=== PATIENT | male | born 1960 | race Caucasian/White ===

== ENCOUNTER 2019-09-02 07:58 | Emergency (ER) | payer MEDICARE, SELFPAY ==
[2019-09-02] VITALS (8 sets, daily range): BP systolic 105–147; BP diastolic 76–90; PULSE 81–112; RESP 9–22; TEMP 36.4; O2SAT 89–100
--- NOTE | ~2019-09-02 | CT_ITS ---
EXAMINATION: CT brain wo con DATE: 09/02/2019 09:00 INDICATION: Breakthrough seizure. Headache. TECHNIQUE: Computed tomography (CT) of the head was performed without intravenous contrast. Sagittal and coronal reconstructions were performed. The mA was adjusted according to patient size. Iterative reconstruction technique was employed. The dose-length product was 681.00 mGy-cm. COMPARISON: Brain MR dated 05/19/2019 FINDINGS: Small old lacunar infarct in the left frontal lobe centrum semiovale. Minimal scattered white matter hypoattenuation consistent with chronic small vessel ischemic disease. No acute intracranial hemorrha ge, acute infarction or abnormal extra axial fluid collection. Ventricles are normal and symmetric. N o mass/mass effect. Mild mucosal thickening the right ethmoid sinus. The orbits, paranasal sinuses an d right mastoid air cells are normal. Left mastoiditis hypopneumatized but clear. Debris/cerumen at t he bilateral external auditory canals. IMPRESSION: 1. No acute intracranial process. 2. Left frontal lobe small old lacunar infarct and minimal scattered white matter hypoattenuation con sistent with chronic small vessel ischemic disease. Reviewed, dictated and finalized at location A. IMPRESSION: 1. No acute intracranial process. 2. Left frontal lobe small old lacunar infarct and minimal scattered white lindsey er hypoattenuation consistent with chronic small vessel ischemic disease.
--- NOTE | 2019-09-02 07:55 | ED.SEIZURE ---
HPI - Seizure General Chief Complaint: Seizure Stated Complaint: seizure Time Seen by Provider: 09/02/19 07:55 Source: EMS Mode of arrival: EMS Limitations: clinical condition History of Present Illness HPI Narrative: A 59 y/o male presents to the ED, via EMS, after a SZ. Per EMS, pt has a PMHx of cerebral palsy and SZs. Pt's mother heard the pt fall from an adjacent room and the pt was found on the ground. Pt fell on his knees during the fall and hit his face with bruising to the left side. Pt does have a PMHx of a previous knee injury and he has been crawling on the floor. When EMS arrived, pt was alert but then had another SZ. EMS is unsure of the pt's normal baseline. Pt is on Phenytoin for his SZ and he had this medication changed within the last couple months. A complete HPI is limited due to clinical condition. Per sister over the phone, pt recently started taking Keppra in addition to dilantin. Patient taking Phenytoin 100 mg BID and Keppra 2000 mg BID. Per sister, dose of dilantin has been gradually lowered. Onset (ago): hour(s) Witnessed: Yes - by EMS Trauma: Yes Seizure History: Yes Place: home Related Data Home Medications Medication Instructions Recorded Confirmed buspirone 15 mg PO TID 09/02/19 09/02/19 finasteride 5 mg PO DAILY 09/02/19 09/02/19 levetiracetam [Keppra] 2,000 mg PO BID 09/02/19 09/02/19 loratadine [Claritin] 10 mg PO DAILY 09/02/19 09/02/19 lorazepam 0.5 mg PO HS 09/02/19 09/02/19 phenytoin sodium extended 100 mg PO BID 09/02/19 09/02/19 [Dilantin Extended] Allergies Allergy/AdvReac Type Severity Reaction Status Date / Time Sulfa (Sulfonamide Allergy Unknown Hives Verified 09/02/19 10:03 Antibiotics) Review of Systems Review of Systems: ROS unobtainable: Yes other (due to clinical condition) PMFSH Past Medical History Medical History Anxiety Basal cell carcinoma (BCC) of right side of nose Cerebral palsy FH: CAD (coronary artery disease) GERD (gastroesophageal reflux disease) Hypertriglyceridemia Non-seasonal allergic rhinitis Osteopenia Seizure Sinus problem Vitamin D deficiency Surgical History Surgical History H/O knee surgery bilateral History of tonsillectomy Family History Family History Sibling Family history of malignant neoplasm of breast in first degree relative Patient's sister is in good health Mother Patient's mother is in good health Social History Social History Smoking status: Never smoker Second hand tobacco smoke exposure: No Alcohol intake: never Comments No PCP on file. Exam Narrative: Exam Narrative: GENERAL: Postictal, eyes open, agitated HEAD: Normocephalic, hematoma to left forehead, abrasion to left lip, no laceration EYES: 2+ PERRLA and EOMI. ENT: Nares clear, no rhinorrhea or epistaxis. Mucous membranes moist. Bilateral tongue abrasion. NECK: Supple. CHEST: No audible wheezing, no tachypnea. No respiratory distress. HEART: Tachycardic rate, sinus rhythm ABDOMEN: Soft, nontender, nondistended, normal active bowel sounds. EXTREMITIES: Normal range of motion. No edema. SKIN: Warm, dry, no rash. NEURO: Postictal, moving all extremities spontaneously, no focal deficits Course Course Emergency Course: Patient presented to the emergency department for evaluation of breakthrough seizure. At the time of initial assessment, ABCs are intact and vital signs are stable. Physical examination notable for abrasion to upper lip and left head without laceration. Patient is awake, moving all extremities spontaneously, postictal at this point unable to provide additional history. IV access obtained, patient was given IV Ativan for agitation. Laboratory results are reassuring. No UTI. No severe electrolyte derangement. No acute intracran
--- NOTE | 2019-09-02 08:08 | PC.NURSE ---
Pt yelling out loudly and thrashing on stretcher. Appears to shayla x4, attempts to calm unsuccessful. Preparing to give medications.
[2019-09-02 08:09] LABS: Glucose Point of Care 138 (65-105)
[2019-09-02] MEDS: SODIUM CHLORIDE 0.9% IV 1,000 ML 999 ML IV CONT (08:10)
[2019-09-02] MEDS: LORAZEPAM INJ 2 MG/ML VIAL 1 MG IV PUSH (08:10)
[2019-09-02 08:32] LABS: Basophils Absolute Auto 0.1 K/mm3 (0.0-0.1); Basophils Percent Auto 0.6 % (0.2-1.2); Eosinophils Absolute Auto 0.3 K/mm3 (0-0.3); Hematocrit 41.5 % (42.0-52.0); Hemoglobin 14.3 g/dL (14.0-18.0); Immature Granulocyte Absolute 0.06 K/mm3 (0.00-0.031); Immature Granulocyte Percent A 0.6 % (0-0.5); Lymphocytes Absolute Auto 2.84 K/mm3 (0.9-3.2); Lymphocytes Percent Auto 30.4 % (18.3-44.2); Mean Corpuscular HGB Conc 34.5 g/dl (32-36); Mean Corpuscular Hemoglobin 31.3 pg (26-34); Mean Corpuscular Volume 90.8 fl (80-100); Mean Platelet Volume 9.4 fl (7.4-10.4); Monocytes Absolute Auto 0.8 K/mm3 (0.1-0.6); Monocytes Percent Auto 8.1 % (2.6-8.5); Neutrophils Absolute Auto 5.3 K/mm3 (1.3-6.7); Neutrophils Percent Auto 57.3 % (45.5-73.1); Platelet Count Result 225 k/mm3 (150-375); Red Blood Count 4.57 M/mm3 (4.6-6.20); Red Cell Distribution Width 12.1 % (11.5-14.5); White Blood Count 9.3 K/mm3 (4.5-10.0)
[2019-09-02 08:42] LABS: Prothrombin Time 12.9 Seconds (11.1-14.7)
[2019-09-02 08:43] LABS: Partial Thromboplastin Time 21.8 SECONDS (22.3-36.8)
[2019-09-02 08:49] LABS: Albumin Level 4.3 g/dL (3.5-5.1); Alkaline Phosphatase 55 U/L (38-126); Aspartate Amino Transferase 29 U/L (17-59); Bilirubin,Total 0.3 mg/dL (0.2-1.3); Blood Urea Nitrogen 11 mg/dL (9-20); Calcium 8.9 mg/dL (8.4-10.2); Carbon Dioxide 19 mmol/L (22-30); Chloride 106 mmol/L (98-107); Estimated Glomerular Filt Rate > 60; Glucose 131 mg/dL (75-110); Potassium 3.7 mmol/L (3.4-5.0); Sodium 138 mmol/L (137-145)
[2019-09-02 09:23] LABS: Alanine Aminotransferase 22 U/L (4-50)
[2019-09-02 09:24] LABS: Phenytoin Dilantin < 3 ug/mL (10-20)
[2019-09-02 09:37] LABS: Add Urine Microscopic? YES; Appearance Urine Clear (Clear); Bilirubin Urine Negative (Negative); Blood Urine Negative (Negative); Color Urine Straw (Yellow); Glucose Urine UA Negative (Negative); Ketones Urine Negative (Negative); Leukocyte Esterase Ur Negative LEU/UL (Negative); Mucus Urine Rare /lpf; Nitrate Urine Negative (Negative); Protein Urine 1+ mg/dL (Negative); RBC Urine 0-2 /hpf (0-2); Specific Grav Ur 1.013 (1.001-1.035); Urobilinogen Urine Negative mg/dL (<2.0)
[2019-09-02] MEDS: levETIRAcetam 1000MG/NACL100ML 1,000 MG/100 ML BAG 400 MG IVPB (09:50)
--- NOTE | 2019-09-02 09:50 | PC.NURSE ---
Pt sleeping soundly and awakens to name. Shakes head yes and no but is mostly noncommunicative. 2nd antiseizure medicine initiated IV.
--- NOTE | 2019-09-02 10:01 | PC.NURSE ---
Call to mother, name of meds and allergies unknown. States normally patient walks with braces on his legs but that he couldnt get them on this am and was crawling around on his knees. States he took his medications this am. Mother reports she is disabled and will not be able to come and see him in the hospital.
--- NOTE | 2019-09-02 16:43 | ED.GENADULT ---
HPI - General Adult General Chief complaint: Seizure Stated complaint: seizure Time Seen by Provider: 09/02/19 07:55 Source: EMS Mode of arrival: EMS Limitations: other (Developmental delay) History of Present Illness HPI narrative: The patient is a 59-year-old male with a history of epilepsy, currently taking phenytoin and Keppra, who presents to the emergency department because family states they are unable to care for him at home. Patient was initially evaluated in the emergency department earlier this morning for breakthrough seizure, given phenytoin, Keppra loading doses, coordinated care with his neurologist, patient was given 1 mg of Ativan for his initial agitation during his postictal state. Patient had awakened, and returned home after coordinating care with the patient's sister and guardian, but the sister called EMS this afternoon as she felt like the patient could not be cared for at home anymore. Per the sister, they had been trying to attempt placement at a long-term care facility for the patient, but due to the current coronavirus outbreak, had been delayed any placement at this point. Patient was then transferred back to our facility via EMS for placement. At the time of assessment, the patient is awake, alert, no acute distress. He is communicating at baseline. He has no complaints. Related Data Home Medications Medication Instructions Recorded Confirmed buspirone 15 mg PO TID 09/02/19 09/02/19 finasteride 5 mg PO DAILY 09/02/19 09/02/19 levetiracetam [Keppra] 2,000 mg PO BID 09/02/19 09/02/19 loratadine [Claritin] 10 mg PO DAILY 09/02/19 09/02/19 lorazepam 0.5 mg PO HS 09/02/19 09/02/19 phenytoin sodium extended 100 mg PO BID 09/02/19 09/02/19 [Dilantin Extended] Allergies Allergy/AdvReac Type Severity Reaction Status Date / Time Sulfa (Sulfonamide Allergy Unknown Hives Verified 09/02/19 10:03 Antibiotics) Review of Systems Review of Systems: Narrative: CONSTITUTIONAL: Denies fever, chills, or sweats ENT: Denies rhinorrhea, congestion CARDIOVASCULAR: Denies chest pain, palpitations, or edema. RESPIRATORY: Denies cough or dyspnea. GASTROINTESTINAL: Denies abdominal pain, nausea, vomiting GENITOURINARY: Denies dysuria or hematuria. SKIN: Denies rash or itching. MUSCULOSKELETAL: Denies back pain, joint pain, or myalgia. NEUROLOGIC: Denies headache, numbness, no new weakness P PMFSH Past Medical History Medical History Anxiety Basal cell carcinoma (BCC) of right side of nose Cerebral palsy FH: CAD (coronary artery disease) GERD (gastroesophageal reflux disease) Hypertriglyceridemia Non-seasonal allergic rhinitis Osteopenia Seizure Sinus problem Vitamin D deficiency Surgical History Surgical History H/O knee surgery bilateral History of tonsillectomy Family History Family History Sibling Family history of malignant neoplasm of breast in first degree relative Patient's sister is in good health Mother Patient's mother is in good health Social History Social History Smoking status: Never smoker Second hand tobacco smoke exposure: No Alcohol intake: never Gender identity (if verbalized by the patient): Male Exam Narrative: Exam Narrative: GENERAL: Awake, alert, no acute distress HEAD: Normocephalic, abrasion to left upper lip, left forehead/eye EYES: 2+ PERRLA and EOMI. ENT: Nares clear, no rhinorrhea or epistaxis. Mucous membranes moist. NECK: Supple. CHEST: Clear to auscultation. No respiratory distress. HEART: Regular rate and rhythm. No murmur heard. Normal peripheral pulses. ABDOMEN: Soft, nontender, nondistended, normal active bowel sounds. EXTREMITIES: Normal range of motion. No edema. Atrophy of the bilateral lower extremities. SKIN: Warm, dry, n
[2019-09-05 08:00] LABS: Levetiracetam Keppra 50.1 mcg/mL (12.0-46.0)
== END 2019-09-02 11:59 | disposition home or self-care (01) ==
PROVIDERS: Emergency Provider Emergency Medicine; PCP Family Medicine
DX: G40.919 Epilepsy, unspecified, intractable, without status epilepticus (principal); F41.9 Anxiety disorder, unspecified; G80.9 Cerebral palsy, unspecified; K21.9 Gastro-esophageal reflux disease without esophagitis; M85.80 Other specified disorders of bone density and structure, unspecified site; E78.1 Pure hyperglyceridemia; E55.9 Vitamin D deficiency, unspecified; S00.83XA Contusion of other part of head, initial encounter; W18.39XA Other fall on same level, initial encounter
CPT/HCPCS: 36415; 51701; 70450; 80053; 80177; 80185; 81001; 82948; 85025; 85610; 85730; 96361; 96365; 96367; 96375; 99284; J1165; J1953; J2060; J7030

== ENCOUNTER 2019-09-02 16:34 | Observation (INO) | payer MEDICARE, SELFPAY ==
--- NOTE | 2019-09-02 07:55 | ER_ITS ---
This report was moved to [id number] on October 02, 2019. Original report was signed by Dr. Jeanna Means on September 02, 2019 at 1713. HPI - General Adult General Chief complaint: Seizure Stated complaint: seizure Time Seen by Provider: 09/02/19 07:55 Source: EMS Mode of arrival: EMS Limitations: other (Developmental delay) History of Present Illness HPI narrative: The patient is a 59-year-old male with a history of epilepsy, currently taking phenytoin and Keppra, who presents to the emergency department because family states they are unable to care for him at home. Patient was initially evaluated in the emergency department earlier this morning for breakthrough seizure, given phenytoin, Keppra loading doses, coordinated care with his neurologist, patient was given 1 mg of Ativan for his initial agitation during his postictal state. Patient had awakened, and returned home after coordinating care with the patient's sister and guardian, but the sister called EMS this afternoon as she felt like the patient could not be cared for at home anymore. Per the sister, they had been trying to attempt placement at a long- term care facility for the patient, but due to the current coronavirus outbreak, had been delayed any placement at this point. Patient was then transferred back to our facility via EMS for placement. At the time of assessment, the patient is awake, alert, no acute distress. He is communicating at baseline. He has no complaints. Related Data Home Medications Medication Instructions Recorded Confirmed buspirone 15 mg PO TID 09/02/19 09/02/19 finasteride 5 mg PO DAILY 09/02/19 09/02/19 levetiracetam [Keppra] 2,000 mg PO BID 09/02/19 09/02/19 loratadine [Claritin] 10 mg PO DAILY 09/02/19 09/02/19 lorazepam 0.5 mg PO HS 09/02/19 09/02/19 phenytoin sodium extended 100 mg PO BID 09/02/19 09/02/19 [Dilantin Extended] Allergies Allergy/AdvReac Type Severity Reaction Status Date / Time Sulfa (Sulfonamide Allergy Unknown Hives Verified 09/02/19 10:03 Antibiotics) Review of Systems Review of Systems: Narrative: CONSTITUTIONAL: Denies fever, chills, or sweats ENT: Denies rhinorrhea, congestion CARDIOVASCULAR: Denies chest pain, palpitations, or edema. RESPIRATORY: Denies cough or dyspnea. GASTROINTESTINAL: Denies abdominal pain, nausea, vomiting GENITOURINARY: Denies dysuria or hematuria. SKIN: Denies rash or itching. MUSCULOSKELETAL: Denies back pain, joint pain, or myalgia. NEUROLOGIC: Denies headache, numbness, no new weakness P PMFSH Past Medical History Medical History Anxiety Basal cell carcinoma (BCC) of right side of nose Cerebral palsy FH: CAD (coronary artery disease) GERD (gastroesophageal reflux disease) Hypertriglyceridemia Non-seasonal allergic rhinitis Osteopenia Seizure Sinus problem Vitamin D deficiency Surgical History Surgical History H/O knee surgery bilateral History of tonsillectomy Family History Family History Sibling Family history of malignant neoplasm of breast in first degree relative Patient's sister is in good health Mother Patient's mother is in good health Social History Social History Smoking status: Never smoker Second hand tobacco smoke exposure: No Alcohol intake: never Gender identity (if verbalized by the patient): Male Exam Narrative: Exam Narrative: GENERAL: Awake, alert, no acute d
[2019-09-02 16:27] VITALS: BP 124/71; PULSE 93; RESP 18; TEMP 36.8; O2SAT 98
--- NOTE | 2019-09-02 16:28 | ED.GENADULT ---
HPI - General Adult General Chief complaint: Unspecified Stated complaint: weakness Time Seen by Provider: 09/02/19 16:35 Source: patient and EMS Mode of arrival: EMS Limitations: no limitations History of Present Illness HPI narrative: A 59 y/o male has returned to the ED via EMS with a c/o fatigue. Pt came to the ED this morning for a seizure and was given 1 mg of Ativan 8:00 AM. Family to the pt note that now that the Ativan has worn off, he seems more fatigued than usual. Per EMS, the pt and his mother were supposed to go to an assisted living facility, but they are not accepting anyone due to COVID-19. Pt has had no repeat seizure activity since this morning. No missed medication doses. No recent illnesses. Glucose in the 130s per EMS. Vital signs stable. No one had to deliver supplemental oxygen. No bowel or urinary incontinence. Patient is taking phenytoin and Keppra for his seizure medications. MD complaint: Fatigue Onset (ago): unknown Associated symptoms: denies other symptoms Related Data Home Medications Medication Instructions Recorded Confirmed buspirone 15 mg PO TID 09/02/19 09/02/19 finasteride 5 mg PO DAILY 09/02/19 09/02/19 levetiracetam [Keppra] 2,000 mg PO BID 09/02/19 09/02/19 loratadine [Claritin] 10 mg PO DAILY 09/02/19 09/02/19 lorazepam 0.5 mg PO HS 09/02/19 09/02/19 phenytoin sodium extended 100 mg PO TID 09/02/19 09/02/19 [Dilantin Extended] Allergies Allergy/AdvReac Type Severity Reaction Status Date / Time Sulfa (Sulfonamide Allergy Unknown Hives Verified 09/02/19 10:03 Antibiotics) Review of Systems Review of Systems: Narrative: CONSTITUTIONAL: Reports fatigue Neuro: Denies weakness or numbness Limited due to developmental delay PMFSH Past Medical History Medical History Anxiety Basal cell carcinoma (BCC) of right side of nose Cerebral palsy FH: CAD (coronary artery disease) GERD (gastroesophageal reflux disease) Hypertriglyceridemia Non-seasonal allergic rhinitis Osteopenia Seizure Sinus problem Vitamin D deficiency Surgical History Surgical History H/O knee surgery bilateral History of tonsillectomy Family History Family History Sibling Family history of malignant neoplasm of breast in first degree relative Mother Pacemaker Hypertension Social History Social History Smoking status: Never smoker Second hand tobacco smoke exposure: No Alcohol intake: never Substance use: never Gender identity (if verbalized by the patient): Male Spiritual care concerns: No Agree to blood products: Yes Exam Narrative: Exam Narrative: GENERAL: [Well-appearing, well-nourished, and in no acute distress.] HEAD: Normocephalic, atraumatic. EYES: PERRLA and EOMI. ENT: Nares clear, no rhinorrhea or epistaxis. Mucous membranes moist. NECK: Supple. CHEST: Clear to auscultation. No respiratory distress. HEART: [Regular] rate and rhythm. No murmur heard. Normal peripheral pulses. ABDOMEN: Soft, nontender, nondistended, normal active bowel sounds. EXTREMITIES: Normal range of motion. No edema. SKIN: Warm, dry, no rash. NEURO:[ No focal deficits. Alert and oriented x3] Course Consultations Consultation #1: Discussed case with PUPPY SITTER to the hospitalistGwen. Accepted Admission Date: 09/02/19 Time: 16:30 Vital Signs Vital signs: Vital Signs Temperature 36.8 C 09/02/19 16:27 Pulse Rate 93 09/02/19 16:27 Respiratory Rate 18 09/02/19 16:27 Blood Pressure 124/71 09/02/19 16:27 Pulse Oximetry 98 09/02/19 16:27 Temperature 36.2 C L 09/02/19 21:44 Pulse Rate 86 09/03/19 04:00 Respiratory Rate 18 09/02/19 21:44 Blood Pressure 139/72 09/02/19 21:44 Pulse Oximetry 98 09/02/19 21:44 Medical Decision Making Vital Signs Vi
[2019-09-02 17:33] VITALS: BP 114/72; PULSE 88; RESP 18; O2SAT 98
--- NOTE | 2019-09-02 18:23 | ADMGEN ---
This patient, Aries Patterson I, was admitted to 2 Medical Room 253-01. Patient/family oriented to hospital policies and general routines including ID bracelet, bed and alarms, visiting hours, pain management, procedures, bathroom and other care routines, personal items, smoking policy, room service/diet, and visiting hours. Valuables list has been completed. Information on how to activate the Rapid Response Team has been discussed. Patient/Family are encouraged to report perceived risks to care and to ask questions if they do not understand what they are told or what they should do. Report received from TRAMAINE Kennedy
[2019-09-02 18:44] VITALS: BP 145/85; PULSE 89; RESP 18; TEMP 36.9; O2SAT 100; BMI 28.2
--- NOTE | 2019-09-02 19:29 | PM.IMHP ---
H&P: HPI History of Present Illness Chief complaint: Breakthrough seizure, Weakness Narrative: This is a 59 year old male with known Epilepsy and cerebral palsy who presented to the hospital this morning with a complaint of an acute seizure. Apparently the patient describes eating breakfast with his mother this morning and the next thing he knew he woke up in the ambulance. He denies any tongue biting or loss of urine today. The patient describes sometimes having an aura before seizing and at other times he doesn't have any aura. The patient was evaluated in the ER this morning and loaded with phenytoin and keppra before being sent home. He denies missing any of his home medication doses. He remarks that he has had 5-6 seizures since May and his last seizure was in early July. He had not had any seizures for the past [address] Matthews discontinued one of his seizure medications because they felt the patient was being overmedicated because he felt drunk all the time and had difficulty ambulating with his walker. The patient returned to the ER this afternoon as the family felt they could no longer care for him and they couldn't get him placed in a group home care facility. On my encounter with the patient tonight he is asymptomatic and denies any fever, nausea, vomiting. cough, sore throat, headache, dizziness, blurry vision, neck stiffness, chest pain, shortness of breath, abdominal pain, dysuria, hematuria, diarrhea, or focal neurological deficits. The patient was admitted to the hospital for placement. Review of Systems Review of Systems: All systems reviewed & are unremarkable except as noted in HPI and below PMFSH Past Medical History Medical History Anxiety Basal cell carcinoma (BCC) of right side of nose Cerebral palsy FH: CAD (coronary artery disease) GERD (gastroesophageal reflux disease) Hypertriglyceridemia Non-seasonal allergic rhinitis Osteopenia Seizure Sinus problem Vitamin D deficiency Surgical History Surgical History H/O knee surgery bilateral History of tonsillectomy Family History Family History Sibling Family history of malignant neoplasm of breast in first degree relative Mother Pacemaker Hypertension Social History Social History Smoking status: Never smoker Second hand tobacco smoke exposure: No Alcohol intake: never Substance use: never Gender identity (if verbalized by the patient): Male Spiritual care concerns: No Agree to blood products: Yes Meds Home Medications and Allergies Home Medications Medication Instructions Recorded Confirmed Type buspirone 15 mg PO TID 09/02/19 09/02/19 History finasteride 5 mg PO DAILY 09/02/19 09/02/19 History levetiracetam [Keppra] 2,000 mg PO BID 09/02/19 09/02/19 History loratadine [Claritin] 10 mg PO DAILY 09/02/19 09/02/19 History lorazepam 0.5 mg PO HS 09/02/19 09/02/19 History phenytoin sodium extended 100 mg PO TID 09/02/19 09/02/19 History [Dilantin Extended] Allergies Allergy/AdvReac Type Severity Reaction Status Date / Time Sulfa (Sulfonamide Allergy Unknown Hives Verified 09/02/19 10:03 Antibiotics) Vital Signs Vital Signs - 24 hr 09/02/19 16:27 09/02/19 17:33 09/02/19 18:44 Temperature 36.8 C 36.9 C Pulse Rate 93 88 89 Respiratory Rate 18 18 18 Blood Pressure 124/71 114/72 145/85 H Pulse Oximetry 98 98 100 Exam Const: General: cooperative, no acute distress, alert and awake Nutritional Appearance: overweight Orientation/consciousness: patient oriented x3 HENMT: Head: normal to inspection General nose exam: Normal external nose present Face and sinus: normal facial exam Mouth: Yes Normal oral and palatal mucosa present and Yes oropharynx normal Eyes: Pupil
[2019-09-02 19:40] VITALS: PULSE 91
[2019-09-02 20:00] VITALS: PULSE 91
[2019-09-02] MEDS: PHENYTOIN SODIUM 100 MG CAP PO (20:42)
[2019-09-02] MEDS: busPIRone HCL 5 MG TABLET 15 MG PO (20:42)
[2019-09-02] MEDS: levETIRAcetam 500 MG TABLET 2000 MG PO (20:42)
[2019-09-02] MEDS: LORAZEPAM 0.5 MG TABLET PO (20:43)
[2019-09-02 21:44] VITALS: BP 139/72; PULSE 83; RESP 18; TEMP 36.2; O2SAT 98
[2019-09-03] VITALS (9 sets, daily range): BP systolic 105–138; BP diastolic 63–72; PULSE 71–101; RESP 16–18; TEMP 36.1–36.8; O2SAT 95–99
[2019-09-03 05:44] LABS: Basophils Percent Auto 0.2 % (0.2-1.2); Eosinophils Absolute Auto 0.1 K/mm3 (0-0.3); Eosinophils Percent Auto 0.8 % (0-4.4); Hematocrit 38.2 % (42.0-52.0); Hemoglobin 13.1 g/dL (14.0-18.0); Immature Granulocyte Absolute 0.03 K/mm3 (0.00-0.031); Immature Granulocyte Percent A 0.3 % (0-0.5); Lymphocytes Absolute Auto 1.61 K/mm3 (0.9-3.2); Lymphocytes Percent Auto 14.8 % (18.3-44.2); Mean Corpuscular HGB Conc 34.3 g/dl (32-36); Mean Corpuscular Hemoglobin 30.8 pg (26-34); Mean Corpuscular Volume 89.7 fl (80-100); Mean Platelet Volume 9.4 fl (7.4-10.4); Monocytes Absolute Auto 0.9 K/mm3 (0.1-0.6); Monocytes Percent Auto 8.4 % (2.6-8.5); Neutrophils Absolute Auto 8.2 K/mm3 (1.3-6.7); Neutrophils Percent Auto 75.5 % (45.5-73.1); Platelet Count Result 204 k/mm3 (150-375); Red Blood Count 4.26 M/mm3 (4.6-6.20); Red Cell Distribution Width 12.1 % (11.5-14.5); White Blood Count 10.9 K/mm3 (4.5-10.0)
[2019-09-03 05:56] LABS: Blood Urea Nitrogen 12 mg/dL (9-20); Calcium 8.3 mg/dL (8.4-10.2); Carbon Dioxide 28 mmol/L (22-30); Chloride 102 mmol/L (98-107); Estimated CRCL calculation 124 ml/min; Estimated Glomerular Filt Rate > 60; Glucose 103 mg/dL (75-110); Potassium 3.8 mmol/L (3.4-5.0); Sodium 134 mmol/L (137-145)
[2019-09-03] MEDS: PHENYTOIN SODIUM 100 MG CAP PO ×3 (06:05→21:30)
[2019-09-03] MEDS: levETIRAcetam 500 MG TABLET 2000 MG PO ×2 (08:28→21:30)
[2019-09-03] MEDS: FINASTERIDE 5 MG TABLET PO (08:28)
[2019-09-03] MEDS: LORATADINE 10 MG TABLET PO (08:28)
[2019-09-03] MEDS: busPIRone HCL 5 MG TABLET 15 MG PO ×3 (08:28→16:37)
--- NOTE | 2019-09-03 11:37 | PM.IMPN ---
Progress Note: A&P Assessment and Plan (1) Generalized weakness: Code(s): R53.1 - Weakness Status: Acute Assessment and Plan: [place] to be secondary to seizures and cerebral palsy. Patient's family has expressed that they are no longer able to care for him at home. Care coordination helping with discharge planning. C consult. (2) Breakthrough seizure: Code(s): G40.919 - Epilepsy, unspecified, intractable, without status epilepticus Status: Resolved Assessment and Plan: Continue with his home Keppra and dilantin. Breakthrough seizure yesterday treated in ED. Neurology consulted by ED. IV Ativan PRN for any further seizures. Seizure precautions. (3) Anxiety: Code(s): F41.9 - Anxiety disorder, unspecified Status: Chronic Assessment and Plan: Stable. Continue home Ativan. (4) Cerebral palsy: Qualifiers: Cerebral palsy type: unspecified type Qualified Code(s): G80.9 - Cerebral palsy, unspecified Code(s): G80.9 - Cerebral palsy, unspecified Status: Chronic Subjective Date/time seen: 09/03/19 1100 Interval history: Mr. Patterson is a 59yo M with cerebral palsy and epilepsy admitted for generalized weakness - family no longer able to care for him at home. He reports feeling well today and offers no complaints. He denies any chest pain, shortness of breath, or cough. Afebrile. No recent travel. He tells me he normally walks using a walker but has not been able to walk recently due to weakness. He denies any nausea, vomiting, or abdominal pain. Review of Systems Review of Systems: Narrative: Twelve systems were reviewed with pertinent positives and negatives as per HPI. Exam Narrative: Exam Narrative: General: Male resting sitting up in bedside chair in no acute distress. HEENT: Normocephalic, EOMI, oral mucosa tacky, poor dentition. Cardiovascular: Rate and rhythm are regular. Respiratory: Lungs clear to auscultation all nava. Non-labored breathing. Abdomen: Soft, non-tender, non-distended, bowel sounds present. Extremities: Peripheral pulses intact. No edema or erythema. Neuro: Alert, knows why he is in the hospital. Speech is slow but clear. At his baseline. Objective Data Vital Signs Vital Signs: Last Vital Signs Temp 98.0 F 09/03/19 06:00 Pulse 84 09/03/19 08:00 Resp 18 09/03/19 06:00 BP 138/72 09/03/19 06:00 Pulse Ox 95 09/03/19 06:00 Intake/Output Intake/Output: Intake & Output 08/31/19 09/01/19 09/02/19 09/03/19 23:59 23:59 23:59 23:59 Intake Total 660 Balance 660 Meds/Results Medications: Active Medications Generic Name Dose Route Start Last Admin Trade Name Freq PRN Reason Stop Dose Admin Acetaminophen 650 mg 09/02/19 19:50 Tylenol Tablet PO Q4H PRN Mild Pain (1-3) or Fever Buspirone HCl 15 mg 09/02/19 17:00 09/03/19 08:28 Buspar PO 15 mg TID RICARDO Administration Finasteride 5 mg 09/03/19 09:00 09/03/19 08:28 Proscar PO 5 mg DAILY RICARDO Administration Levetiracetam 2,000 mg 09/02/19 21:00 09/03/19 08:28 Keppra Tablet PO 2,000 mg Q12HR RICARDO Administration Loratadine 10 mg 09/03/19 09:00 09/03/19 08:28 Claritin PO 10 mg DAILY RICARDO Administration Lorazepam 0.5 mg 09/02/19 21:00 09/02/19 20:43 Ativan Tab PO 0.5 mg HS RICARDO Administration Phenytoin Sodium 100 mg 09/02/19 22:00 09/03/19 06:05 Dilantin Kapseals PO 100 mg Q8HR RICARDO Administration Labs Labs: Laboratory Tests 09/03/19 05:25 09/03/19 05:25 Quality VTE Prophylaxis VTE prophylaxis: mechanical ordered
[2019-09-03] MEDS: LORAZEPAM 0.5 MG TABLET PO (21:30)
[2019-09-04] VITALS: PULSE 81
[2019-09-04 04:00] VITALS: PULSE 74
[2019-09-04 06:00] VITALS: BP 138/84; PULSE 81; RESP 18; TEMP 36.6; O2SAT 97
[2019-09-04 06:03] LABS: Basophils Percent Auto 0.3 % (0.2-1.2); Eosinophils Absolute Auto 0.3 K/mm3 (0-0.3); Eosinophils Percent Auto 2.7 % (0-4.4); Hematocrit 40.6 % (42.0-52.0); Hemoglobin 14.2 g/dL (14.0-18.0); Immature Granulocyte Absolute 0.03 K/mm3 (0.00-0.031); Immature Granulocyte Percent A 0.3 % (0-0.5); Lymphocytes Absolute Auto 1.75 K/mm3 (0.9-3.2); Lymphocytes Percent Auto 18.6 % (18.3-44.2); Mean Corpuscular Hemoglobin 31.1 pg (26-34); Mean Corpuscular Volume 88.8 fl (80-100); Mean Platelet Volume 9.7 fl (7.4-10.4); Monocytes Absolute Auto 0.9 K/mm3 (0.1-0.6); Monocytes Percent Auto 9.6 % (2.6-8.5); Neutrophils Absolute Auto 6.5 K/mm3 (1.3-6.7); Neutrophils Percent Auto 68.5 % (45.5-73.1); Platelet Count Result 202 k/mm3 (150-375); Red Blood Count 4.57 M/mm3 (4.6-6.20); Red Cell Distribution Width 12.2 % (11.5-14.5); White Blood Count 9.4 K/mm3 (4.5-10.0)
[2019-09-04] MEDS: PHENYTOIN SODIUM 100 MG CAP PO ×2 (06:10→13:18)
[2019-09-04 07:46] LABS: Blood Urea Nitrogen 14 mg/dL (9-20); Carbon Dioxide 27 mmol/L (22-30); Chloride 102 mmol/L (98-107); Estimated CRCL calculation 107 ml/min; Estimated Glomerular Filt Rate > 60; Glucose 101 mg/dL (75-110); Magnesium 1.9 mg/dL (1.6-2.3); Phosphorus 2.6 mg/dL (2.5-4.5); Potassium 3.9 mmol/L (3.4-5.0); Sodium 135 mmol/L (137-145)
[2019-09-04 08:00] VITALS: PULSE 79
[2019-09-04] MEDS: busPIRone HCL 5 MG TABLET 15 MG PO ×3 (08:02→17:43)
[2019-09-04] MEDS: FINASTERIDE 5 MG TABLET PO (08:02)
[2019-09-04] MEDS: levETIRAcetam 500 MG TABLET 2000 MG PO (08:02)
[2019-09-04] MEDS: LORATADINE 10 MG TABLET PO (08:03)
--- NOTE | 2019-09-04 11:19 | CONS_ITS ---
DATE OF CONSULTATION: 09/02/2019 This 59 years old right-handed male has been admitted to [facility] through the emergency room for the complaint of breakthrough seizures, in addition to history of the underlying cerebral palsy with epilepsy. Apparently the patient ate breakfast in the morning and next thing he knew that he woke up in the ambulance. There was no history of tongue biting or incontinence of bladder. He mentioned that he some time has aura before seizing and at some time he does not. In the emergency room, he was loaded with the phenytoin and Keppra before being sent home. He has had 5 to 6 seizures in May and with last seizure in July. He has not had any seizure for the last [address] Harper discontinued one of his seizure medication because they felt the patient was being overmedicated, as he was drunk all the time. The patient does have ongoing history of, 1. Anxiety. 2. Basal cell carcinoma of the right nose. 3. Cerebral palsy. 4. Coronary artery disease. 5. GERD. 6. Hypertriglyceridemia. 7. Nonseasonal allergic rhinitis. 8. Osteopenia. 9. Seizure. 10. Sinus problem. 11. Vitamin D deficiency. PAST SURGICAL HISTORY: In the past, he has undergone knee surgery bilaterally in addition to tonsillectomy. SOCIAL HISTORY: He is a never smoker, never drinker. MEDICATIONS: Has been taking, 1. BuSpar 15 mg 3 times a day. 2. Finasteride 5 mg daily. 3. Keppra 2000 mg twice a day. 4. Loratadine 10 mg daily. 5. Lorazepam 0.5 mg h.s. 6. Phenytoin 100 mg 3 times a day. ALLERGIES: HE IS ALLERGIC TO SULFA. PHYSICAL EXAMINATION: VITAL SIGNS: On initial evaluation, he was noted to be afebrile with temp of 36.8, pulse 93, respirations 18, blood pressure 124/71. GENERAL: On examination, he is awake, alert, walk, cooperative, in no obvious acute distress. HEAD: Normocephalic with no cranial bruit. EAR, NOSE, THROAT: Normal. Facial features are coarse. The patient had been on Dilantin therapy for long time. NECK: Supple with no cervical bruit. No thyromegaly. No lymphadenopathy. HEART: Regular. LUNGS: Clear. ABDOMEN: Soft. NEUROLOGICAL: He is awake, alert. He knows he is in the hospital. He follows instructions very well. Pupils round, regular. [place] of vision full. Extraocular movements full. Face symmetrical. Tongue midline, and motor examination revealed him to have no focal drift. Reflexes symmetrical. Plantars downgoing. LABORATORY DATA: Initial CT scan of the head is negative. IMPRESSION: Breakthrough seizure in a person who has the mental retardation, with history of epilepsy for long duration. As he was having difficulties in coordination, he was taken off the Dilantin, started on Keppra, which was gradually increased to 4000 mg per day, but unfortunately he keeps having breakthrough seizure. We will put him back on Dilantin along with the Keppra. Further adjustments will be made accordingly. YAW HARPER M.D. RECOVERY RN RECOVERY RN D I MT: Ana
[2019-09-04 12:00] VITALS: PULSE 94
--- NOTE | 2019-09-04 12:32 | PM.IMPN ---
Subjective Date/time seen: 09/04/19 1130 Objective Data Vital Signs Vital Signs: Vital Signs - 24 hr 09/03/19 14:00 09/03/19 16:00 09/03/19 20:00 Temperature 98.3 F Pulse Rate 79 101 H 74 Respiratory Rate 18 Blood Pressure 105/63 Pulse Oximetry 99 09/03/19 22:00 09/04/19 00:00 09/04/19 04:00 Temperature 97.0 F L Pulse Rate 71 81 74 Respiratory Rate 16 Blood Pressure 118/71 Pulse Oximetry 99 09/04/19 06:00 Temperature 97.8 F Pulse Rate 81 Respiratory Rate 18 Blood Pressure 138/84 Pulse Oximetry 97 Intake/Output Intake/Output: Intake & Output 09/01/19 09/02/19 09/03/19 09/04/19 23:59 23:59 23:59 23:59 Intake Total 1910 810 Output Total 800 Balance 1910 10 Meds/Results Medications: Active Medications Generic Name Dose Route Start Last Admin Trade Name Freq PRN Reason Stop Dose Admin Acetaminophen 650 mg 09/02/19 19:50 Tylenol Tablet PO Q4H PRN Mild Pain (1-3) or Fever Buspirone HCl 15 mg 09/02/19 17:00 09/04/19 08:02 Buspar PO 15 mg TID RICARDO Administration Finasteride 5 mg 09/03/19 09:00 09/04/19 08:02 Proscar PO 5 mg DAILY RICARDO Administration Levetiracetam 2,000 mg 09/02/19 21:00 09/04/19 08:02 Keppra Tablet PO 2,000 mg Q12HR RICARDO Administration Loratadine 10 mg 09/03/19 09:00 09/04/19 08:03 Claritin PO 10 mg DAILY RICARDO Administration Lorazepam 0.5 mg 09/02/19 21:00 09/03/19 21:30 Ativan Tab PO 0.5 mg HS RICARDO Administration Phenytoin Sodium 100 mg 09/02/19 22:00 09/04/19 06:10 Dilantin Kapseals PO 100 mg Q8HR RICARDO Administration Labs Labs: Laboratory Results - last 24 hr 09/04/19 09/04/19 05:38 07:14 WBC 9.4 RBC 4.57 L Hgb 14.2 Hct 40.6 L MCV 88.8 MCH 31.1 MCHC 35.0 RDW 12.2 Plt Count 202 MPV 9.7 Immature Gran % (Auto) 0.3 Neut % (Auto) 68.5 Lymph % (Auto) 18.6 [place] % (Auto) 9.6 H Eos % (Auto) 2.7 Baso % (Auto) 0.3 Lymph # (Auto) 1.75 [place] # (Auto) 0.9 H Eos # (Auto) 0.3 Baso # (Auto) 0.0 Abs Immat Gran (auto) 0.03 Absolute Neuts (auto) 6.5 Absolute Nucleated RBC 0.0 Nucleated RBC % 0.0 Sodium 135 L Potassium 3.9 Chloride 102 Carbon Dioxide 27 BUN 14 Creatinine 0.70 Estim Creat Clear Calc 107 Estimated GFR > 60 Glucose 101 Calcium 8.0 L Phosphorus 2.6 Magnesium 1.9 Quality VTE Prophylaxis VTE prophylaxis: mechanical ordered
[2019-09-04 14:00] VITALS: BP 114/58; PULSE 81; RESP 18; TEMP 36.4; O2SAT 98
--- NOTE | 2019-09-04 15:35 | PCPTNOTE ---
Patient was seen this afternoon for PT. Transfer and strengthening exercise interventions performed ( See interventions in EMR). I spoke with the patient's sister Isaac to provide information on his progress with therapy. I informed her that at this time he requires total assist x 1 to max assist x 2 for sit to stand transfers with use of a srinivas stedy. Patient does not have the strength in (B) LE to achieve standing due to knees buckling during attempts to stand without blocking. Gait at this time was not able to be assessed due to patient's inability to perform sit to stand transfers safely. Patient is unsafe for discharge home at this time due transfer and gait limitations. Patient's sister Isaac voices her understanding of the patient's limitations and safety concerns.
--- NOTE | 2019-09-07 11:08 | PM.DS ---
DS: Diagnosis Admitting Diagnosis Admitting Diagnosis: Weakness Discharge Diagnosis (1) Generalized weakness: Code(s): R53.1 - Weakness Status: Acute Assessment and Plan: Date of Service 09/04/19 Mr. Patterson is a 59yo M with cerebral palsy and epilepsy who presented to the ED for evaluation after a breakthrough seizure on 09/02/19. He was treated appropriately in the ED and discharged home once he was stable. He was promptly brought back into the ED several hours later, as it is documented that family members felt they could no longer care for the patient at home. [employer] main stores assistant is his 89yo mother, Estephanie, and his sister, Isaac, helps at home as well. It is documented in the ED note that Isaac noted they had been trying to attempt placement at a long-term care facility for the patient, but the process was delayed due to the current Coronavirus outbreak. The patient was monitored in observation over the weekend while case management arranged prison placement. Once Mr. Patterson was accepted to [facility], his mother expressed she now wanted to bring him home. Multiple staff members (including case management, physical therapy, and myself) contacted family members to express concern for the patient to discharge home. Mr. Patterson cannot walk, has been crawling to get around the house for quite some time, and his mother is unable to lift him which prompts activation of EMS. It was discussed to his family members that discharge to SNF was recommended at this time, for the safety of both the patient and his elderly mother. Family ultimately agreed with discharge to SNF. He was hemodynamically stable for discharge 09/04/19. His anti-epileptic drugs are managed by Dr Matthews. [place] to be secondary to seizures and cerebral palsy. Patient's family has expressed that they are no longer able to care for him at home. Discharge to SNF. (2) Breakthrough seizure: Code(s): G40.919 - Epilepsy, unspecified, intractable, without status epilepticus Status: Resolved Assessment and Plan: Continue with his home Keppra and dilantin. Evaluated by Dr Matthews prior to discharge. Follow up with neurology. (3) Anxiety: Code(s): F41.9 - Anxiety disorder, unspecified Status: Chronic Assessment and Plan: Stable. Continue home Ativan. (4) Cerebral palsy: Qualifiers: Cerebral palsy type: unspecified type Qualified Code(s): G80.9 - Cerebral palsy, unspecified Code(s): G80.9 - Cerebral palsy, unspecified Status: Chronic DS: Summary Time Spent with Patient Time attestation: Total time spent providing and/or coordinating discharge services: 60 minutes Exam Narrative: Exam Narrative: Last Vital Signs Temp 97.5 F L 09/04/19 14:00 Pulse 81 09/04/19 14:00 Resp 18 09/04/19 14:00 BP 114/58 L 09/04/19 14:00 Pulse Ox 98 09/04/19 14:00 General: Male resting sitting up in bedside chair in no acute distress. HEENT: Normocephalic, EOMI, oral mucosa tacky, poor dentition. Cardiovascular: Rate and rhythm are regular. Respiratory: Lungs clear to auscultation all nava. Non-labored breathing. Abdomen: Soft, non-tender, non-distended, bowel sounds present. Extremities: Peripheral pulses intact. No edema or erythema. Neuro: Alert, knows why he is in the hospital. Speech is slow but clear. At his baseline. Discharge Plan Discharge Attending physician on discharge: Rebekah Machado Consulting providers: Jayson Matthews ; Kaden Ma ; Rosa Isela Pacheco Discharging Clinician: Rosa Isela Pacheco Anticipated Discharge Date/Time: 09/04/19 13:54 Patient Disposit
== END 2019-09-04 17:58 ==
LOC: ANHED 16:43 → ANH2MED 17:24
PROVIDERS: Family Medicine; Physician Assistant; Admitting Provider Internal Medicine; Emergency Provider Emergency Medicine; PCP Family Medicine; Visit Provider Family Medicine
DX: G40.919 Epilepsy, unspecified, intractable, without status epilepticus (principal); R53.1 Weakness; G80.9 Cerebral palsy, unspecified; F79 Unspecified intellectual disabilities; F41.9 Anxiety disorder, unspecified; R33.9 Retention of urine, unspecified; J30.9 Allergic rhinitis, unspecified; Z28.21 Immunization not carried out because of patient refusal; Z79.899 Other long term (current) drug therapy; Z85.828 Personal history of other malignant neoplasm of skin; Z88.2 Allergy status to sulfonamides
CPT/HCPCS: 36415; 80048; 83735; 84100; 85025; 97110; 97161; 97165; 97530; 99285; A9270; G0378

== ENCOUNTER 2019-09-15 11:55 | Emergency (ER) | payer MEDICARE, SELFPAY ==
--- NOTE | ~2019-09-15 | XR_ITS ---
EXAMINATION: XR chest 2V DATE: 09/15/2019 12:56 INDICATION: Transient alteration of awareness TECHNIQUE: AP and lateral views of the chest are obtained. COMPARISON: 07/22/2004 FINDINGS: The lung volumes are low. There are minimal airspace opacities of the lung bases. There is no pleural effusion or pneumothorax. Cardiomegaly is noted. There is mild thoracic spondylosis. IMPRESSION: 1. Minimal airspace opacities of the lung bases, consistent with atelectasis versus pneumonia. Reviewed, dictated and finalized at location B. IMPRESSION: 1. Minimal airspace opacities of the lung bases, consistent with atelectasis ve rsus pneumonia.
--- NOTE | ~2019-09-15 | CT_ITS ---
EXAMINATION: CT brain wo con DATE: 09/15/2019 12:57 INDICATION: Unresponsive episode. TECHNIQUE: Computed tomography (CT) of the head was performed without intravenous contrast. The mA wa s adjusted according to patient size. Iterative reconstruction technique was employed. The dose-lengt h product was 681.00 mGy-cm. COMPARISON: Head CT 09/02/2019, brain MRI 05/19/2019 FINDINGS: There are scattered areas of nonspecific increased T2-weighted signal intensity in the cere bral white matter, which is within normal limits for the patient's age. There is a prominent perivasc ular space in the deep white matter of the left frontal lobe. There is no intracranial hemorrhage, ac driss infarction, or abnormal intracranial mass lesion. The ventricles are normal in size. There is mil d mucosal thickening in the ethmoid and left maxillary sinuses. The mastoid air cells are normal. The orbits are normal. IMPRESSION: 1. Normal aging brain. Reviewed, dictated and finalized at location A. IMPRESSION: 1. Normal aging brain.
[2019-09-15 11:58] VITALS: BP 159/87; PULSE 97; RESP 21; TEMP 36.4; O2SAT 96
--- NOTE | 2019-09-15 11:58 | ED.AMS ---
HPI - Altered Mental Status General Chief Complaint: Altered Mental Status Stated Complaint: possible seizure Time Seen by Provider: 09/15/19 11:58 Source: patient and EMS Mode of arrival: EMS Limitations: other (developmental delay) History of Present Illness HPI narrative: Patient presented to the emergency department from [facility] for evaluation of possible breakthrough seizure. Patient transported via EMS. At the time of arrival to our facility, the patient states that he had been giving his medications and was just feeling sleepy after getting his muscle relaxer. He denied any unresponsive episodes or seizure-like activity. Patient is compliant with his medications, he has been feeling well. He reports some chronic right sided gas pain which is rated at a 4 in nature, mild. No fever, nausea or vomiting. Patient reports no weakness currently. Patient has cerebral palsy, developmental delay, uses a wheelchair as well as able to scoot himself around the room using his arms. Patient denies any numbness or injury. No headache pain or vision changes. Related Data Home Medications Medication Instructions Recorded Confirmed buspirone 15 mg PO TID 09/02/19 09/02/19 finasteride 5 mg PO DAILY 09/02/19 09/02/19 levetiracetam [Keppra] 2,000 mg PO BID 09/02/19 09/02/19 loratadine [Claritin] 10 mg PO DAILY 09/02/19 09/02/19 phenytoin sodium extended 100 mg PO TID 09/02/19 09/02/19 [Dilantin Extended] Allergies Allergy/AdvReac Type Severity Reaction Status Date / Time Sulfa (Sulfonamide Allergy Unknown Hives Verified 09/02/19 10:03 Antibiotics) Review of Systems Review of Systems: Narrative: CONSTITUTIONAL: Denies fever, chills, or sweats. EYES: Denies visual changes, redness, or discharge. ENT: Denies rhinorrhea, congestion, sore throat, or otalgia. CARDIOVASCULAR: Denies chest pain, palpitations, or edema. RESPIRATORY: Denies cough or dyspnea. GASTROINTESTINAL: Denies abdominal pain, nausea, vomiting, or diarrhea. GENITOURINARY: Denies dysuria or hematuria. SKIN: Denies rash or itching. MUSCULOSKELETAL: Denies back pain, joint pain, or myalgia. NEUROLOGIC: Denies headache, numbness, or weakness. [facility] Past Medical History Medical History Anxiety Basal cell carcinoma (BCC) of right side of nose Cerebral palsy FH: CAD (coronary artery disease) GERD (gastroesophageal reflux disease) Hypertriglyceridemia Non-seasonal allergic rhinitis Osteopenia Seizure Sinus problem Vitamin D deficiency Surgical History Surgical History H/O knee surgery bilateral History of tonsillectomy Family History Family History Sibling Family history of malignant neoplasm of breast in first degree relative Mother Pacemaker Hypertension Social History Social History Smoking status: Never smoker Second hand tobacco smoke exposure: No Alcohol intake: never Substance use: never Gender identity (if verbalized by the patient): Male Spiritual care concerns: No Agree to blood products: Yes Exam Narrative: Exam Narrative: GENERAL: Awake, alert, conversant HEAD: Normocephalic, atraumatic. EYES: PERRLA and EOMI. ENT: Nares clear, no rhinorrhea or epistaxis. Mucous membranes dry NECK: Supple. CHEST: No respiratory distress, breathing even and non labored HEART: Regular rate, sinus rhythm ABDOMEN:Non distended, non tender EXTREMITIES: Atrophy of bilateral lower extremities. Decreased ROM of lower extremities; chronic. No edema. SKIN: Warm, dry, no rash. NEURO:No focal deficits. Alert and oriented x3 Course Course Emergency Course: Patient was sent to the emergency department for evaluation of unresponsive episode. I called the facility to clarify what had occurred,
--- NOTE | 2019-09-15 12:08 | ECG_ITS ---
Measurements Intervals [place] Rate: 89 P: 28 [place]: 205 QRS: 34 QRSD: 153 T: 24 QT: 369 QTc: 450 Interpretive Statements SINUS RHYTHM WITH FIRST DEGREE AV BLOCK POSSIBLE LEFT ATRIAL ENLARGEMENT RIGHT BUNDLE BRANCH BLOCK BASELINE WANDER- I, III ABNORMAL ECG Electronically Signed On 09-15-2019 13:14:58 CDT by Mo Mcgregor D.O.
[2019-09-15 12:24] LABS: Basophils Percent Auto 0.4 % (0.2-1.2); Eosinophils Absolute Auto 0.6 K/mm3 (0-0.3); Eosinophils Percent Auto 5.7 % (0-4.4); Hematocrit 35.3 % (42.0-52.0); Immature Granulocyte Absolute 0.05 K/mm3 (0.00-0.031); Immature Granulocyte Percent A 0.5 % (0-0.5); Lymphocytes Absolute Auto 1.23 K/mm3 (0.9-3.2); Lymphocytes Percent Auto 11.8 % (18.3-44.2); Mean Corpuscular Hemoglobin 31.1 pg (26-34); Mean Corpuscular Volume 91.5 fl (80-100); Mean Platelet Volume 9.1 fl (7.4-10.4); Monocytes Percent Auto 9.2 % (2.6-8.5); Neutrophils Absolute Auto 7.5 K/mm3 (1.3-6.7); Neutrophils Percent Auto 72.4 % (45.5-73.1); Platelet Count Result 322 k/mm3 (150-375); Red Blood Count 3.86 M/mm3 (4.6-6.20); White Blood Count 10.4 K/mm3 (4.5-10.0)
--- NOTE | 2019-09-15 12:32 | PC.NURSE ---
Per EMS pt had seizure and was unresponsive. Pt states he was given muscle relaxer and seizure meds this morning and was drowsy. Pt states he did not have seizure today. Pt is A&Ox4. Pt states he just had his seizure med levels checked. Pt had no blood work sent with paperwork. Pt states he has gas pain to R abd but no abd pain on palpation. Pt neuro intact
[2019-09-15 12:37] LABS: Prothrombin Time 12.9 Seconds (11.1-14.7)
[2019-09-15 12:38] LABS: Partial Thromboplastin Time 28.1 SECONDS (22.3-36.8)
[2019-09-15 12:39] LABS: Alanine Aminotransferase 34 U/L (4-50); Albumin Level 3.6 g/dL (3.5-5.1); Alkaline Phosphatase 80 U/L (38-126); Aspartate Amino Transferase 38 U/L (17-59); Bilirubin,Total 0.3 mg/dL (0.2-1.3); Blood Urea Nitrogen 18 mg/dL (9-20); Calcium 8.7 mg/dL (8.4-10.2); Carbon Dioxide 30 mmol/L (22-30); Chloride 102 mmol/L (98-107); Estimated CRCL calculation 107 ml/min; Estimated Glomerular Filt Rate > 60; Glucose 137 mg/dL (75-110); Sodium 137 mmol/L (137-145)
[2019-09-15 12:51] LABS: Troponin I < 0.012 ng/mL (0.000-0.034)
[2019-09-15 14:40] LABS: Add Urine Microscopic? YES; Appearance Urine Cloudy (Clear); Bacteria Urine Trace /hpf; Bilirubin Urine Negative (Negative); Blood Urine Negative (Negative); Color Urine Yellow (Yellow); Glucose Urine UA Negative (Negative); Ketones Urine Negative (Negative); Leukocyte Esterase Ur 1+ LEU/UL (Negative); Mucus Urine Rare /lpf; Nitrate Urine Negative (Negative); Protein Urine 1+ mg/dL (Negative); RBC Urine 0-2 /hpf (0-2); Specific Grav Ur 1.017 (1.001-1.035); Urobilinogen Urine Negative mg/dL (<2.0)
--- NOTE | 2019-09-15 16:04 | PC.NURSE ---
per erp Miguelangel, pt d/c pending troponin 3hour level normal.
[2019-09-15 16:12] LABS: Troponin I < 0.012 ng/mL (0.000-0.034)
[2019-09-18 14:32] LABS: Levetiracetam Keppra 55.1 mcg/mL (12.0-46.0)
== END 2019-09-15 19:15 ==
PROVIDERS: Emergency Provider Emergency Medicine; PCP Family Medicine
DX: R41.82 Altered mental status, unspecified (principal); F41.9 Anxiety disorder, unspecified; Z85.828 Personal history of other malignant neoplasm of skin; G80.9 Cerebral palsy, unspecified; K21.9 Gastro-esophageal reflux disease without esophagitis; E78.1 Pure hyperglyceridemia; M85.80 Other specified disorders of bone density and structure, unspecified site; E55.9 Vitamin D deficiency, unspecified; R91.8 Other nonspecific abnormal finding of lung field; I44.0 Atrioventricular block, first degree; R94.31 Abnormal electrocardiogram [ECG] [EKG]; I45.10 Unspecified right bundle-branch block
CPT/HCPCS: 36415; 70450; 71046; 80053; 80177; 81001; 84484; 85025; 85610; 85730; 87077; 87086; 87088; 93005; 99284

== ENCOUNTER 2020-02-04 11:24 | Emergency (ER) | payer MEDICARE, SELFPAY ==
--- NOTE | ~2020-02-04 | CT_ITS ---
EXAMINATION: CT brain wo con DATE: 02/04/2020 11:57 INDICATION: Head trauma with abrasions to the face and head. Seizure. TECHNIQUE: Computed tomography (CT) of the head was performed without intravenous contrast. Sagittal and coronal reconstructions were performed. The mA was adjusted according to patient size. Iterative reconstruction technique was employed. The dose-length product was 681.00 mGy-cm. COMPARISON: head CT dated 09/15/2019 FINDINGS: No fracture. No acute intracranial hemorrhage, acute infarction or abnormal extra axial fluid collect ion. Unchanged prominent perivascular space in the deep white matter of the left frontal lobe. There is minimal scattered white matter hypoattenuation consistent with chronic small vessel ischemic disea se. Ventricles are normal and symmetric. No mass/mass effect. Mild mucosal thickening in the right e thmoid and left maxillary sinuses. The orbits and mastoid air cells are normal. IMPRESSION: 1. No fracture or acute intracranial process. Reviewed, dictated and finalized at location A.
--- NOTE | ~2020-02-04 | XR_ITS ---
EXAMINATION: XR chest 1V portable DATE: 02/04/2020 11:40 INDICATION: Breakthrough seizure TECHNIQUE: frontal view of the chest was obtained. COMPARISON: Chest radiograph dated 09/15/2019 FINDINGS: Improved expansion of the lungs. No focal airspace opacities, pulmonary edema, pleural effusion or pn eumothorax. The cardiomediastinal silhouette is within normal limits for AP technique. IMPRESSION: 1. No acute cardiopulmonary disease. Reviewed, dictated and finalized at location A.
--- NOTE | 2020-02-04 11:14 | ED.GENADULT ---
HPI - General Adult General Chief complaint: Seizure Stated complaint: seizure Source: patient and EMS Mode of arrival: EMS Limitations: clinical condition History of Present Illness HPI narrative: Patient is a 59-year-old male with a history of cerebral palsy, seizure disorder on Keppra who presents for evaluation of breakthrough seizure. Patient resides at [facility] reportedly had a breakthrough seizure. No tongue laceration or urinary incontinence. At the time EMS arrived, patient was awake, alert, no prolonged postictal state. Patient did scrape his head on the ground and has some abrasions. Patient is currently alert and oriented and at baseline. He is denying any pain, recent illnesses or medication changes. Related Data Home Medications Medication Instructions Recorded Confirmed levetiracetam [Keppra] 2,000 mg PO BID 09/02/19 09/02/19 phenytoin sodium extended 100 mg PO TID 09/02/19 09/02/19 [Dilantin Extended] Allergies Allergy/AdvReac Type Severity Reaction Status Date / Time Sulfa (Sulfonamide Allergy Unknown Hives Verified 09/02/19 10:03 Antibiotics) Review of Systems Review of Systems: Narrative: CONSTITUTIONAL: Denies fever CARDIOVASCULAR: Denies chest pain RESPIRATORY: Denies cough or dyspnea. GASTROINTESTINAL: Denies abdominal pain SKIN: Denies rash MUSCULOSKELETAL: Denies back pain NEUROLOGIC: Denies headache PMFSH Social History Social History Smoking status: Never smoker Second hand tobacco smoke exposure: No Alcohol intake: never Substance use: never Gender identity (if verbalized by the patient): Male Spiritual care concerns: No Agree to blood products: Yes Exam Narrative: Exam Narrative: Nursing note and vitals reviewed. CONSTITUTIONAL: The patient appears well-developed and well-nourished. No distress. HEAD: Normocephalic, abrasions to forehead, no lacerations EYES: PERRL, EOMI, normal conjunctiva, anicteric EARS: External ears clear bilaterally, no hemotympanum MOUTH: OP clear, no erythema, exudates. Right-sided tongue abrasion, no laceration. NECK: midline trachea, supple, FROM. No cervical spinal tenderness. CARDIOVASCULAR: Normal rate, regular rhythm, normal heart sounds and intact distal pulses. No murmurs, rubs, gallops. PULMONARY: Effort normal and breath sounds normal. No respiratory distress. The patient has no wheezes, rales, ronchi. No chest wall tenderness, crepitus or ecchymoses. ABDOMINAL: Soft. Nontender, nondistended. No palpable masses EXTREMITIES:: moving all extremities symmetrically. -RUE: No deformity. Normal ROM at shoulder, elbow, wrist, and hand. Sensation intact M/U/R. Pulse 2+. -LUE: No deformity. Normal ROM at shoulder, elbow, wrist, and hand., Sensation intact M/U/R. Pulse 2+ -RLE: No deformity. Normal ROM at hip, knee, ankle. Sensation intact distally. -LLE: No deformity. Normal ROM at hip, knee, ankle. Sensation intact distally. NEUROLOGY: The patient is alert and oriented to person, place, and time. CN II-XII Course Vital Signs Vital signs: Vital Signs Temperature 36.3 C L 02/04/20 11:23 Pulse Rate 84 02/04/20 11:23 Respiratory Rate 16 02/04/20 11:23 Blood Pressure 138/75 02/04/20 11:23 Pulse Oximetry 97 02/04/20 11:23 Temperature 36.3 C L 02/04/20 11:23 Pulse Rate 69 02/04/20 13:29 Respiratory Rate 20 02/04/20 13:29 Blood Pressure 131/90 02/04/20 13:29 Pulse Oximetry 100 02/04/20 13:29 Medical Decision Making MDM Narrative Medical decision making narrative: Patient presented for evaluation of breakthrough seizure. At the time of assessment, patient is mentating at baseline. No complaints of any pain. Laboratory results are reassuring. No electrolyte derangement. No EKG changes or evidence of new arrhythmia. No UTI. No evidence of intracranial injury. No recurrent seizure activity in the ER. Dr. Cassie biswas
[2020-02-04 11:23] VITALS: BP 138/75; PULSE 84; RESP 16; TEMP 36.3; O2SAT 97
--- NOTE | 2020-02-04 11:25 | ECG_ITS ---
Measurements Intervals [place] Rate: 71 P: 16 [place]: 244 QRS: 15 QRSD: 156 T: 23 QT: 387 QTc: 423 Interpretive Statements SINUS RHYTHM WITH FIRST DEGREE AV BLOCK POSSIBLE LEFT ATRIAL ENLARGEMENT RIGHT BUNDLE BRANCH BLOCK ABNORMAL ECG Electronically Signed On 02-04-2020 12:33:50 CDT by Mo Mcgregor D.O.
[2020-02-04] MEDS: levETIRAcetam 1000MG/NACL100ML 1,000 MG/100 ML BAG 400 MG IVPB (11:40)
[2020-02-04] MEDS: SODIUM CHLORIDE 0.9% IV 1,000 ML 999 ML IV CONT (11:40)
[2020-02-04 11:50] LABS: Glucose Point of Care 116 (65-105)
[2020-02-04 11:52] LABS: Basophils Percent Auto 0.3 % (0.2-1.2); Eosinophils Percent Auto 0.2 % (0-4.4); Hematocrit 36.3 % (42.0-52.0); Hemoglobin 12.7 g/dL (14.0-18.0); Immature Granulocyte Absolute 0.04 K/mm3 (0.00-0.031); Immature Granulocyte Percent A 0.3 % (0-0.5); Lymphocytes Absolute Auto 1.01 K/mm3 (0.9-3.2); Lymphocytes Percent Auto 8.7 % (18.3-44.2); Mean Corpuscular Hemoglobin 31.3 pg (26-34); Mean Corpuscular Volume 89.4 fl (80-100); Mean Platelet Volume 9.6 fl (7.4-10.4); Monocytes Absolute Auto 1.1 K/mm3 (0.1-0.6); Monocytes Percent Auto 9.8 % (2.6-8.5); Neutrophils Absolute Auto 9.4 K/mm3 (1.3-6.7); Neutrophils Percent Auto 80.7 % (45.5-73.1); Platelet Count Result 229 k/mm3 (150-375); Red Blood Count 4.06 M/mm3 (4.6-6.20); Red Cell Distribution Width 12.1 % (11.5-14.5); White Blood Count 11.7 K/mm3 (4.5-10.0)
[2020-02-04 12:06] LABS: Anion Gap 8 mmol/L (8-16); Blood Urea Nitrogen 15 mg/dL (9-20); Calcium 8.9 mg/dL (8.4-10.2); Carbon Dioxide 25 mmol/L (22-30); Chloride 102 mmol/L (98-107); Estimated Glomerular Filt Rate > 60; Glucose 119 mg/dL (75-110); Potassium 3.8 mmol/L (3.4-5.0); Sodium 135 mmol/L (137-145)
[2020-02-04] MEDS: TETANUS,DIPHTHERIA,AC PERTUSSIS ADULT (0.5 ML) BOOSTRIX IM (12:19)
[2020-02-04 12:21] VITALS: BP 130/77; PULSE 76; RESP 20; O2SAT 98
[2020-02-04 13:29] VITALS: BP 131/90; PULSE 69; RESP 20; O2SAT 100
[2020-02-04 13:42] LABS: Add Urine Microscopic? YES; Appearance Urine Cloudy (Clear); Bilirubin Urine Negative (Negative); Blood Urine Negative (Negative); Color Urine Yellow (Yellow); Glucose Urine UA Negative (Negative); Ketones Urine Negative (Negative); Leukocyte Esterase Ur Negative LEU/UL (Negative); Mucus Urine Rare /lpf; Nitrate Urine Negative (Negative); Protein Urine Negative (Negative); RBC Urine 0-2 /hpf (0-2); Specific Grav Ur 1.013 (1.001-1.035); Urobilinogen Urine Negative mg/dL (<2.0)
[2020-02-04 14:30] VITALS: BP 140/90; PULSE 62; RESP 20; O2SAT 99
== END 2020-02-04 14:33 ==
PROVIDERS: Emergency Provider Emergency Medicine; PCP Family Medicine
DX: G40.909 Epilepsy, unspecified, not intractable, without status epilepticus (principal); G80.9 Cerebral palsy, unspecified; I44.0 Atrioventricular block, first degree; I45.10 Unspecified right bundle-branch block; R94.31 Abnormal electrocardiogram [ECG] [EKG]; Z23 Encounter for immunization; E78.1 Pure hyperglyceridemia; Z85.828 Personal history of other malignant neoplasm of skin; K21.9 Gastro-esophageal reflux disease without esophagitis; M85.80 Other specified disorders of bone density and structure, unspecified site; E55.9 Vitamin D deficiency, unspecified
CPT/HCPCS: 36415; 51701; 70450; 71045; 80048; 81001; 82948; 85025; 90471; 90715; 93005; 96365; 99284; J1953; J7030

== ENCOUNTER 2020-05-08 12:33 | Observation (INO) | payer MEDICARE, SELFPAY ==
[2020-05-08] VITALS (42 sets, daily range): BP systolic 114–185; BP diastolic 58–99; PULSE 65–110; RESP 12–23; TEMP 36.8–36.9; O2SAT 87–99; BMI 32.5
--- NOTE | ~2020-05-08 | XR_ITS ---
EXAMINATION: XR chest 1V portable DATE: 05/08/2020 17:42 INDICATION: 2 seizures. Leukocytosis. Vomiting. TECHNIQUE: frontal view of the chest was obtained. COMPARISON: Chest radiograph dated 02/04/2020 FINDINGS: The lungs are clear with no focal airspace opacities, pulmonary edema, pleural effusion or pneumothor ax. The cardiomediastinal silhouette is normal. Mild S-shaped curvature of the thoracic spine. IMPRESSION: 1. No acute cardiopulmonary disease. Reviewed, dictated and finalized at location A. [employer]
--- NOTE | ~2020-05-08 | CT_ITS ---
EXAMINATION: CT brain wo con EXAM DATE: 05/08/2020 13:11 INDICATION: Seizure twice today. Headache. History of epilepsy and cerebral palsy. TECHNIQUE: Spiral CT of the head was performed without contrast. Axial, coronal and sagittal images were reviewed. The dose-length product (DLP) for this examination was 605.33 mGy-cm. The exposure w as tailored according to patient size, and iterative reconstruction (ASIR) was used as additional dos e reduction technique. Comparison is made to prior examination from 02/04/2020. FINDINGS: There is no acute intraparenchymal hemorrhage. No evidence of intraparenchymal brain mass lesion. No evidence of acute infarction. Please note that initial head CT has limited sensitivity f or small or acute infarctions. There is mild periventricular and subcortical hypodensity, nonspecific but probably related to small vessel ischemic disease. There is mild prominence of the sulci and v entricles related to cerebral atrophy. There is intracranial carotid arteriosclerosis. There are n o extra-axial collections. There is no mass effect or midline shift. The orbits are unremarkable. Soft tissue is unremarkable. The visualized sinuses and mastoid air cells are well aerated. There is no significant interval change. IMPRESSION: 1. No acute intracranial findings. 2. Chronic age related findings. Reviewed, dictated and finalized at location A. HANGER
--- NOTE | 2020-05-08 13:04 | ED.GENADULT ---
HPI - General Adult General Chief complaint: Seizure Stated complaint: JAY,SEIZURE Time Seen by Provider: 05/08/20 12:49 Source: patient History of Present Illness HPI narrative: Patient is a 60 y/o male sent from [facility] for seizure x 2 today. Patient states that he has CP and history of seizure. He is not sure about the character of seizure or how long it lasted. He has a slight headache. He states that his legs are chronically weak due to CP. He had some vomiting earlier today and possibly passed out. Related Data Home Medications Medication Instructions Recorded Confirmed levetiracetam [Keppra] 2,000 mg PO BID 09/02/19 05/08/20 phenytoin sodium extended 100 mg PO TID 09/02/19 05/08/20 [Dilantin Extended] levetiracetam [Keppra] 500 mg PO DAILY 05/08/20 05/08/20 Allergies Allergy/AdvReac Type Severity Reaction Status Date / Time Sulfa (Sulfonamide Allergy Unknown Hives Verified 09/02/19 10:03 Antibiotics) Review of Systems Constitutional: Constitutional: Denies chills, Denies fever(s), Reports headache(s) and Denies weakness Eyes: Eyes: Denies blurry vision ENT: Reports headache(s) and Denies neck pain Cardiovascular: Cardiovascular: Denies chest pain and Denies dyspnea Respiratory: Respiratory: Denies cough and Denies dyspnea Gastrointestinal: Gastrointestinal: Denies abdominal pain, Denies diarrhea, Denies nausea and Denies vomiting Genitourinary: Genitourinary: Denies hematuria and Denies dysuria Musculoskeletal: Musculoskeletal: Denies back pain and Denies neck pain Neurologic: Reports syncope, Reports headache(s), Reports seizure-like activity and Reports weakness (both leg) [facility] Past Medical History Medical History (Updated 05/08/20 @ 19:07 by Kimberly Mcadams MD) Anxiety Basal cell carcinoma (BCC) of right side of nose Cerebral palsy FH: CAD (coronary artery disease) GERD (gastroesophageal reflux disease) Hypertriglyceridemia Non-seasonal allergic rhinitis Osteopenia Seizure Sinus problem Vitamin D deficiency Surgical History Surgical History H/O knee surgery bilateral History of tonsillectomy Family History Family History Sibling Family history of malignant neoplasm of breast in first degree relative Mother Pacemaker Hypertension Social History Social History Smoking status: Never smoker Second hand tobacco smoke exposure: No Alcohol intake: never Substance use: never Substance use type: does not use Gender identity (if verbalized by the patient): Male Spiritual care concerns: No Agree to blood products: Yes Exam Const: General: no acute distress and well developed Orientation/consciousness: oriented to person, oriented to place, oriented to time and patient oriented x3 HENMT: Head: normocephalic Ears: external ears normal General nose exam: Normal external nose present Eyes: General: appearance normal, both eyes and all related structures Conjunctivae: conjunctivae normal Neck: Neck: normal visual inspection and full ROM Chest: Chest palpation & inspection: normal inspection of the chest and no tenderness Resp: Effort & Inspection: normal respiratory effort Auscultation: clear to auscultation bilaterally Cardio: Rate: regular rate Rhythm: regular rhythm GI: GI Palp: No abdominal tenderness and Yes Soft to palpation Skin: General skin exam: normal color and turgor normal Neuro: General: oriented to person, oriented to place, oriented to time and patient oriented x3 Cognition (Neuro): normal cognition Motor exam (neuro): Other motor observations present (strength 5/5 both arms, only minimal movement in leg (chronic per patient)) Extrem: General: normal to inspection, full ROM and no pedal edema Psych: Appearance: grossly normal Mental Status: mental status grossly n
[2020-05-08 13:59] LABS: Basophils Percent Auto 0.2 % (0.2-1.2); Eosinophils Percent Auto 0.1 % (0-4.4); Hematocrit 40.2 % (42.0-52.0); Hemoglobin 14.2 g/dL (14.0-18.0); Immature Granulocyte Absolute 0.06 K/mm3 (0.00-0.031); Immature Granulocyte Percent A 0.4 % (0-0.5); Lymphocytes Absolute Auto 0.68 K/mm3 (0.9-3.2); Lymphocytes Percent Auto 4.6 % (18.3-44.2); Mean Corpuscular HGB Conc 35.3 g/dl (32-36); Mean Corpuscular Hemoglobin 31.8 pg (26-34); Mean Corpuscular Volume 89.9 fl (80-100); Mean Platelet Volume 9.3 fl (7.4-10.4); Monocytes Absolute Auto 0.9 K/mm3 (0.1-0.6); Monocytes Percent Auto 6.2 % (2.6-8.5); Neutrophils Percent Auto 88.5 % (45.5-73.1); Platelet Count Result 244 k/mm3 (150-375); Red Blood Count 4.47 M/mm3 (4.6-6.20); Red Cell Distribution Width 11.9 % (11.5-14.5); White Blood Count 14.6 K/mm3 (4.5-10.0)
[2020-05-08 14:10] LABS: Alanine Aminotransferase 23 U/L (4-50); Albumin Level 4.3 g/dL (3.5-5.1); Alkaline Phosphatase 79 U/L (38-126); Anion Gap 9 mmol/L (8-16); Aspartate Amino Transferase 32 U/L (17-59); Bilirubin,Total 0.3 mg/dL (0.2-1.3); Blood Urea Nitrogen 17 mg/dL (9-20); Calcium 9.3 mg/dL (8.4-10.2); Carbon Dioxide 27 mmol/L (22-30); Chloride 102 mmol/L (98-107); Estimated CRCL calculation 96 ml/min; Estimated Glomerular Filt Rate > 60; Glucose 103 mg/dL (75-110); Potassium 4.4 mmol/L (3.4-5.0); Sodium 138 mmol/L (137-145)
[2020-05-08 14:34] LABS: Phenytoin Dilantin 4 ug/mL (10-20)
[2020-05-08 15:06] LABS: Lactic Acid Reflex 9.6 mmol/L (0.7-2.1)
[2020-05-08 17:43] LABS: Reflex Lactic Acid Yes or No Add Lactic
--- NOTE | 2020-05-08 18:26 | PC.NURSE ---
This patient, Aries Patterson, was admitted to 2 Medical Room 251-01. Patient/family oriented to hospital policies and general routines including ID bracelet, bed and alarms, visiting hours, pain management, procedures, bathroom and other care routines, personal items, smoking policy, room service/diet, and visiting hours. Information on how to activate the Rapid Response Team has been discussed. Patient/Family are encouraged to report perceived risks to care and to ask questions if they do not understand what they are told or what they should do.
[2020-05-08 19:54] LABS: Lactic Acid 1.5 mmol/L (0.7-2.1)
--- NOTE | 2020-05-08 20:47 | PM.IMHP ---
H&P: HPI History of Present Illness Date/Time: 05/08/20 20:47 Chief complaint: seizure Narrative: Aries Patterson is a 60 year old male with a past medical history cerebral palsy and seizure disorder who presented to the ER from [facility] due to 2 breakthrough seizures. The patient reports that he had two seizures today. It sounds as if the patient may have been in his bed and then woke up on the floor. He then had a 2nd seizure after lunch. He reports that he ate breakfast without difficulty but then had a large amount of emesis following lunch. It sounds as if the emesis may have occurred after his seizure. He denies any nausea or abdominal discomfort. His last bowel movement was yesterday and was normally formed. He denies any headaches currently but did have a headache just prior to his 1st seizure and shortly after his last seizure. In the ER the patient also had a witnessed seizure and received a dose of Ativan as well as some IV Dilantin when his Dilantin level came back low. He has been taking his medications as directed. Staff at his living facility noted he was acting quieter than usual and somewhat confused. At baseline the patient has difficulty with ambulation is mostly wheelchair dependent. His legs are chronically weak. He denies any visual changes. He denies any chest pain palpitations or shortness of breath. He has not been having any significant cough or congestion. He denies any recent ill contacts. In the ER patient was noted to have a significant lactic acidosis but is lactic acid level has normalized rapidly. Patient does have a history of BPH. He reports that he has not been able to urinate today. Nursing staff was able to get a urine specimen shortly after my interview. Review of Systems Review of Systems: Narrative: 12 systems were reviewed with pertinent positives and negatives per HPI. Except as documented in the HPI, all other systems were reviewed and are negative. [facility] Past Medical History Medical History (Updated 05/09/20 @ 00:48 by Lilli Cruz DO) Anxiety Basal cell carcinoma (BCC) of right side of nose Resected 2017 BPH (benign prostatic hyperplasia) Cerebral palsy With history of bilateral Achilles tendon (1972) and bilateral hamstring lengthening (1967). GERD (gastroesophageal reflux disease) Hypertriglyceridemia Non-seasonal allergic rhinitis Osteopenia Seizure Sinus problem Vitamin D deficiency Surgical History Surgical History (Updated 05/09/20 @ 00:38 by Lilli Cruz DO) History of tonsillectomy Family History Family History (Updated 05/08/20 @ 20:50 by Lilli Cruz DO) Sibling Breast cancer Mother Pacemaker Hypertension Heart disease Social History Social History (Updated 05/09/20 @ 00:44 by Lilli Cruz DO) Social History: He resides at [facility]. He and his mother moved to [place] assisted living together. However his mother is now in Memory Care. His healthcare power of deputy county attorney is his sister. He only has a 1 sister. Code status: Full code Smoking status: Never smoker Second hand tobacco smoke exposure: No Alcohol intake: never Substance use: never Substance use type: does not use Gender identity (if verbalized by the patient): Male Spiritual care concerns: No Agree to blood products: Yes Meds Home Medications and Allergies Home Medications Medication Instructions Recorded Confirmed Type levetiracetam [Keppra] 2,000 mg PO BID 09/02/19 05/08/20 History phenytoin sodium extended 100 mg PO TID 09/02/19 05/08/20 History [Dilantin Extended] ergocalciferol (vitamin D2) 1,250 1,250 mcg PO WEEKLY #12 cap 11/22/19 05/08/20 Rx mcg (50,000 unit) capsule finasteride 5 mg tablet 5 mg PO DAILY #30 tablet 12/29/19 05/08/20 Rx loratadine 10 mg tablet 10 mg PO DAILY #30 tablet 12/29/19 05/08/20 Rx buspirone 15 mg tablet 15 mg PO TID #90 tablet 02/26/20 05/08/20 Rx leve
[2020-05-08] MEDS: busPIRone HCL 5 MG TABLET 15 MG PO (22:18)
[2020-05-08] MEDS: PHENYTOIN SODIUM 100 MG CAP PO (22:19)
[2020-05-08] MEDS: levETIRAcetam 500 MG TABLET 2000 MG PO (22:19)
[2020-05-09] VITALS (8 sets, daily range): BP systolic 117–131; BP diastolic 57–71; PULSE 73–89; RESP 16–20; TEMP 36.6–36.8; O2SAT 97–98
[2020-05-09 00:28] LABS: Add Urine Microscopic? YES; Appearance Urine Clear (Clear); Bacteria Urine Trace /hpf; Bilirubin Urine Negative (Negative); Blood Urine Negative (Negative); Color Urine Yellow (Yellow); Glucose Urine UA 1+ mg/dL (Negative); Ketones Urine Negative (Negative); Leukocyte Esterase Ur Negative LEU/UL (Negative); Mucus Urine Few /lpf; Nitrate Urine Negative (Negative); Protein Urine 1+ mg/dL (Negative); RBC Urine 0-2 /hpf (0-2); Specific Grav Ur 1.026 (1.001-1.035); Urobilinogen Urine Negative mg/dL (<2.0)
[2020-05-09 07:23] LABS: Basophils Percent Auto 0.2 % (0.2-1.2); Eosinophils Absolute Auto 0.1 K/mm3 (0-0.3); Hematocrit 33.5 % (42.0-52.0); Hemoglobin 11.7 g/dL (14.0-18.0); Immature Granulocyte Absolute 0.03 K/mm3 (0.00-0.031); Immature Granulocyte Percent A 0.3 % (0-0.5); Lymphocytes Absolute Auto 2.14 K/mm3 (0.9-3.2); Mean Corpuscular HGB Conc 34.9 g/dl (32-36); Mean Corpuscular Hemoglobin 31.9 pg (26-34); Mean Corpuscular Volume 91.3 fl (80-100); Mean Platelet Volume 9.8 fl (7.4-10.4); Monocytes Absolute Auto 1.1 K/mm3 (0.1-0.6); Monocytes Percent Auto 11.3 % (2.6-8.5); Neutrophils Absolute Auto 6.3 K/mm3 (1.3-6.7); Neutrophils Percent Auto 65.2 % (45.5-73.1); Platelet Count Result 228 k/mm3 (150-375); Red Blood Count 3.67 M/mm3 (4.6-6.20); Red Cell Distribution Width 12.3 % (11.5-14.5); White Blood Count 9.7 K/mm3 (4.5-10.0)
[2020-05-09 07:31] LABS: Alanine Aminotransferase 18 U/L (4-50); Albumin Level 3.3 g/dL (3.5-5.1); Alkaline Phosphatase 58 U/L (38-126); Anion Gap 5 mmol/L (8-16); Aspartate Amino Transferase 29 U/L (17-59); Bilirubin,Total 0.3 mg/dL (0.2-1.3); Blood Urea Nitrogen 21 mg/dL (9-20); Calcium 8.5 mg/dL (8.4-10.2); Carbon Dioxide 28 mmol/L (22-30); Chloride 104 mmol/L (98-107); Estimated CRCL calculation 109 ml/min; Estimated Glomerular Filt Rate > 60; Glucose 99 mg/dL (75-110); Magnesium 2.1 mg/dL (1.6-2.3); Potassium 3.9 mmol/L (3.4-5.0); Sodium 137 mmol/L (137-145)
[2020-05-09] MEDS: LORATADINE 10 MG TABLET PO (08:54)
[2020-05-09] MEDS: PHENYTOIN SODIUM 100 MG CAP PO ×2 (08:54→13:19)
[2020-05-09] MEDS: levETIRAcetam 500 MG TABLET PO (08:54)
[2020-05-09] MEDS: ENOXAPARIN 40 MG/0.4 ML SYRINGE SUB-Q (08:54)
[2020-05-09] MEDS: levETIRAcetam 500 MG TABLET 2000 MG PO ×2 (08:54→17:15)
[2020-05-09] MEDS: FINASTERIDE 5 MG TABLET PO (08:55)
[2020-05-09] MEDS: busPIRone HCL 5 MG TABLET 15 MG PO ×3 (08:55→17:15)
--- NOTE | 2020-05-09 09:57 | PM.IMPN ---
Progress Note: A&P Assessment and Plan (1) Breakthrough seizure: Code(s): G40.919 - Epilepsy, unspecified, intractable, without status epilepticus Status: Resolved Assessment and Plan: Patient had 3 seizures yesterday; 2 at [place] and one in the ER. He was given 1mg ativan in the ED. No seizures since then. Today he remains on his home doses of dilantin and keppra. Awaiting recommendations from neurology. He is a patient of Dr Matthews. Continue seizure precautions. Edit: Discussed case with Dr Matthews, agreed to increase his dilantin to 200mg BID. Repeat dilantin level in 2 weeks and follow up with him in the office. (2) Subtherapeutic serum dilantin level: Code(s): R78.89 - Finding of other specified substances, not normally found in blood Status: Acute Assessment and Plan: Increased dilantin, OK'd with neurology. See above. (3) BPH (benign prostatic hyperplasia): Qualifiers: Lower urinary tract symptom detail: unspecified Lower urinary tract symptom presence: symptoms present Qualified Code(s): N40.1 - Benign prostatic hyperplasia with lower urinary tract symptoms Code(s): N40.0 - Benign prostatic hyperplasia without lower urinary tract symptoms Status: Chronic Assessment and Plan: Continue home Flomax. No acute issues. Subjective Date/time seen: 05/09/20 09:15 Interval history: Mr. Patterson is a 60yo M with cerebral palsy and seizure disorder admitted for breakthrough seizures. He had 3 seizures yesterday. He notes he had some vomiting yesterday but none today. He did not sleep well last night but otherwise offers no complaints this morning. He denies chest pain, shortness of breath or calf tenderness. Review of Systems Review of Systems: All systems reviewed & are unremarkable except as noted in HPI and below Exam Narrative: Exam Narrative: General: Male resting comfortably sitting up in bed in no acute distress. HEENT: Normocephalic, EOMI, oral mucosa tacky. Cardiovascular: Rate and rhythm are regular. Respiratory: Lungs clear to auscultation bilaterally. Non-labored breathing. Tolerating room air. Abdomen: Soft, non-tender, non-distended, bowel sounds present. Extremities: Peripheral pulses intact. 2+ pitting edema SAM lower extremities. Neuro: Alert and answering questions appropriately. Speech is slow but clear. No focal neurologic deficits are noted. Objective Data Vital Signs Vital Signs: Last Vital Signs Temp 98.1 F 05/09/20 08:00 Pulse 73 05/09/20 08:00 Resp 18 05/09/20 08:00 BP 126/69 05/09/20 08:00 Pulse Ox 97 05/09/20 08:00 Intake/Output Intake/Output: Intake & Output 05/06/20 05/07/20 05/08/20 05/09/20 23:59 23:59 23:59 23:59 Intake Total 270 200 Output Total 600 Balance 270 -400 Meds/Results Medications: Active Medications Generic Name Dose Route Start Last Admin Trade Name Freq PRN Reason Stop Dose Admin Buspirone HCl 15 mg 05/08/20 22:05 05/09/20 08:55 Buspirone Hcl 5 Mg Tablet PO 15 mg TID RICARDO Administration Enoxaparin Sodium 40 mg 05/09/20 09:00 05/09/20 08:54 Enoxaparin 40 Mg/0.4 Ml Syringe SUB-Q 40 mg DAILY RICARDO Administration Ergocalciferol 50,000 unit 05/10/20 09:00 Ergocalciferol 50,000 Unit Capsule PO Fr@0900 RICARDO Finasteride 5 mg 05/09/20 09:00 05/09/20 08:55 Finasteride 5 Mg Tablet PO 5 mg DAILY RICARDO Administration Levetiracetam 500 mg 05/09/20 09:00 05/09/20 08:54 Levetiracetam 500 Mg Tablet PO 500 mg DAILY RICARDO Administration Levetiracetam 2,000 mg 05/08/20 22:05 12/03/20 08:54 Levetiracetam 500 Mg Tablet PO 2,000 mg BID RICARDO Administration Loratadine 10 mg 05/09/20 09:00 05/09/20 08:54 Loratadine 10 Mg Tablet PO 10 mg DAILY RICARDO Administration Phenytoin Sod
--- NOTE | 2020-05-09 12:40 | WPDNEURCNPN ---
Assessment and Plan Assessment and plan (1) Seizure: Code(s): R56.9 - Unspecified convulsions Status: Acute (2) Subtherapeutic serum dilantin level: Code(s): R78.89 - Finding of other specified substances, not normally found in blood Status: Acute (3) Breakthrough seizure: Code(s): G40.919 - Epilepsy, unspecified, intractable, without status epilepticus Status: Resolved (4) Cerebral palsy: Qualifiers: Cerebral palsy type: unspecified type Qualified Code(s): G80.9 - Cerebral palsy, unspecified Code(s): G80.9 - Cerebral palsy, unspecified Status: Chronic Additional Plan patient is receiving Keppra 500 mg p.o. daily in addition to the 2000 mg p.o. b.i.d. schedule medication Dilantin 100 mg p.o. t.i.d. once he is stable he will be [facility] and continue on the levetiracetam and Dilantin as such will follow in my office Consult date: 05/09/20 Time Seen: 12:40 HPI: Aries Patterson is a 60 year old male admitted to the hospital through the emergency room for the complaints of recurrence of the seizure. Patient carries the diagnosis of static encephalopathy with seizure disorder and was transferred to the ER from [facility] for the breakthrough seizure reportedly he had a seizure in bed then had 2nd seizure after lunch followed by vomiting as well with no persistent nausea and abdominal discomfort or headaches when he arrived in the emergency room he had another witnessed seizure and he was given Ativan intravenously along with the Dilantin his levels were reportedly low he is a wheelchair dependent% with chronic weakness of his lower extremities because with static encephalopathy and has no history of an acute General symptomatology Review of Systems Review of Systems: All systems reviewed & are unremarkable except as noted in HPI and below PMFSH Past Medical History Medical History Anxiety Basal cell carcinoma (BCC) of right side of nose Resected 2018 BPH (benign prostatic hyperplasia) Cerebral palsy With history of bilateral Achilles tendon (1972) and bilateral hamstring lengthening (1967). GERD (gastroesophageal reflux disease) Hypertriglyceridemia Non-seasonal allergic rhinitis Osteopenia Seizure Sinus problem Vitamin D deficiency Surgical History Surgical History History of tonsillectomy Family History Family History Sibling Breast cancer Mother Pacemaker Hypertension Heart disease Social History Social History Social History: He resides at [facility]. He and his mother moved to [place] assisted living together. However his mother is now in Memory Care. His healthcare power of ip technology transactions attorney is his sister. He only has a 1 sister. Code status: Full code Smoking status: Never smoker Second hand tobacco smoke exposure: No Alcohol intake: never Substance use: never Substance use type: does not use Gender identity (if verbalized by the patient): Male Spiritual care concerns: No Agree to blood products: Yes Meds Home Medications and Allergies Home Medications Medication Instructions Recorded Confirmed Type levetiracetam [Keppra] 2,000 mg PO BID 09/02/19 05/08/20 History phenytoin sodium extended 100 mg PO TID 09/02/19 05/08/20 History [Dilantin Extended] ergocalciferol (vitamin D2) 1,250 1,250 mcg PO WEEKLY #12 cap 11/22/19 05/08/20 Rx mcg (50,000 unit) capsule finasteride 5 mg tablet 5 mg PO DAILY #30 tablet 12/29/19 05/08/20 Rx loratadine 10 mg tablet 10 mg PO DAILY #30 tablet 12/29/19 05/08/20 Rx buspirone 15 mg tablet 15 mg PO TID #90 tablet 02/26/20 05/08/20 Rx levetiracetam [Keppra] 500 mg PO DAILY 05/08/20 05/08/20 History Allergies [facility]
[2020-05-09] MEDS: PHENYTOIN SODIUM 100 MG CAP 200 MG PO (21:00)
[2020-05-10 01:41] VITALS: BP 158/78; PULSE 74; RESP 18; TEMP 36.9; O2SAT 99
[2020-05-10 05:02] VITALS: BP 101/61; PULSE 81; RESP 16; TEMP 36.6; O2SAT 97
--- NOTE | 2020-05-10 08:34 | PM.DS ---
DS: Admitting Diagnosis Admitting Diagnosis Admitting Diagnosis: seizure DS: Discharge Diagnosis Discharge Diagnosis (1) Breakthrough seizure: Code(s): G40.919 - Epilepsy, unspecified, intractable, without status epilepticus Status: Resolved Assessment and Plan: Patient had 3 seizures 05/08; 2 at [place] and one in the ER. He was given 1mg ativan in the ED. No seizures since then. Today he remains on his home dose of keppra with dilantin increased to [address] Matthews recommendations. Okay for discharge from Neuro standpoint Recheck dilantin level in 2 weeks F/u with Dr. Matthews as an oupatient. (2) Subtherapeutic serum dilantin level: Code(s): R78.89 - Finding of other specified substances, not normally found in blood Status: Acute Assessment and Plan: Increased dilantin, OK'd with neurology. See above. (3) BPH (benign prostatic hyperplasia): Qualifiers: Lower urinary tract symptom detail: unspecified Lower urinary tract symptom presence: symptoms present Qualified Code(s): N40.1 - Benign prostatic hyperplasia with lower urinary tract symptoms Code(s): N40.0 - Benign prostatic hyperplasia without lower urinary tract symptoms Status: Chronic Assessment and Plan: Continue home Flomax. No acute issues. DS: Summary Hospital Course Reason for hospitalization: Breakthrough seizures Hospital Course: Date of arrival: 05/08/20 Date of discharge: 05/10/20 Patient is a 60 year old male with a past medical history cerebral palsy and seizure disorder who presented to the ER on 05/08 from [facility] due to 2 breakthrough seizures. While in the ED, patient had another witnessed seizure and was given ativan. Dr. Matthews (Neurology) was consulted for further input/management. Dilantin level was found to be subtherapeutic. CK was found to be normal. Patient admitted under this setting. Please see H&P for further details. Patient was admitted to the hospitalist service for further management/treatment. Patient's home medications were resumed and after evaluated by Neurology, it was recommended his dilantin be increasaed to 200 mg BID and recheck his dilantin level in 2 weeks. He was to follow up with Dr. Matthews in the office. He was to follow up with his PCP as well. Patient did not have any other witnessed seizures after admission. Patient agreeable and comfortable with plan for discharge. Patient hemodynamically stable and in improved condition for discharge on 05/10 Status at Discharge Overall status at discharge: patient is progressing back to baseline Time Spent with Patient Time attestation: Total time spent providing and/or coordinating discharge services: Time spent: Greater than 30 minutes Exam Narrative: Exam Narrative: General: Male resting comfortably sitting up in bed in no acute distress. HEENT: Normocephalic, EOMI, oral mucosa tacky. Cardiovascular: Rate and rhythm are regular. Respiratory: Lungs clear to auscultation bilaterally. Non-labored breathing. Tolerating room air. Abdomen: Soft, non-tender, non-distended, bowel sounds present. Extremities: Peripheral pulses intact. 2+ pitting edema SAM lower extremities. Neuro: Alert and answering questions appropriately. Speech is slow but clear. No focal neurologic deficits are noted. DS: Data Data Completed and Pending Labs on day of discharge: Laboratory Tests 05/09/20 05:38 05/09/20 05:38 05/09/20 05/10/20 11:09 03:19 Levetiracetam Pending SARS-CoV-2 RNA (RT-PCR) Pending Last Vital Signs Temp 97.8 F 05/10/20 05:02 Pulse 81 05/10/20 05:02 Resp 16 05/10/20 05:02 BP 101/61 05/10/20 05:02 Pulse Ox 97 05/10/20 05:[address] 05/08/20 13:14 IMPRESS
[2020-05-10] MEDS: levETIRAcetam 500 MG TABLET PO (09:08)
[2020-05-10] MEDS: levETIRAcetam 500 MG TABLET 2000 MG PO ×2 (09:08→17:00)
[2020-05-10] MEDS: PHENYTOIN SODIUM 100 MG CAP 200 MG PO ×2 (09:08→20:04)
[2020-05-10] MEDS: LORATADINE 10 MG TABLET PO (09:08)
[2020-05-10] MEDS: busPIRone HCL 5 MG TABLET 15 MG PO ×3 (09:08→17:01)
[2020-05-10] MEDS: ERGOCALCIFEROL 50,000 UNIT CAPSULE 50000 UNITS PO (09:08)
[2020-05-10] MEDS: ENOXAPARIN 40 MG/0.4 ML SYRINGE SUB-Q (09:08)
[2020-05-10] MEDS: FINASTERIDE 5 MG TABLET PO (09:08)
[2020-05-10 10:00] VITALS: BP 143/84; PULSE 83; RESP 16; TEMP 36.6; O2SAT 98
[2020-05-10 14:00] VITALS: BP 122/71; PULSE 81; RESP 16; TEMP 36.6; O2SAT 98
--- NOTE | 2020-05-10 14:19 | WPDNEUROPN ---
Objective Data Vital Signs Vital Signs: Vital Signs - 24 hr 05/09/20 14:40 05/09/20 16:00 05/09/20 20:14 Temperature 36.8 C 36.7 C 36.6 C Pulse Rate 82 87 75 Respiratory Rate 18 18 16 Blood Pressure 118/64 119/67 131/71 Pulse Oximetry 98 98 98 05/10/20 01:41 05/10/20 05:02 05/10/20 10:00 Temperature 36.9 C 36.6 C 36.6 C Pulse Rate 74 81 83 Respiratory Rate 18 16 16 Blood Pressure 158/78 H 101/61 143/84 H Pulse Oximetry 99 97 98 Intake/Output Intake/Output: Intake & Output 05/07/20 05/08/20 05/09/20 05/10/20 23:59 23:59 23:59 23:59 Intake Total 270 920 930 Output Total 600 Balance 270 320 930 Meds/Results Medications: Active Medications Generic Name Dose Route Start Last Admin Trade Name Freq PRN Reason Stop Dose Admin Buspirone HCl 15 mg 05/08/20 22:05 05/10/20 13:08 Buspirone Hcl 5 Mg Tablet PO 15 mg TID RICARDO Administration Enoxaparin Sodium 40 mg 05/09/20 09:00 05/10/20 09:08 Enoxaparin 40 Mg/0.4 Ml Syringe SUB-Q 40 mg DAILY RICARDO Administration Ergocalciferol 50,000 unit 05/10/20 09:00 05/10/20 09:08 Ergocalciferol 50,000 Unit Capsule PO 50,000 unit Fr@0900 RICARDO Administration Finasteride 5 mg 05/09/20 09:00 05/10/20 09:08 Finasteride 5 Mg Tablet PO 5 mg DAILY RICARDO Administration Levetiracetam 500 mg 05/09/20 09:00 05/10/20 09:08 Levetiracetam 500 Mg Tablet PO 500 mg DAILY RICARDO Administration Levetiracetam 2,000 mg 05/08/20 22:05 05/10/20 09:08 Levetiracetam 500 Mg Tablet PO 2,000 mg BID RICARDO Administration Loratadine 10 mg 05/09/20 09:00 05/10/20 09:08 Loratadine 10 Mg Tablet PO 10 mg DAILY RIACRDO Administration Phenytoin Sodium 200 mg 05/09/20 21:00 05/10/20 09:08 Phenytoin Sodium 100 Mg Cap PO 200 mg Q12HR RICARDO Administration Radiology Results: ITS Impressions Head CT 05/08/20 13:14 IMPRESSION: 1. No acute intracranial findings. 2. Chronic age related findings. Chest X-Ray 05/08/20 18:07 IMPRESSION: 1. No acute cardiopulmonary disease. Quality VTE Prophylaxis VTE prophylaxis: pharmacologic ordered (Lovenox 40 mg subq daily)
[2020-05-10 19:10] LABS: SARS-CoV-2 RNA PCR Negative
[2020-05-10 21:59] VITALS: BP 128/74; PULSE 89; RESP 20; TEMP 36.9; O2SAT 90
[2020-05-12 10:18] LABS: Levetiracetam Keppra 65.2 mcg/mL (12.0-46.0)
== END 2020-05-10 23:10 ==
LOC: ANHED 17:00 → ANH2MED 17:39
PROVIDERS: Internal Medicine; Physician Assistant; Admitting Provider Family Medicine; Emergency Provider Emergency Medicine; PCP Family Medicine; Visit Provider Family Medicine
DX: G40.919 Epilepsy, unspecified, intractable, without status epilepticus (principal); R89.2 Abnormal level of other drugs, medicaments and biological substances in specimens from other organs, systems and tissues; N40.1 Benign prostatic hyperplasia with lower urinary tract symptoms; R51.9 Headache, unspecified; G80.9 Cerebral palsy, unspecified; F41.9 Anxiety disorder, unspecified; I25.10 Atherosclerotic heart disease of native coronary artery without angina pectoris; K21.9 Gastro-esophageal reflux disease without esophagitis; E78.1 Pure hyperglyceridemia; E55.9 Vitamin D deficiency, unspecified; Z79.899 Other long term (current) drug therapy; Z20.828 Contact with and (suspected) exposure to other viral communicable diseases
CPT/HCPCS: 36415; 70450; 71045; 80053; 80177; 80185; 81001; 83605; 83735; 85025; 87635; 96365; 96372; 97161; 97165; 99285; A9270; C9803; G0378; J1165; J1650; U0003

== ENCOUNTER 2020-05-30 06:25 | Emergency (ER) | payer MEDICARE, SELFPAY ==
--- NOTE | ~2020-05-30 | XR_ITS ---
EXAMINATION: XR humerus RT, XR shoulder RT min 2V EXAM DATE: 05/30/2020 07:00 INDICATION: Right arm pain X 2 DAYS, no known injury. TECHNIQUE: The following right shoulder projections obtained: frontal projection with internal rotati on, frontal projection with external rotation, Grashey, and scapular Y view (4+ views). 2 orthogonal projections right humerus. There are no prior studies for comparison. FINDINGS: No evidence of right shoulder rotator cuff calcific tendinosis. There is mild right elbow and glenohumeral, moderate acromioclavicular primary osteoarthritis. There are no acute fractures or dislocations identified. There is no subcutaneous gas. The soft tissue is unremarkable. There ar e no radiopaque foreign bodies. IMPRESSION: Mild to moderate right shoulder osteoarthritis. Mild right elbow osteoarthritis. Reviewed, dictated and finalized at location A. SHEAR OPERATOR IMPRESSION: Mild to moderate right shoulder osteoarthritis. Mild right elbow osteoarthritis.
[2020-05-30 06:24] VITALS: BP 153/82; PULSE 80; RESP 18; TEMP 36.5; O2SAT 100
--- NOTE | 2020-05-30 06:35 | ED.EXTPRO ---
HPI - Extremity Problem General Chief complaint: Extremity Problem,Nontraumatic <Jeanna Means MD - Last Filed: 05/30/20 06:39> Stated complaint: right arm pain/tingling <Jeanna Means MD - Last Filed: 05/30/20 06:39> Time Seen by Provider: 05/30/20 06:39 <Jeanna Means MD - Last Filed: 05/30/20 06:39> Source: patient and EMS <Jeanna Means MD - Last Filed: 05/30/20 06:39> Mode of arrival: EMS <Jeanna Means MD - Last Filed: 05/30/20 06:39> Limitations: no limitations <Jeanna Means MD - Last Filed: 05/30/20 06:39> History of Present Illness HPI Narrative: Patient is a 60-year-old male with a history of seizure disorder who presents for evaluation of right shoulder pain. Patient reports dull, aching right shoulder pain over the past 2 days. He reports the pain is worse with movement. He denies any pain in his elbow or wrist. He denies numbness, he reports a tingling sensation in his arm. He denies weakness. No recent fall or injury. Patient states he does not think he had any seizures that caused him to fall or injure it. No bruising or redness. No fever or chills. No recent illnesses. Patient has not taken any Tylenol or ibuprofen. <Jeanna Means MD - Last Filed: 05/30/20 06:39> Related Data Home medications: Home Medications Medication Instructions Recorded Confirmed levetiracetam [Keppra] 2,000 mg PO BID 09/02/19 05/08/20 levetiracetam [Keppra] 500 mg PO DAILY 05/08/20 05/08/20 phenytoin sodium extended 200 mg PO TID 05/30/20 [Dilantin Extended] <Jeanna Means MD - Last Filed: 05/30/20 06:39> Allergies/Adverse reactions: Allergies Allergy/AdvReac Type Severity Reaction Status Date / Time Sulfa (Sulfonamide Allergy Unknown Hives Verified 09/02/19 10:03 Antibiotics) <Jeanna Means MD - Last Filed: 05/30/20 06:39> Review of Systems Review of Systems: Narrative: CONSTITUTIONAL: Denies fever, chills, or sweats. EYES: Denies visual changes, redness, or discharge. ENT: Denies rhinorrhea, congestion, sore throat, or otalgia. CARDIOVASCULAR: Denies chest pain, palpitations, or edema. RESPIRATORY: Denies cough or dyspnea. GASTROINTESTINAL: Denies abdominal pain, nausea, vomiting, or diarrhea. GENITOURINARY: Denies dysuria or hematuria. SKIN: Denies rash or itching. MUSCULOSKELETAL: Denies back pain, reports right shoulder pain NEUROLOGIC: Denies headache, numbness, or weakness. <Jeanna Means MD - Last Filed: 05/30/20 06:39> [facility] Past Medical History Medical History: Medical History Anxiety Basal cell carcinoma (BCC) of right side of nose Resected 2018 BPH (benign prostatic hyperplasia) Cerebral palsy With history of bilateral Achilles tendon (1972) and bilateral hamstring lengthening (1967). GERD (gastroesophageal reflux disease) Hypertriglyceridemia Non-seasonal allergic rhinitis Osteopenia Seizure Sinus problem Vitamin D deficiency <Jeanna Means MD - Last Filed: 05/30/20 06:39> Surgical History Surgical History: Surgical History History of tonsillectomy <Jeanna Means MD - Last Filed: 05/30/20 06:39> Family History Family History: Family History Sibling Breast cancer Mother Pacemaker Hypertension Heart disease <Jeanna Means MD - Last Filed: 05/30/20 06:39> Social History Social History: Social History Social History: He resides at [facility]. He and his mother moved to [place] assisted living together. However his mother is now in Memory Care. His healthcare power of collections attorney is his sister. He only has a 1 sister. Code status: Full code Smoking status: Never smoker Second hand tobacco smoke exposure:
[2020-05-30] MEDS: ACETAMINOPHEN 500 MG TABLET 1000 MG PO (07:05)
[2020-05-30] MEDS: IBUPROFEN 400 MG TABLET PO (07:06)
--- NOTE | 2020-05-30 07:15 | PC.NURSE ---
pt resting quietly on stretcher. no distress noted. waiting testing results.
[2020-05-30] MEDS: PHENYTOIN SODIUM 100 MG CAP PO (10:00)
--- NOTE | 2020-05-30 10:00 | PC.NURSE ---
pt requesting his seizure meds. given per order.
[2020-05-30] MEDS: levETIRAcetam 500 MG TABLET 2000 MG PO (10:05)
[2020-05-30 11:55] VITALS: BP 139/87; PULSE 84; RESP 16; O2SAT 100
== END 2020-05-30 12:05 ==
PROVIDERS: Emergency Provider Emergency Medicine; PCP Family Medicine
DX: S46.911A Strain of unspecified muscle, fascia and tendon at shoulder and upper arm level, right arm, initial encounter (principal); G40.909 Epilepsy, unspecified, not intractable, without status epilepticus; M19.021 Primary osteoarthritis, right elbow; M19.011 Primary osteoarthritis, right shoulder; Z85.828 Personal history of other malignant neoplasm of skin; N40.0 Benign prostatic hyperplasia without lower urinary tract symptoms; G80.9 Cerebral palsy, unspecified; K21.9 Gastro-esophageal reflux disease without esophagitis; E78.1 Pure hyperglyceridemia; M85.80 Other specified disorders of bone density and structure, unspecified site; E55.9 Vitamin D deficiency, unspecified; X58.XXXA Exposure to other specified factors, initial encounter
CPT/HCPCS: 73030; 73060; 99283; A9270

== ENCOUNTER 2020-08-09 15:41 | Observation (INO) | payer MEDICARE, SELFPAY ==
--- NOTE | ~2020-08-09 | XR_ITS ---
EXAMINATION: XR chest 2V DATE: 08/10/2020 13:39 INDICATION: Lower limb edema, decreased breath sounds TECHNIQUE: AP and lateral views of the chest are obtained. COMPARISON: 05/08/2020 FINDINGS: The lungs are free of acute opacities. There is no pleural effusion or pneumothorax. The ca rdiomediastinal silhouette is normal. The visualized bones and soft tissues are unremarkable. IMPRESSION: 1. No acute cardiopulmonary abnormality. Reviewed, dictated and finalized at location A. DENTIAL PROGRAM WORKER
--- NOTE | ~2020-08-09 | US_ITS ---
EXAMINATION: US scrotum doppler DATE: 08/11/2020 14:06 INDICATION: Scrotal swelling TECHNIQUE: Testicular sonogram utilizing grayscale and Doppler COMPARISON: None. FINDINGS: Significant scrotal edema is noted. The right testis measures 4.6 x 2.8 x 2.2 cm. The left testis measures 4.3 x 2.9 x 2.7 cm. There is a striated appearance to both testes. There is mildly in creased vascular flow to both testes. The right epididymis contains an 8 mm cyst or spermatocele. The left epididymis contains a 4 mm cyst or spermatocele. There is a small right hydrocele. IMPRESSION: 1. Significant scrotal edema, likely infection. 2. Bilateral striated appearance of the testes which could reflect infection or possibly fibrosis. Reviewed, dictated and finalized at location A. O MECHANIC HELPER
--- NOTE | ~2020-08-09 | US_ITS ---
EXAMINATION: US abdomen limited EXAM DATE: 08/11/2020 08:12 INDICATION: Anasarca, evaluate liver and fluid amount in abdomen. TECHNIQUE: Multiple grayscale and Doppler images of the abdomen right upper quadrant were obtained (b y a technologist who performed the scan) and subsequently reviewed. There is no prior study for [facility]bey [place]itting[place]. FINDINGS: No perihepatic fluid identified. The pancreatic head and body are normal in appearance. The pancreatic tail is not visualized. Liver is suboptimally visualized, likely due to high position and poor acoustic window. There is no right -sided hydronephrosis. There is no evidence of intrahepatic biliary duct dilation. Portal venous fl ow was seen in the hepatopedal, normal direction and has normal Doppler waveform. Common bile duct measures 3 mm, which is normal. The gallbladder wall is normal in thickness, with ex pected amount of distention. No sonographic evidence of pericholecystic fluid. There is cholelithia sis. Technologist performing exam reports patient did not demonstrate sonographic Briscoe's sign. P phillip note that this sign is less reliable in patients who have received pain medication. IMPRESSION: 1. Cholelithiasis. 2. No perihepatic fluid identified. Reviewed, dictated and finalized at location A. ER SONAR TECHNICIAN
--- NOTE | ~2020-08-09 | CT_ITS ---
EXAMINATION: CT abdomen pelvis w con EXAM DATE: 08/11/2020 10:35 INDICATION: Scrotal swelling, rule out lymphadenopathy, cancer. TECHNIQUE: Spiral CT of the abdomen and pelvis was performed following intravenous injection of 100 m L Omnipaque 350. Axial, coronal and sagittal images were reviewed. The dose-length product (DLP) fo r this examination was 1368.55 mGy-cm. The exposure was tailored according to patient size (auto mA exposure control), and iterative reconstruction (ASIR) was used as additional dose reduction techniqu e. There is no prior study for comparison. FINDINGS: There are 2 lobular lesions in segment 7, right liver dome posteriorly measuring 2.2 and 1. 4 cm, indeterminate. The liver, spleen, adrenal glands and pancreas are otherwise unremarkable. The re is hyperdense material within the gallbladder with cholesterol stones floating nondependently. Po rtal and splenic veins are patent. Kidneys enhance symmetrically. There is no hydronephrosis. Small bilateral renal lesions too small to characterize by CT, statistically most likely cysts. The prost ate is unremarkable. The bladder is collapsed with Glasgow catheter balloon anchor inside. There is n o retroperitoneal or pelvic lymphadenopathy. Small umbilical fat-containing hernia. Small right ing uinal fat-containing hernia. No inguinal lymphadenopathy. The appendix is normal. There is colonic redundancy. The stomach and small bowel are unremarkable. There is moderate amount of colonic stool. No free intraperitoneal gas. In the right epicardial fat there are is 1.7 x 2.8 cm partially imaged low-density soft tissue or hig h density fluid lesion, differential diagnosis including pericardial cyst, lymphadenopathy. This is o nly partially imaged. Recommend chest CT without contrast. The lung bases are unremarkable. There ar e no osteoblastic or osteolytic lesions identified. IMPRESSION: 1. Partially imaged right epicardial region, could be pericardial cyst or lymphadenopathy; recommend chest CT without contrast. 2. Two indeterminate liver lesions, could be hemangiomata but follow-up liver MRI abdomen without an d with contrast recommended. 3. Small umbilical, right inguinal fat-containing hernias. 4. Cholelithiasis. 5. No abdominal or pelvic lymphadenopathy. Reviewed, dictated and finalized at location A. ENT OUTREACH COORDINATOR IMPRESSION: 1. Partially imaged right epicardial region, could be pericardial cyst or lymp hadenopathy; recommend chest CT without contrast. 2. Two indeterminate liver lesions, could be hemangiomata but follow-up liver MRI abdomen without and with contrast recommended. 3. Small umbilical, right inguinal fat-containing hernias. 4. Cholelithiasis. 5. No abdominal or pelvic lymphadenopathy.
--- NOTE | ~2020-08-09 | US_ITS ---
EXAMINATION: US venous doppler [facility] DATE: 08/09/2020 18:26 INDICATION: Bilateral lower limb swelling TECHNIQUE: Pearson scale images without and with compression and Doppler images of the bilateral lower e xtremity veins were obtained. COMPARISON: None FINDINGS: The bilateral peroneal veins are not visualized. The right common femoral vein, profunda femoral vein, femoral vein, popliteal vein, posterior tibial veins, and greater saphenous vein are patent. The left common femoral vein, profunda femoral vein, femoral vein, popliteal vein, posterior tibial v eins, and greater saphenous vein are patent. IMPRESSION: 1. Patent bilateral lower extremity veins. No evidence of deep venous thrombosis. Bilateral peroneal veins not visualized. Reviewed, dictated and finalized at location A. UIT BOARD REPAIR TECHNICIAN IMPRESSION: 1. Patent bilateral lower extremity veins. No evidence of deep venous thrombosi s. Bilateral peroneal veins not visualized.
--- NOTE | ~2020-08-09 | CT_ITS ---
EXAMINATION: CT diagnostic chest w con DATE: 08/12/2020 18:25 INDICATION: Pericardial cyst versus lymphadenopathy TECHNIQUE: Computed tomography (CT) of the chest was performed with 75 cc Omnipaque 350 intravenous c ontrast. The dose-length product was 691.02 mGy-cm. Automated exposure control and iterative reconstr uction technique were employed. COMPARISON: CT abdomen dated 08/11/2020 FINDINGS: There is a cluster of soft tissue nodules in the right epicardial fat, largest measuring 2. 5 x 0.8 cm with decrease in size compared with prior examination. No significant pleural or pericardi al effusion. No evidence for aortic aneurysm or dissection. Bibasilar dependent atelectasis. No focal airspace consolidation. No pneumothorax. No thoracic lymphadenopathy. No acute osseous abnormality. IMPRESSION: 1. Persistent cluster of soft tissue nodules right epicardial fat, largest dominant nodule decreased in size compared with prior study now measuring 2.5 x 0.8 cm compared with 2.8 x 1.7 cm on prior exam ination. This likely represents a pericardial cyst with adjacent lymph nodes. 2: Bibasilar dependent atelectasis. Reviewed, dictated and finalized at location A. ICAL RESEARCH TECHNICIAN IMPRESSION: 1. Persistent cluster of soft tissue nodules right epicardial fat, largest amada nant nodule decreased in size compared with prior study now measuring 2.5 x 0.8 cm compared with 2.8 x 1.7 cm on prior examination. This likely represents a p ericardial cyst with adjacent lymph nodes. 2: Bibasilar dependent atelectasis.
[2020-08-09 15:39] VITALS: BP 140/86; PULSE 76; RESP 16; TEMP 36.9; O2SAT 100
--- NOTE | 2020-08-09 15:51 | ECG_ITS ---
Measurements Intervals [place] Rate: 73 P: 20 MT: 238 QRS: 35 QRSD: 139 T: 26 QT: 382 QTc: 422 Interpretive Statements SINUS RHYTHM WITH FIRST DEGREE AV BLOCK RIGHT BUNDLE BRANCH BLOCK BASELINE ARTIFACT- I, II ABNORMAL ECG Electronically Signed On 08-10-2020 7:30:26 [employer] by Mo Mcgregor D.O.
--- NOTE | 2020-08-09 15:58 | ED.GENADULT ---
HPI - General Adult General Chief complaint: Unspecified Stated complaint: swollen testicles Time Seen by Provider: 08/09/20 15:45 History of Present Illness HPI narrative: History limited by mental status. Sent in for swollen testicles and penis. He does not appear to know exactly how long he has been swollen. He does report mild intermittent discomfort in his scrotum. He has lower extremity edema, which he reports is chronic and unchanged. He denies any urinary difficulty, but he is on finasteride. Related Data Home Medications Medication Instructions Recorded Confirmed levetiracetam [Keppra] 2,000 mg PO BID 09/02/19 05/08/20 levetiracetam [Keppra] 500 mg PO DAILY 05/08/20 05/08/20 Allergies Allergy/AdvReac Type Severity Reaction Status Date / Time Sulfa (Sulfonamide Allergy Unknown Hives Verified 08/09/20 15:46 Antibiotics) Review of Systems Review of Systems: All systems reviewed & are unremarkable except as noted in HPI and below Constitutional: Constitutional: Denies chills and Denies fever(s) Eyes: Eyes: Reports no additional eye complaints Cardiovascular: Cardiovascular: Denies chest pain Respiratory: Respiratory: Reports dyspnea Gastrointestinal: Gastrointestinal: Denies abdominal pain and Denies nausea Genitourinary: Genitourinary: Denies dysuria Neurologic: Reports system reviewed and no additional complaints, except as documented [facility] Past Medical History Medical History Anxiety Basal cell carcinoma (BCC) of right side of nose Resected 2018 BPH (benign prostatic hyperplasia) Cerebral palsy With history of bilateral Achilles tendon (1972) and bilateral hamstring lengthening (1967). GERD (gastroesophageal reflux disease) Hypertriglyceridemia Non-seasonal allergic rhinitis Osteopenia Seizure Sinus problem Vitamin D deficiency Surgical History Surgical History History of tonsillectomy Family History Family History Sibling Breast cancer Mother Pacemaker Hypertension Heart disease Social History Social History Social History: He resides at [facility]. He and his mother moved to [place] assisted living together. However his mother is now in Memory Care. His healthcare power of county attorney is his sister. He only has a 1 sister. Code status: Full code Smoking status: Never smoker Second hand tobacco smoke exposure: No Alcohol intake: never Substance use: never Substance use type: does not use Gender identity (if verbalized by the patient): Male Spiritual care concerns: No Agree to blood products: Yes Exam Const: General: cooperative, alert and awake Nutritional Appearance: well nourished Orientation/consciousness: patient oriented x3 HENMT: Head: normal to inspection Neck: Neck: normal visual inspection Resp: Effort & Inspection: normal respiratory effort Auscultation: clear to auscultation bilaterally Cardio: Rate: regular rate Rhythm: regular rhythm GI: Inspection: Abdominal wall edema GI Palp: No Tenderness to palpation present (GI) : Other: severe edema of the genitals. No wounds or significant breakdown Skin: General skin exam: normal color Neuro: General: patient oriented x3 Cognition (Neuro): abnormal cognition Speech: normal speech Motor exam (neuro): Other motor observations present (lower extremity paralysis ) Extrem: Other: Extensive dependent edema of the BLE Course Vital Signs Vital signs: Vital Signs Temperature 36.9 C 08/09/20 15:39 Pulse Rate 76 08/09/20 15:39 Respiratory Rate 16 08/09/20 15:39 Blood Pressure 140/86 08/09/20 15:39 Pulse Oximetry 100 08/09/20 15:39 Temperature 36.9 C 08/09/20 15:39 Pulse Rate 76 08/09/20 15:39 Respirat
[2020-08-09 16:27] LABS: Basophils Absolute Auto 0.1 K/mm3 (0.0-0.1); Basophils Percent Auto 0.6 % (0.2-1.2); Eosinophils Absolute Auto 0.4 K/mm3 (0-0.3); Eosinophils Percent Auto 4.8 % (0-4.4); Hematocrit 36.4 % (42.0-52.0); Hemoglobin 12.7 g/dL (14.0-18.0); Immature Granulocyte Absolute 0.03 K/mm3 (0.00-0.031); Immature Granulocyte Percent A 0.3 % (0-0.5); Lymphocytes Absolute Auto 1.53 K/mm3 (0.9-3.2); Lymphocytes Percent Auto 16.9 % (18.3-44.2); Mean Corpuscular HGB Conc 34.9 g/dl (32-36); Mean Corpuscular Hemoglobin 31.9 pg (26-34); Mean Corpuscular Volume 91.5 fl (80-100); Mean Platelet Volume 9.4 fl (7.4-10.4); Monocytes Absolute Auto 0.9 K/mm3 (0.1-0.6); Monocytes Percent Auto 9.5 % (2.6-8.5); Neutrophils Absolute Auto 6.1 K/mm3 (1.3-6.7); Neutrophils Percent Auto 67.9 % (45.5-73.1); Platelet Count Result 211 k/mm3 (150-375); Red Blood Count 3.98 M/mm3 (4.6-6.20); Red Cell Distribution Width 12.1 % (11.5-14.5)
[2020-08-09 16:36] LABS: INR 0.9; Prothrombin Time 12.9 Seconds (11.1-14.7)
[2020-08-09 16:37] LABS: Partial Thromboplastin Time 24.7 SECONDS (22.3-36.8)
[2020-08-09 16:50] LABS: Alanine Aminotransferase 16 U/L (4-50); Albumin Level 3.9 g/dL (3.5-5.1); Alkaline Phosphatase 61 U/L (38-126); Anion Gap 8 mmol/L (8-16); Aspartate Amino Transferase 25 U/L (17-59); Bilirubin,Total 0.2 mg/dL (0.2-1.3); Blood Urea Nitrogen 26 mg/dL (9-20); Calcium 8.4 mg/dL (8.4-10.2); Carbon Dioxide 26 mmol/L (22-30); Chloride 105 mmol/L (98-107); Estimated CRCL calculation 114 ml/min; Estimated Glomerular Filt Rate > 60; Glucose 98 mg/dL (75-110); NT Pro B Type Natriuretic Pept 33 PG/ML (5-100); Potassium 4.4 mmol/L (3.4-5.0); Sodium 139 mmol/L (137-145); Troponin I < 0.012 ng/mL (0.000-0.034)
[2020-08-09 17:27] LABS: Add Urine Microscopic? YES; Appearance Urine Clear (Clear); Bilirubin Urine Negative (Negative); Blood Urine 1+ (Negative); Color Urine Yellow (Yellow); Glucose Urine UA Negative (Negative); Ketones Urine Negative (Negative); Leukocyte Esterase Ur Negative LEU/UL (Negative); Mucus Urine Rare /lpf; Nitrate Urine Negative (Negative); Protein Urine Negative (Negative); Specific Grav Ur 1.025 (1.001-1.035); Urobilinogen Urine Negative mg/dL (<2.0); WBC Urine 0-3 /hpf
[2020-08-09] MEDS: FUROSEMIDE INJ 40 MG/4 ML VIAL IV PUSH (18:39)
[2020-08-09 19:29] VITALS: BP 150/89; PULSE 79; RESP 16; O2SAT 100
--- NOTE | 2020-08-09 19:40 | ADMGEN ---
This patient, Aries Patterson, was admitted to Medical Room 341-01. Patient/family oriented to hospital policies and general routines including ID bracelet, bed and alarms, visiting hours, pain management, procedures, bathroom and other care routines, personal items, smoking policy, room service/diet, and visiting hours. Information on how to activate the Rapid Response Team has been discussed. Patient/Family are encouraged to report perceived risks to care and to ask questions if they do not understand what they are told or what they should do.
[2020-08-09 20:38] VITALS: BMI 34.8
--- NOTE | 2020-08-09 21:00 | PM.IMHP ---
H&P: HPI History of Present Illness Date/Time: 08/09/20 21:00 Chief Complaint: Scrotal swelling. Narrative: This is a pleasant 60-year-old male with cerebral palsy, intellectual disability, seizure disorder, anxiety, and benign prostatic hyperplasia presented to the emergency department earlier today via EMS from [place] for evaluation of scrotal swelling. He has chronic lower extremity edema but over the last couple of weeks it has gotten progressively worse and he now has pretty significant swelling in his genitals. He only has mild discomfort with that and did not seem to concerned however staff at the alf thought it would be best to sent him in for evaluation. Due to this swelling around the penis he was having a difficult time urinating and a Glasgow catheter has since been inserted. His workup has been unremarkable but he is being admitted for diuresis. No known history of congestive heart failure, kidney disease, cirrhosis, or venous thromboembolism. Of note, the patient's mother today Review of Systems Review of Systems: Narrative: Twelve systems were reviewed with pertinent positives and negatives as per HPI. No fever, chills, or sweats. No recent cold or flu symptoms. He received his 1st COVID vaccination I believe today or yesterday. He has a mild sore arm from that but no other complaints. He has not walked for quite some time and he believes is swelling is probably due to that. Appetite has been good and fact he is hungry at this time. No nausea, vomiting, or diarrhea. He occasionally has a slow stream or it is difficult to start but that has improved since being started on medication for BPH. Except as documented, all other systems were reviewed and are negative. [facility] Past Medical History Medical History (Updated 08/09/20 @ 23:12 by Iliana Evans PA-C) Anxiety Basal cell carcinoma (BCC) of right side of nose (~2017) Benign prostatic hyperplasia Cerebral palsy With history of bilateral Achilles tendon (1972) and bilateral hamstring lengthening (1967). Chronic anemia Epilepsy Gastroesophageal reflux disease Hypertriglyceridemia Intellectual disability Non-seasonal allergic rhinitis Osteopenia Vitamin D deficiency Surgical History Surgical History (Updated 08/09/20 @ 23:06 by Iliana Evans PA-C) History of basal cell carcinoma excision (~2017) History of orthopedic surgery Status post bilateral hamstring and Achilles tendon lengthening. History of tonsillectomy Family History Family History Sibling Breast cancer Mother Pacemaker Hypertension Heart disease Social History Social History (Updated 08/09/20 @ 23:07 by Iliana Evans PA-C) Social History: He resides at [facility]. He and his mother moved to [place] assisted living together but she unfortunately today (08/09/2020). Lifelong nonsmoker. No alcohol or illicit substance use. His sister Isaac Riggs was is healthcare power of sample builder. Code status: Full code Gender identity (if verbalized by the patient): Male Spiritual care concerns: No Agree to blood products: Yes Meds Home Medications and Allergies Home Medications Medication Instructions Recorded Confirmed Type levetiracetam [Keppra] 2,000 mg PO BID 09/02/19 05/08/20 History levetiracetam [Keppra] 500 mg PO DAILY 05/08/20 05/08/20 History buspirone 15 mg tablet 15 mg PO TID #90 tablet 05/22/20 Rx ergocalciferol (vitamin D2) 1,250 1,250 mcg PO WEEKLY #12 cap 06/27/20 Rx mcg (50,000 unit) capsule finasteride 5 mg tablet 5 mg PO DAILY #30 tablet 06/27/20 Rx phenytoin sodium extended 100 mg 200 mg PO BID #180 cap 07/10/20 Rx capsule ibuprofen 600 mg tablet 600 mg PO TID PRN #90 tablet 07/15/20 Rx loratadine 10 mg tablet 10 mg PO DAILY #30 tablet 07/26/20 Rx Allergies Allergy/AdvReac Type Severity Reaction Status Date / Sanchez
[2020-08-10] MEDS: busPIRone HCL 5 MG TABLET 15 MG PO ×4 (00:10→17:02)
[2020-08-10] MEDS: levETIRAcetam 500 MG TABLET 2000 MG PO ×3 (00:10→20:23)
[2020-08-10] MEDS: PHENYTOIN SODIUM 100 MG CAP 200 MG PO ×3 (00:10→20:23)
[2020-08-10 02:05] VITALS: BP 146/69; PULSE 68; RESP 14; TEMP 37.1; O2SAT 98
[2020-08-10 05:21] VITALS: BP 147/80; PULSE 79; RESP 18; TEMP 36; O2SAT 96
[2020-08-10 07:01] LABS: Hematocrit 35.5 % (42.0-52.0); Hemoglobin 12.4 g/dL (14.0-18.0); Mean Corpuscular HGB Conc 34.9 g/dl (32-36); Mean Corpuscular Hemoglobin 31.1 pg (26-34); Mean Platelet Volume 9.9 fl (7.4-10.4); Platelet Count Result 225 k/mm3 (150-375); Red Blood Count 3.99 M/mm3 (4.6-6.20); White Blood Count 8.9 K/mm3 (4.5-10.0)
[2020-08-10 07:18] LABS: Anion Gap 5 mmol/L (8-16); Blood Urea Nitrogen 23 mg/dL (9-20); Calcium 8.6 mg/dL (8.4-10.2); Carbon Dioxide 28 mmol/L (22-30); Chloride 104 mmol/L (98-107); Estimated CRCL calculation 113 ml/min; Estimated Glomerular Filt Rate > 60; Glucose 108 mg/dL (75-110); Magnesium 1.8 mg/dL (1.6-2.3); Sodium 137 mmol/L (137-145)
[2020-08-10 08:00] VITALS: PULSE 79; RESP 18; O2SAT 96
[2020-08-10] MEDS: FUROSEMIDE INJ 40 MG/4 ML VIAL 20 MG IV PUSH ×2 (09:48→17:03)
[2020-08-10] MEDS: FINASTERIDE 5 MG TABLET PO (09:49)
[2020-08-10] MEDS: ENOXAPARIN 40 MG/0.4 ML SYRINGE SUB-Q (09:49)
[2020-08-10] MEDS: LORATADINE 10 MG TABLET PO (09:50)
[2020-08-10] MEDS: levETIRAcetam 500 MG TABLET PO (09:50)
--- NOTE | 2020-08-10 11:28 | PM.IMPN ---
Progress Note: A&P Assessment and Plan (1) Anasarca: Code(s): R60.1 - Generalized edema Status: Acute Assessment and Plan: The patient was brought in due to increasing lower extremity edema now extending to the genitals which began a few weeks ago when the weather was very cold. Denies eating more salty foods or drinking more water than normal. I suspect his edema is due to immobility and gravity, and with the worsening edema he is not likely to progress much in physical therapy. BNP is well within normal limits making congestive heart failure unlikely. His renal function and hepatic panel are also unremarkable. Normal albumin level Venous Dopplers negative for DVT. CXR will be ordered due to decreased breath sounds and some rales. Echocardiogram also ordered due to anasarca to rule out CHF as the cause. The patients mother did just pass away yesterday before coming to the hospital, need to rule out broken heart syndrome. Continue monitoring input and output with IV diuretics, fluid status, renal function and electrolytes (2) Benign prostatic hyperplasia: Code(s): N40.0 - Benign prostatic hyperplasia without lower urinary tract symptoms Status: Inactive Assessment and Plan: Patient had been having some issues with starting his urinary stream, but once he starts urinating he does not have a weakened stream and he feels like he is completely emptying his bladder. The patient is already on finasteride and will start Flomax daily. Due to urinary issues a Glasgow catheter was placed in the ER Will keep this in place and have him follow-up as an outpatient for further monitoring and evaluation with the urology team (3) Chronic anemia: Code(s): D64.9 - Anemia, unspecified Status: Acute Assessment and Plan: Patient with normocytic anemia with a stable hemoglobin and hematocrit on arrival. No acute signs of blood loss. Will continue monitoring H&H. Transfuse as needed. (4) Epilepsy: Code(s): G40.909 - Epilepsy, unspecified, not intractable, without status epilepticus Status: Inactive Assessment and Plan: Continue home medications with phenytoin and Keppra. Will check phenytoin level. (5) Anxiety: Code(s): F41.9 - Anxiety disorder, unspecified Status: Chronic Assessment and Plan: Continue with home BuSpar. Continue monitoring mental status since his mother just yesterday. Time Spent With Patient Time with patient: 25 - 35 minutes Subjective Date/time seen: 08/10/20 11:28 Interval history: Date of service 08/10/2020: Patient reports some states it is chronic as well as scrotal swelling which is only uncomfortable. He denies any significant pain, redness or warmth of his scrotum. He denies any chest pain, palpitations, shortness of breath, cough, orthopnea, abdominal distension or bloating, abdominal pain, nausea, vomiting, diarrhea, constipation, knee swelling/redness/pain or any other symptoms at this time. Review of Systems Review of Systems: All systems reviewed & are unremarkable except as noted in HPI and below Exam Narrative: Exam Narrative: General: 60-year-old man sitting up in bed watching TV. Appears comfortable. In no acute distress. Skin: No jaundice or cyanosis. Good skin turgor. Neck: Full range of motion. Supple. Respiratory: Decreased breath sounds to lower lung nava, slight inspiratory crackles. No bony chest wall tenderness. Cardiovascular: The heart has a regular rate and rhythm without murmur. Lower extremities: 2-3+ lower extremity edema up to knees bilaterally. No knee tenderness to palpation, erythema, edema, warmth. Chronic muscle wasting to bilateral l
[2020-08-10 11:48] VITALS: O2SAT 96
[2020-08-10] MEDS: TAMSULOSIN HCL 0.4 MG CAPSULE PO (13:05)
[2020-08-10 14:00] VITALS: BP 135/72; PULSE 68; RESP 18; TEMP 36.7; O2SAT 97
[2020-08-10 19:37] VITALS: BP 139/73; PULSE 110; RESP 16; TEMP 36.5; O2SAT 98
--- NOTE | 2020-08-10 23:16 | ECHO_ITS ---
Patient Info Name: Aries Patterson Age: 60 years : 1960 Gender: Male Ht: 72 in Wt: 256 lbs BSA: 2.47 m2 HR: 79 bpm BP: 147 Heart Rhythm: Sinus Rhythm Technical Quality: Poor Exam Date: 08/10/2020 7:16 AM Exam Location: [facility] Pulmonary Patient Status: Inpatient Admit Date: 08/09/2020 Staff Ordering Physician: Iliana Evans PA-C [employer] Operator: JOSE Attending Provider: Willy Swanson MD Referring Physician: Nathan DINH; Exam Type: CA echo dop color flow w con Study Info Complete two-dimensional, color flow and Doppler transthoracic echocardiogram is performed with contrast to opacify the left ventricle and to improve the deliniation of the left ventricle endocardial borders. Contrast/Agitated Saline Contrast/Ag. Saline: Definity Amount: 4.00 ml Reason for Poor Study: patient body habitus Summary 1. Definity contrast injected to improve visualization in the apical window. 2. Left ventricular systolic function is normal, estimated at 60-65%. 3. The left ventricular diastolic function is grade I diastolic dysfunction. 4. No significant valvular dysfunction. 5. Technically difficult image quality from the apex until definity contrast was injected. Left Ventricle Left ventricular chamber dimension is normal. Left ventricular systolic function is normal, estimated at 60-65%. The left ventricular diastolic function is grade I diastolic dysfunction. Definity contrast injected to improve visualization in the apical window. Right Ventricle Right ventricular chamber dimension is normal. Left Atria Left atrial chamber dimension is normal. Right Atria Right atrial chamber dimension is normal. Aortic Valve The aortic valve is normal. Pulmonic Valve The pulmonic valve is not well visualized. Mitral Valve The mitral valve has normal leaflets. Tricuspid Valve The tricuspid valve leaflets are normal. Pericardium/Pleural The pericardium appears normal. Aorta The aortic root size at the sinus of Valsalva is normal. Left Ventricular Outflow Tract Name Value Normal LVOT 2D LVOT Diameter 2.39 cm LVOT Doppler LVOT Peak Velocity 99.19 cm/s LVOT Peak Gradient 3 mmHg LVOT Mean Gradient 1 mmHg LVOT VTI 18.69 cm LVOT VTI/AV VTI Ratio 0.79 LVOT Stroke Volume 83.55 ml LVOT CO 6.10 l/min LVOT CI 2.47 L/min/m2 Pulmonic Valve Name Value Normal PV Doppler PV Peak Velocity 89.47 cm/s PV Peak Gradient 3 mmHg Mitral Valve Name
[2020-08-11 05:38] LABS: Hematocrit 36.3 % (42.0-52.0); Hemoglobin 12.8 g/dL (14.0-18.0)
[2020-08-11 05:48] VITALS: BP 143/89; PULSE 76; RESP 14; TEMP 36.3; O2SAT 97
[2020-08-11 05:55] LABS: Alanine Aminotransferase 15 U/L (4-50); Albumin Level 3.7 g/dL (3.5-5.1); Alkaline Phosphatase 64 U/L (38-126); Anion Gap 2 mmol/L (8-16); Aspartate Amino Transferase 21 U/L (17-59); Bilirubin,Total 0.2 mg/dL (0.2-1.3); Blood Urea Nitrogen 24 mg/dL (9-20); Calcium 8.6 mg/dL (8.4-10.2); Carbon Dioxide 30 mmol/L (22-30); Chloride 103 mmol/L (98-107); Estimated CRCL calculation 113 ml/min; Estimated Glomerular Filt Rate > 60; Glucose 103 mg/dL (75-110); Magnesium 1.9 mg/dL (1.6-2.3); Potassium 4.2 mmol/L (3.4-5.0); Sodium 135 mmol/L (137-145)
[2020-08-11 08:00] VITALS: PULSE 76; RESP 14; O2SAT 97
[2020-08-11] MEDS: busPIRone HCL 5 MG TABLET 15 MG PO ×3 (09:11→16:37)
[2020-08-11] MEDS: ENOXAPARIN 40 MG/0.4 ML SYRINGE SUB-Q (09:11)
[2020-08-11] MEDS: TAMSULOSIN HCL 0.4 MG CAPSULE PO (09:12)
[2020-08-11] MEDS: FUROSEMIDE INJ 40 MG/4 ML VIAL 20 MG IV PUSH ×2 (09:12→16:37)
[2020-08-11] MEDS: levETIRAcetam 500 MG TABLET PO (09:13)
[2020-08-11] MEDS: levETIRAcetam 500 MG TABLET 2000 MG PO ×2 (09:13→20:00)
[2020-08-11] MEDS: FINASTERIDE 5 MG TABLET PO (09:14)
[2020-08-11] MEDS: LORATADINE 10 MG TABLET PO (09:14)
[2020-08-11] MEDS: PHENYTOIN SODIUM 100 MG CAP 200 MG PO ×2 (09:14→20:00)
[2020-08-11 14:00] VITALS: BP 128/82; PULSE 78; RESP 16; TEMP 36.1; O2SAT 99
--- NOTE | 2020-08-11 14:49 | PM.IMPN ---
Progress Note: A&P Assessment and Plan (1) Scrotal edema: Code(s): N50.89 - Other specified disorders of the male genital organs Status: Acute Assessment and Plan: Patient is a with scrotal swelling, discussed with my attending provider who recommended getting a CTA of his abdomen pelvis to rule out any lymphadenopathy, or abdominal masses that maybe putting pressure on the gonadal vein as well as getting a scrotal ultrasound to ensure there is no acute abnormality causing issue itself. (2) Acute diastolic CHF (congestive heart failure): Code(s): I50.31 - Acute diastolic (congestive) heart failure Status: Acute Assessment and Plan: The patient was brought in due to increasing lower extremity edema now extending to the genitals which began a few weeks ago when the weather was very cold. Denies eating more salty foods or drinking more water than normal. I suspect his edema is due to immobility and gravity, and with the worsening edema he is not likely to progress much in physical therapy. BNP is well within normal limits making congestive heart failure unlikely. His renal function and hepatic panel are also unremarkable. Normal albumin level Venous Dopplers negative for DVT. CXR will be ordered due to decreased breath sounds and some rales. Echocardiogram showed normal EF, diastolic grade 1, otherwise no mention of right systolic function or pulmonary pressures. Could have underlying YURIDIA and will need further work up with a sleep study afte discharge. Improvement with IV diuretics to legs and scrotum, but still present. Continue monitoring input and output with IV diuretics, fluid status, renal function and electrolytes (3) Benign prostatic hyperplasia: Code(s): N40.0 - Benign prostatic hyperplasia without lower urinary tract symptoms Status: Inactive Assessment and Plan: Patient had been having some issues with starting his urinary stream, but once he starts urinating he does not have a weakened stream and he feels like he is completely emptying his bladder. The patient is already on finasteride and will start Flomax daily. Due to urinary issues a Glasgow catheter was placed in the ER Will keep this in place and have him follow-up as an outpatient for further monitoring and evaluation with the urology team (4) Chronic anemia: Code(s): D64.9 - Anemia, unspecified Status: Acute Assessment and Plan: Patient with normocytic anemia with a stable hemoglobin and hematocrit on arrival. No acute signs of blood loss. Will continue monitoring H&H. Transfuse as needed. (5) Epilepsy: Code(s): G40.909 - Epilepsy, unspecified, not intractable, without status epilepticus Status: Inactive Assessment and Plan: Continue home medications with phenytoin and Keppra. Will check phenytoin level. (6) Anxiety: Code(s): F41.9 - Anxiety disorder, unspecified Status: Chronic Assessment and Plan: Continue with home BuSpar. Continue monitoring mental status since his mother just yesterday. Additional Plan Time Spent With Patient Time with patient: 25 - 35 minutes Subjective Date/time seen: 08/11/20 14:49 Interval history: Date of service 08/11/2020: He reports improvement to his leg swelling and scrotal swelling, but it is still present. He otherwise denies any shortness of breath, cough, fever, chills, nausea, vomiting, diarrhea, constipation, chest pain, palpitations, orthopnea, abdominal distension or bloating or any other symptoms at this time. Review of Systems Review of Systems: All systems reviewed & are unremarkable except as no
[2020-08-11 19:32] VITALS: BP 144/79; PULSE 101; RESP 16; TEMP 37.1; O2SAT 95
[2020-08-12 05:19] VITALS: BP 151/87; PULSE 86; RESP 14; TEMP 36.8; O2SAT 96
[2020-08-12 05:35] LABS: Anion Gap 4 mmol/L (8-16); Blood Urea Nitrogen 27 mg/dL (9-20); Calcium 8.3 mg/dL (8.4-10.2); Carbon Dioxide 28 mmol/L (22-30); Chloride 101 mmol/L (98-107); Estimated CRCL calculation 101 ml/min; Estimated Glomerular Filt Rate > 60; Glucose 104 mg/dL (75-110); Magnesium 1.9 mg/dL (1.6-2.3); Potassium 4.3 mmol/L (3.4-5.0); Sodium 133 mmol/L (137-145)
[2020-08-12 08:41] LABS: Basophils Percent Auto 0.4 % (0.2-1.2); Eosinophils Absolute Auto 0.4 K/mm3 (0-0.3); Eosinophils Percent Auto 4.8 % (0-4.4); Hematocrit 35.1 % (42.0-52.0); Hemoglobin 12.3 g/dL (14.0-18.0); Immature Granulocyte Absolute 0.04 K/mm3 (0.00-0.031); Immature Granulocyte Percent A 0.5 % (0-0.5); Lymphocytes Absolute Auto 1.73 K/mm3 (0.9-3.2); Lymphocytes Percent Auto 21.7 % (18.3-44.2); Mean Corpuscular Hemoglobin 31.9 pg (26-34); Mean Corpuscular Volume 91.2 fl (80-100); Mean Platelet Volume 10.1 fl (7.4-10.4); Monocytes Absolute Auto 1.1 K/mm3 (0.1-0.6); Monocytes Percent Auto 13.1 % (2.6-8.5); Neutrophils Absolute Auto 4.8 K/mm3 (1.3-6.7); Neutrophils Percent Auto 59.5 % (45.5-73.1); Platelet Count Result 217 k/mm3 (150-375); Red Blood Count 3.85 M/mm3 (4.6-6.20); Red Cell Distribution Width 12.3 % (11.5-14.5)
[2020-08-12 08:48] LABS: CRP 5.6 mg/dL (<1.0)
[2020-08-12] MEDS: levETIRAcetam 500 MG TABLET 2000 MG PO ×2 (09:10→20:01)
[2020-08-12] MEDS: busPIRone HCL 5 MG TABLET 15 MG PO ×3 (09:10→17:33)
[2020-08-12] MEDS: ENOXAPARIN 40 MG/0.4 ML SYRINGE SUB-Q (09:10)
[2020-08-12] MEDS: PHENYTOIN SODIUM 100 MG CAP 200 MG PO ×2 (09:10→20:01)
[2020-08-12] MEDS: TAMSULOSIN HCL 0.4 MG CAPSULE PO (09:11)
[2020-08-12] MEDS: LORATADINE 10 MG TABLET PO (09:11)
[2020-08-12] MEDS: FINASTERIDE 5 MG TABLET PO (09:11)
[2020-08-12] MEDS: levETIRAcetam 500 MG TABLET PO (09:12)
[2020-08-12 09:13] LABS: Lactic Acid Reflex 0.8 mmol/L (0.7-2.1)
--- NOTE | 2020-08-12 13:15 | PM.IMPN ---
Progress Note: A&P Assessment and Plan (1) Scrotal edema: Code(s): N50.89 - Other specified disorders of the male genital organs Status: Acute Assessment and Plan: Patient is a with scrotal swelling, discussed with my attending provider who recommended getting a CTA of his abdomen pelvis to rule out any lymphadenopathy, or abdominal masses that maybe putting pressure on the gonadal vein as well as getting a scrotal ultrasound to ensure there is no acute abnormality causing issue itself. Abdominal ultrasound shows no perihepatic fluid, cholelithiasis CT abdomen pelvis with contrast showed pelvic lymphadenopathy. Scrotal ultrasound with significant scrotal edema, likely infectious. Bilateral striated appearance of the testes which could reflect infection or possible fibrosis. Discussed with my attending provider who recommends starting the patient on IV Levaquin and continuing to monitor for his scrotal swelling over the next few days. CRP is elevated will monitor this over the next few days for improvement with IV antibiotics Continue monitoring. (2) Scrotal infection: Code(s): N49.2 - Inflammatory disorders of scrotum Status: Acute Assessment and Plan: See above. (3) Acute diastolic CHF (congestive heart failure): Code(s): I50.31 - Acute diastolic (congestive) heart failure Status: Acute Assessment and Plan: The patient was brought in due to increasing lower extremity edema now extending to the genitals which began a few weeks ago when the weather was very cold. Denies eating more salty foods or drinking more water than normal. I suspect his edema is due to immobility and gravity, and with the worsening edema he is not likely to progress much in physical therapy. BNP is well within normal limits making congestive heart failure unlikely. His renal function and hepatic panel are also unremarkable. Normal albumin level Venous Dopplers negative for DVT. CXR will be ordered due to decreased breath sounds and some rales. Echocardiogram showed normal EF, diastolic grade 1, otherwise no mention of right systolic function or pulmonary pressures. Could have underlying YURIDIA and will need further work up with a sleep study after discharge. Still with some slight leg swelling and scrotal swelling. Will discontinue IV diuretics at this time and keep legs elevated. Continue monitoring input and output with IV diuretics, fluid status, renal function and electrolytes (4) Benign prostatic hyperplasia: Code(s): N40.0 - Benign prostatic hyperplasia without lower urinary tract symptoms Status: Inactive Assessment and Plan: Patient had been having some issues with starting his urinary stream, but once he starts urinating he does not have a weakened stream and he feels like he is completely emptying his bladder. The patient is already on finasteride and continue Flomax daily Due to urinary issues a Glasgow catheter was placed in the ER Will keep this in place and have him follow-up as an outpatient for further monitoring and evaluation with the urology team (5) Chronic anemia: Code(s): D64.9 - Anemia, unspecified Status: Acute Assessment and Plan: Patient with normocytic anemia with a stable hemoglobin and hematocrit on arrival. No acute signs of blood loss. Will continue monitoring H&H. Transfuse as needed. (6) Epilepsy: Code(s): G40.909 - Epilepsy, unspecified, not intractable, without status epilepticus Status: Inactive Assessment and Plan: Continue home medications with phenytoin and Keppra. Will check phenytoin level. (7) Anxiety: Code(s):
[2020-08-12 13:46] VITALS: BP 127/73; PULSE 97; RESP 16; TEMP 36.3; O2SAT 98
[2020-08-12 18:03] LABS: SARS-CoV-2 RNA PCR Negative
[2020-08-12 21:14] VITALS: BP 126/72; PULSE 84; RESP 16; TEMP 36.7; O2SAT 97
[2020-08-13 06:00] VITALS: BP 135/75; PULSE 87; RESP 16; TEMP 36.6; O2SAT 95
[2020-08-13 06:24] LABS: Anion Gap 4 mmol/L (8-16); Blood Urea Nitrogen 25 mg/dL (9-20); Calcium 8.6 mg/dL (8.4-10.2); Carbon Dioxide 28 mmol/L (22-30); Chloride 102 mmol/L (98-107); Estimated CRCL calculation 101 ml/min; Estimated Glomerular Filt Rate > 60; Glucose 98 mg/dL (75-110); Magnesium 1.9 mg/dL (1.6-2.3); Potassium 4.1 mmol/L (3.4-5.0); Sodium 134 mmol/L (137-145)
[2020-08-13 08:00] VITALS: O2SAT 95
[2020-08-13] MEDS: ENOXAPARIN 40 MG/0.4 ML SYRINGE SUB-Q (08:32)
[2020-08-13] MEDS: FINASTERIDE 5 MG TABLET PO (08:33)
[2020-08-13] MEDS: busPIRone HCL 5 MG TABLET 15 MG PO (08:33)
[2020-08-13] MEDS: LORATADINE 10 MG TABLET PO (08:34)
[2020-08-13] MEDS: TAMSULOSIN HCL 0.4 MG CAPSULE PO (08:34)
[2020-08-13] MEDS: levETIRAcetam 500 MG TABLET PO (08:34)
[2020-08-13] MEDS: levETIRAcetam 500 MG TABLET 2000 MG PO (08:34)
[2020-08-13] MEDS: PHENYTOIN SODIUM 100 MG CAP 200 MG PO (08:34)
[2020-08-13 09:07] LABS: Basophils Absolute Auto 0.1 K/mm3 (0.0-0.1); Basophils Percent Auto 0.7 % (0.2-1.2); Eosinophils Absolute Auto 0.4 K/mm3 (0-0.3); Eosinophils Percent Auto 5.2 % (0-4.4); Hematocrit 34.6 % (42.0-52.0); Hemoglobin 12.1 g/dL (14.0-18.0); Immature Granulocyte Absolute 0.03 K/mm3 (0.00-0.031); Immature Granulocyte Percent A 0.4 % (0-0.5); Lymphocytes Absolute Auto 1.78 K/mm3 (0.9-3.2); Lymphocytes Percent Auto 23.3 % (18.3-44.2); Mean Corpuscular Volume 91.5 fl (80-100); Mean Platelet Volume 9.9 fl (7.4-10.4); Monocytes Percent Auto 12.5 % (2.6-8.5); Neutrophils Absolute Auto 4.4 K/mm3 (1.3-6.7); Neutrophils Percent Auto 57.9 % (45.5-73.1); Platelet Count Result 218 k/mm3 (150-375); Red Blood Count 3.78 M/mm3 (4.6-6.20); Red Cell Distribution Width 12.1 % (11.5-14.5); White Blood Count 7.7 K/mm3 (4.5-10.0)
--- NOTE | 2020-08-13 10:23 | PM.DS ---
DS: Admitting Diagnosis Admitting Diagnosis Admitting Diagnosis: Anasarca, scrotal edema DS: Discharge Diagnosis Discharge Diagnosis (1) Scrotal edema: Code(s): N50.89 - Other specified disorders of the male genital organs Status: Acute Assessment and Plan: Scrotal US shows significant scrotal edema, likely infection. CT abd/pelvis revealed no abdominal or pelvic lymphadenopathy. Patient was placed on Levaquin IV yesterday. He reports significant improvement in swelling in scrotum and is less tender today. Transitioned to PO doxy and augmentin 08/13 (MRSA coverage given recent hospitalization). Patient is not septic appearing and VS stable and patient afebrile. No leukocytosis. Exam reveals scrotal swelling that is not tender; minimal warmth and erythema; no signs of drainage/wounds in area. Will do doxy and augmentin to complete 5 days of this regimen Will have patient follow up with Urology as outpatient Will continue Glasgow at discharge; removal at his facility or when able to follow up with Urology (2) Scrotal infection: Code(s): N49.2 - Inflammatory disorders of scrotum Status: Acute Assessment and Plan: See above. (3) Acute diastolic CHF (congestive heart failure): Code(s): I50.31 - Acute diastolic (congestive) heart failure Status: Acute Assessment and Plan: Patient dieuresed with IV Lasix through 08/12 with improvement in swelling. Still some swelling in LE and scrotum but has significantly improved since arrival per patient. Venous doppler negative for DVT. Echo shows normal EF with grade 1 diastolic dysfunction. Follow up with PCP after discharge Encouraged elevation of LE when not ambulating Rec daily weights Rec low sodium diet (4) Benign prostatic hyperplasia: Code(s): N40.0 - Benign prostatic hyperplasia without lower urinary tract symptoms Status: Inactive Assessment and Plan: Patient had been having some issues with starting his urinary stream, but once he starts urinating he does not have a weakened stream and he feels like he is completely emptying his bladder. Continue Flomax and finasteride daily Due to urinary issues a Glasgow catheter was placed in the ER; continue this at discharge. Rec d/c in next several days or when follow up with his Urologist (5) Chronic anemia: Code(s): D64.9 - Anemia, unspecified Status: Acute Assessment and Plan: Patient with normocytic anemia with a stable hemoglobin and hematocrit on arrival. No acute signs of blood loss. f/u with PCP (6) Epilepsy: Code(s): G40.909 - Epilepsy, unspecified, not intractable, without status epilepticus Status: Inactive Assessment and Plan: No acute issues Continue home medications (7) Anxiety: Code(s): F41.9 - Anxiety disorder, unspecified Status: Chronic Assessment and Plan: No acute issues Continue with home BuSpar. (8) Liver lesion: Code(s): K76.9 - Liver disease, unspecified Status: Acute Assessment and Plan: CT abdomen/pelvis showed two indeterminate liver lesions concerning for possible hemangioma versus other abnormality; radiology recommends follow-up MRI abdomen without and with contrast. F/u with PCP for further management (9) Abnormal CT scan, chest: Code(s): R93.89 - Abnormal findings on diagnostic imaging of other specified body structures Status: Acute Assessment and Plan: CT chest confirms persistent cluster of soft tissue nodules right epicardial fat, largest dominant nodule decreased in size to
[2020-08-13 21:09] LABS: Phenytoin Dilantin Free 0.7 mg/L (1.0-2.0)
== END 2020-08-13 13:50 | disposition home health service (06) ==
LOC: ANHED 15:54 → ANH3MED 18:33
PROVIDERS: Family Medicine; Physician Assistant; Admitting Provider Internal Medicine; Emergency Provider Emergency Medicine; PCP Nurse Practitioner Family; Visit Provider Physician Assistant
DX: N50.89 Other specified disorders of the male genital organs (principal); N49.2 Inflammatory disorders of scrotum; I50.31 Acute diastolic (congestive) heart failure; R60.1 Generalized edema; K76.9 Liver disease, unspecified; R93.89 Abnormal findings on diagnostic imaging of other specified body structures; G80.9 Cerebral palsy, unspecified; N40.0 Benign prostatic hyperplasia without lower urinary tract symptoms; G40.909 Epilepsy, unspecified, not intractable, without status epilepticus; F41.9 Anxiety disorder, unspecified; D64.9 Anemia, unspecified; E78.1 Pure hyperglyceridemia; M85.80 Other specified disorders of bone density and structure, unspecified site; E55.9 Vitamin D deficiency, unspecified; K21.9 Gastro-esophageal reflux disease without esophagitis; Z20.822 Contact with and (suspected) exposure to COVID-19
CPT/HCPCS: 36415; 51702; 71046; 71260; 74177; 76705; 76870; 80048; 80053; 80186; 81001; 83605; 83735; 83880; 84443; 84484; 85014; 85018; 85025; 85027; 85610; 85730; 86140; 87040; 93005; 93970; 93976; 96365; 96366; 96372; 96374; 96375; 96376; 99285; A9270; C8929; C9803; G0378; J1650; J1940; J1956; Q9957; Q9967; U0003; U0005

== ENCOUNTER 2020-10-03 08:56 | Emergency (ER) | payer MEDICARE, SELFPAY ==
--- NOTE | ~2020-10-03 | XR_ITS ---
EXAMINATION: XR chest 1V DATE: 10/03/2020 10:07 INDICATION: Weakness. TECHNIQUE: A single frontal view of the chest was obtained. COMPARISON: Chest 2 views 08/10/2020 FINDINGS: The chest demonstrates clear lungs without pneumonia, pleural effusion, or pneumothorax. Th e heart size is normal. IMPRESSION: 1. No acute cardiopulmonary disease. Reviewed, dictated and finalized at location A.
--- NOTE | ~2020-10-03 | CT_ITS ---
EXAMINATION: CT brain wo con DATE: 10/03/2020 10:03 INDICATION: Seizure. TECHNIQUE: Computed tomography (CT) of the head was performed without intravenous contrast. The mA wa s adjusted according to patient size. Iterative reconstruction technique was employed. The dose-lengt h product was 681.00 mGy-cm. COMPARISON: Head CT 05/08/2020 FINDINGS: There is no intracranial hemorrhage, acute infarction, or abnormal intracranial mass lesion . There are scattered areas of low attenuation in the cerebral white matter, which is within normal l imits for the patient's age. The ventricles are normal in size. There is mild mucosal thickening in t he paranasal sinuses. The orbits are normal. The mastoid air cells are normal. IMPRESSION: 1. Normal aging brain. Reviewed, dictated and finalized at location A. IMPRESSION: 1. Normal aging brain.
[2020-10-03 08:56] VITALS: BP 180/115; PULSE 79; RESP 17; TEMP 36; O2SAT 99
[2020-10-03 09:10] VITALS: PULSE 81
--- NOTE | 2020-10-03 09:22 | ECG_ITS ---
Measurements Intervals [place] Rate: 74 P: 26 WV: 232 QRS: 37 QRSD: 122 T: 24 QT: 372 QTc: 415 Interpretive Statements SINUS RHYTHM WITH SINUS ARRHYTHMIA WITH FIRST DEGREE AV BLOCK RIGHT BUNDLE BRANCH BLOCK ABNORMAL ECG Electronically Signed On 10-03-2020 10:02:05 CDT by Mo Mcgregor D.O.
--- NOTE | 2020-10-03 09:34 | ED.WEAKNESS ---
HPI - Weakness General Chief complaint: Weakness Stated complaint: Weakness, Seizure Time Seen by Provider: 10/03/20 09:11 Source: patient, RN notes reviewed and old records reviewed Mode of arrival: EMS History of Present Illness HPI Narrative: This is a 60 year old male with history of epilepsy and cerebral palsy who presents from [facility] for evaluation of possible seizure. Patient state he woke up at 5 am this morning with his bed wet. He reports he went back to sleep and he woke up with his bed wet again. He states he was a little weak and he felt like he was having difficulty getting himself today. He states this is normal for him. He thinks because his bed was wet he may have had a seizure. He was not witnessed to have had a seizure or to be postictal. Triage note states patient had nausea and vomiting this morning. He denies missing any of his medications. Related Data Home Medications Medication Instructions Recorded Confirmed levetiracetam [Keppra] 500 mg PO DAILY 05/08/20 08/09/20 Allergies Allergy/AdvReac Type Severity Reaction Status Date / Time Sulfa (Sulfonamide Allergy Unknown Hives Verified 10/03/20 09:11 Antibiotics) Review of Systems Review of Systems: All systems reviewed & are unremarkable except as noted in HPI and below Constitutional: Constitutional: Denies chills and Denies fever(s) Cardiovascular: Cardiovascular: Denies chest pain Respiratory: Respiratory: Denies cough and Denies dyspnea Gastrointestinal: Gastrointestinal: Denies abdominal pain, Denies diarrhea, Denies nausea and Denies vomiting Genitourinary: Genitourinary: Denies dysuria and Denies urinary frequency Musculoskeletal: Musculoskeletal: Denies back pain [facility] Past Medical History Medical History (Updated 10/03/20 @ 13:37 by Roxana Jaime MD) Anxiety Basal cell carcinoma (BCC) of right side of nose (~2017) Benign prostatic hyperplasia Cerebral palsy With history of bilateral Achilles tendon (1972) and bilateral hamstring lengthening (1967). Chronic anemia Edema Epilepsy Gastroesophageal reflux disease Hypertriglyceridemia Intellectual disability Non-seasonal allergic rhinitis Osteopenia Primary generalized (osteo)arthritis Vitamin D deficiency Surgical History Surgical History History of basal cell carcinoma excision (~2017) History of orthopedic surgery Status post bilateral hamstring and Achilles tendon lengthening. History of tonsillectomy Family History Family History Sibling Breast cancer Mother Pacemaker Hypertension Heart disease Social History Social History Social History: He resides at [facility]. He and his mother moved to [facility] together but she unfortunately today (08/09/2020). Lifelong nonsmoker. No alcohol or illicit substance use. His sister Isaac Riggs was is healthcare power of commercial attorney. Code status: Full code Gender identity (if verbalized by the patient): Male Spiritual care concerns: No Agree to blood products: Yes Exam Const: General: no acute distress and alert Orientation/consciousness: patient oriented x3 Eyes: Pupils: Equal, round and reactive pupils present EOM: EOMs intact bilaterally Resp: Effort & Inspection: normal respiratory effort and no retractions Auscultation: clear to auscultation bilaterally Cardio: Rate: regular rate Rhythm: regular rhythm Heart sounds: no murmurs GI: GI Palp: Yes Soft to palpation, No Tenderness to palpation present (GI) and No Guarding due to palpation present (GI) Auscultation: normal bowel sounds Neuro: General: patient oriented x3, moves all extremities and CN's II-XI intact bilaterally Extrem: General: edema (bilateral leg edema) Course Reevaluation(s) Re
[2020-10-03 10:06] LABS: Basophils Absolute Auto 0.1 K/mm3 (0.0-0.1); Basophils Percent Auto 0.6 % (0.2-1.2); Eosinophils Absolute Auto 0.1 K/mm3 (0-0.3); Eosinophils Percent Auto 0.8 % (0-4.4); Hematocrit 37.9 % (42.0-52.0); Immature Granulocyte Absolute 0.03 K/mm3 (0.00-0.031); Immature Granulocyte Percent A 0.3 % (0-0.5); Lymphocytes Absolute Auto 0.89 K/mm3 (0.9-3.2); Lymphocytes Percent Auto 10.2 % (18.3-44.2); Mean Corpuscular HGB Conc 34.3 g/dl (32-36); Mean Corpuscular Hemoglobin 31.6 pg (26-34); Mean Platelet Volume 9.5 fl (7.4-10.4); Monocytes Absolute Auto 0.6 K/mm3 (0.1-0.6); Monocytes Percent Auto 6.5 % (2.6-8.5); Neutrophils Absolute Auto 7.1 K/mm3 (1.3-6.7); Neutrophils Percent Auto 81.6 % (45.5-73.1); Platelet Count Result 221 k/mm3 (150-375); Red Blood Count 4.12 M/mm3 (4.6-6.20); Red Cell Distribution Width 11.9 % (11.5-14.5); White Blood Count 8.7 K/mm3 (4.5-10.0)
[2020-10-03 10:16] LABS: Alanine Aminotransferase 17 U/L (4-50); Albumin Level 4.1 g/dL (3.5-5.1); Alkaline Phosphatase 73 U/L (38-126); Anion Gap 5 mmol/L (8-16); Aspartate Amino Transferase 26 U/L (17-59); Bilirubin,Total 0.2 mg/dL (0.2-1.3); Blood Urea Nitrogen 17 mg/dL (9-20); Calcium 8.4 mg/dL (8.4-10.2); Carbon Dioxide 28 mmol/L (22-30); Chloride 103 mmol/L (98-107); Estimated CRCL calculation 84 ml/min; Estimated Glomerular Filt Rate > 60; Glucose 101 mg/dL (75-110); Potassium 4.7 mmol/L (3.4-5.0); Sodium 136 mmol/L (137-145)
[2020-10-03] MEDS: ONDANSETRON INJ 4 MG/2 ML VIAL IV PUSH (10:44)
--- NOTE | 2020-10-03 10:45 | PC.NURSE ---
pt sister at bedside
[2020-10-03 10:52] LABS: INR 0.9
[2020-10-03 10:55] VITALS: BP 172/89; PULSE 84; RESP 14; O2SAT 98
[2020-10-03 10:55] LABS: Partial Thromboplastin Time 23.6 SECONDS (22.3-36.8)
[2020-10-03 10:58] LABS: Add Urine Microscopic? NO; Appearance Urine Clear (Clear); Bilirubin Urine Negative (Negative); Blood Urine Negative (Negative); Color Urine Yellow (Yellow); Glucose Urine UA Negative (Negative); Ketones Urine Negative (Negative); Leukocyte Esterase Ur Negative LEU/UL (Negative); Nitrate Urine Negative (Negative); Protein Urine Negative (Negative); Specific Grav Ur 1.014 (1.001-1.035); Urobilinogen Urine Negative mg/dL (<2.0)
[2020-10-03] MEDS: levETIRAcetam 500 MG TABLET 2000 MG PO (13:20)
[2020-10-03 13:25] VITALS: BP 175/112; PULSE 87; RESP 15; O2SAT 99
[2020-10-03 13:28] LABS: Phenytoin Dilantin 8 ug/mL (10-20)
[2020-10-03] MEDS: PHENYTOIN SODIUM 100 MG CAP 200 MG PO (14:08)
== END 2020-10-03 14:10 ==
PROVIDERS: Emergency Provider General Practice; PCP Family Medicine
DX: G40.909 Epilepsy, unspecified, not intractable, without status epilepticus (principal); G80.9 Cerebral palsy, unspecified; N40.0 Benign prostatic hyperplasia without lower urinary tract symptoms; Z85.828 Personal history of other malignant neoplasm of skin; D64.9 Anemia, unspecified; K21.9 Gastro-esophageal reflux disease without esophagitis; M85.80 Other specified disorders of bone density and structure, unspecified site; M19.90 Unspecified osteoarthritis, unspecified site; E55.9 Vitamin D deficiency, unspecified; E78.1 Pure hyperglyceridemia; I45.10 Unspecified right bundle-branch block; I44.0 Atrioventricular block, first degree
CPT/HCPCS: 36415; 70450; 71045; 80053; 80185; 81003; 85025; 85610; 85730; 93005; 96374; 99284; A9270; J2405

== ENCOUNTER 2020-10-30 15:11 | Emergency (ER) | payer MEDICARE, SELFPAY ==
[2020-10-30 15:20] VITALS: BP 166/96; PULSE 65; RESP 18; TEMP 36.8; O2SAT 99
--- NOTE | 2020-10-30 15:41 | ED.GENADULT ---
HPI - General Adult General Chief complaint: Unspecified Stated complaint: iNCREASED EDEMA FEET Time Seen by Provider: 10/30/20 15:41 Source: patient and EMS Mode of arrival: EMS Limitations: clinical condition History of Present Illness HPI narrative: Patient is a 60-year-old male with a history of seizure disorder, hypertension, BPH who presents for evaluation of lower extremity edema and scrotal edema. Workers at the care facility felt like the patient had increased scrotal edema compared to normal, thus when they contacted the patient's family/POA, they encouraged him to come to the ER to be evaluated since they are in [place]. Patient currently at bedside denying any headache, chest pain abdominal pain. He denies scrotal pain. He denies difficulty with urination stating he has been able to urinate twice today. He denies dysuria or hematuria. Patient does have history of cerebral palsy, has some developmental delay due to this, but is able to provide some history. No shortness of breath or cough. Patient states he has not had his nighttime Lasix pill which is due at 4 PM. Related Data Home Medications Medication Instructions Recorded Confirmed levetiracetam [Keppra] 500 mg PO DAILY 05/08/20 08/09/20 Allergies Allergy/AdvReac Type Severity Reaction Status Date / Time Sulfa (Sulfonamide Allergy Unknown Hives Verified 10/03/20 09:11 Antibiotics) Review of Systems Review of Systems: Narrative: CONSTITUTIONAL: Denies fever, chills, or sweats. EYES: Denies visual changes, redness, or discharge. ENT: Denies rhinorrhea, congestion, sore throat, or otalgia. CARDIOVASCULAR: Denies chest pain, palpitations, reports chronic edema RESPIRATORY: Denies cough or dyspnea. GASTROINTESTINAL: Denies abdominal pain, nausea, vomiting, or diarrhea. GENITOURINARY: Denies dysuria or hematuria. SKIN: Denies rash or itching. MUSCULOSKELETAL: Denies back pain, joint pain, or myalgia. NEUROLOGIC: Denies headache, numbness, or weakness. [facility] Past Medical History Medical History Anxiety Basal cell carcinoma (BCC) of right side of nose (~2017) Benign prostatic hyperplasia Cerebral palsy With history of bilateral Achilles tendon (1972) and bilateral hamstring lengthening (1967). Chronic anemia Edema Epilepsy Gastroesophageal reflux disease Hypertriglyceridemia Intellectual disability Non-seasonal allergic rhinitis Osteopenia Primary generalized (osteo)arthritis Vitamin D deficiency Surgical History Surgical History History of basal cell carcinoma excision (~2018) History of orthopedic surgery Status post bilateral hamstring and Achilles tendon lengthening. History of tonsillectomy Family History Family History Sibling Breast cancer Mother Pacemaker Hypertension Heart disease Social History Social History Social History: He resides at [facility]. He and his mother moved to [place] assisted living together but she unfortunately today (08/09/2020). Lifelong nonsmoker. No alcohol or illicit substance use. His sister Isaac Riggs was is healthcare power of document review attorney. Code status: Full code Gender identity (if verbalized by the patient): Male Spiritual care concerns: No Agree to blood products: Yes Exam Narrative: Exam Narrative: GENERAL: Awake, alert, conversant HEAD: Normocephalic, atraumatic. EYES: 2+ PERRLA and EOMI. ENT: Nares clear, no rhinorrhea or epistaxis. Mucous membranes moist. NECK: Supple. CHEST: No respiratory distress, breathing even and non labored HEART: Regular rate, sinus rhythm ABDOMEN:Non distended, non tender : Penis is normal. Glans normal. No discharge. No testicular edema or pain. EXTREMITIES: Gross motion is normal. Atrophy
[2020-10-30] MEDS: FUROSEMIDE INJ 40 MG/4 ML VIAL IV PUSH (16:45)
[2020-10-30 16:51] LABS: Basophils Absolute Auto 0.1 K/mm3 (0.0-0.1); Basophils Percent Auto 0.7 % (0.2-1.2); Eosinophils Absolute Auto 0.4 K/mm3 (0-0.3); Eosinophils Percent Auto 5.6 % (0-4.4); Hematocrit 37.8 % (42.0-52.0); Hemoglobin 12.9 g/dL (14.0-18.0); Immature Granulocyte Absolute 0.02 K/mm3 (0.00-0.031); Immature Granulocyte Percent A 0.3 % (0-0.5); Lymphocytes Absolute Auto 1.52 K/mm3 (0.9-3.2); Lymphocytes Percent Auto 22.5 % (18.3-44.2); Mean Corpuscular HGB Conc 34.1 g/dl (32-36); Mean Corpuscular Hemoglobin 31.4 pg (26-34); Mean Platelet Volume 9.5 fl (7.4-10.4); Monocytes Absolute Auto 0.7 K/mm3 (0.1-0.6); Monocytes Percent Auto 9.8 % (2.6-8.5); Neutrophils Absolute Auto 4.1 K/mm3 (1.3-6.7); Neutrophils Percent Auto 61.1 % (45.5-73.1); Platelet Count Result 219 k/mm3 (150-375); Red Blood Count 4.11 M/mm3 (4.6-6.20); Red Cell Distribution Width 12.2 % (11.5-14.5); White Blood Count 6.8 K/mm3 (4.5-10.0)
[2020-10-30 17:17] LABS: Anion Gap 5 mmol/L (8-16); Blood Urea Nitrogen 23 mg/dL (9-20); Carbon Dioxide 29 mmol/L (22-30); Chloride 104 mmol/L (98-107); Estimated CRCL calculation 94 ml/min; Estimated Glomerular Filt Rate > 60; Glucose 94 mg/dL (75-110); Potassium 4.4 mmol/L (3.4-5.0); Sodium 138 mmol/L (137-145)
[2020-10-30 17:20] LABS: Add Urine Microscopic? NO; Appearance Urine Clear (Clear); Bilirubin Urine Negative (Negative); Blood Urine Negative (Negative); Color Urine Straw (Yellow); Glucose Urine UA Negative (Negative); Ketones Urine Negative (Negative); Leukocyte Esterase Ur Negative LEU/UL (Negative); Nitrate Urine Negative (Negative); Protein Urine Negative (Negative); Specific Grav Ur 1.011 (1.001-1.035); Urobilinogen Urine Negative mg/dL (<2.0)
[2020-10-30 17:25] LABS: NT Pro B Type Natriuretic Pept 59 pg/mL (5-100)
--- NOTE | 2020-10-30 17:58 | PC.NURSE ---
Called [facility] and gave report to nurse nadia. She states they dont have a a transport van available. She suggested RN call his nephew for possible transport back.
--- NOTE | 2020-10-30 18:57 | PC.NURSE ---
Pts nephew Fady unable to transport patient at this time. States it is okay to call for an ambulance to take him back. Pts nephew notified that insurance may not cover transport and he stated that was okay.
--- NOTE | 2020-10-30 19:37 | PC.NURSE ---
[facility] here to transport patient
[2020-10-30 19:45] VITALS: BP 151/77; PULSE 80; RESP 16; TEMP 36.6; O2SAT 99
== END 2020-10-30 19:50 ==
PROVIDERS: Emergency Provider Emergency Medicine; PCP Family Medicine
DX: R60.0 Localized edema (principal); G40.909 Epilepsy, unspecified, not intractable, without status epilepticus; I10 Essential (primary) hypertension; N40.0 Benign prostatic hyperplasia without lower urinary tract symptoms; K21.9 Gastro-esophageal reflux disease without esophagitis; E78.5 Hyperlipidemia, unspecified; M19.90 Unspecified osteoarthritis, unspecified site; D64.9 Anemia, unspecified; Z85.828 Personal history of other malignant neoplasm of skin; M85.80 Other specified disorders of bone density and structure, unspecified site; E55.9 Vitamin D deficiency, unspecified
CPT/HCPCS: 36415; 80048; 81003; 83880; 85025; 96374; 99284; J1940

== ENCOUNTER 2020-12-27 12:59 | Inpatient (IN) | payer MEDICARE, SELFPAY ==
[2020-12-27] VITALS (31 sets, daily range): BP systolic 110–152; BP diastolic 47–101; PULSE 36–94; RESP 11–27; TEMP 35.9–36.7; O2SAT 88–100; BMI 36.9
--- NOTE | ~2020-12-27 | XR_ITS ---
EXAMINATION: XR chest 1V portable INDICATION: Dry cough TECHNIQUE: Portable AP chest at 1400 hours COMPARISON: 10/03/2020 FINDINGS: The lungs are free of acute opacities. There is no pleural effusion or pneumothorax. The ca rdiomediastinal silhouette is normal for technique. IMPRESSION: 1. No acute cardiopulmonary abnormality. Reviewed, dictated and finalized at location B.
--- NOTE | ~2020-12-27 | US_ITS ---
EXAMINATION: US venous doppler LE EXAM DATE: 12/28/2020 10:36 INDICATION: Increasing leg swelling bilaterally. TECHNIQUE: Multiple grayscale, color flow and Doppler images of the lower extremity deep venous syste ms bilaterally were obtained and reviewed. Comparison is made to prior examination from 08/09/2020. FINDINGS: The peroneal and posterior tibial veins were poorly visualized bilaterally due to calf lesia a. Right side: The right common femoral, femoral and profunda veins demonstrate normal color flow, respi ratory variation, augmentation and compressibility. Compressibility, color flow confirmed within the right popliteal, and greater saphenous veins. Left side: The left common femoral, femoral and profunda veins demonstrate normal color flow, respira tory variation, augmentation and compressibility. Compressibility, color flow confirmed within the l eft popliteal, and greater saphenous veins. IMPRESSION: Limited calf evaluation due to edema, but no evidence of DVT. Reviewed, dictated and finalized at location G.
[2020-12-27 13:20] LABS: Basophils Percent Auto 0.5 % (0.2-1.2); Eosinophils Absolute Auto 0.1 K/mm3 (0-0.3); Eosinophils Percent Auto 1.5 % (0-4.4); Immature Granulocyte Absolute 0.04 K/mm3 (0.00-0.031); Immature Granulocyte Percent A 0.7 % (0-0.5); Lymphocytes Absolute Auto 0.98 K/mm3 (0.9-3.2); Lymphocytes Percent Auto 16.8 % (18.3-44.2); Mean Corpuscular HGB Conc 32.6 g/dl (32-36); Mean Corpuscular Volume 98.3 fl (80-100); Mean Platelet Volume 9.7 fl (7.4-10.4); Monocytes Absolute Auto 0.8 K/mm3 (0.1-0.6); Monocytes Percent Auto 14.1 % (2.6-8.5); Neutrophils Absolute Auto 3.9 K/mm3 (1.3-6.7); Neutrophils Percent Auto 66.4 % (45.5-73.1); Nucleated Red Blood Cells Perc 0.3 % (0.0-0.2); Platelet Count Result 258 k/mm3 (150-375); Red Blood Count 1.78 M/mm3 (4.6-6.20); White Blood Count 5.8 K/mm3 (4.5-10.0)
[2020-12-27 13:21] LABS: Hematocrit 17.5 % (42.0-52.0)
[2020-12-27 13:22] LABS: Hemoglobin 5.7 g/dL (14.0-18.0)
[2020-12-27 13:36] LABS: Anion Gap 9 mmol/L (8-16); Blood Urea Nitrogen 28 mg/dL (9-20); Calcium 9.2 mg/dL (8.4-10.2); Carbon Dioxide 27 mmol/L (22-30); Chloride 100 mmol/L (98-107); Estimated CRCL calculation 95 ml/min; Estimated Glomerular Filt Rate > 60; Glucose 97 mg/dL (65-110); Potassium 3.9 mmol/L (3.4-5.0); Sodium 136 mmol/L (137-145)
--- NOTE | 2020-12-27 13:43 | ED.GENADULT ---
HPI - General Adult General Chief complaint: Upper Respiratory Infection Stated complaint: cough Time Seen by Provider: 12/27/20 13:27 Source: patient, EMS and RN notes reviewed Mode of arrival: EMS Limitations: no limitations History of Present Illness HPI narrative: Patient is 60 years old white male came to the emergency room because of dry cough for the last 2 days, patient is fully vaccinated for COVID-19. Patient denies any fever, chills, shortness of breath, chest pain, abdominal pain, back pain. Patient not taking any blood thinner, currently on ibuprofen. Related Data Home Medications Medication Instructions Recorded Confirmed levetiracetam [Keppra] 500 mg PO DAILY 05/08/20 08/09/20 Allergies Allergy/AdvReac Type Severity Reaction Status Date / Time Sulfa (Sulfonamide Allergy Unknown Hives Verified 11/11/20 14:14 Antibiotics) Review of Systems Review of Systems: Narrative: CONSTITUTIONAL: Denies fever, chills, or sweats. EYES: Denies visual changes, redness, or discharge. ENT: Denies rhinorrhea, congestion, sore throat, or otalgia. CARDIOVASCULAR: Denies chest pain, palpitations, or edema. RESPIRATORY: Denies cough or dyspnea. GASTROINTESTINAL: Denies abdominal pain, nausea, vomiting, or diarrhea. GENITOURINARY: Denies dysuria or hematuria. SKIN: Denies rash or itching. MUSCULOSKELETAL: Denies back pain, joint pain, or myalgia. NEUROLOGIC: Denies headache, numbness, or weakness. PSYCHIATRIC: Denies anxiety or depression. [facility] Past Medical History Medical History Anxiety Basal cell carcinoma (BCC) of right side of nose (~2017) Benign prostatic hyperplasia Cerebral palsy With history of bilateral Achilles tendon (1972) and bilateral hamstring lengthening (1967). Chronic anemia Edema Epilepsy Gastroesophageal reflux disease Hypertriglyceridemia Intellectual disability Non-seasonal allergic rhinitis Osteopenia Primary generalized (osteo)arthritis Vitamin D deficiency Surgical History Surgical History History of basal cell carcinoma excision (~2017) History of orthopedic surgery Status post bilateral hamstring and Achilles tendon lengthening. History of tonsillectomy Family History Family History Sibling Breast cancer Mother Pacemaker Hypertension Heart disease Social History Social History Social History: He resides at [facility]. He and his mother moved to [place] assisted [facility] together but she unfortunately today (08/09/2020). Lifelong nonsmoker. No alcohol or illicit substance use. His sister Isaac Riggs was is healthcare power of state's attorney. Code status: Full code Smoking status: Never smoker Gender identity (if verbalized by the patient): Male Spiritual care concerns: No Agree to blood products: Yes Exam Narrative: Exam Narrative: General appearance: Well-developed, well-nourished, looks weak and lethargic Skin: Normal color Head: Normocephalic, nontraumatic Eyes: Clear conjunctiva ENT: Oropharynx normal, ears normal, nose normal Neck: Supple, nontender Chest and respiratory: Airway patent, no respiratory distress, no accessory muscle use Heart: Regular rate/rhythm Abdomen: Soft, nontender, no organomegaly, quiet bowel sounds, rectal exam showed large nonbleeding hemorrhoids, empty rectal pouch, guaiac negative Neurologic: Alert and oriented ?3, Course Course Emergency Course: Stable Within 5 minutes after rectal examination to rule out GI
--- NOTE | 2020-12-27 13:46 | ECG_ITS ---
Measurements Intervals [place] Rate: 73 P: 47 CA: 241 QRS: 23 QRSD: 132 T: 20 QT: 397 QTc: 440 Interpretive Statements SINUS RHYTHM WITH MARKED SINUS ARRHYTHMIA WITH FIRST DEGREE AV BLOCK IVCD, WITH BOTH RBBB/LBBB FEATURES BASELINE ARTIFACT- II, AVF, V1, V4-V6 ABNORMAL ECG Electronically Signed On 12-27-2020 13:52:56 CDT by Mo Mcgregor D.O.
--- NOTE | 2020-12-27 13:55 | ECG_ITS ---
Measurements Intervals [place] Rate: 29 P: ND: 0 QRS: 37 QRSD: 123 T: 40 QT: 412 QTc: 290 Interpretive Statements SLOW SINUS BRADYCARDIA WITH SINUS ARRHYTHMIA JUNCTIONAL ESCAPE COMPLEX IVCD, WITH BOTH RBBB/LBBB QRS MORPHOLOGY ABNORMAL ECG Electronically Signed On 12-27-2020 16:44:07 CDT by Mo Mcgregor D.O.
--- NOTE | 2020-12-27 13:57 | PC.NURSE ---
Patient's heart rate seen on monitor decrease to 30bpm. EDP Zenaida aware. EKG was obtained. Per MICHELET Estevez, no further interventions at this time.
[2020-12-27 14:50] LABS: Alanine Aminotransferase 17 U/L (4-50); Albumin Level 3.9 g/dL (3.5-5.1); Alkaline Phosphatase 59 U/L (38-126); Aspartate Amino Transferase 23 U/L (17-59); Bilirubin,Total 0.2 mg/dL (0.2-1.3)
[2020-12-27 15:31] LABS: Transferrin 284 mg/dL (206-381)
[2020-12-27] MEDS: PANTOPRAZOLE SODIUM IV 40 MG VIAL IV PUSH (15:39)
[2020-12-27 15:42] LABS: Immature Reticulocyte Fraction 37.7 % (3.0-15.9); Reticulocyte Hemoglobin Conten 30.3 pg (28.2-35.7); Reticulocyte Percent 8.68 % (0.7-4.3); Reticulocytes Absolute 0.15 B/L (32.2-175.7)
[2020-12-27 15:47] LABS: Iron 41 ug/dL (49-181); Percent Iron Saturation 11 % (20-50)
--- NOTE | 2020-12-27 16:10 | PC.NURSE ---
Addendum entered by Luis Ortega RN 12/27/20 16:56: Patient's heart rate increased back into the 80s without atropine administration. Original Note: Patient's heart rate continues to decrease into the 30s. EDP Estevez aware of patient's heart rate and states to place patient on paddles and give 0.4mg atropine IVP. TATA Barrientos in room and states do not administer atropine IVP. No dose given at this time.
--- NOTE | 2020-12-27 16:15 | PM.IMHP ---
H&P: HPI History of Present Illness Date/Time: 12/27/20 16:15 Chief Complaint: Shortness of breath. Narrative: This is a pleasant 60-year-old male with cerebral palsy, intellectual disability, seizure disorder, anxiety, and benign prostatic hyperplasia who presented to the emergency department earlier today via EMS from [place] for evaluation of shortness of breath. The patient has been feeling a bit short of breath over the last couple of days and has perhaps had a mild dry cough which prompted his visit today. Labs done on arrival showed profound anemia with a hemoglobin and hematocrit of 5.7 and 17.5% respectively. With further questioning the patient reports that he had a hemorrhoid burst last Wednesday and he had pretty extensive bleeding for 3 days thereafter. On rectal exam he had large hemorrhoids with no evidence of recent bleeding and his stool was guaiac negative. Shortly after a rectal exam performed by the emergency department physician, the patient became bradycardic with a ventricular rate as low as 29. EKG is difficult to interpret but shows variable MA and QRS intervals, possible intermittent AV block, and junctional escape mechanism. He was asymptomatic but has continued to have intermittent episodes of bradycardia. Telemetry at the time my evaluation shows marked sinus arrhythmia with rates ranging between the upper 60s and low 90s with stable blood pressures. Initially atropine was ordered however his rate has remained steady in the 80s and he is stable. Patient has no known history of cardiac disease or sick sinus syndrome but he does mention the last 2 nights he has had feelings of racing heart. He has chronic lower extremity edema although that is seem to have gotten worse over the past 2 days as well. He has not had chest pain, pleuritic pain, orthopnea, PND, nausea, vomiting, epigastric or abdominal discomfort, syncope, or near syncope. No fever, chills, sweats, sinus congestion, rhinorrhea, otalgia, or odynophagia. He has no known exposure to those positive for COVID-19 and is fully vaccinated for such. Review of Systems Review of Systems: Narrative: 12 systems were reviewed with pertinent positives and negatives as per HPI. Patient does snore slightly. No history of sleep apnea. He denies orthopnea and PND. No significant daytime somnolence but he tends to rest and nap quite often. He has had some nausea. No vomiting. No diarrhea. No dysuria. He has chronic lower extremity edema which is unchanged. Swelling does extend up into the scrotum. Last seizure was about 6 weeks ago. Except as document, all other systems were reviewed and are negative. [facility] Past Medical History Medical History (Updated 12/27/20 @ 22:01 by Iliana Evans PA-C) Anxiety Basal cell carcinoma (BCC) of right side of nose (~2018) Benign prostatic hyperplasia Cerebral palsy With history of bilateral Achilles tendon (1972) and bilateral hamstring lengthening (1967). Chronic anemia Diastolic dysfunction Echocardiogram on 08/09/2020 showed normal left ventricular size and function with an EF of 60 to 65% and grade 1 diastolic dysfunction. Epilepsy Gastroesophageal reflux disease Hypertriglyceridemia Intellectual disability Non-seasonal allergic rhinitis Osteopenia Primary generalized (osteo)arthritis Vitamin D deficiency Surgical History Surgical History History of basal cell carcinoma excision (~2017) History of orthopedic surgery Status post bilateral hamstring and Achilles tendon lengthening. History of tonsillectomy Family History Family History Sibling Breast cancer Mother Pacemaker Hypertension Heart disease Social History Social History (Updated 12/27/20 @ 21:55 by Iliana Evans PA-C) Social History: He resides at [facility]. He is essentially wheelchair bound but can transfer. Lifelong
--- NOTE | 2020-12-27 17:17 | ADMGEN ---
This patient, Aries Patterson, was admitted to IMU Room 203-01 at 1705 on 12/27/2020. Patient/family oriented to hospital policies and general routines including ID bracelet, bed and alarms, visiting hours, pain management, procedures, bathroom and other care routines, personal items, smoking policy, room service/diet, and visiting hours. Information on how to activate the Rapid Response Team has been discussed. Patient/Family are encouraged to report perceived risks to care and to ask questions if they do not understand what they are told or what they should do.
[2020-12-27] MEDS: TUBING, BLOOD PLUM PUMP TUBING 1 EACH XX ×2 (17:20→22:06)
[2020-12-27] MEDS: SODIUM CHLORIDE 0.9% IV 250 ML 30 ML IV CONT (17:20)
--- NOTE | 2020-12-27 18:11 | PM.CNCAR ---
Assessment and Plan Assessment and plan (1) Bradyarrhythmia: Code(s): I49.8 - Other specified cardiac arrhythmias Status: Acute Assessment and Plan: Patient is a 60-year-old white man with history of heart failure with preserved ejection fraction (with chronic scrotal and lower extremity edema), right bundle-branch block, first-degree AV block, pericardial cyst ( 2.5 x 0.8 cm, noted on CT of the chest August 12, 2020, [facility]), family history of conduction system disease (requiring pacemaker in relatives including mother), cerebral palsy, intellectual disability, seizure disorder, hypertriglyceridemia, chronic anemia, GERD, anxiety disorder, benign prostatic hypertrophy, who is seen in cardiac consultation for chief complaint of paroxysmal nocturnal dyspnea with marked bradycardia. - patient has a history of right bundle-branch block and first-degree AV block and this admission was noted to have bradyarrhythmias and conduction disturbance including probable second-degree AV block Mobitz type 1 (Wenckebach), junctional escape rhythm, up to 5.2 sec pause, and heart rate as low as 29 beats per minute with junctional escape rhythm following rectal examination. - In addition to chronic conduction system disease, suspect his worsened bradyarrhythmia and pauses this admission reflect hypoxemia in the setting of his acute anemia which is marked, with presenting hemoglobin of 5.7. -transfuse to keep hemoglobin 7-8 given his acute on chronic diastolic heart failure and bradyarrhythmias. - Potassium 3.9 and magnesium level 2.0, normal this admission. - Obtain Dilantin level. Hold Dilantin pending Dilantin level given potential for bradyarrhythmias if he is Dilantin toxic. - Patient denies chest pain and initial troponin I negative for injury. Continue to trend troponin I. EKG without evidence of acute injury. Monitor serial EKG. - consider transient left bundle-branch block in the setting of his chronic right bundle-branch block contributing to complete heart block, possibly worsened by hypoxemia with his severe acute anemia and with vasovagal event following rectal examination, triggering his marked bradyarrhythmia, as initial EKG demonstrated heart rate 73 beats per minute with sinus arrhythmia. - have intravenous dopamine at the bedside and would initiate dopamine infusion at a low dose if heart rate less than 45 or significant persistent pauses. Consider atropine as needed. Patient has transcutaneous pacer pads on at present. Consider temporary transvenous pacemaker if needed. - Continue to monitor on telemetry. - He has a family history of conduction system disease, with relatives including his mother requiring permanent pacemaker. Given his history of scrotal infection and underlying chronic disease states with relatively young age, would avoid permanent pacemaker unless clearly indicated pending correction of his marked anemia. - Pending stabilization of his rhythm and correction of anemia, patient would benefit from Lexiscan nuclear stress testing to evaluate for ischemia as an outpatient. (2) Acute blood loss anemia: Code(s): D62 - Acute posthemorrhagic anemia Status: Acute Assessment and Plan: -He has acute on chronic anemia, with marked presenting anemia, hemoglobin 5.7. -probable hemorrhoidal source noted over the last week per patient report. -GI service consulted. -Serial monitoring of hemoglobin. -transfuse to keep hemoglobin 7-8 given his acute on chronic diastolic heart failure and marked bradyarrhythmias this admission. - Hold his outpatient ibuprofen. (3) Acute diastolic CHF (congestive heart failure): Code(s): I50.31 - Acute diastolic (congestive) heart failure Status: Acute Assessment and Plan: - He has acute on chronic heart failure with preserved ejection fraction in the setting of marked severe anemia, with hemoglobin 5.7 in the setting of hemorrhoidal bleeding. - transfuse
[2020-12-27 19:17] LABS: NT Pro B Type Natriuretic Pept 262 pg/mL (5-100); Troponin I < 0.012 ng/mL (0.000-0.034)
[2020-12-27 19:56] LABS: Phenytoin Dilantin 16 ug/mL (10-20)
[2020-12-27 21:43] LABS: Hemoglobin 6.3 g/dL (14.0-18.0)
[2020-12-27 21:44] LABS: Hematocrit 19.5 % (42.0-52.0)
[2020-12-27 22:01] LABS: Troponin I < 0.012 ng/mL (0.000-0.034)
[2020-12-27] MEDS: FUROSEMIDE 40 MG TABLET PO (23:27)
[2020-12-27] MEDS: PHENYTOIN SODIUM 100 MG CAP 200 MG PO (23:27)
[2020-12-27] MEDS: busPIRone HCL 5 MG TABLET 15 MG PO (23:27)
[2020-12-27] MEDS: FINASTERIDE 5 MG TABLET PO (23:28)
[2020-12-28] VITALS (15 sets, daily range): BP systolic 106–140; BP diastolic 53–79; PULSE 28–95; RESP 14–22; TEMP 35.8–36.4; O2SAT 95–100
[2020-12-28 01:34] LABS: Hematocrit 21.7 % (42.0-52.0); Hemoglobin 7.2 g/dL (14.0-18.0)
[2020-12-28] MEDS: MAGNESIUM SULF 2 GM/WATER 50ML 2 GM/50 ML BAG IVPB (01:34)
[2020-12-28] MEDS: levETIRAcetam 500 MG TABLET 2000 MG PO ×3 (01:35→22:17)
[2020-12-28 01:42] LABS: Troponin I < 0.012 ng/mL (0.000-0.034)
--- NOTE | 2020-12-28 02:47 | PC.NURSE ---
Pt keeps waking up after apneic episodes with decreases in HR into the 30's and Sp02 into the low 90's and mid 80's scared and short of breath. Talked to Dr Cruz about placing him on a CPap now. Ok to go ahead. Continuous pulse ox shows correlation: Spo2 drops after HR drops.
--- NOTE | 2020-12-28 03:11 | ECG_ITS ---
Measurements Intervals [place] Rate: 38 P: DC: 0 QRS: 51 QRSD: 122 T: 44 QT: 426 QTc: 339 Interpretive Statements SLOW JUNCTIONAL RHYTHM IVCD, FEATURES OF BOTH RBBB/LBBB BASELINE ARTIFACT- I, II, III, AVR, AVL, AVF ABNORMAL ECG Electronically Signed On 12-28-2020 17:42:16 CDT by Mo Mcgregor D.O.
--- NOTE | 2020-12-28 03:14 | PCRCNOTE ---
Respiratory Care Note: RN states pt's SpO2 drops into the 30's, and pt bradys down, so, Auto CPAP 5-20 applied via large nasal mask. Tolerating well so far.
--- NOTE | 2020-12-28 05:00 | ECG_ITS ---
Measurements Intervals [place] Rate: 51 P: 46 TN: 241 QRS: 27 QRSD: 128 T: 30 QT: 394 QTc: 364 Interpretive Statements SINUS BRADYCARDIA WITH SINUS ARRHYTHMIA WITH FIRST DEGREE AV BLOCK RIGHT BUNDLE BRANCH BLOCK ABNORMAL ECG Electronically Signed On 12-28-2020 7:06:09 CDT by Mo Mcgregor D.O.
[2020-12-28 05:24] LABS: Basophils Percent Auto 0.5 % (0.2-1.2); Eosinophils Absolute Auto 0.2 K/mm3 (0-0.3); Eosinophils Percent Auto 2.6 % (0-4.4); Hematocrit 22.6 % (42.0-52.0); Hemoglobin 7.5 g/dL (14.0-18.0); Immature Granulocyte Absolute 0.03 K/mm3 (0.00-0.031); Immature Granulocyte Percent A 0.5 % (0-0.5); Lymphocytes Absolute Auto 1.16 K/mm3 (0.9-3.2); Lymphocytes Percent Auto 17.8 % (18.3-44.2); Mean Corpuscular HGB Conc 33.2 g/dl (32-36); Mean Corpuscular Hemoglobin 30.4 pg (26-34); Mean Corpuscular Volume 91.5 fl (80-100); Mean Platelet Volume 9.5 fl (7.4-10.4); Monocytes Absolute Auto 0.7 K/mm3 (0.1-0.6); Monocytes Percent Auto 10.3 % (2.6-8.5); Neutrophils Absolute Auto 4.5 K/mm3 (1.3-6.7); Neutrophils Percent Auto 68.3 % (45.5-73.1); Nucleated Red Blood Cells Perc 0.3 % (0.0-0.2); Platelet Count Result 240 k/mm3 (150-375); Red Blood Count 2.47 M/mm3 (4.6-6.20); Red Cell Distribution Width 15.8 % (11.5-14.5); White Blood Count 6.5 K/mm3 (4.5-10.0)
[2020-12-28 05:41] LABS: Anion Gap 9 mmol/L (8-16); Blood Urea Nitrogen 22 mg/dL (9-20); Calcium 8.4 mg/dL (8.4-10.2); Carbon Dioxide 26 mmol/L (22-30); Chloride 100 mmol/L (98-107); Cholesterol 168 mg/dL (0-200); Estimated CRCL calculation 105 ml/min; Estimated Glomerular Filt Rate > 60; Glucose 110 mg/dL (65-110); HDL Direct 57 mg/dL; Magnesium 2.5 mg/dL (1.6-2.3); Sodium 135 mmol/L (137-145); Triglycerides 126 mg/dL (<150)
[2020-12-28 05:52] LABS: LDL Cholesterol Direct 73 mg/dL
--- NOTE | 2020-12-28 07:00 | ECG_ITS ---
Measurements Intervals [place] Rate: 66 P: 48 DE: 232 QRS: 27 QRSD: 130 T: 31 QT: 399 QTc: 419 Interpretive Statements SINUS RHYTHM WITH FIRST DEGREE AV BLOCK RIGHT BUNDLE BRANCH BLOCK ABNORMAL ECG Electronically Signed On 12-28-2020 17:02:53 CDT by Mo Mcgregor D.O.
[2020-12-28] MEDS: POTASSIUM CHLORIDE 10 MEQ TABLET.ER PO (09:14)
[2020-12-28] MEDS: levETIRAcetam 500 MG TABLET PO (09:18)
[2020-12-28] MEDS: busPIRone HCL 5 MG TABLET 15 MG PO ×2 (09:19→16:52)
[2020-12-28] MEDS: TAMSULOSIN HCL 0.4 MG CAPSULE PO ×2 (09:19→22:17)
[2020-12-28] MEDS: LORATADINE 10 MG TABLET PO (09:20)
--- NOTE | 2020-12-28 09:22 | PM.IMPN ---
Progress Note: A&P Assessment and Plan (1) Acute blood loss anemia: Code(s): D62 - Acute posthemorrhagic anemia Status: Acute Assessment and Plan: ferritin is normal while iron and TIBC are consistent with iron deficiency hemoglobin 5.7 at admission on 12/27 12/28 hemoglobin improved to 7.5 continue to monitor H and H GI evaluation (2) Hemorrhoids: Qualifiers: Hemorrhoid type: unspecified Qualified Code(s): K64.9 - Unspecified hemorrhoids Code(s): K64.9 - Unspecified hemorrhoids Status: Acute Assessment and Plan: no bleeding since admission (3) Bradyarrhythmia: Code(s): I49.8 - Other specified cardiac arrhythmias Status: Acute Assessment and Plan: likely due to a combination of sleep apnea and worsened edema and underlying conduction system abnormalities improved with CPAP continue to monitor (4) Diastolic dysfunction: Code(s): I51.89 - Other ill-defined heart diseases Status: Acute Assessment and Plan: no evidence for pulmonary congestion worsened lower extremity edema is worrisome for DVT given his relative immobility continue home furosemide 40 mg twice daily check venous Dopplers (5) Epilepsy: Qualifiers: Epilepsy type: unspecified Intractability: not intractable Status epilepticus: without status epilepticus Qualified Code(s): G40.909 - Epilepsy, unspecified, not intractable, without status epilepticus Code(s): G40.909 - Epilepsy, unspecified, not intractable, without status epilepticus Status: Chronic Assessment and Plan: Continue Dilantin and Keppra (6) Benign prostatic hyperplasia: Qualifiers: Lower urinary tract symptom presence: symptoms present Lower urinary tract symptom detail: incomplete bladder emptying Qualified Code(s): N40.1 - Benign prostatic hyperplasia with lower urinary tract symptoms; R39.14 - Feeling of incomplete bladder emptying Code(s): N40.0 - Benign prostatic hyperplasia without lower urinary tract symptoms Status: Chronic Assessment and Plan: continue finasteride. Increase tamsulosin to b.i.d.. Consider voiding trial in 1-2 days. May have component of neurogenic bladder has well. Subjective Date/time seen: 12/28/20 09:22 Interval history: Admitted December 27 with profound anemia and bradycardia. December 28. Did not like CPAP overnight. Staff notes heart rate was much better while wearing CPAP. Denied further bleeding. Confirmed by staff. Does have a history of bleeding hemorrhoids. No GI upset. No chest pain or shortness of breath. No dizziness or syncope. Recent increase in bilateral leg swelling. Lasix was increased from 20 mg daily to 40 mg twice daily as an outpatient. Still has significant swelling That has improved minimally. He did have urinary retention overnight and immediately passed 1100 mL urine upon Glasgow catheter placement. Takes finasteride and tamsulosin chronically. Review of Systems Review of Systems: All systems reviewed & are unremarkable except as noted in HPI and below Exam Narrative: Exam Narrative: General: Mildly ill-appearing male sitting up in bed in no distress. Weight: 26.4 kg. BMI: 37.8. HEENT: Normocephalic, atraumatic. PERRL, EOMI. Sclerae anicteric. Oral mucosa moist. Oropharynx is crowded and poorly visualized. Neck: Supple. Exam difficult due to positioning and neck circumference. No obvious JVD. Respiratory: Respirations are even and nonlabored. He is speaking in full sentences. Lungs are clear to auscultation bilaterally. Cardiovascular: Regular rate and rhythm with S1-S2. Telemetry at the time my evaluation shows a sinus rhythm with a rate of 81. Gastrointestinal: Abdomen is soft, obese, nontender, and nondistended with positive bowel sounds. Skin: Warm and dry. No rash or lesions on limited exam. Extremities: No cyanosis or clubbing. L
--- NOTE | 2020-12-28 10:40 | PM.PNCARD ---
Progress Note: A&P Assessment and Plan (1) Bradyarrhythmia: Code(s): I49.8 - Other specified cardiac arrhythmias Status: Acute Assessment and Plan: Patient is a 60-year-old white man with history of heart failure with preserved ejection fraction (with chronic scrotal and lower extremity edema), right bundle-branch block, first-degree AV block, pericardial cyst ( 2.5 x 0.8 cm, noted on CT of the chest August 12, 2020, [facility]), family history of conduction system disease (requiring pacemaker in relatives including mother), cerebral palsy, intellectual disability, seizure disorder, hypertriglyceridemia, chronic anemia, GERD, anxiety disorder, benign prostatic hypertrophy, who is seen in cardiac consultation for chief complaint of paroxysmal nocturnal dyspnea with marked bradycardia. - patient has a history of right bundle-branch block and first-degree AV block and this admission was noted to have bradyarrhythmias and conduction disturbance including probable second-degree AV block Mobitz type 1 (Wenckebach), junctional escape rhythm, up to 5.2 sec pause, and heart rate as low as 29 beats per minute with junctional escape rhythm following rectal examination and when asleep. - In addition to chronic conduction system disease, suspect his worsened bradyarrhythmia and pauses this admission reflect obstructive sleep apnea with hypoxemia, worsened in the setting of his acute anemia which is marked, with presenting hemoglobin of 5.7. -Patient had recurrence of sinus pauses with 5.1 and 3.2 sec pauses noted overnight 12/28/2020 during sleep. When he was placed on CPAP empirically, his bradyarrhythmias markedly improved as per nursing report. Patient did not like CPAP overnight from a comfort perspective so will need to optimize mask and strap styles, as well as pressure support, with anticipated CPAP titration as an outpatient with sleep Center referral.. Staff notes heart rate was much better while wearing CPAP. Patient reports laryngeal problems as a child. -transfuse to keep hemoglobin 7-8 given his acute on chronic diastolic heart failure and bradyarrhythmias. - Potassium 3.9 and magnesium level 2.0, normal this admission. -Hold Dilantin given potential for bradyarrhythmias. Dilantin was upper limits of normal and albumin was lower limits of normal and cannot exclude a contribution of Dilantin to his bradyarrhythmias. He needs neurology follow-up for adjustment of Keppra dosing or addition of an additional antiseizure medication to replace Dilantin. - Patient denies chest pain and serial troponin I negative for injury. Serial EKG without evidence of acute injury. - Repeat EKG 12/28/2020 at 7:54 a.m. demonstrated sinus rhythm, 66 beats per minute, first-degree AV block, right bundle-branch block, corrected QT interval of 412 milliseconds. - consider transient left bundle-branch block in the setting of his chronic right bundle-branch block contributing to complete heart block, possibly worsened by obstructive sleep apnea with hypoxemia, worsened with his severe acute anemia and with possible vasovagal event following rectal examination, triggering his marked bradyarrhythmia, as initial EKG demonstrated heart rate 73 beats per minute with sinus arrhythmia. - have intravenous dopamine at the bedside and would initiate dopamine infusion at a low dose if heart rate less than 45 or significant persistent pauses. Consider atropine as needed. Patient has transcutaneous pacer pads on at present. Consider temporary transvenous pacemaker if needed. - Continue to monitor on telemetry. - He has a family history of conduction system disease, with relatives including his mother requiring permanent pacemaker. 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
[2020-12-28 10:41] LABS: Hematocrit 23.4 % (42.0-52.0); Hemoglobin 7.6 g/dL (14.0-18.0)
[2020-12-28] MEDS: FUROSEMIDE 40 MG TABLET PO ×2 (10:53→16:56)
[2020-12-28] MEDS: PHENYTOIN SODIUM 100 MG CAP 200 MG PO (10:54)
--- NOTE | 2020-12-28 13:17 | WPDGICN ---
Assessment and Plan Assessment and plan (1) Acute blood loss anemia: Code(s): D62 - Acute posthemorrhagic anemia Status: Acute Assessment and Plan: noted brbpr, hb improved after blood transfusion plan for egd and colonoscopy Wednesday to assess if ulcer/diverticular bleed or even malignancy continue supportive care and medical management (2) Acute diastolic CHF (congestive heart failure): Code(s): I50.31 - Acute diastolic (congestive) heart failure Status: Acute Assessment and Plan: cardiology on board, better with blood transfusion (3) Edema: Qualifiers: Edema type: localized Qualified Code(s): R60.0 - Localized edema Code(s): R60.9 - Edema, unspecified Status: Acute (4) Bradyarrhythmia: Code(s): I49.8 - Other specified cardiac arrhythmias Status: Acute Assessment and Plan: on treatment by cardiology and telemetry (5) Epilepsy: Qualifiers: Epilepsy type: unspecified Intractability: not intractable Status epilepticus: without status epilepticus Qualified Code(s): G40.909 - Epilepsy, unspecified, not intractable, without status epilepticus Code(s): G40.909 - Epilepsy, unspecified, not intractable, without status epilepticus Status: Chronic Assessment and Plan: on meds at home, no episodes here (6) Glasgow catheter present: Code(s): Z97.8 - Presence of other specified devices Status: Acute (7) Cerebral palsy: Qualifiers: Cerebral palsy type: unspecified type Qualified Code(s): G80.9 - Cerebral palsy, unspecified Code(s): G80.9 - Cerebral palsy, unspecified Status: Chronic GI Consult Note Consult date/time: 12/28/20 13:17 Reason for consult: acute blood loss anemia HPI: Aries Patterson is a 60 year old male with history of cerebral palsy, intellectual disability, seizure disorder on dilantin who resided in a living facility where he is chronically wheelchair-bound. He came here with worsening shortness of breath worse at nighttime and palpitations for last several days. ER evaluation showed marked anemia with hemoglobin of 5.7 (it was 12.9 on 10/30/2020). He says that a week ago a hemorrhoid burst after straining and noted new onset of bright red blood in toilet. Also found to be bradycardic with heart rate as low as 29 beats per minute, admitted to hospital and evaluated by cardiology. He never had scopes and says that has been more constipated for last year or so. CXR reviewed and normal, treated also diastolic heart failure precipitated by severe anemia. He received blood transfusion and is feeling better. Renal function, liver enzymes and k/Mg normal. Review of Systems Constitutional: Constitutional: Reports weakness Eyes: Eyes: Denies blurry vision ENT: Reports Normal hearing present Cardiovascular: Cardiovascular: Reports palpitations Respiratory: Respiratory: Reports dyspnea on exertion Gastrointestinal: Gastrointestinal: Denies abdominal pain and Reports constipation Genitourinary: Genitourinary: Denies dysuria Musculoskeletal: Musculoskeletal: Denies neck pain Integumentary/Breasts: Skin/Breast: Denies dry skin Neurologic: Denies confusion Psychiatric: Psychiatric: Reports no additional psychiatric complaints [facility] Past Medical History Medical History (Updated 12/28/20 @ 09:27 by Jose Eduardo Munguia MD) Anxiety Basal cell carcinoma (BCC) of right side of nose (~2017) Benign prostatic hyperplasia Cerebral palsy With history of bilateral Achilles tendon (1972) and bilateral hamstring lengthening (1967). Chronic anemia Diastolic dysfunction Echocardiogram on 08/09/2020 showed normal left ventricular size and function with an EF of 60 to 65% and grade 1 diastolic dysfunction. Epilepsy Gastroesophageal reflux disease Hypertriglyceridemia Intellectual disability Non-seasonal allergic rhinitis Osteopenia Primary generalized (osteo)arthritis Vit
[2020-12-28] MEDS: PHENYTOIN SODIUM 100 MG CAP PO (16:51)
[2020-12-28] MEDS: FINASTERIDE 5 MG TABLET PO (22:17)
[2020-12-29] VITALS (10 sets, daily range): BP systolic 122–173; BP diastolic 57–76; PULSE 75–87; RESP 17–22; TEMP 36.2–36.6; O2SAT 99–100
--- NOTE | 2020-12-29 08:54 | PCOTNOTE ---
Attempted OT evaluation, despite education on benefits of working with OT, patient refused to complete Occupational Therapy at this time, reports does not want to get out of bed. Will follow and attempt at later time.
--- NOTE | 2020-12-29 12:24 | PM.PNCARD ---
Progress Note: A&P Assessment and Plan (1) Bradyarrhythmia: Code(s): I49.8 - Other specified cardiac arrhythmias Status: Acute Assessment and Plan: Patient is a 60-year-old white man with history of heart failure with preserved ejection fraction (with chronic scrotal and lower extremity edema), right bundle-branch block, first-degree AV block, pericardial cyst ( 2.5 x 0.8 cm, noted on CT of the chest August 12, 2020, [facility]), family history of conduction system disease (requiring pacemaker in relatives including mother), cerebral palsy, intellectual disability, seizure disorder, hypertriglyceridemia, chronic anemia, GERD, anxiety disorder, benign prostatic hypertrophy, who is seen in cardiac consultation for chief complaint of paroxysmal nocturnal dyspnea with marked bradycardia. - patient has a history of right bundle-branch block and first-degree AV block and this admission was noted to have bradyarrhythmias and conduction disturbance including probable second-degree AV block Mobitz type 1 (Wenckebach), junctional escape rhythm, up to 5.2 sec pause, and heart rate as low as 29 beats per minute with junctional escape rhythm following rectal examination and when asleep. - In addition to chronic conduction system disease, suspect his bradyarrhythmia and pauses this admission reflect obstructive sleep apnea with hypoxemia, worsened in the setting of his acute anemia which is marked, with presenting hemoglobin of 5.7. -Patient had recurrence of sinus pauses with 5.1 and 3.2 sec pauses noted overnight 12/28/2020 during sleep. When he was placed on CPAP empirically, his bradyarrhythmias markedly improved as per nursing report. Patient did not like CPAP overnight from a comfort perspective so will need to optimize mask and strap styles, as well as pressure support settings, with anticipated CPAP titration as an outpatient with sleep Center referral. Staff notes heart rate was much better while wearing CPAP. Patient reports laryngeal problems as a child. -transfuse to keep hemoglobin 7-8 given his acute on chronic diastolic heart failure and bradyarrhythmias. - Potassium 3.9 and magnesium level 2.0, normal this admission. Continue to monitor magnesium and potassium. -Hold Dilantin given potential for bradyarrhythmias. Dilantin was upper limits of normal and albumin was lower limits of normal and cannot exclude a contribution of Dilantin to his bradyarrhythmias. He needs neurology follow-up for adjustment of Keppra dosing or addition of an additional antiseizure medication to replace Dilantin. - Patient denies chest pain and serial troponin I negative for injury. Serial EKG without evidence of acute injury. - Repeat EKG 12/28/2020 at 7:54 a.m. demonstrated sinus rhythm, 66 beats per minute, first-degree AV block, right bundle-branch block, corrected QT interval of 412 milliseconds. - consider transient left bundle-branch block in the setting of his chronic right bundle-branch block contributing to complete heart block, possibly worsened by obstructive sleep apnea with hypoxemia, worsened with his severe acute anemia and use of Dilantin, and with possible vasovagal event following rectal examination, triggering his marked bradyarrhythmia, as initial EKG demonstrated heart rate 73 beats per minute with sinus arrhythmia. - have intravenous dopamine at the bedside and would initiate dopamine infusion at a low dose if heart rate less than 45 or significant persistent pauses. Consider atropine as needed. Patient has transcutaneous pacer pads on at present. - Continue to monitor on telemetry. - He has a family history of conduction system disease, with relatives including his mother requiring permanent pacemaker. Given his history of scrotal infection and underlying chronic disease states with relatively young age, would avoid permanent pacemaker unless clearly indicated pending correction of his marked anemia and with treatment of probable obstructive slee
[2020-12-29] MEDS: POTASSIUM CHLORIDE 10 MEQ TABLET.ER PO (12:32)
[2020-12-29] MEDS: FUROSEMIDE 20 MG TABLET PO (12:33)
[2020-12-29] MEDS: busPIRone HCL 5 MG TABLET 15 MG PO ×3 (12:33→17:37)
[2020-12-29] MEDS: LORATADINE 10 MG TABLET PO (12:34)
[2020-12-29] MEDS: TAMSULOSIN HCL 0.4 MG CAPSULE PO ×2 (12:34→21:57)
[2020-12-29] MEDS: levETIRAcetam 500 MG TABLET PO (12:35)
[2020-12-29] MEDS: FUROSEMIDE 40 MG TABLET PO ×2 (12:35→16:21)
--- NOTE | 2020-12-29 13:28 | PM.IMPN ---
Progress Note: A&P Assessment and Plan (1) Acute blood loss anemia: Code(s): D62 - Acute posthemorrhagic anemia Status: Acute Assessment and Plan: ferritin is normal while iron and TIBC are consistent with iron deficiency hemoglobin 5.7 at admission on 12/27 12/28 hemoglobin improved to 7.5, 12/29 7.6 continue to monitor H and H GI in progress (2) Hemorrhoids: Qualifiers: Hemorrhoid type: unspecified Qualified Code(s): K64.9 - Unspecified hemorrhoids Code(s): K64.9 - Unspecified hemorrhoids Status: Acute Assessment and Plan: no bleeding since admission (3) Bradyarrhythmia: Code(s): I49.8 - Other specified cardiac arrhythmias Status: Acute Assessment and Plan: likely due to a combination of sleep apnea and underlying conduction system abnormalities improved with CPAP continue to monitor (4) Diastolic dysfunction: Code(s): I51.89 - Other ill-defined heart diseases Status: Acute Assessment and Plan: no evidence for pulmonary congestion worsened lower extremity edema is worrisome for DVT given his relative immobility continue home furosemide 40 mg twice daily Venous dopplers negative 12/28 (5) Epilepsy: Qualifiers: Epilepsy type: unspecified Intractability: not intractable Status epilepticus: without status epilepticus Qualified Code(s): G40.909 - Epilepsy, unspecified, not intractable, without status epilepticus Code(s): G40.909 - Epilepsy, unspecified, not intractable, without status epilepticus Status: Chronic Assessment and Plan: Continue Dilantin and Keppra (6) Benign prostatic hyperplasia: Qualifiers: Lower urinary tract symptom presence: symptoms present Lower urinary tract symptom detail: incomplete bladder emptying Qualified Code(s): N40.1 - Benign prostatic hyperplasia with lower urinary tract symptoms; R39.14 - Feeling of incomplete bladder emptying Code(s): N40.0 - Benign prostatic hyperplasia without lower urinary tract symptoms Status: Chronic Assessment and Plan: continue finasteride. Increase tamsulosin to b.i.d.. Consider voiding trial 12/30 or 12/31 May have component of neurogenic bladder has well. (7) Obstructive sleep apnea of adult: Code(s): G47.33 - Obstructive sleep apnea (adult) (pediatric) Status: Acute Assessment and Plan: Respiratory to fit with mask. Subjective Date/time seen: 12/29/20 13:28 Interval history: Admitted December 27 with profound anemia and bradycardia. December 29. Did not like CPAP. Air leaks prevent him from sleeping. Staff notes heart rate was much better while wearing CPAP. Denied further bleeding. Confirmed by staff. Does have a history of bleeding hemorrhoids. No GI upset. No chest pain or shortness of breath. No dizziness or syncope. Recent increase in bilateral leg swelling. Lasix was increased from 20 mg daily to 40 mg twice daily as an outpatient. Still has significant swelling That has improved minimally. He did have urinary retention overnight 12/28 and immediately passed 1100 mL urine upon Glasgow catheter placement 12/28. Takes finasteride and tamsulosin chronically. Review of Systems Review of Systems: All systems reviewed & are unremarkable except as noted in HPI and below Exam Narrative: Exam Narrative: General: Mildly ill-appearing male sitting up in bed in no distress. Weight: 26.4 kg. BMI: 37.8. HEENT: Normocephalic, atraumatic. PERRL. Sclerae anicteric. Oral mucosa moist. Oropharynx is crowded. Neck: Supple. Exam difficult due to positioning and neck circumference. No obvious JVD. Respiratory: Respirations are even and nonlabored. He is speaking in full sentences. Lungs are clear to auscultation bilaterally. Cardiovascular: Regular rate and rhythm with S1-S2. Telemetry at the time my evaluation shows a sinus rhythm with a rate of 81. Ga
--- NOTE | 2020-12-29 13:46 | WPDGIPROGNO ---
Progress Note: A&P Assessment and Plan (1) Acute blood loss anemia: Code(s): D62 - Acute posthemorrhagic anemia Status: Acute Assessment and Plan: he received blood transfusion, hb still low but stable egd and colonoscopy to assess source of blood loss (2) Diastolic dysfunction: Code(s): I51.89 - Other ill-defined heart diseases Status: Acute Assessment and Plan: treated by cardiology and precipitated by severe anemia (3) Bradyarrhythmia: Code(s): I49.8 - Other specified cardiac arrhythmias Status: Acute (4) Epilepsy: Qualifiers: Epilepsy type: unspecified Intractability: not intractable Status epilepticus: without status epilepticus Qualified Code(s): G40.909 - Epilepsy, unspecified, not intractable, without status epilepticus Code(s): G40.909 - Epilepsy, unspecified, not intractable, without status epilepticus Status: Chronic Assessment and Plan: on meds at home, h/o cerebral palsy (5) Obstructive sleep apnea of adult: Code(s): G47.33 - Obstructive sleep apnea (adult) (pediatric) Status: Acute Assessment and Plan: cpap at bedtime, stable (6) Edema: Qualifiers: Edema type: localized Qualified Code(s): R60.0 - Localized edema Code(s): R60.9 - Edema, unspecified Status: Acute Subjective Date/time seen: 12/29/20 13:46 Interval history: no new events, tolerating diet and he is comfortable, no report of bleeding Review of Systems Review of Systems: All systems reviewed & are unremarkable except as noted in HPI and below Exam Const: General: comfortable and no acute distress HENMT: General nose exam: Normal nares present Neck: Neck: supple Resp: Auscultation: clear to auscultation bilaterally, no crackles and diminished lung sounds Cardio: Rate: regular rate GI: GI Palp: Yes Soft to palpation, No Tenderness to palpation present (GI) and No Guarding due to palpation present (GI) Auscultation: normal bowel sounds Urinary Catheter: Urinary Catheter: patent and draining Skin: General skin exam: no rashes or lesions noted Neuro: Speech: normal speech Motor exam (neuro): Normal motor muscle tone present throughout Extrem: General: pedal edema bilaterally Psych: Mental Status: mental status grossly normal Objective Data Vital Signs Vital Signs: Vital Signs - 24 hr 12/28/20 16:00 12/28/20 20:00 12/28/20 22:00 Temperature 97.5 F L 97 F L Pulse Rate 77 84 Respiratory Rate 20 20 Blood Pressure 110/67 112/53 L Pulse Oximetry 96 98 95 12/28/20 23:22 12/29/20 00:00 12/29/20 04:00 Temperature 97.2 F L 97.2 F L Pulse Rate 85 86 84 Respiratory Rate 22 H 22 H Blood Pressure 133/67 130/58 L Pulse Oximetry 98 100 12/29/20 07:13 12/29/20 12:48 Temperature 97.9 F 97.1 F L Pulse Rate 77 75 Respiratory Rate 22 H 17 Blood Pressure 132/57 L 135/64 Pulse Oximetry 100 99 Intake/Output Intake/Output: Intake & Output 12/26/20 12/27/20 12/28/20 12/29/20 23:59 23:59 23:59 23:59 Intake Total 1112 1900 360 Output Total 4600 1825 Balance 9941 -7032 -8387 Meds/Results Medications: Active Medications Generic Name Dose Route Start Last Admin Trade Name Freq PRN Reason Stop Dose Admin Bisacodyl 20 mg 12/29/20 17:00 Bisacodyl 5 Mg Tablet Ec PO 12/29/20 17:01 ONCE ONE Buspirone HCl 15 mg 12/27/20 22:10 12/29/20 12:33 Buspirone Hcl 5 Mg Tablet PO 15 mg TID RICARDO Administration Ergocalciferol 50,000 unit 01/03/21 09:00 Ergocalciferol 50,000 Unit Capsule PO Fr@0900 RICARDO Finasteride 5 mg 12/27/20 22:05 12/28/20 22:17 Finasteride 5 Mg Tablet PO 5 mg HS RICARDO Administration Furosemide 40 mg 12/28/20 09:00 12/29/20 12:35 Furosemide 40 Mg Tablet PO 40 mg BID RICARDO Administration Hydrocortisone 1 applic 12/27/20 22:55 Hydrocortisone (Proctozone-Hc) 2.5% Cream 30 Gm Tube RECTAL DAILY PRN Hem
[2020-12-29] MEDS: levETIRAcetam 500 MG TABLET 2000 MG PO ×2 (16:20→21:57)
[2020-12-29] MEDS: polyethylene glycoL 3350 238 GM BOTTLE PO (17:36)
[2020-12-29] MEDS: BISACODYL 5 MG TABLET EC 20 MG PO (17:36)
--- NOTE | 2020-12-29 18:32 | PC.NURSE ---
This patient, Aries Patterson, was transferred to [[facility] ] on 12/29/20 at 1840. Personal belongings sent with patient. Report given to [Tania ]. Appropriate documentation sent with patient.
[2020-12-29] MEDS: FINASTERIDE 5 MG TABLET PO (21:56)
[2020-12-30] VITALS (14 sets, daily range): BP systolic 101–159; BP diastolic 52–71; PULSE 66–95; RESP 15–20; TEMP 36.2–36.7; O2SAT 97–100
[2020-12-30] MEDS: MAGNESIUM CITRATE 300 ML BTL PO ×2 (05:34→09:21)
[2020-12-30 06:01] LABS: Hematocrit 22.9 % (42.0-52.0); Hemoglobin 7.5 g/dL (14.0-18.0); Mean Corpuscular HGB Conc 32.8 g/dl (32-36); Mean Corpuscular Hemoglobin 30.4 pg (26-34); Mean Corpuscular Volume 92.7 fl (80-100); Mean Platelet Volume 9.3 fl (7.4-10.4); Platelet Count Result 225 k/mm3 (150-375); Red Blood Count 2.47 M/mm3 (4.6-6.20); Red Cell Distribution Width 14.4 % (11.5-14.5); White Blood Count 7.4 K/mm3 (4.5-10.0)
[2020-12-30 06:08] LABS: Anion Gap 7 mmol/L (8-16); Blood Urea Nitrogen 19 mg/dL (9-20); Calcium 7.8 mg/dL (8.4-10.2); Carbon Dioxide 24 mmol/L (22-30); Chloride 102 mmol/L (98-107); Estimated CRCL calculation 116 ml/min; Estimated Glomerular Filt Rate > 60; Glucose 99 mg/dL (65-110); Magnesium 2.1 mg/dL (1.6-2.3); Potassium 4.1 mmol/L (3.4-5.0); Sodium 133 mmol/L (137-145)
--- NOTE | 2020-12-30 08:17 | PM.IMPN ---
Progress Note: A&P Assessment and Plan (1) Acute blood loss anemia: Code(s): D62 - Acute posthemorrhagic anemia Status: Acute Assessment and Plan: ferritin is normal while iron and TIBC are consistent with iron deficiency hemoglobin 5.7 at admission on 12/27. Status post 2 units of PRBC transfusion. continue to monitor H and H. transfuse PRBC if Indicated. He is scheduled to have endoscopy and colonoscopy today. No further bleeding has reported. (2) Hemorrhoids: Qualifiers: Hemorrhoid type: unspecified Qualified Code(s): K64.9 - Unspecified hemorrhoids Code(s): K64.9 - Unspecified hemorrhoids Status: Acute Assessment and Plan: no bleeding since admission (3) Bradyarrhythmia: Code(s): I49.8 - Other specified cardiac arrhythmias Status: Acute Assessment and Plan: likely due to a combination of sleep apnea and underlying conduction system abnormalities improved with CPAP continue to monitor He was encouraged to use CPAP and be compliant. (4) Diastolic dysfunction: Code(s): I51.89 - Other ill-defined heart diseases Status: Acute Assessment and Plan: no evidence for pulmonary congestion continue home furosemide 40 mg twice daily Venous dopplers negative 12/28 (5) Epilepsy: Qualifiers: Epilepsy type: unspecified Intractability: not intractable Status epilepticus: without status epilepticus Qualified Code(s): G40.909 - Epilepsy, unspecified, not intractable, without status epilepticus Code(s): G40.909 - Epilepsy, unspecified, not intractable, without status epilepticus Status: Chronic Assessment and Plan: Continue Dilantin and Keppra (6) Benign prostatic hyperplasia: Qualifiers: Lower urinary tract symptom detail: incomplete bladder emptying Lower urinary tract symptom presence: symptoms present Qualified Code(s): N40.1 - Benign prostatic hyperplasia with lower urinary tract symptoms; R39.14 - Feeling of incomplete bladder emptying Code(s): N40.0 - Benign prostatic hyperplasia without lower urinary tract symptoms Status: Chronic Assessment and Plan: continue finasteride. Increase tamsulosin to b.i.d.. Will give a voiding trial tomorrow. May have component of neurogenic bladder has well. (7) Obstructive sleep apnea of adult: Code(s): G47.33 - Obstructive sleep apnea (adult) (pediatric) Status: Acute Assessment and Plan: Respiratory to fit with mask. He was encouraged to be compliant with the use of CPAP. Subjective Date/time seen: 12/30/20 08:17 Interval history: Patient was admitted December 27 with profound anemia and bradycardia. Staff notes heart rate was much better while wearing CPAP. He did have two pauses of 2.8 seconds in duration overnight 12/29/2020 3 AM while sleeping. He no longer is having pauses in excess of 5 seconds since he has been attempting to use CPAP. Patient willing to continue to try to use CPAP. Denied further bleeding. No chest pain or shortness of breath. No dizziness or syncope. He is scheduled to have endoscopy and colonoscopy today. He had tolerated the adequately. He denied to have any significant generalized weakness chest pain shortness of breath abdominal pain nausea vomiting. Review of Systems Review of Systems: All systems reviewed & are unremarkable except as noted in HPI and below Exam Narrative: Exam Narrative: General: Mildly ill-appearing male sitting up in bed in no distress. HEENT: no discharge Neck: Supple. VD. Respiratory: no wheezes or crepitation h Cardiovascular: S1-S2 no murmur Gastrointestinal: soft nontender Extremities: edema noticed Neurological: Alert oriented x3 Psychiatric: Pleasant and cooperative. Appropriate mood and affect. Objective Data Vital Signs Vital Signs: Vital Signs - 24 hr 12/29/20 1
[2020-12-30] MEDS: POTASSIUM CHLORIDE 10 MEQ TABLET.ER PO (08:39)
[2020-12-30] MEDS: busPIRone HCL 5 MG TABLET 15 MG PO ×2 (08:39→18:23)
[2020-12-30] MEDS: levETIRAcetam 500 MG TABLET PO (08:40)
[2020-12-30] MEDS: levETIRAcetam 500 MG TABLET 2000 MG PO ×2 (09:21→21:00)
--- NOTE | 2020-12-30 09:32 | PCOTNOTE ---
Per RN, hold OT evaluation this AM due to bowel prep and procedure
--- NOTE | 2020-12-30 13:30 | PC.NURSE ---
To GI lab via stretcher with GI lab staff.
--- NOTE | 2020-12-30 13:31 | PCOTNOTE ---
OT evaluation attempted. Patient down for procedure at this time. Will attempt at later time.
[2020-12-30] MEDS: LACTATED RINGERS 1,000 ML 150 ML IV CONT (13:53)
--- NOTE | 2020-12-30 14:03 | WPDANESEPPF ---
Anes - Initial Pre Proc Eval Procedure: Operation Date: 12/30/20 14:45 Proposed Procedures p Esophagogastroduodenoscopy & Colonoscopy - Da Abreu MD Date/Time: 12/30/20 14:03 Surgeon: Rodrick Craft MD Pre Op Diagnosis: Anemia/paroxysmal bradycardia arrhythmia Patient Data Age: 60 Gender: M Height: 1.83 m Weight: 122.5 kg Last Vital Signs Temp 36.4 C L 12/30/20 13:30 Pulse 66 12/30/20 13:30 Resp 20 12/30/20 13:30 BP 149/59 H 12/30/20 13:30 Pulse Ox 99 12/30/20 13:30 Allergies Allergy/AdvReac Type Severity Reaction Status Date / Time Sulfa (Sulfonamide Allergy Unknown Hives Verified 12/30/20 13:39 Antibiotics) Home Medications Medication Instructions Recorded Confirmed Type levetiracetam [Keppra] 500 mg PO DAILY 05/08/20 12/27/20 History loratadine 10 mg tablet 10 mg PO DAILY #30 tablet 07/26/20 12/27/20 Rx buspirone 15 mg tablet 15 mg PO TID #90 tablet 09/20/20 12/27/20 Rx ibuprofen 600 mg tablet 600 mg PO TID PRN #90 tablet 11/25/20 12/27/20 Rx tamsulosin 0.4 mg capsule 0.4 mg PO QAM #30 cap 11/27/20 12/27/20 Rx phenytoin sodium extended 100 mg 200 mg PO .COMPLEX #150 cap 12/03/20 12/27/20 Rx capsule hydrocortisone 2.5 % topical cream 1 applic RECTAL DAILY PRN #30 g 12/24/20 12/27/20 Rx with perineal applicator ergocalciferol (vitamin D2) 1,250 mcg PO WEEKLY 12/27/20 12/27/20 History [Vitamin D2] finasteride 5 mg PO HS 12/27/20 12/27/20 History furosemide 20 mg PO DAILY 12/27/20 12/28/20 History levetiracetam [Keppra] 2,000 mg PO Q12H 12/27/20 12/27/20 History potassium chloride 10 meq PO DAILY 12/27/20 12/27/20 History Laboratory Tests 12/30/20 12/30/20 05:17 05:17 WBC 7.4 K/mm3 K/mm3 (4.5-10.0) RBC 2.47 M/mm3 L M/mm3 (4.6-6.20) Hgb 7.5 g/dL L g/dL (14.0-18.0) Hct 22.9 % L % (42.0-52.0) MCV 92.7 fl fl (80-100) MCH 30.4 pg pg (26-34) MCHC 32.8 g/dl g/dl (32-36) RDW 14.4 % % (11.5-14.5) Plt Count 225 k/mm3 k/mm3 (150-375) MPV 9.3 fl fl (7.4-10.4) Sodium 133 mmol/L L mmol/L (137-145) Potassium 4.1 mmol/L mmol/L (3.4-5.0) Chloride 102 mmol/L mmol/L (98-107) Carbon Dioxide 24 mmol/L mmol/L (22-30) Anion Gap 7 mmol/L L mmol/L (8-16) BUN 19 mg/dL mg/dL (9-20) Creatinine 0.80 mg/dL mg/dL (0.7-1.3) Estim Creat Clear Calc 116 ml/min ml/min Estimated GFR > 60 (59 - ) Glucose 99 mg/dL mg/dL (65-110) Calcium 7.8 mg/dL L mg/dL (8.4-10.2) Magnesium 2.1 mg/dL mg/dL (1.6-2.3) Patient hx anesthesia problems: none Family hx anesthesia problems: none [facility] Past Medical History Medical History Anxiety Basal cell carcinoma (BCC) of right side of nose (~2017) Benign prostatic hyperplasia Cerebral palsy With history of bilateral Achilles tendon (1972) and bilateral hamstring lengthening (1967). Chronic anemia Diastolic dysfunction Echocardiogram on 08/09/2020 showed normal left ventricular size and function with an EF of 60 to 65% and grade 1 diastolic dysfunction. Epilepsy Gastroesophageal reflux disease Hypertriglyceridemia Intellectual disability Non-seasonal allergic rhinitis Osteopenia Primary generalized (osteo)arthritis Vitamin D deficiency Surgical History Surgical History History of basal cell carcinoma excision (~2018) History of orthopedic surgery Status post bilateral hamstring and Achilles tendon lengthening. History of tonsillectomy Family History Family History Sibling Breast cancer Mother Pacemaker Hypertension Heart disease Social History Social History Social History: He resides at [facility]. He is ess
--- NOTE | 2020-12-30 15:41 | PM.PNCARD ---
Progress Note: A&P Assessment and Plan (1) Bradyarrhythmia: Code(s): I49.8 - Other specified cardiac arrhythmias Status: Acute Assessment and Plan: Patient is a 60-year-old white man with history of heart failure with preserved ejection fraction (with chronic scrotal and lower extremity edema), right bundle-branch block, first-degree AV block, pericardial cyst ( 2.5 x 0.8 cm, noted on CT of the chest August 12, 2020, [facility]), family history of conduction system disease (requiring pacemaker in relatives including mother), cerebral palsy, intellectual disability, seizure disorder, hypertriglyceridemia, chronic anemia, GERD, anxiety disorder, benign prostatic hypertrophy, who is seen in cardiac consultation for chief complaint of paroxysmal nocturnal dyspnea with marked bradycardia. - patient has a history of right bundle-branch block and first-degree AV block and this admission was noted to have bradyarrhythmias and conduction disturbance including probable second-degree AV block Mobitz type 1 (Wenckebach), junctional escape rhythm, up to 5.2 sec pause, and heart rate as low as 29 beats per minute with junctional escape rhythm following rectal examination and when asleep. - In addition to chronic conduction system disease, suspect his bradyarrhythmia and pauses this admission reflect obstructive sleep apnea with hypoxemia, worsened in the setting of his acute anemia which is marked, with presenting hemoglobin of 5.7. -Patient had recurrence of sinus pauses with 5.1 and 3.2 sec pauses noted overnight 12/28/2020 during sleep. When he was placed on CPAP empirically, his bradyarrhythmias markedly improved as per nursing report. Patient did not like CPAP overnight from a comfort perspective so will need to optimize mask and strap styles, as well as pressure support settings, with anticipated CPAP titration as an outpatient with sleep Center referral. Staff notes heart rate was much better while wearing CPAP. Patient reports laryngeal problems as a child. -transfuse to keep hemoglobin 7-8 given his acute on chronic diastolic heart failure and bradyarrhythmias. - Potassium 3.9 and magnesium level 2.0, normal this admission. Continue to monitor magnesium and potassium. -Hold Dilantin given potential for bradyarrhythmias. Dilantin was upper limits of normal and albumin was lower limits of normal and cannot exclude a contribution of Dilantin to his bradyarrhythmias. He needs neurology follow-up for adjustment of Keppra dosing or addition of an additional antiseizure medication to replace Dilantin. - Patient denies chest pain and serial troponin I negative for injury. Serial EKG without evidence of acute injury. - Repeat EKG 12/28/2020 at 7:54 a.m. demonstrated sinus rhythm, 66 beats per minute, first-degree AV block, right bundle-branch block, corrected QT interval of 412 milliseconds. - consider transient left bundle-branch block in the setting of his chronic right bundle-branch block contributing to complete heart block, possibly worsened by obstructive sleep apnea with hypoxemia, worsened with his severe acute anemia and use of Dilantin, and with possible vasovagal event following rectal examination, triggering his marked bradyarrhythmia, as initial EKG demonstrated heart rate 73 beats per minute with sinus arrhythmia. so far no recurrence will continue to monitor (2) Acute blood loss anemia: Code(s): D62 - Acute posthemorrhagic anemia Status: Acute Assessment and Plan: -He has acute on chronic anemia, with marked presenting anemia, hemoglobin 5.7. -probable hemorrhoidal source noted over the last week per patient report. -GI service consulted, with plan for EGD and colonoscopy on 12/30/2020. -Serial monitoring of hemoglobin. -transfuse to keep hemoglobin 7-8 given his acute on chronic diastolic heart failure and marked bradyarrhythmias this admission. - hemoglobin stable status post transfusion 2 units packed red blood cell
--- NOTE | 2020-12-30 16:00 | PC.NURSE ---
Patient returned from GI lab via stretcher and settled in room. No c/o pain. No distress noted. Patient sleeping and pauses noted at times on telemetry along with periods of sleep apnea. Patient placed on CPAP. No further pauses noted.
[2020-12-30] MEDS: FUROSEMIDE 40 MG TABLET PO (18:23)
[2020-12-30] MEDS: LORATADINE 10 MG TABLET PO (18:23)
[2020-12-30] MEDS: TAMSULOSIN HCL 0.4 MG CAPSULE PO (21:00)
[2020-12-30] MEDS: FINASTERIDE 5 MG TABLET PO (21:00)
[2020-12-30] MEDS: HYDROCORTISONE ACETATE 25 MG SUPPOSITORY RECTAL (21:00)
[2020-12-31] VITALS (9 sets, daily range): BP systolic 114–141; BP diastolic 59–65; PULSE 71–89; RESP 18–20; TEMP 36.7–36.9; O2SAT 97–98
[2020-12-31 05:51] LABS: Hematocrit 23.9 % (42.0-52.0); Hemoglobin 7.7 g/dL (14.0-18.0); Mean Corpuscular HGB Conc 32.2 g/dl (32-36); Mean Corpuscular Hemoglobin 30.4 pg (26-34); Mean Corpuscular Volume 94.5 fl (80-100); Mean Platelet Volume 9.3 fl (7.4-10.4); Platelet Count Result 232 k/mm3 (150-375); Red Blood Count 2.53 M/mm3 (4.6-6.20); Red Cell Distribution Width 14.3 % (11.5-14.5); White Blood Count 6.3 K/mm3 (4.5-10.0)
[2020-12-31 06:07] LABS: Anion Gap 7 mmol/L (8-16); Blood Urea Nitrogen 18 mg/dL (9-20); Calcium 8.2 mg/dL (8.4-10.2); Carbon Dioxide 26 mmol/L (22-30); Chloride 102 mmol/L (98-107); Estimated CRCL calculation 104 ml/min; Estimated Glomerular Filt Rate > 60; Glucose 92 mg/dL (65-110); Potassium 4.4 mmol/L (3.4-5.0); Sodium 135 mmol/L (137-145)
[2020-12-31] MEDS: TAMSULOSIN HCL 0.4 MG CAPSULE PO (08:55)
[2020-12-31] MEDS: levETIRAcetam 500 MG TABLET 2000 MG PO (08:55)
[2020-12-31] MEDS: busPIRone HCL 5 MG TABLET 15 MG PO ×3 (08:55→16:45)
[2020-12-31] MEDS: levETIRAcetam 500 MG TABLET PO (08:56)
[2020-12-31] MEDS: LORATADINE 10 MG TABLET PO (08:56)
[2020-12-31] MEDS: HYDROCORTISONE ACETATE 25 MG SUPPOSITORY RECTAL (08:56)
[2020-12-31] MEDS: FUROSEMIDE 40 MG TABLET PO ×2 (08:56→16:45)
[2020-12-31] MEDS: POTASSIUM CHLORIDE 10 MEQ TABLET.ER PO (08:56)
--- NOTE | 2020-12-31 13:05 | PM.CNGS ---
Assessment and Plan Assessment and plan (1) Grade III internal hemorrhoids: Code(s): K64.2 - Third degree hemorrhoids Status: Acute Assessment and Plan: likely source of bleeding, no further bleeding now, no acute intervention required, will cont conservative mgmt c dietary/lifestyle mods, steroidal creams/supp, f/u as outpt (2) Anal fissure: Code(s): K60.2 - Anal fissure, unspecified Status: Acute Assessment and Plan: assymptomatic, see above (3) History of rectocele: Status: Acute Assessment and Plan: assymptomatic, see above History of Present Illness Consult details Consult date: 12/31/20 Reason for consult: other (lower GI bleed) Requesting physician: Da Abreu MD Narrative: Pt is a 60 y/o M c multiple med issues including CP presenting c lower GI bleed. Pt reports bleeding started Wednesday and lasted throughout the weekend. Pt reports some intermittent episodes in the past, but nothing this sustained or heavy. Pt denies any pain or other symptomatology. Pt was brought into ED and found to be significantly anemic. Pt reports he has had no further bleeding since admission. Pt was given 2 units in ED and H/H stable. Review of Systems Review of Systems: ROS unobtainable: Yes unobtainable due to medical condition and unobtainable due to mental status PMFSH Past Medical History Medical History Anxiety Basal cell carcinoma (BCC) of right side of nose (~2017) Benign prostatic hyperplasia Cerebral palsy With history of bilateral Achilles tendon (1972) and bilateral hamstring lengthening (1967). Chronic anemia Diastolic dysfunction Echocardiogram on 08/09/2020 showed normal left ventricular size and function with an EF of 60 to 65% and grade 1 diastolic dysfunction. Epilepsy Gastroesophageal reflux disease Hypertriglyceridemia Intellectual disability Non-seasonal allergic rhinitis Osteopenia Primary generalized (osteo)arthritis Vitamin D deficiency Surgical History Surgical History History of basal cell carcinoma excision (~2017) History of orthopedic surgery Status post bilateral hamstring and Achilles tendon lengthening. History of tonsillectomy Family History Family History Sibling Breast cancer Mother Pacemaker Hypertension Heart disease Social History Social History Social History: He resides at [facility]. He is essentially wheelchair bound but can transfer. Lifelong nonsmoker. No alcohol or illicit substance use. His sister Isaac Riggs was is healthcare power of civil attorney. Code status: Full code Meds Home Medications and Allergies Home Medications Medication Instructions Recorded Confirmed Type levetiracetam [Keppra] 500 mg PO DAILY 05/08/20 12/27/20 History loratadine 10 mg tablet 10 mg PO DAILY #30 tablet 07/26/20 12/27/20 Rx buspirone 15 mg tablet 15 mg PO TID #90 tablet 09/20/20 12/27/20 Rx ibuprofen 600 mg tablet 600 mg PO TID PRN #90 tablet 11/25/20 12/27/20 Rx tamsulosin 0.4 mg capsule 0.4 mg PO QAM #30 cap 11/27/20 12/27/20 Rx phenytoin sodium extended 100 mg 200 mg PO .COMPLEX #150 cap 12/03/20 12/27/20 Rx capsule hydrocortisone 2.5 % topical cream 1 applic RECTAL DAILY PRN #30 g 12/24/20 12/27/20 Rx with perineal applicator ergocalciferol (vitamin D2) 1,250 mcg PO WEEKLY 12/27/20 12/27/20 History [Vitamin D2] finasteride 5 mg PO HS 12/27/20 12/27/20 History furosemide 20 mg PO DAILY 12/27/20 12/28/20 History levetiracetam [Keppra] 2,000 mg PO Q12H 12/27/20 12/27/20 History potassium chloride 10 meq PO DAILY 12/27/20 12/27/20 History Allergies Allergy/AdvReac Type Severity Reaction Status Date / Time Sulfa (Sulfonamide Allergy Unknown Hives Verified 12/30/20 13:39
--- NOTE | 2020-12-31 13:45 | PM.DS ---
DS: Admitting Diagnosis Admitting Diagnosis Anemia GI bleed chronic hemorrhoids bradyarrhythmia chronic diastolic dysfunction BPH seizure disorder DS: Discharge Diagnosis Discharge Diagnosis (1) Acute blood loss anemia: Code(s): D62 - Acute posthemorrhagic anemia Status: Acute Assessment and Plan: ferritin is normal while iron and TIBC are consistent with iron deficiency hemoglobin 5.7 at admission on 12/27. Status post 2 units of PRBC transfusion. continue to monitor H and H. transfuse PRBC if Indicated. His H&H remained stable. Endoscopy showed erosive esophagitis with no signs of bleeding. Will be discharged on pantoprazole On the daily basis. His Motrin will be stopped. Colonoscopy showed hemorrhoids, colonic polyps, rectocele and anal fissure. Surgery has evaluated the patient and no active intervention advice at this time. Outpatient follow-up is advised. No further bleeding has reported. he will be discharged on iron supplement. (2) Hemorrhoids: Qualifiers: Hemorrhoid type: unspecified Qualified Code(s): K64.9 - Unspecified hemorrhoids Code(s): K64.9 - Unspecified hemorrhoids Status: Acute Assessment and Plan: no bleeding since admission anuzole cream and suppository will be continued. Surgery has evaluated the patient and no active intervention advised. Outpatient follow-up is recommended. (3) Bradyarrhythmia: Code(s): I49.8 - Other specified cardiac arrhythmias Status: Acute Assessment and Plan: likely due to a combination of sleep apnea and underlying conduction system abnormalities He was noticed to be improving with use of CPAP overnight. 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 His primary care physician will send a referral for him to see a sleep physician. continue to monitor he will be continued on Dilantin. He will follow with his neurologist to see if it can be switched to a different antiepileptics. He will continue Keppra in the meantime. As per cardiology: Patient is a 60-year-old white man with history of heart failure with preserved ejection fraction (with chronic scrotal and lower extremity edema), right bundle-branch block, first-degree AV block, pericardial cyst ( 2.5 x 0.8 cm, noted on CT of the chest August 12, 2020, [facility]), family history of conduction system disease (requiring pacemaker in relatives including mother), cerebral palsy, intellectual disability, seizure disorder, hypertriglyceridemia, chronic anemia, GERD, anxiety disorder, benign prostatic hypertrophy, who is seen in cardiac consultation for chief complaint of paroxysmal nocturnal dyspnea with marked bradycardia. - patient has a history of right bundle-branch block and first-degree AV block and this admission was noted to have bradyarrhythmias and conduction disturbance including probable second-degree AV block Mobitz type 1 (Wenckebach), junctional escape rhythm, up to 5.2 sec pause, and heart rate as low as 29 beats per minute with junctional escape rhythm following rectal examination and when asleep. - In addition to chronic conduction system disease, suspect his bradyarrhythmia and pauses this admission reflect obstructive sleep apnea with hypoxemia, worsened in the setting of his acute anemia which is marked, with presenting hemoglobin of 5.7. -Patient had recurrence of sinus pauses with 5.1 and 3.2 sec pauses noted overnight 12/28/2020 during sleep. When he was placed on CPAP empirically, his bradyarrhythmias markedly improved as per nursing report. Patient did not like CPAP overnight from a comfort perspective so will need to optimize mask and strap styles, as well as pressure support settings, with anticipated CPAP titration as an outpatient with sleep Center referral. Staff notes heart rate was much better while wearing CPAP.
[2021-01-01 22:48] LABS: Levetiracetam Keppra 46.5 mcg/mL (12.0-46.0)
== END 2020-12-31 17:05 | DRG 394 ==
LOC: ANHED 15:16 → ANH2MED 12-30 07:40 → ANHIMU 01-01 12:53
PROVIDERS: Emergency Medicine; Internal Medicine; Internal Medicine Cardiovascular Disease; Internal Medicine Gastroenterology; Physician Assistant; Admitting Provider Family Medicine; Emergency Provider Emergency Medicine; PCP Family Medicine; Visit Provider Internal Medicine Critical Care Medicine
PROC: 0DJ08ZZ Inspection of Upper Intestinal Tract, Via Natural or Artificial Opening Endoscopic (ICD-10-PCS; CPT 43235; principal; 2020-12-30 14:45)
DX: K64.2 Third degree hemorrhoids (principal); D62 Acute posthemorrhagic anemia; I50.32 Chronic diastolic (congestive) heart failure; K60.2 Anal fissure, unspecified; K21.00 Gastro-esophageal reflux disease with esophagitis, without bleeding; K63.5 Polyp of colon; J06.9 Acute upper respiratory infection, unspecified; M85.80 Other specified disorders of bone density and structure, unspecified site; G40.909 Epilepsy, unspecified, not intractable, without status epilepticus; I49.8 Other specified cardiac arrhythmias; N40.1 Benign prostatic hyperplasia with lower urinary tract symptoms; R39.14 Feeling of incomplete bladder emptying; I44.1 Atrioventricular block, second degree; G80.9 Cerebral palsy, unspecified; F78 Other intellectual disabilities; G47.33 Obstructive sleep apnea (adult) (pediatric); K64.9 Unspecified hemorrhoids; M15.0 Primary generalized (osteo)arthritis; E55.9 Vitamin D deficiency, unspecified; E66.9 Obesity, unspecified; Z68.35 Body mass index [BMI] 35.0-35.9, adult; Z85.828 Personal history of other malignant neoplasm of skin; Z99.3 Dependence on wheelchair
CPT/HCPCS: 36415; 36430; 71045; 80048; 80061; 80076; 80177; 80185; 82728; 83540; 83550; 83735; 83880; 84443; 84466; 84484; 85014; 85018; 85025; 85027; 85046; 86850; 86900; 86901; 86920; 88305; 93005; 93970; 94660; 94762; 97161; 97166; 99285; A9270; C9113; J0461; J2704; J3475; J3480; J7050; J7120; P9016

== ENCOUNTER 2021-01-04 10:29 | Inpatient (IN) | payer MEDICARE, SELFPAY ==
--- NOTE | ~2021-01-04 | CT_ITS ---
EXAMINATION: CT abdomen pelvis w con DATE: 01/04/2021 14:02 INDICATION: Right-sided abdominal pain. TECHNIQUE: Computed tomography (CT) of the abdomen and pelvis was performed with 100 mL Omnipaque-350 intravenous contrast. Automated exposure control and iterative reconstruction technique were employe d. The dose-length product was 1502.28 mGy-cm. COMPARISON: 08/11/2020 FINDINGS: Mild bibasilar atelectasis. Mild cardiac megaly. 3.4 x 2.8 cm fluid attenuation pericardial cyst steven g the lateral margin of the right atrium. Small sliding-type hiatal hernia. No significant interval c hange in a couple low-attenuation lesions in segment 7 of the liver, the larger measuring 2.5 cm and the smaller measuring 1.6 cm. There is inflammatory stranding surrounding the gallbladder which is di lated to 5.0 cm consistent with acute cholecystitis. No urolithiasis was evident on prior CT. Spleen, pancreas and bilateral adrenal glands are normal. Again seen are small bilateral renal cysts. No bow el obstruction. The pericholecystic inflammatory stranding extends to the hepatic flexure the colon w ith there is focal mild wall thickening which is likely reactive. Remainder of the bowels are unremar kable. No bowel obstruction. Bladder is normal. Small amount of ascites in the pelvis. No pathologica lly enlarged abdominal or pelvic lymphadenopathy. Small fat-containing umbilical hernia. Mild lumbar levocurvature with mild spondylosis. IMPRESSION: 1. Acute cholecystitis with small amount of likely reactive ascites in the pelvis. 2. Small sliding-type hiatal hernia. 3. 2 indeterminate hepatic lesions without significant interval change since prior CT which favors a benign etiology such as hemangioma but would recommend follow-up pre and postcontrast MRI for more de finitive determination. Reviewed, dictated and finalized at location A. IMPRESSION: 1. Acute cholecystitis with small amount of likely reactive ascites in the pelv is. 2. Small sliding-type hiatal hernia. 3. 2 indeterminate hepatic lesions without significant interval change since pr ior CT which favors a benign etiology such as hemangioma but would recommend fo llow-up pre and postcontrast MRI for more definitive determination.
--- NOTE | ~2021-01-04 | XR_ITS ---
EXAMINATION: XR abdomen obstructive series DATE: 01/10/2021 15:10 INDICATION: Vomiting TECHNIQUE: Upright and supine views of the abdomen were obtained. COMPARISON: 01/09/2021 FINDINGS: There are multiple persistently dilated loops of large and small bowel with slight interval worsening. No free intraperitoneal gas is identified. Cholecystectomy clips are noted. There is mild osteoarthritis of the hips. A phlebolith is seen in the right pelvis. IMPRESSION: 1. Dilated large and small bowel with interval worsening, likely postoperative ileus. Reviewed, dictated and finalized at location A.
--- NOTE | ~2021-01-04 | XR_ITS ---
EXAMINATION: XR abdomen obstructive series DATE: 01/09/2021 08:41 INDICATION: Ileus TECHNIQUE: Upright and supine views of the abdomen were obtained. COMPARISON: 01/08/2021 FINDINGS: There are persistently dilated loops of large and small bowel with slight interval improvem ent. No free intraperitoneal gas is identified. Cholecystectomy clips are noted. IMPRESSION: 1. Persistent but decreased dilated large and small bowel, likely improving postoperative ileus. Reviewed, dictated and finalized at location A. IMPRESSION: 1. Persistent but decreased dilated large and small bowel, likely improving pos toperative ileus.
--- NOTE | ~2021-01-04 | XR_ITS ---
EXAMINATION: XR abdomen obstructive series DATE: 01/08/2021 09:13 INDICATION: Nausea and vomiting TECHNIQUE: Upright and supine views of the abdomen were obtained. COMPARISON: CT, 01/04/2021 FINDINGS: There are changes of interval cholecystectomy. A surgical drain is present in the right upp er quadrant. There are multiple dilated loops of large and small bowel. No free intraperitoneal gas i s identified. There are minimal airspace opacities of the lung bases, likely atelectasis. IMPRESSION: 1. Dilated loops of large and small bowel, likely postoperative ileus. Reviewed, dictated and finalized at location A.
--- NOTE | ~2021-01-04 | US_ITS ---
EXAMINATION: US right upper quadrant DATE: 01/04/2021 15:04 INDICATION: Right upper quadrant pain TECHNIQUE: Multiple grayscale and Doppler ultrasound images of the abdomen were obtained. COMPARISON: 08/11/[address] from today FINDINGS: Bowel gas obscures visualization of the pancreas. The visualized portions of the pancreas a re unremarkable. No definite abnormality of the liver is identified although technologist reports reid t the liver is difficult to penetrate. The indeterminate liver lesions described on CT are not charac terized. No surface nodularity. Normal hepatopetal flow in the main portal vein. Stones are present i n the gallbladder. There is gallbladder wall thickening. No definite pericholecystic fluid is identif ied. The normal common bile duct measures 5 mm. There was no sonographic Briscoe sign although sensiti vity can be decreased by pain medication. IMPRESSION: 1. Cholelithiasis and gallbladder wall thickening which, when combined with CT findings, are consiste nt with acute cholecystitis. Reviewed, dictated and finalized at location A. IMPRESSION: 1. Cholelithiasis and gallbladder wall thickening which, when combined with CT findings, are consistent with acute cholecystitis.
--- NOTE | ~2021-01-04 | XR_ITS ---
XR abdomen obstructive series 01/12/2021 07:46 Indication: Ileus. Procedure: AP portable chest Comparison: Comparison to multiple prior studies sequentially, with oldest reviewed study dated 09/2020. Findings: There is moderate gas in the small bowel and colon, most likely ileus. Decreased gas compar ed with prior study. No acute osseous abnormality. No acute osseous and due to Impression: 1: Moderate gas in the small bowel and colon, most likely ileus. Reviewed, dictated and finalized at location A. Impression: 1: Moderate gas in the small bowel and colon, most likely ileus.
--- NOTE | ~2021-01-04 | XR_ITS ---
XR abdomen obstructive series 01/11/2021 08:01 Indication: Ileus. Vomiting. Reflux. Procedure: Supine and upright views of abdomen Comparison: Comparison to multiple prior studies sequentially, with oldest reviewed study dated 05/07. Findings: There are moderately distended segments of colon. The small bowel is relatively decompresse d. No free air. Lung bases unremarkable. Impression: 1: Moderately distended colon, most likely ileus. Reviewed, dictated and finalized at location A. Impression: 1: Moderately distended colon, most likely ileus.
[2021-01-04 10:47] VITALS: BP 133/65; PULSE 74; RESP 20; TEMP 36.3; O2SAT 98
[2021-01-04 11:05] LABS: Basophils Percent Auto 0.2 % (0.2-1.2); Hematocrit 27.8 % (42.0-52.0); Immature Granulocyte Absolute 0.13 K/mm3 (0.00-0.031); Immature Granulocyte Percent A 0.7 % (0-0.5); Lymphocytes Absolute Auto 0.34 K/mm3 (0.9-3.2); Lymphocytes Percent Auto 1.8 % (18.3-44.2); Mean Corpuscular HGB Conc 32.4 g/dl (32-36); Mean Corpuscular Hemoglobin 29.7 pg (26-34); Mean Corpuscular Volume 91.7 fl (80-100); Monocytes Absolute Auto 1.7 K/mm3 (0.1-0.6); Monocytes Percent Auto 8.9 % (2.6-8.5); Neutrophils Absolute Auto 16.7 K/mm3 (1.3-6.7); Neutrophils Percent Auto 88.4 % (45.5-73.1); Platelet Count Result 312 k/mm3 (150-375); Red Blood Count 3.03 M/mm3 (4.6-6.20); Red Cell Distribution Width 13.5 % (11.5-14.5); White Blood Count 18.9 K/mm3 (4.5-10.0)
[2021-01-04 11:15] LABS: Alanine Aminotransferase 15 U/L (4-50); Albumin Level 3.4 g/dL (3.5-5.1); Alkaline Phosphatase 74 U/L (38-126); Anion Gap 8 mmol/L (8-16); Aspartate Amino Transferase 21 U/L (17-59); Bilirubin,Total 0.7 mg/dL (0.2-1.3); Blood Urea Nitrogen 18 mg/dL (9-20); Calcium 8.7 mg/dL (8.4-10.2); Carbon Dioxide 24 mmol/L (22-30); Chloride 99 mmol/L (98-107); Estimated CRCL calculation 111 ml/min; Estimated Glomerular Filt Rate > 60; Glucose 125 mg/dL (65-110); Lipase 17 U/L (23-300); Potassium 4.4 mmol/L (3.4-5.0); Sodium 131 mmol/L (137-145)
[2021-01-04 12:20] VITALS: BP 151/78; PULSE 84; RESP 28; O2SAT 97
[2021-01-04] MEDS: MORPHINE SULFATE (*CRX) 4 MG/ML INJ IV PUSH (12:55)
[2021-01-04 13:52] LABS: Add Urine Microscopic? YES; Appearance Urine Clear (Clear); Bilirubin Urine Negative (Negative); Blood Urine Negative (Negative); Color Urine Yellow (Yellow); Glucose Urine UA 1+ mg/dL (Negative); Ketones Urine Negative (Negative); Leukocyte Esterase Ur Negative LEU/UL (Negative); Mucus Urine Rare /lpf; Nitrate Urine Negative (Negative); Protein Urine 1+ mg/dL (Negative); RBC Urine 0-2 /hpf (0-2); Specific Grav Ur 1.021 (1.001-1.035); Squamous Epithelial Cell Urine Occasional /hpf (Few); Urobilinogen Urine Negative mg/dL (<2.0)
[2021-01-04 14:16] VITALS: BP 148/85; PULSE 69; RESP 19; O2SAT 98
--- NOTE | 2021-01-04 14:27 | ED.ABDPAIN ---
HPI - Abdominal Pain General Chief Complaint: Abdominal Pain Stated Complaint: ABD PAIN Time Seen by Provider: 01/04/21 12:14 History of Present Illness HPI narrative: Patient is a 60-year-old male who presents ER with abdominal pain. Located in epigastrium right upper quadrant. Started this morning. Cannot report any aggravating or alleviating factors. No radiation. Denies fevers or chills or sweats. Recently admitted to the hospital for bleeding hemorrhoids that cause anemia. Related Data Home Medications Medication Instructions Recorded Confirmed levetiracetam [Keppra] 500 mg PO DAILY 05/08/20 01/04/21 ergocalciferol (vitamin D2) 1,250 mcg PO WEEKLY 12/27/20 01/04/21 [Vitamin D2] levetiracetam [Keppra] 2,000 mg PO Q12H 12/27/20 01/04/21 finasteride 5 mg PO QPM 01/04/21 01/04/21 furosemide 20 mg PO DAILY 01/04/21 01/04/21 polyethylene glycol 3350 [Miralax] 17 g PO DAILY PRN 01/04/21 01/04/21 Allergies Allergy/AdvReac Type Severity Reaction Status Date / Time Sulfa (Sulfonamide Allergy Unknown Hives Verified 01/04/21 17:12 Antibiotics) Review of Systems Review of Systems: All systems reviewed & are unremarkable except as noted in HPI and below Constitutional: Constitutional: Denies chills, Denies fever(s) and Denies weakness ENT: Denies nasal congestion and Denies sore throat Gastrointestinal: Gastrointestinal: Reports abdominal pain, Denies diarrhea, Denies nausea and Denies vomiting Comments: Intermittent blood in stools Genitourinary: Genitourinary: Denies dysuria and Denies urinary frequency Comments: No fluid. [facility] Past Medical History Medical History Anxiety Basal cell carcinoma (BCC) of right side of nose (~2017) Benign prostatic hyperplasia Cerebral palsy With history of bilateral Achilles tendon (1972) and bilateral hamstring lengthening (1967). Chronic anemia Diastolic dysfunction Echocardiogram on 08/09/2020 showed normal left ventricular size and function with an EF of 60 to 65% and grade 1 diastolic dysfunction. Epilepsy Gastroesophageal reflux disease Hypertriglyceridemia Intellectual disability Non-seasonal allergic rhinitis Osteopenia Primary generalized (osteo)arthritis Vitamin D deficiency Surgical History Surgical History History of basal cell carcinoma excision (~2018) History of orthopedic surgery Status post bilateral hamstring and Achilles tendon lengthening. History of tonsillectomy Family History Family History Sibling Breast cancer Mother Pacemaker Hypertension Heart disease Social History Social History Social History: He resides at [facility]. He is essentially wheelchair bound but can transfer. Lifelong nonsmoker. No alcohol or illicit substance use. His sister Isaac Riggs was is healthcare power of patent prosecution attorney. Code status: Full code Smoking status: Never smoker Alcohol intake: never Substance use: never Substance use type: does not use Gender identity (if verbalized by the patient): Male Spiritual care concerns: No Exam Narrative: GENERAL: Chronically ill-appearing, obese, and in no acute distress. HEAD: Normocephalic, atraumatic. EYES: PERRL and EOMI. ENT: Mucous membranes moist. CHEST: Clear to auscultation. No respiratory distress. HEART: Regular rate and rhythm. Normal peripheral pulses. ABDOMEN: Soft, tender palpation with guarding to the right upper quadrant and epigastrium, nondistended, normal active bowel sounds. EXTREMITIES: Normal range of motion. 1+ edema. SKIN: Warm, dry, no rash. NEURO: Alert and oriented x3. PSYCH: Normal mood and affect. Course Course Emergency Course: Discussed results with patient and family. Admit to hospitalist with general surgery consulting. Will obtain u
--- NOTE | 2021-01-04 15:48 | PM.IMHP ---
H&P: HPI History of Present Illness Date/Time: 01/04/21 15:48 He is a 60-year-old male with multiple medical problems including anxiety, BPH, history of cerebral palsy, chronic anemia, chronic diastolic dysfunction, history of epilepsy, GERD, hyperlipidemia, allergic rhinitis, osteoarthritis, history of intellectual disability who was brought in here with right-sided abdominal pain. He was recently admitted here and was discharged on where he was treated for acute blood loss anemia thought to be secondary to hemorrhoids. Colonoscopy showed hemorrhoids, colonic polyp, rectocele and anal fissure. He was seen by gastroenterology and surgery. He was also found to have significant bradyarrhythmia thought to be secondary to undiagnosed obstructive sleep apnea. He was doing well after discharge when he started to have nausea and had 1 episode of vomiting yesterday. He also started to have right upper quadrant abdominal pain and epigastric pain which was sharp in nature and was radiating to the back. He was also complaining of significant indigestion And acid reflux. He denied to have any fever and chills. He did have some shortness of breath with occasional cough with whitish phlegm. He denied have any melena and hematochezia other than trace red blood with bowel movement yesterday. He denied have any abdominal distension generalized weakness and tiredness. Chief Complaint: right-sided abdominal pain Review of Systems Review of Systems: A comprehensive review of systems has been reviewed with the patient and most of the symptoms are negative except the one's mentioned above in HPI. [facility] Past Medical History Medical History Anxiety Basal cell carcinoma (BCC) of right side of nose (~2017) Benign prostatic hyperplasia Cerebral palsy With history of bilateral Achilles tendon (1972) and bilateral hamstring lengthening (1967). Chronic anemia Diastolic dysfunction Echocardiogram on 08/09/2020 showed normal left ventricular size and function with an EF of 60 to 65% and grade 1 diastolic dysfunction. Epilepsy Gastroesophageal reflux disease Hypertriglyceridemia Intellectual disability Non-seasonal allergic rhinitis Osteopenia Primary generalized (osteo)arthritis Vitamin D deficiency Surgical History Surgical History History of basal cell carcinoma excision (~2017) History of orthopedic surgery Status post bilateral hamstring and Achilles tendon lengthening. History of tonsillectomy Family History Family History Sibling Breast cancer Mother Pacemaker Hypertension Heart disease Social History Social History Social History: He resides at [facility]. He is essentially wheelchair bound but can transfer. Lifelong nonsmoker. No alcohol or illicit substance use. His sister Isaac Riggs was is healthcare power of attorney lawyer. Code status: Full code Gender identity (if verbalized by the patient): Male Meds Home Medications and Allergies Home Medications Medication Instructions Recorded Confirmed Type levetiracetam [Keppra] 500 mg PO DAILY 05/08/20 12/27/20 History loratadine 10 mg tablet 10 mg PO DAILY #30 tablet 07/26/20 12/27/20 Rx buspirone 15 mg tablet 15 mg PO TID #90 tablet 09/20/20 12/27/20 Rx phenytoin sodium extended 100 mg 200 mg PO .COMPLEX #150 cap 12/03/20 12/27/20 Rx capsule ergocalciferol (vitamin D2) 1,250 mcg PO WEEKLY 12/27/20 12/27/20 History [Vitamin D2] levetiracetam [Keppra] 1,000 mg PO Q12H 12/27/20 12/27/20 History ferrous sulfate [Feosol] 325 mg PO DAILY #30 tablet 12/31/20 Rx pantoprazole 40 mg PO QAM 28 Days #28 tablet 12/31/20 Rx polyethylene glycol 3350 [Miralax] 17 g PO DAILY #119 g 12/31/20 Rx finasteride 5 mg tablet See Rx Instructions .ROUTE 0
[2021-01-04 16:00] VITALS: BP 149/70; PULSE 90; RESP 20; TEMP 36.6; O2SAT 97
[2021-01-04 16:19] VITALS: BP 145/82; PULSE 87; RESP 22; O2SAT 98
[2021-01-04] MEDS: SODIUM CHLORIDE 0.9% IV 1,000 ML 75 ML IV CONT (17:06)
[2021-01-04 17:13] VITALS: BMI 29.5
--- NOTE | 2021-01-04 17:16 | ADMGEN ---
This patient, Arise Patterson, was admitted to Medical Room 347-01. Patient/family oriented to hospital policies and general routines including ID bracelet, bed and alarms, visiting hours, pain management, procedures, bathroom and other care routines, personal items, smoking policy, room service/diet, and visiting hours. Information on how to activate the Rapid Response Team has been discussed. Patient/Family are encouraged to report perceived risks to care and to ask questions if they do not understand what they are told or what they should do.
[2021-01-04 19:57] VITALS: BP 149/88; PULSE 90; RESP 20; TEMP 35.9; O2SAT 99
[2021-01-05] MEDS: MORPHINE SULFATE (*CRX) 2 MG/ML INJ IV PUSH (05:34)
[2021-01-05] MEDS: SODIUM CHLORIDE 0.9% IV 1,000 ML 75 ML IV CONT ×2 (05:37→20:17)
[2021-01-05 05:41] LABS: Basophils Percent Auto 0.2 % (0.2-1.2); Eosinophils Percent Auto 0.1 % (0-4.4); Hematocrit 27.4 % (42.0-52.0); Hemoglobin 8.9 g/dL (14.0-18.0); Immature Granulocyte Absolute 0.18 K/mm3 (0.00-0.031); Immature Granulocyte Percent A 0.9 % (0-0.5); Lymphocytes Absolute Auto 0.73 K/mm3 (0.9-3.2); Lymphocytes Percent Auto 3.7 % (18.3-44.2); Mean Corpuscular HGB Conc 32.5 g/dl (32-36); Mean Corpuscular Hemoglobin 29.7 pg (26-34); Mean Corpuscular Volume 91.3 fl (80-100); Mean Platelet Volume 9.3 fl (7.4-10.4); Monocytes Absolute Auto 1.9 K/mm3 (0.1-0.6); Monocytes Percent Auto 9.5 % (2.6-8.5); Neutrophils Absolute Auto 17.1 K/mm3 (1.3-6.7); Neutrophils Percent Auto 85.6 % (45.5-73.1); Platelet Count Result 340 k/mm3 (150-375); Red Cell Distribution Width 13.4 % (11.5-14.5)
[2021-01-05 05:49] LABS: Anion Gap 10 mmol/L (8-16); Blood Urea Nitrogen 21 mg/dL (9-20); Calcium 8.4 mg/dL (8.4-10.2); Carbon Dioxide 21 mmol/L (22-30); Chloride 100 mmol/L (98-107); Estimated CRCL calculation 97 ml/min; Estimated Glomerular Filt Rate > 60; Glucose 122 mg/dL (65-110); Potassium 4.5 mmol/L (3.4-5.0); Sodium 131 mmol/L (137-145)
[2021-01-05 05:54] VITALS: BP 152/67; PULSE 82; RESP 18; TEMP 36.9; O2SAT 94
[2021-01-05] MEDS: ENOXAPARIN 40 MG/0.4 ML SYRINGE SUB-Q (11:22)
[2021-01-05 13:25] VITALS: BP 141/69; PULSE 97; RESP 20; TEMP 36.7; O2SAT 97
--- NOTE | 2021-01-05 13:40 | WPDURCON ---
Assessment and Plan Assessment and plan (1) Urinary retention: Code(s): R33.9 - Retention of urine, unspecified Status: Acute Assessment and Plan: Continue with Glasgow catheter for now. Patient already is on Flomax and finasteride. Once he gets over this acute episode and is more ambulatory can attempt another voiding trial with postvoid residual checks. Urology Consult Note HPI Date Seen: 01/05/21 Requesting Physician: Dallin Segura MD Primary Care Provider: Aimee Richards MD Consult Narrative Reason for consult: urinary retention Narrative: Aries Patterson is a 60 year old male who feels that he is a patient of Dr Churchill. patient was in the hospital recently with an episode of urinary retention which resolved. I am told that he may have an upcoming appointment. I was unable to access our records in the office to evaluate that at this time. None the less he presents with right upper quadrant pain is found have acute cholecystitis. Patient is possibly going for surgery in the morning. He was having some difficulty with voiding and was found to have retention with 667 cc. Glasgow catheter was placed is draining clear urine. Patient has multiple other medical issues including cerebral palsy. He states that he was voiding fairly well prior to this admission. Review of Systems Review of Systems: All systems reviewed & are unremarkable except as noted in HPI and below PMFSH Past Medical History Medical History Anxiety Basal cell carcinoma (BCC) of right side of nose (~2017) Benign prostatic hyperplasia Cerebral palsy With history of bilateral Achilles tendon (1972) and bilateral hamstring lengthening (1967). Chronic anemia Diastolic dysfunction Echocardiogram on 08/09/2020 showed normal left ventricular size and function with an EF of 60 to 65% and grade 1 diastolic dysfunction. Epilepsy Gastroesophageal reflux disease Hypertriglyceridemia Intellectual disability Non-seasonal allergic rhinitis Osteopenia Primary generalized (osteo)arthritis Vitamin D deficiency Surgical History Surgical History History of basal cell carcinoma excision (~2017) History of orthopedic surgery Status post bilateral hamstring and Achilles tendon lengthening. History of tonsillectomy Family History Family History Sibling Breast cancer Mother Pacemaker Hypertension Heart disease Social History Social History Social History: He resides at [facility]. He is essentially wheelchair bound but can transfer. Lifelong nonsmoker. No alcohol or illicit substance use. His sister Isaac Riggs was is healthcare power of grievance and appeals specialist. Code status: Full code Smoking status: Never smoker Alcohol intake: never Substance use: never Substance use type: does not use Gender identity (if verbalized by the patient): Male Spiritual care concerns: No Meds Home Medications and Allergies Home Medications Medication Instructions Recorded Confirmed Type levetiracetam [Keppra] 500 mg PO DAILY 05/08/20 01/04/21 History loratadine 10 mg tablet 10 mg PO DAILY #30 tablet 07/26/20 01/04/21 Rx buspirone 15 mg tablet 15 mg PO TID #90 tablet 09/20/20 01/04/21 Rx phenytoin sodium extended 100 mg 200 mg PO .COMPLEX #150 cap 12/03/20 01/04/21 Rx capsule ergocalciferol (vitamin D2) 1,250 mcg PO WEEKLY 12/27/20 01/04/21 History [Vitamin D2] levetiracetam [Keppra] 2,000 mg PO Q12H 12/27/20 01/04/21 History potassium chloride 10 mEq See Rx Instructions .ROUTE 01/03/21 01/04/21 Rx capsule,extended release .COMPLEX #15 capsule tamsulosin 0.4 mg capsule 0.4 mg PO QAM #30 cap 01/03/21 01/04/21 Rx finasteride 5 mg PO QPM 01/04/21 01/04/21 History furosemide 20 mg PO D
--- NOTE | 2021-01-05 14:23 | P.PNIM_ITS ---
Progress Note: A&P Assessment and Plan (1) Acute cholecystitis: Code(s): K81.0 - Acute cholecystitis Status: Deleted Assessment and Plan: * Zosyn 3.375mg IV q6hr * Blood cultures pendingl follow cultures. * Surgery service has been consulted. * Pain control with oxycodone and morphine. * full liquid diet, diet per surgery * ABD CT showed cholecystitis * Right upper quadrant ultrasound showed cholelithiasis * Surgery in the am * Zofran 4mg IV Q4hr PRN for nausea (2) Diastolic dysfunction: Code(s): I51.89 - Other ill-defined heart diseases Status: Acute Assessment and Plan: * Does have history of diastolic dysfunction. * IV fluids 75ml/hr * Consider lasix depending on fluid status * BNP in the am (3) Bradyarrhythmia: Code(s): I49.8 - Other specified cardiac arrhythmias Status: Acute Assessment and Plan: * bradyarrhythmia during his recent admission * evaluated by cardiology * secondary to his undiagnosed/ untreated obstructive sleep apnea * His heart rate would be normal with use of the CPAP * Sleep study as an outpatient and initiation of CPAP if indicated. (4) Obstructive sleep apnea of adult: Code(s): G47.33 - Obstructive sleep apnea (adult) (pediatric) Status: Acute Assessment and Plan: * CPAP empirically without of settings. * Outpatient sleep study was strongly recommended. (5) Benign prostatic hyperplasia: Qualifiers: Lower urinary tract symptom detail: incomplete bladder emptying Lower urinary tract symptom presence: symptoms present Qualified Code(s): N40.1 - Benign prostatic hyperplasia with lower urinary tract symptoms; R39.14 - Feeling of incomplete bladder emptying Code(s): N40.0 - Benign prostatic hyperplasia without lower urinary tract symptoms Status: Chronic Assessment and Plan: * Continue home Flomax 0.4mg PO am, Finasteride 5mg PO HS * Developed urinary retention during his recent hospitalization but did well with voiding trial before discharge. * Urinary retention again * bladder scan revealed 675ml * Urinary catheter inserted * Accurate I&O * Urology consult (6) Chronic anemia: Code(s): D64.9 - Anemia, unspecified Status: Acute Assessment and Plan: * H/H 03/03.8 * Trend H/H * Transfuse as needed * Iron was a little low at 41 * consider adding ferrous sulfate 325mg PO BID * Labs in the am (7) GERD (gastroesophageal reflux disease): Code(s): K21.9 - Gastro-esophageal reflux disease without esophagitis Status: Chronic Assessment and Plan: * Continue pantoprazole 40mg PO Daily while in the hospital (8) Seizure: Code(s): R56.9 - Unspecified convulsions Status: Acute Assessment and Plan: * Continue Dilantin 200mg PO daily and Keppra 2000mg PO Q12hr * Seizure precautions * Monitor Time Spent With Patient Time with patient: Greater than 35 minutes Subjective Date/time seen: 01/05/21 12:20 Interval history: He is a 60-year-old male with multiple medical problems including anxiety, BPH, history of cerebral palsy, chronic anemia, chronic diastolic dysfunction, history of epilepsy, GERD, hyperlipidemia, allergic rhinitis, osteoarthritis, history of intellectual disability who was brought in here with right-sided abdominal pain. The patient stated the only pain he is having
--- NOTE | 2021-01-05 14:23 | PM.IMPN ---
Progress Note: A&P Assessment and Plan (1) Acute cholecystitis: Code(s): K81.0 - Acute cholecystitis Status: Deleted Assessment and Plan: Zosyn 3.375mg IV q6hr Blood cultures pendingl follow cultures. Surgery service has been consulted. Pain control with oxycodone and morphine. full liquid diet, diet per surgery ABD CT showed cholecystitis Right upper quadrant ultrasound showed cholelithiasis Surgery in the am Zofran 4mg IV Q4hr PRN for nausea (2) Diastolic dysfunction: Code(s): I51.89 - Other ill-defined heart diseases Status: Acute Assessment and Plan: Does have history of diastolic dysfunction. IV fluids 75ml/hr Consider lasix depending on fluid status BNP in the am (3) Bradyarrhythmia: Code(s): I49.8 - Other specified cardiac arrhythmias Status: Acute Assessment and Plan: bradyarrhythmia during his recent admission evaluated by cardiology secondary to his undiagnosed/ untreated obstructive sleep apnea His heart rate would be normal with use of the CPAP Sleep study as an outpatient and initiation of CPAP if indicated. (4) Obstructive sleep apnea of adult: Code(s): G47.33 - Obstructive sleep apnea (adult) (pediatric) Status: Acute Assessment and Plan: CPAP empirically without of settings. Outpatient sleep study was strongly recommended. (5) Benign prostatic hyperplasia: Qualifiers: Lower urinary tract symptom detail: incomplete bladder emptying Lower urinary tract symptom presence: symptoms present Qualified Code(s): N40.1 - Benign prostatic hyperplasia with lower urinary tract symptoms; R39.14 - Feeling of incomplete bladder emptying Code(s): N40.0 - Benign prostatic hyperplasia without lower urinary tract symptoms Status: Chronic Assessment and Plan: Continue home Flomax 0.4mg PO am, Finasteride 5mg PO HS Developed urinary retention during his recent hospitalization but did well with voiding trial before discharge. Urinary retention again bladder scan revealed 675ml Urinary catheter inserted Accurate I&O Urology consult (6) Chronic anemia: Code(s): D64.9 - Anemia, unspecified Status: Acute Assessment and Plan: H/H 03/03.8 Trend H/H Transfuse as needed Iron was a little low at 41 consider adding ferrous sulfate 325mg PO BID Labs in the am (7) GERD (gastroesophageal reflux disease): Code(s): K21.9 - Gastro-esophageal reflux disease without esophagitis Status: Chronic Assessment and Plan: Continue pantoprazole 40mg PO Daily while in the hospital (8) Seizure: Code(s): R56.9 - Unspecified convulsions Status: Acute Assessment and Plan: Continue Dilantin 200mg PO daily and Keppra 2000mg PO Q12hr Seizure precautions Monitor Time Spent With Patient Time with patient: Greater than 35 minutes Subjective Date/time seen: 01/05/21 12:20 Interval history: He is a 60-year-old male with multiple medical problems including anxiety, BPH, history of cerebral palsy, chronic anemia, chronic diastolic dysfunction, history of epilepsy, GERD, hyperlipidemia, allergic rhinitis, osteoarthritis, history of intellectual disability who was brought in here with right-sided abdominal pain. The patient stated the only pain he is having is on right upper quadrant. He has no other issues however he also stated that he would like to see a physician because he is hungry and he would like for someone to put in a diet for him to be able to eat. I tried to talk to about his urinary dysfunction however he said I do not know ask my sister. he did deny chest pain, shortness of breath, nausea vomiting fevers sweats and chills. Patient is scheduled to have surgery in the morning with Dr. Dan. It was also noted the patient was having some urinary retention. Bladder
[2021-01-05] MEDS: levETIRAcetam 500 MG TABLET PO (16:35)
[2021-01-05] MEDS: levETIRAcetam 500 MG TABLET 2000 MG PO ×2 (16:36→20:14)
[2021-01-05] MEDS: PHENYTOIN SODIUM 100 MG CAP PO (16:37)
[2021-01-05] MEDS: PHENYTOIN SODIUM 100 MG CAP 200 MG PO (20:14)
[2021-01-05 20:21] VITALS: BP 150/71; PULSE 103; RESP 18; TEMP 36.1; O2SAT 95
--- NOTE | 2021-01-05 23:07 | PM.CNGS ---
Assessment and Plan Assessment and plan (1) Cholelithiasis with acute cholecystitis without biliary obstruction: Code(s): K80.00 - Calculus of gallbladder with acute cholecystitis without obstruction Status: Acute Assessment and Plan: This is the main reason for our consultation. We will need medical clearance for general anesthesia for the patient. I have discussed with the patient and his power of clerical dentist assistant Sister Isaac about possible laparoscopic cholecystectomy, possible open, possible intraoperative cholangiogram. Also discussed possibly at the end if everything goes well considering rubber-band ligation for his internal hemorrhoids to lower the chance that he would have postop bleeding from these. The surgery schedule is busy, but will try to get thid scheduled for either 01/06/2021 or 01/07/[address] Chavez. (2) Grade III internal hemorrhoids: Code(s): K64.2 - Third degree hemorrhoids Status: Acute Assessment and Plan: Have discussed with the patient and his sister about the possibility at the end of surgery putting the patient in lithotomy in going ahead trying to do any Mejia Raheem P examination under anesthesia and placing summer band ligation on his internal hemorrhoids. This may help prevent future rebleeding from internal hemorrhoids. This may also help shrink the external hemorrhoid that he has present on the left side. (3) Anal fissure: Code(s): K60.2 - Anal fissure, unspecified Status: Acute Assessment and Plan: Patient using talk passed tucks pads and this is being watched since it is not chronic may heal by itself. (4) Urinary retention: Code(s): R33.9 - Retention of urine, unspecified Status: Acute (5) Benign prostatic hyperplasia: Qualifiers: Lower urinary tract symptom detail: incomplete bladder emptying Lower urinary tract symptom presence: symptoms present Qualified Code(s): N40.1 - Benign prostatic hyperplasia with lower urinary tract symptoms; R39.14 - Feeling of incomplete bladder emptying Code(s): N40.0 - Benign prostatic hyperplasia without lower urinary tract symptoms Status: Chronic Assessment and Plan: Urology has been consulted the patient has a Glasgow catheter in place Patient will keep the Glasgow catheter in place and follow up with her Urology as an outpatient so that he will not have urinary attach in problems as another problem around the time of this surgery. (6) Epilepsy: Qualifiers: Epilepsy type: unspecified Intractability: not intractable Status epilepticus: without status epilepticus Qualified Code(s): G40.909 - Epilepsy, unspecified, not intractable, without status epilepticus Code(s): G40.909 - Epilepsy, unspecified, not intractable, without status epilepticus Status: Chronic Assessment and Plan: Will need to try to keep patient on his seizure medication. (7) Diastolic dysfunction: Code(s): I51.89 - Other ill-defined heart diseases Status: Acute Assessment and Plan: Less medicine to continue all his usual medications for this. Will need cardiac/ medical clearance to proceed to anesthesia. (8) Bradyarrhythmia: Code(s): I49.8 - Other specified cardiac arrhythmias Status: Acute Assessment and Plan: Will need to be aware this with as the patient undergoes anesthesia. It appears his director of instrumental music was Dr. Pardo and we can call them if we have further problems. (9) Acute blood loss anemia: Code(s): D62 - Acute posthemorrhagic anemia Status: Acute Assessment and Plan: H&H appears to be stable over the last 48 hours. Will recheck Wednesday. (10) Primary generalized (osteo)arthritis: Code(s): M15.0 - Primary generalized (osteo)arthritis Status: Acute Assessment and Plan: Continue current meds (11) Glasgow catheter present: Code(s): Z97.8 - Pre
[2021-01-06] VITALS (13 sets, daily range): BP systolic 134–183; BP diastolic 73–92; PULSE 62–92; RESP 14–21; TEMP 35.7–36.6; O2SAT 91–100
[2021-01-06 06:39] LABS: Hematocrit 26.3 % (42.0-52.0); Hemoglobin 8.3 g/dL (14.0-18.0); Mean Corpuscular HGB Conc 31.6 g/dl (32-36); Mean Corpuscular Hemoglobin 29.3 pg (26-34); Mean Corpuscular Volume 92.9 fl (80-100); Platelet Count Result 336 k/mm3 (150-375); Red Blood Count 2.83 M/mm3 (4.6-6.20); Red Cell Distribution Width 13.4 % (11.5-14.5); White Blood Count 11.1 K/mm3 (4.5-10.0)
[2021-01-06 06:49] LABS: Alanine Aminotransferase 13 U/L (4-50); Albumin Level 2.7 g/dL (3.5-5.1); Alkaline Phosphatase 98 U/L (38-126); Anion Gap 7 mmol/L (8-16); Aspartate Amino Transferase 18 U/L (17-59); Bilirubin,Total 0.4 mg/dL (0.2-1.3); Blood Urea Nitrogen 23 mg/dL (9-20); Calcium 8.1 mg/dL (8.4-10.2); Carbon Dioxide 23 mmol/L (22-30); Chloride 101 mmol/L (98-107); Estimated CRCL calculation 85 ml/min; Estimated Glomerular Filt Rate > 60; Glucose 97 mg/dL (65-110); Magnesium 2.2 mg/dL (1.6-2.3); Potassium 3.8 mmol/L (3.4-5.0); Sodium 131 mmol/L (137-145)
[2021-01-06] MEDS: PHENYTOIN SODIUM 100 MG CAP 200 MG PO ×2 (08:53→20:30)
[2021-01-06] MEDS: levETIRAcetam 500 MG TABLET 2000 MG PO ×2 (08:54→20:31)
[2021-01-06] MEDS: levETIRAcetam 500 MG TABLET PO (08:54)
--- NOTE | 2021-01-06 09:22 | WPDANESEPPF ---
Anes - Initial Pre Proc Eval Procedure: Operation Date: 01/06/21 15:00 Proposed Procedures p Laparoscopic Cholecystectomy - Roxie Chavez MD <Barak Gutiérrez MD - Last Filed: 01/07/21 14:08> Date/Time: 01/06/21 09:22 <Barak Gutiérrez MD - Last Filed: 01/07/21 14:08> Surgeon: Dallin Segura MD <Barak Gutiérrez MD - Last Filed: 01/07/21 14:08> Pre Op Diagnosis: Acute Cholecystitis <Barak Gutiérrez MD - Last Filed: 01/07/21 14:08> Patient Data Age: 60 Gender: M Height: 1.75 m Weight: 90.9 kg <Barak Gutiérrez MD - Last Filed: 01/07/21 14:08> Last Vital Signs Temp 36.6 C 01/06/21 04:05 Pulse 82 01/06/21 04:05 Resp 18 01/06/21 04:05 BP 150/76 H 01/06/21 04:05 Pulse Ox 98 01/06/21 04:05 <Barak Gutiérrez MD - Last Filed: 01/07/21 14:08> Allergies Allergy/AdvReac Type Severity Reaction Status Date / Time Sulfa (Sulfonamide Allergy Unknown Hives Verified 01/06/21 14:07 Antibiotics) <Barak Gutiérrez MD - Last Filed: 01/07/21 14:08> Home Medications Medication Instructions Recorded Confirmed Type levetiracetam [Keppra] 500 mg PO DAILY 05/08/20 01/06/21 History loratadine 10 mg tablet 10 mg PO DAILY #30 tablet 07/26/20 01/06/21 Rx buspirone 15 mg tablet 15 mg PO TID #90 tablet 09/20/20 01/06/21 Rx phenytoin sodium extended 100 mg 200 mg PO .COMPLEX #150 cap 12/03/20 01/06/21 Rx capsule ergocalciferol (vitamin D2) 1,250 mcg PO WEEKLY 12/27/20 01/06/21 History [Vitamin D2] levetiracetam [Keppra] 2,000 mg PO Q12H 12/27/20 01/06/21 History potassium chloride 10 mEq See Rx Instructions .ROUTE 01/03/21 01/06/21 Rx capsule,extended release .COMPLEX #15 capsule tamsulosin 0.4 mg capsule 0.4 mg PO QAM #30 cap 01/03/21 01/06/21 Rx finasteride 5 mg PO QPM 01/04/21 01/06/21 History furosemide 20 mg PO DAILY 01/04/21 01/06/21 History polyethylene glycol 3350 [Miralax] 17 g PO DAILY PRN 01/04/21 01/06/21 History <Barak Gutiérrez MD - Last Filed: 01/07/21 14:08> Laboratory Tests 01/06/21 01/06/21 06:16 06:16 WBC 11.1 K/mm3 H K/mm3 (4.5-10.0) RBC 2.83 M/mm3 L M/mm3 (4.6-6.20) Hgb 8.3 g/dL L g/dL (14.0-18.0) Hct 26.3 % L % (42.0-52.0) MCV 92.9 fl fl (80-100) MCH 29.3 pg pg (26-34) MCHC 31.6 g/dl L g/dl (32-36) RDW 13.4 % % (11.5-14.5) Plt Count 336 k/mm3 k/mm3 (150-375) MPV 9.0 fl fl (7.4-10.4) Sodium 131 mmol/L L mmol/L (137-145) Potassium 3.8 mmol/L mmol/L (3.4-5.0) Chloride 101 mmol/L mmol/L (98-107) Carbon Dioxide 23 mmol/L mmol/L (22-30) Anion Gap 7 mmol/L L mmol/L (8-16) BUN 23 mg/dL H mg/dL (9-20) Creatinine 0.80 mg/dL mg/dL (0.7-1.3) Estim Creat Clear Calc 85 ml/min ml/min Estimated GFR > 60 (59 - ) Glucose 97 mg/dL mg/dL (65-110) Calcium 8.1 mg/dL L mg/dL (8.4-10.2) Magnesium 2.2 mg/dL mg/dL (1.6-2.3) Total Bilirubin 0.4 mg/dL mg/dL (0.2-1.3) AST 18 U/L U/L (17-59) ALT 13 U/L U/L (4-50) Alkaline Phosphatase 98 U/L U/L (38-126) Total Protein 5.0 g/dL L g/dL (6.3-8.2) Albumin 2.7 g/dL L g/dL (3.5-5.1) <Barak Gutiérrez MD - Last Filed: 01/07/21 14:08> Patient hx anesthesia problems: none <Bear Small MD - Last Filed: 01/06/21 14:12> Family hx anesthesia problems: none <Bear Small MD - Last Filed: 01/06/21 14:12> FORMERLY [facility], [facility] Past Medical History Medical History: Medical History Anxiety Basal cell carcinoma (BCC) of right side of nose (~2017) Benign prostatic hyperplasia Cerebral palsy With history of bilateral Achilles tendon (1972) and bilateral hamstring lengthening (1967). Chronic anemia Diastolic dysfunction Echocardiogram on 08/09/2020 showed normal left ventricular size and
[2021-01-06] MEDS: SODIUM CHLORIDE 0.9% IV 1,000 ML 75 ML IV CONT (11:50)
--- NOTE | 2021-01-06 13:08 | P.PNIM_ITS ---
Progress Note: A&P Assessment and Plan (1) Acute cholecystitis: Code(s): K81.0 - Acute cholecystitis Status: Deleted Assessment and Plan: * Zosyn 3.375mg IV q6hr * Blood cultures pendingl follow cultures. * Surgery service has been consulted. * Pain control with oxycodone and morphine. * full liquid diet, diet per surgery * ABD CT showed cholecystitis * Right upper quadrant ultrasound showed cholelithiasis * Surgery today * Zofran 4mg IV Q4hr PRN for nausea (2) Diastolic dysfunction: Code(s): I51.89 - Other ill-defined heart diseases Status: Acute Assessment and Plan: * Does have history of diastolic dysfunction. * IV fluids 75ml/hr * Consider lasix depending on fluid status * BNP in the am (3) Bradyarrhythmia: Code(s): I49.8 - Other specified cardiac arrhythmias Status: Acute Assessment and Plan: * bradyarrhythmia during his recent admission * evaluated by cardiology * secondary to his undiagnosed/ untreated obstructive sleep apnea * His heart rate would be normal with use of the CPAP * Sleep study as an outpatient and initiation of CPAP if indicated. (4) Obstructive sleep apnea of adult: Code(s): G47.33 - Obstructive sleep apnea (adult) (pediatric) Status: Acute Assessment and Plan: * CPAP empirically without of settings. * Outpatient sleep study was strongly recommended. (5) Benign prostatic hyperplasia: Qualifiers: Lower urinary tract symptom detail: incomplete bladder emptying Lower urinary tract symptom presence: symptoms present Qualified Code(s): N40.1 - Benign prostatic hyperplasia with lower urinary tract symptoms; R39.14 - Feeling of incomplete bladder emptying Code(s): N40.0 - Benign prostatic hyperplasia without lower urinary tract symptoms Status: Chronic Assessment and Plan: * Continue home Flomax 0.4mg PO am, Finasteride 5mg PO HS * Developed urinary retention during his recent hospitalization but did well with voiding trial before discharge. * Urinary retention again * bladder scan revealed 675ml * Urinary catheter inserted * Accurate I&O * Urology consult: recommends a voiding trial after the procedure. (6) Chronic anemia: Code(s): D64.9 - Anemia, unspecified Status: Acute Assessment and Plan: * H/H 9.8/30.5 * Trend H/H * Transfuse as needed * Iron was a little low at 41 * consider adding ferrous sulfate 325mg PO BID * Labs in the am (7) GERD (gastroesophageal reflux disease): Code(s): K21.9 - Gastro-esophageal reflux disease without esophagitis Status: Chronic Assessment and Plan: * Continue pantoprazole 40mg PO Daily while in the hospital (8) Seizure: Code(s): R56.9 - Unspecified convulsions Status: Acute Assessment and Plan: * Continue Dilantin 200mg PO daily and Keppra 2000mg PO Q12hr * Seizure precautions * Monitor Subjective Date/time seen: 01/06/21 12:35 Interval history: The patient is a 60-year-old White male with multiple medical problems including anxiety, BPH, history of cerebral palsy, chronic anemia, chronic diastolic dysfunction, history of epilepsy, GERD, hyperlipidemia, allergic rhinitis, osteoarthritis, history of intellectual disability who was brought in here with right-sided abdominal pain. Patient is ok today. He is sitting in bed. He has no comp
--- NOTE | 2021-01-06 13:08 | PM.IMPN ---
Progress Note: A&P Assessment and Plan (1) Acute cholecystitis: Code(s): K81.0 - Acute cholecystitis Status: Deleted Assessment and Plan: Zosyn 3.375mg IV q6hr Blood cultures pendingl follow cultures. Surgery service has been consulted. Pain control with oxycodone and morphine. full liquid diet, diet per surgery ABD CT showed cholecystitis Right upper quadrant ultrasound showed cholelithiasis Surgery today Zofran 4mg IV Q4hr PRN for nausea (2) Diastolic dysfunction: Code(s): I51.89 - Other ill-defined heart diseases Status: Acute Assessment and Plan: Does have history of diastolic dysfunction. IV fluids 75ml/hr Consider lasix depending on fluid status BNP in the am (3) Bradyarrhythmia: Code(s): I49.8 - Other specified cardiac arrhythmias Status: Acute Assessment and Plan: bradyarrhythmia during his recent admission evaluated by cardiology secondary to his undiagnosed/ untreated obstructive sleep apnea His heart rate would be normal with use of the CPAP Sleep study as an outpatient and initiation of CPAP if indicated. (4) Obstructive sleep apnea of adult: Code(s): G47.33 - Obstructive sleep apnea (adult) (pediatric) Status: Acute Assessment and Plan: CPAP empirically without of settings. Outpatient sleep study was strongly recommended. (5) Benign prostatic hyperplasia: Qualifiers: Lower urinary tract symptom detail: incomplete bladder emptying Lower urinary tract symptom presence: symptoms present Qualified Code(s): N40.1 - Benign prostatic hyperplasia with lower urinary tract symptoms; R39.14 - Feeling of incomplete bladder emptying Code(s): N40.0 - Benign prostatic hyperplasia without lower urinary tract symptoms Status: Chronic Assessment and Plan: Continue home Flomax 0.4mg PO am, Finasteride 5mg PO HS Developed urinary retention during his recent hospitalization but did well with voiding trial before discharge. Urinary retention again bladder scan revealed 675ml Urinary catheter inserted Accurate I&O Urology consult: recommends a voiding trial after the procedure. (6) Chronic anemia: Code(s): D64.9 - Anemia, unspecified Status: Acute Assessment and Plan: H/H 9.8/30.5 Trend H/H Transfuse as needed Iron was a little low at 41 consider adding ferrous sulfate 325mg PO BID Labs in the am (7) GERD (gastroesophageal reflux disease): Code(s): K21.9 - Gastro-esophageal reflux disease without esophagitis Status: Chronic Assessment and Plan: Continue pantoprazole 40mg PO Daily while in the hospital (8) Seizure: Code(s): R56.9 - Unspecified convulsions Status: Acute Assessment and Plan: Continue Dilantin 200mg PO daily and Keppra 2000mg PO Q12hr Seizure precautions Monitor Subjective Date/time seen: 01/06/21 12:35 Interval history: The patient is a 60-year-old White male with multiple medical problems including anxiety, BPH, history of cerebral palsy, chronic anemia, chronic diastolic dysfunction, history of epilepsy, GERD, hyperlipidemia, allergic rhinitis, osteoarthritis, history of intellectual disability who was brought in here with right-sided abdominal pain. Patient is ok today. He is sitting in bed. He has no complaints and stated that he is ready to go to get the surgery done and over. He stated that he is still having some abdominal pain, but it is not as bad as it has been. He denies chest pain, shortness of breath, nausea, vomiting, or any other symptoms. Patient is scheduled for a cholecystectomy today at 2pm. Review of Systems Review of Systems: All systems reviewed & are unremarkable except as noted in HPI and below Exam Const: General: cooperative, healthy appearing, comfortable, no acute distress, well developed,
[2021-01-06] MEDS: LACTATED RINGERS 1,000 ML 30 ML IV CONT ×2 (14:00→17:02)
--- NOTE | 2021-01-06 14:49 | WPDHPUPDATE1 ---
History and Physical Update Update Date/Time: 01/06/21 14:49 History and Physical has been reviewed, including an updated exam of the patient. There are NO changes in the patient's condition. Risks, benefits, and alternatives have been discussed and questions answered. Patient agrees to proceed with procedure.
[2021-01-06] MEDS: BUPIVACAINE/EPINEPHRINE 0.5% 10 ML VIAL 30 ML INFILTRATE (15:40)
--- NOTE | 2021-01-06 16:54 | W.PM.PROC2 ---
Procedure Note - Detailed Date of Procedure 01/06/21 Pre-op Diagnosis Acute Cholecystitis Post-op Diagnosis other (acute gangrenous cholecystitis) Procedure Performed laparoscopic cholecystectomy, extensive lysis of adhesions of approximately 45 minutes Surgeon Roxie Chavez MD Anesthesia general Indications 60 y/o M c multiple medical issues presenting c acute cholecystitis, cholelithiasis Findings acute gangrenous cholecystitis, cholelithiasis Description of Procedure The patient was taken to the operating room placed in the supine position. After adequate induction of general anesthesia, the patient was prepped and draped in normal sterile fashion. A time-out was then performed to verify the patient's identity as well as the procedure being performed. I then made a 5 mm incision in the infraumbilical region. Through this, a Veress needle was placed into the peritoneal cavity and CO2 gas was then insufflated. After adequate pneumoperitoneum was achieved, the Veress needle was removed and a 5 mm optiview trocar was placed through this incision under direct visualization. I then placed the laparoscope through this trocar site and under direct visualization placed a further 12 mm subxiphoid port as well as 2 additional 5 mm ports in the right upper abdomen. Upon examination, there was a large inflammatory mass in the RUQ. An extensive lysis of adhesions was done to take down the omentum, inflammatory adhesions in the RUQ. This dissection was done both bluntly and sharply with the electrocautery. This area was very friable and inflamed. Once the gallbladder was identified, it was noted to be very inflamed, distended, with gangrenous changes in the wall, and full of gallstones. I then decompressed the gallbladder with the ovarian needle and thick bile was noted. Once decompressed, I was able to place a grasper at the dome of the gallbladder and this was retracted anterior and cephalad up over the liver. A 2nd retractor was then placed at the infundibulum and retracted laterally, this allowed visualization of the triangle of Calot. I then was able to visualize the cystic duct in its entirety from its proximal insertion into the gallbladder, to its distal junction with the common hepatic/common bile duct junction. At this point, I carefully skeletonized the proximal cystic duct with the [place] dissector. Given the friability of the tissue, I was not able to do a cholangiogram. I then transected the distal gallbladder with an endo ROSELINE stapler. Next I visualized the cystic artery. Again the artery was skeletonized, clipped, and transected. I then used the Bovie cautery to take down the peritoneal attachments of the gallbladder off the liver bed. This was somewhat difficult given the amount of inflammation in the posterior space. Once the gallbladder specimen was completely detached, an endo-pouch was placed through the 12 mm port site. I then placed the gallbladder specimen into the Endo pouch and removed the endo-pouch from the 12 mm port site. The specimen will now be sent to pathology for further review. I then copiously irrigated the right upper quadrant. Some mild oozing was noted in the liver bed and this was controlled with the bovie cautery. I then placed some hemostatic powder in the liver bed. Hemostasis was noted in the liver bed, the clips were noted to be in good position on both the distal gallbladder and the cystic artery stump. No other pathology was noted in the right upper quadrant. I then placed I 19 Fr pavan drain in the RUQ under direct visualization. The exit site of the drain was the right most lateral 5 mm port site. I then moved the laparoscope to the subxiphoid port. No iatrogenic injury or other pathology was noted in the lower abdomen. I then closed the 12 mm trocar site under direct visualization using the Mykel cone and 0 Vicryl suture. At this point, the abdomen was desufflated and all ports removed. All port s
[2021-01-06] MEDS: fentaNYL CITRATE INJ (*CRX) 100 MCG/2 ML VIAL 25 MCG IV PUSH ×4 (17:08→17:58)
--- NOTE | 2021-01-06 17:28 | SUR.PHASEI ---
simple mask removed at 1727.
[2021-01-06] MEDS: PHENYTOIN SODIUM 100 MG CAP PO (18:33)
[2021-01-06] MEDS: HYDROcodone/acetaminophen (*CRX) 5-325 MG TABLET 1 TAB PO ×2 (18:41→23:43)
[2021-01-06] MEDS: FINASTERIDE 5 MG TABLET PO (18:44)
[2021-01-06] MEDS: busPIRone HCL 5 MG TABLET 15 MG PO (18:45)
[2021-01-07] VITALS (9 sets, daily range): BP systolic 106–154; BP diastolic 41–72; PULSE 71–88; RESP 14–20; TEMP 36.1–36.7; O2SAT 92–97
[2021-01-07] MEDS: SODIUM CHLORIDE 0.9% IV 1,000 ML 75 ML IV CONT ×2 (05:26→18:41)
[2021-01-07 06:28] LABS: Hematocrit 23.7 % (42.0-52.0); Hemoglobin 7.5 g/dL (14.0-18.0); Mean Corpuscular HGB Conc 31.6 g/dl (32-36); Mean Corpuscular Hemoglobin 29.4 pg (26-34); Mean Corpuscular Volume 92.9 fl (80-100); Mean Platelet Volume 8.7 fl (7.4-10.4); Platelet Count Result 338 k/mm3 (150-375); Red Blood Count 2.55 M/mm3 (4.6-6.20); Red Cell Distribution Width 13.4 % (11.5-14.5)
[2021-01-07 06:31] LABS: Alanine Aminotransferase 33 U/L (4-50); Albumin Level 2.6 g/dL (3.5-5.1); Alkaline Phosphatase 100 U/L (38-126); Anion Gap 7 mmol/L (8-16); Aspartate Amino Transferase 56 U/L (17-59); Bilirubin,Total < 0.1 mg/dL (0.2-1.3); Blood Urea Nitrogen 21 mg/dL (9-20); Calcium 7.8 mg/dL (8.4-10.2); Carbon Dioxide 23 mmol/L (22-30); Chloride 105 mmol/L (98-107); Estimated CRCL calculation 85 ml/min; Estimated Glomerular Filt Rate > 60; Glucose 92 mg/dL (65-110); Magnesium 2.3 mg/dL (1.6-2.3); Potassium 4.2 mmol/L (3.4-5.0); Sodium 135 mmol/L (137-145)
[2021-01-07] MEDS: HYDROcodone/acetaminophen (*CRX) 5-325 MG TABLET 1 TAB PO ×2 (08:26→16:50)
[2021-01-07] MEDS: levETIRAcetam 500 MG TABLET PO (08:27)
[2021-01-07] MEDS: ENOXAPARIN 40 MG/0.4 ML SYRINGE SUB-Q (08:28)
[2021-01-07] MEDS: DOCUSATE SODIUM 100 MG CAPSULE PO ×2 (08:29→16:51)
[2021-01-07] MEDS: busPIRone HCL 5 MG TABLET 15 MG PO ×3 (08:29→16:51)
[2021-01-07] MEDS: PHENYTOIN SODIUM 100 MG CAP 200 MG PO ×2 (08:30→20:27)
[2021-01-07] MEDS: LORATADINE 10 MG TABLET PO (08:31)
[2021-01-07] MEDS: FUROSEMIDE 20 MG TABLET PO (08:31)
[2021-01-07] MEDS: TAMSULOSIN HCL 0.4 MG CAPSULE PO (08:31)
[2021-01-07] MEDS: levETIRAcetam 500 MG TABLET 2000 MG PO ×2 (08:32→20:27)
--- NOTE | 2021-01-07 08:34 | P.PNIM_ITS ---
Progress Note: A&P Assessment and Plan (1) Acute cholecystitis: Code(s): K81.0 - Acute cholecystitis Status: Deleted Assessment and Plan: * Zosyn 3.375mg IV q6hr * Blood cultures pending follow cultures. * Surgery service has been consulted. * Pain control with oxycodone and morphine. * Clear liquid diet advance as tolerated * ABD CT showed cholecystitis * Right upper quadrant ultrasound showed cholelithiasis * Surgery noted the gallbladder was inflamed and gangrenous * Zofran 4mg IV Q4hr PRN for nausea (2) Diastolic dysfunction: Code(s): I51.89 - Other ill-defined heart diseases Status: Acute Assessment and Plan: * Does have history of diastolic dysfunction. * IV fluids 75ml/hr will DC * Consider lasix depending on fluid status * BNP: 157 * Echo from 08/09/2020 showed EF of 60-65% with grade 1 diastolic dysfunction no other notable abnormalities * 4+ pitting edema on the bilateral lower extremities especially in the feet (3) Bradyarrhythmia: Code(s): I49.8 - Other specified cardiac arrhythmias Status: Acute Assessment and Plan: * bradyarrhythmia during his recent admission * evaluated by cardiology * secondary to his undiagnosed/ untreated obstructive sleep apnea * His heart rate would be normal with use of the CPAP * Sleep study as an outpatient and initiation of CPAP if indicated. (4) Obstructive sleep apnea of adult: Code(s): G47.33 - Obstructive sleep apnea (adult) (pediatric) Status: Acute Assessment and Plan: * CPAP empirically without of settings. * Outpatient sleep study was strongly recommended. (5) Benign prostatic hyperplasia: Qualifiers: Lower urinary tract symptom detail: incomplete bladder emptying Lower urinary tract symptom presence: symptoms present Qualified Code(s): N40.1 - Benign prostatic hyperplasia with lower urinary tract symptoms; R39.14 - Feeling of incomplete bladder emptying Code(s): N40.0 - Benign prostatic hyperplasia without lower urinary tract symptoms Status: Chronic Assessment and Plan: * Continue home Flomax 0.4mg PO am, Finasteride 5mg PO HS * Developed urinary retention during his recent hospitalization but did well with voiding trial before discharge. * Urinary retention again * bladder scan revealed 675ml * Urinary catheter inserted * Accurate I&O * Urology consult: recommends a voiding trial after the procedure. (6) Chronic anemia: Code(s): D64.9 - Anemia, unspecified Status: Acute Assessment and Plan: * previous admission did find grade 3 internal hemorrhoids was thought to be may be the source of bleeding. * Patient will need a surgical intervention on the hemorrhoids was talked about with Dr. Dan however put on hold currently * EGD from 12/30/2020 showed reflux esophagitis grade 2 with no bleeding, no ulcers or masses noted * colonoscopy from 12/30/2020 showed no colitis, AVMs or lesions. Internal hemorrhoids large in the rectum grade 3, anal fissure and rectocele * surgical intervention of cholecystectomy could be contributing to loss blood. * H/H 7.5/23.7 * Trend H/H * Transfuse as needed * anemia labs from 12/27/2020 showed iron 41, TIBC 357, % saturation 11, transferrin to 84, ferritin 17.70, TSH 2.380 * B12 421, and folic acid 5.2 * occult blood ordered and pending * Iron was a little low at 41 * ferrous sulfate 325mg PO BID * Labs in the am
--- NOTE | 2021-01-07 08:34 | PM.IMPN ---
Progress Note: A&P Assessment and Plan (1) Acute cholecystitis: Code(s): K81.0 - Acute cholecystitis Status: Deleted Assessment and Plan: Zosyn 3.375mg IV q6hr Blood cultures pending follow cultures. Surgery service has been consulted. Pain control with oxycodone and morphine. Clear liquid diet advance as tolerated ABD CT showed cholecystitis Right upper quadrant ultrasound showed cholelithiasis Surgery noted the gallbladder was inflamed and gangrenous Zofran 4mg IV Q4hr PRN for nausea (2) Diastolic dysfunction: Code(s): I51.89 - Other ill-defined heart diseases Status: Acute Assessment and Plan: Does have history of diastolic dysfunction. IV fluids 75ml/hr will DC Consider lasix depending on fluid status BNP: 157 Echo from 08/09/2020 showed EF of 60-65% with grade 1 diastolic dysfunction no other notable abnormalities 4+ pitting edema on the bilateral lower extremities especially in the feet (3) Bradyarrhythmia: Code(s): I49.8 - Other specified cardiac arrhythmias Status: Acute Assessment and Plan: bradyarrhythmia during his recent admission evaluated by cardiology secondary to his undiagnosed/ untreated obstructive sleep apnea His heart rate would be normal with use of the CPAP Sleep study as an outpatient and initiation of CPAP if indicated. (4) Obstructive sleep apnea of adult: Code(s): G47.33 - Obstructive sleep apnea (adult) (pediatric) Status: Acute Assessment and Plan: CPAP empirically without of settings. Outpatient sleep study was strongly recommended. (5) Benign prostatic hyperplasia: Qualifiers: Lower urinary tract symptom detail: incomplete bladder emptying Lower urinary tract symptom presence: symptoms present Qualified Code(s): N40.1 - Benign prostatic hyperplasia with lower urinary tract symptoms; R39.14 - Feeling of incomplete bladder emptying Code(s): N40.0 - Benign prostatic hyperplasia without lower urinary tract symptoms Status: Chronic Assessment and Plan: Continue home Flomax 0.4mg PO am, Finasteride 5mg PO HS Developed urinary retention during his recent hospitalization but did well with voiding trial before discharge. Urinary retention again bladder scan revealed 675ml Urinary catheter inserted Accurate I&O Urology consult: recommends a voiding trial after the procedure. (6) Chronic anemia: Code(s): D64.9 - Anemia, unspecified Status: Acute Assessment and Plan: previous admission did find grade 3 internal hemorrhoids was thought to be may be the source of bleeding. Patient will need a surgical intervention on the hemorrhoids was talked about with Dr. Dan however put on hold currently EGD from 12/30/2020 showed reflux esophagitis grade 2 with no bleeding, no ulcers or masses noted colonoscopy from 12/30/2020 showed no colitis, AVMs or lesions. Internal hemorrhoids large in the rectum grade 3, anal fissure and rectocele surgical intervention of cholecystectomy could be contributing to loss blood. H/H 7.5/23.7 Trend H/H Transfuse as needed anemia labs from 12/27/2020 showed iron 41, TIBC 357, % saturation 11, transferrin to 84, ferritin 17.70, TSH 2.380 B12 421, and folic acid 5.2 occult blood ordered and pending Iron was a little low at 41 ferrous sulfate 325mg PO BID Labs in the am (7) GERD (gastroesophageal reflux disease): Code(s): K21.9 - Gastro-esophageal reflux disease without esophagitis Status: Chronic Assessment and Plan: Continue pantoprazole 40mg PO Daily while in the hospital (8) Seizure: Code(s): R56.9 - Unspecified convulsions Status: Acute Assessment and Plan: Continue Dilantin 200mg PO daily and Keppra 2000mg PO Q12hr Seizure precautions Monitor (9) Grade III internal hemorrhoi
[2021-01-07 08:59] LABS: NT Pro B Type Natriuretic Pept 157 pg/mL (5-100)
[2021-01-07 10:03] LABS: Folic Acid 5.2 ng/mL (2.76->20)
--- NOTE | 2021-01-07 10:12 | PM.PNGS ---
Progress Note: A&P Assessment and Plan (1) Cholelithiasis with acute cholecystitis without biliary obstruction: Code(s): K80.00 - Calculus of gallbladder with acute cholecystitis without obstruction Status: Acute Assessment and Plan: stable, routine postop care, ADAT, will remove REZA prior to dc Subjective Subjective Date/Time Seen: 01/07/21 10:12 feels better, just some mild postop soreness Review of Systems Review of Systems: All systems reviewed & are unremarkable except as noted in HPI and below Exam Const: General: cooperative, comfortable and no acute distress Orientation/consciousness: oriented to person and oriented to place Resp: Effort & Inspection: normal respiratory effort Auscultation: clear to auscultation bilaterally Cardio: Rate: regular rate Rhythm: regular rhythm GI: Inspection: normal to inspection, distended and incision GI Palp: Yes Soft to palpation, Yes Tenderness to palpation present (GI) and No Guarding due to palpation present (GI) Other: soft, sl dist, marlena TTP, incisions C/D/I, REZA c moderate amount of sanganeous drainage Objective Data Vital Signs Vital Signs: Vital Signs - 24 hr 01/06/21 13:45 01/06/21 17:02 01/06/21 17:15 Temperature 36.4 C L 36.6 C Pulse Rate 84 75 80 Respiratory Rate 16 16 18 Blood Pressure 147/73 H 137/74 141/83 H Pulse Oximetry 100 100 100 01/06/21 17:30 01/06/21 17:45 01/06/21 18:00 Temperature Pulse Rate 68 74 62 Respiratory Rate 17 18 14 Blood Pressure 134/78 162/85 H 157/81 H Pulse Oximetry 94 95 93 01/06/21 18:15 01/06/21 18:30 01/06/21 19:00 Temperature 35.7 C L 35.9 C L 36.0 C L Pulse Rate 88 92 86 Respiratory Rate 16 16 16 Blood Pressure 181/81 H 183/92 H 171/88 H Pulse Oximetry 96 97 99 01/06/21 21:18 01/06/21 21:24 01/07/21 00:03 Temperature 36.1 C L 36.4 C L Pulse Rate 87 76 Respiratory Rate 18 18 Blood Pressure 158/88 H 154/72 H Pulse Oximetry 91 95 92 01/07/21 00:40 01/07/21 04:26 01/07/21 04:42 Temperature 36.6 C Pulse Rate 76 71 88 Respiratory Rate 14 16 20 Blood Pressure 149/51 H Pulse Oximetry 92 92 96 Intake/Output Intake/Output: Intake & Output 01/04/21 01/05/21 01/06/21 01/07/21 23:59 23:59 23:59 23:59 Intake Total 240 2890 1600 1150 Output Total 600 1045 1128 Balance 240 2290 555 22 Meds/Results Medications: Active Medications Generic Name Dose Route Start Last Admin Trade Name Freq PRN Reason Stop Dose Admin Acetaminophen 650 mg 01/04/21 15:40 Acetaminophen 325 Mg Tablet PO Q6HR PRN Mild Pain (1-3) or Fever Hydrocodone Bitart/Acetaminophen 1 tab 01/04/21 15:40 01/07/21 08:26 Hydrocodone/Acetaminophen (*Crx) 5-325 Mg Tablet PO 1 tab Q4H PRN Administration Moderate Pain (4-6) Buspirone HCl 15 mg 01/06/21 18:06 01/07/21 08:29 Buspirone Hcl 5 Mg Tablet PO 15 mg TID RICARDO Administration Docusate Sodium 100 mg 01/04/21 17:00 01/07/21 08:29 Docusate Sodium 100 Mg Capsule PO 100 mg BID RICARDO Administration Enoxaparin Sodium 40 mg 01/05/21 09:00 01/07/21 08:28 Enoxaparin 40 Mg/0.4 Ml Syringe SUB-Q 40 mg DAILY RICARDO Administration Ergocalciferol 50,000 unit 01/17/21 09:00 Ergocalciferol 50,000 Unit Capsule PO Fr@0900 RICARDO Finasteride 5 mg 01/06/21 18:06 01/06/21 18:44 Finasteride 5 Mg Tablet PO 5 mg QPM RICARDO Administration Furosemide 20 mg 01/07/21 09:00 01/07/21 08:31 Furosemide 20 Mg Tablet PO 20 mg DAILY RICARDO Administration Sodium Chloride 1,000 mls @ 75 mls/hr 01/04/21 15:40 01/07/21 05:26 Normal Saline Iv IV CONT 75 mls/hr .[id number] RICARDO Administration Levetiracetam 500 mg 01/05/21 14:45 01/07/21 08:27 Levetiracetam 500 Mg Tablet PO 500 mg DAILY RICARDO Administration Levetiracetam 2,000 mg 01/05/21 14:45 01/07/21 08:32 Levetiracetam 500 Mg Tablet PO 2,000 mg Q12HR RICARDO Administration Loratadine 10 mg 01/07/21 09:00 01/07/21 08:31
[2021-01-07] MEDS: PHENYTOIN SODIUM 100 MG CAP PO (16:01)
[2021-01-07] MEDS: FINASTERIDE 5 MG TABLET PO (17:24)
[2021-01-07] MEDS: FERROUS SULFATE 324 MG TABLET PO (17:24)
[2021-01-08] MEDS: ONDANSETRON INJ 4 MG/2 ML VIAL IV PUSH ×2 (00:23→04:23)
[2021-01-08 04:10] VITALS: BP 160/85; PULSE 76; RESP 18; TEMP 36.1; O2SAT 94
[2021-01-08] MEDS: MORPHINE SULFATE (*CRX) 2 MG/ML INJ IV PUSH (04:13)
[2021-01-08 05:21] VITALS: BP 155/69
[2021-01-08 06:02] LABS: Hematocrit 23.4 % (42.0-52.0); Hemoglobin 7.6 g/dL (14.0-18.0); Mean Corpuscular HGB Conc 32.5 g/dl (32-36); Mean Corpuscular Hemoglobin 29.2 pg (26-34); Mean Platelet Volume 8.6 fl (7.4-10.4); Platelet Count Result 356 k/mm3 (150-375); Red Cell Distribution Width 13.6 % (11.5-14.5); White Blood Count 7.8 K/mm3 (4.5-10.0)
[2021-01-08] MEDS: HYDROcodone/acetaminophen (*CRX) 5-325 MG TABLET 1 TAB PO (06:11)
[2021-01-08] MEDS: SODIUM CHLORIDE 0.9% IV 1,000 ML 75 ML IV CONT (06:13)
[2021-01-08 06:16] LABS: Alanine Aminotransferase 29 U/L (4-50); Albumin Level 2.7 g/dL (3.5-5.1); Alkaline Phosphatase 91 U/L (38-126); Anion Gap 6 mmol/L (8-16); Aspartate Amino Transferase 28 U/L (17-59); Bilirubin,Total 0.2 mg/dL (0.2-1.3); Blood Urea Nitrogen 18 mg/dL (9-20); Carbon Dioxide 23 mmol/L (22-30); Chloride 105 mmol/L (98-107); Estimated CRCL calculation 97 ml/min; Estimated Glomerular Filt Rate > 60; Glucose 104 mg/dL (65-110); Potassium 3.8 mmol/L (3.4-5.0); Sodium 134 mmol/L (137-145)
[2021-01-08] MEDS: ENOXAPARIN 40 MG/0.4 ML SYRINGE SUB-Q (09:56)
[2021-01-08 10:03] VITALS: RESP 18; O2SAT 94
--- NOTE | 2021-01-08 13:05 | PM.IMPN ---
Progress Note: A&P Assessment and Plan (1) Ileus: Code(s): K56.7 - Ileus, unspecified Status: Acute Assessment and Plan: Pt had vomiting 01/07 and nausea again today -KUB showed ileus -Continue NPO status -No further vomiting and some bowel sounds heard. Will monitor. May need NG tube if he worsens (2) Acute cholecystitis: Code(s): K81.0 - Acute cholecystitis Status: Deleted Assessment and Plan: Pt underwent cholecystectomy 01/06/21 with pathology pending -Pt was on zosyn 01/04-01/06 and WBC now normal with no fevers -Blood cultures NGTD -Drain intact -Continue zofran and pain medications as needed -Pt now with ileus and is NPO -Continue with sx recommendations (3) Diastolic dysfunction: Code(s): I51.89 - Other ill-defined heart diseases Status: Acute Assessment and Plan: Pt appears overloaded but is NPO -Fluids continued since 01/04. Will d/c since he is so fluid overloaded. Since he is NPO, they may need to be restart tomorrow -BNP 157; Echo from 08/09/2020 showed EF of 60-65% with grade 1 diastolic dysfunction no other notable abnormalities -significant edema (4) Bradyarrhythmia: Code(s): I49.8 - Other specified cardiac arrhythmias Status: Acute Assessment and Plan: bradyarrhythmia during his recent admission and was evaluated by cardiology -secondary to his undiagnosed/ untreated obstructive sleep apnea -Sleep study as an outpatient (5) Benign prostatic hyperplasia: Qualifiers: Lower urinary tract symptom presence: symptoms present Lower urinary tract symptom detail: incomplete bladder emptying Qualified Code(s): N40.1 - Benign prostatic hyperplasia with lower urinary tract symptoms; R39.14 - Feeling of incomplete bladder emptying Code(s): N40.0 - Benign prostatic hyperplasia without lower urinary tract symptoms Status: Chronic Assessment and Plan: Intermittent hx of retention -voiding trial underway -Continue home Flomax 0.4mg PO am, Finasteride 5mg PO HS -Developed urinary retention during his recent hospitalization but did well with voiding trial before discharge. (6) Chronic anemia: Code(s): D64.9 - Anemia, unspecified Status: Acute Assessment and Plan: previous admission did find grade 3 internal hemorrhoids was thought to be may be the source of bleeding. -Patient will ultimately need a surgical intervention on the hemorrhoids and should f/u with sx -EGD from 12/30/2020 showed reflux esophagitis grade 2 with no bleeding, no ulcers or masses noted. Will add protonix -colonoscopy from 12/30/2020 showed no colitis, AVMs or lesions. Internal hemorrhoids large in the rectum grade 3, anal fissure and rectocele -surgical intervention of cholecystectomy could be contributing to loss blood. -HH has been stable but low. He was 12.9 back october 2020 but has been low this month -vit b12+ folate okay -continue ferrous sulfate 325mg PO BID once able to take PO (7) GERD (gastroesophageal reflux disease): Code(s): K21.9 - Gastro-esophageal reflux disease without esophagitis Status: Chronic Assessment and Plan: -IV protonix added (8) Seizure: Code(s): R56.9 - Unspecified convulsions Status: Acute Assessment and Plan: Continue Dilantin 200mg PO daily and Keppra 2000mg PO Q12hr (9) Grade III internal hemorrhoids: Code(s): K64.2 - Third degree hemorrhoids Status: Acute Assessment and Plan: As above -f/u with sx for banding outpt (10) Abdominal adhesions: Code(s): K66.0 - Peritoneal adhesions (postprocedural) (postinfection) Status: Acute Assessment and Plan: two liver lesions noted on the CT and adhesion noted through surgical services of cholecystectomy -consider MRI or repeat CT (11) Urinary retention: Code(s): R33.9 - Retention of urine, unspecified Status
[2021-01-08 14:00] VITALS: BP 153/81; PULSE 86; RESP 18; TEMP 36; O2SAT 96
--- NOTE | 2021-01-08 14:03 | PM.PNGS ---
Progress Note: A&P Assessment and Plan (1) Cholelithiasis with acute cholecystitis without biliary obstruction: Code(s): K80.00 - Calculus of gallbladder with acute cholecystitis without obstruction Status: Acute Assessment and Plan: Appears to have developed an ileus. Will back his diet off to NPO for now. Encouraged increasing activity as belkis (PT/OT following). Will plan to remove REZA prior to DC. (2) Ileus: Code(s): K56.7 - Ileus, unspecified Status: Acute Assessment and Plan: Pt had nausea/vomiting overnight. Abd x-ray today suggests ileus. NPO with IV fluids. May need NG tube decompression if nausea/vomiting persists. Repeat abdominal x-ray tomorrow. Additional Plan I have discussed plan of care with Dr. Chavez. Subjective Subjective Date/Time Seen: 01/08/21 14:03 Post Op day: 2 Patient reports: no flatus, no bowel movement, nausea, vomiting and afebrile Interval history: Patient seen today with complaints of nausea and multiple episodes of vomiting overnight and this morning. Reports sitting on the edge of the bed yesterday but no other activity and has not gotten out of bed since surgery. No other complaints. Post-op pain is well controlled with no pain at all on my exam. Review of Systems Review of Systems: All systems reviewed & are unremarkable except as noted in HPI and below Exam Const: General: comfortable, no acute distress, alert and awake Orientation/consciousness: patient oriented x3 GI: Inspection: distended, incision (Abdominal incisions clean and dry, glue intact.) and other (REZA drain with serosanguineous drainage) GI Palp: Yes Soft to palpation, Yes Tenderness to palpation present (GI) (incisional) and No Guarding due to palpation present (GI) Auscultation: High-pitched bowel sounds present Skin: General skin exam: normal color Neuro: General: moves all extremities and no focal motor deficits Extrem: General: no clubbing, cyanosis or edema and no calf tenderness Objective Data Vital Signs Vital Signs: Vital Signs - 24 hr 01/07/21 16:00 01/07/21 19:40 01/08/21 04:10 Temperature 97.8 F 97 F L 97 F L Pulse Rate 86 81 76 Respiratory Rate 16 16 18 Blood Pressure 133/56 L 153/69 H 160/85 H Pulse Oximetry 96 97 94 08/04/21 05:21 01/08/21 10:03 Temperature Pulse Rate Respiratory Rate 18 Blood Pressure 155/69 H Pulse Oximetry 94 Intake/Output Intake/Output: Intake & Output 01/05/21 01/06/21 01/07/21 01/08/21 23:59 23:59 23:59 23:59 Intake Total 2890 1600 3584 1855 Output Total 600 1045 2188 430 Balance 2290 555 1396 1425 Meds/Results Medications: Active Medications Generic Name Dose Route Start Last Admin Trade Name Freq PRN Reason Stop Dose Admin Acetaminophen 650 mg 01/04/21 15:40 Acetaminophen 325 Mg Tablet PO Q6HR PRN Mild Pain (1-3) or Fever Hydrocodone Bitart/Acetaminophen 1 tab 01/04/21 15:40 01/08/21 06:11 Hydrocodone/Acetaminophen (*Crx) 5-325 Mg Tablet PO 1 tab Q4H PRN Administration Moderate Pain (4-6) Buspirone HCl 15 mg 01/06/21 18:06 01/08/21 12:26 Buspirone Hcl 5 Mg Tablet PO Not Given TID RICARDO Docusate Sodium 100 mg 01/04/21 17:00 01/08/21 09:40 Docusate Sodium 100 Mg Capsule PO Not Given BID RICARDO Enoxaparin Sodium 40 mg 01/05/21 09:00 01/08/21 09:56 Enoxaparin 40 Mg/0.4 Ml Syringe SUB-Q 40 mg DAILY RICARDO Administration Ergocalciferol 50,000 unit 01/17/21 09:00 Ergocalciferol 50,000 Unit Capsule PO Fr@0900 RICARDO Ferrous Sulfate 324 mg 01/07/21 17:00 01/08/21 09:07 Ferrous Sulfate 324 Mg Tablet PO Not Given BIDWM RICARDO Finasteride 5 mg 01/06/21 18:06 01/07/21 17:24 Finasteride 5 Mg Tablet PO 5 mg QPM RICARDO Administration Furosemide 20 mg 01/07/21 09:00 01/08/21 09:40 Furosemide 20 Mg Tablet PO Not Given DAILY RICARDO Levetiracetam 500 mg 01/05/21 14:45 01/08/21 09:41 Levetiracetam 500 Mg Tablet PO Not
[2021-01-08] MEDS: PHENYTOIN SODIUM 100 MG CAP PO (17:18)
[2021-01-08] MEDS: DOCUSATE SODIUM 100 MG CAPSULE PO (17:18)
[2021-01-08] MEDS: busPIRone HCL 5 MG TABLET 15 MG PO (17:19)
[2021-01-08] MEDS: FINASTERIDE 5 MG TABLET PO (17:19)
[2021-01-08 20:24] VITALS: BP 147/76; PULSE 88; RESP 20; TEMP 36.2; O2SAT 97
[2021-01-08 22:49] VITALS: O2SAT 96
[2021-01-09 00:22] VITALS: PULSE 77; RESP 16; O2SAT 98
[2021-01-09 05:39] VITALS: BP 142/68; PULSE 77; TEMP 37.3; O2SAT 97
[2021-01-09 06:07] LABS: Basophils Percent Auto 0.5 % (0.2-1.2); Eosinophils Absolute Auto 0.2 K/mm3 (0-0.3); Eosinophils Percent Auto 3.1 % (0-4.4); Hematocrit 23.4 % (42.0-52.0); Hemoglobin 7.6 g/dL (14.0-18.0); Immature Granulocyte Absolute 0.07 K/mm3 (0.00-0.031); Immature Granulocyte Percent A 0.9 % (0-0.5); Lymphocytes Absolute Auto 1.17 K/mm3 (0.9-3.2); Lymphocytes Percent Auto 15.1 % (18.3-44.2); Mean Corpuscular HGB Conc 32.5 g/dl (32-36); Mean Corpuscular Volume 89.3 fl (80-100); Mean Platelet Volume 8.7 fl (7.4-10.4); Monocytes Absolute Auto 0.7 K/mm3 (0.1-0.6); Monocytes Percent Auto 9.6 % (2.6-8.5); Neutrophils Absolute Auto 5.5 K/mm3 (1.3-6.7); Neutrophils Percent Auto 70.8 % (45.5-73.1); Platelet Count Result 343 k/mm3 (150-375); Red Blood Count 2.62 M/mm3 (4.6-6.20); Red Cell Distribution Width 13.3 % (11.5-14.5); White Blood Count 7.7 K/mm3 (4.5-10.0)
[2021-01-09 06:25] LABS: Alanine Aminotransferase 24 U/L (4-50); Albumin Level 2.5 g/dL (3.5-5.1); Alkaline Phosphatase 75 U/L (38-126); Anion Gap 4 mmol/L (8-16); Aspartate Amino Transferase 25 U/L (17-59); Bilirubin,Total 0.2 mg/dL (0.2-1.3); Blood Urea Nitrogen 18 mg/dL (9-20); Calcium 7.9 mg/dL (8.4-10.2); Carbon Dioxide 23 mmol/L (22-30); Chloride 105 mmol/L (98-107); Estimated CRCL calculation 111 ml/min; Estimated Glomerular Filt Rate > 60; Glucose 84 mg/dL (65-110); Potassium 3.9 mmol/L (3.4-5.0); Sodium 132 mmol/L (137-145)
[2021-01-09] MEDS: PANTOPRAZOLE SODIUM IV 40 MG VIAL IV PUSH (09:49)
[2021-01-09] MEDS: ENOXAPARIN 40 MG/0.4 ML SYRINGE SUB-Q (09:49)
[2021-01-09] MEDS: DOCUSATE SODIUM 100 MG CAPSULE PO ×2 (09:50→17:28)
[2021-01-09 10:00] VITALS: RESP 16; O2SAT 97
[2021-01-09] MEDS: busPIRone HCL 5 MG TABLET 15 MG PO ×3 (10:36→17:28)
[2021-01-09] MEDS: FUROSEMIDE 20 MG TABLET PO ×2 (10:37→15:45)
[2021-01-09] MEDS: TAMSULOSIN HCL 0.4 MG CAPSULE PO (10:38)
--- NOTE | 2021-01-09 12:23 | PM.PNGS ---
Progress Note: A&P Assessment and Plan (1) Ileus: Code(s): K56.7 - Ileus, unspecified Status: Acute Assessment and Plan: Developed a post-op ileus. Abd x-ray this morning looks improved. Will allow him to try clear liquids today. Give dulcolax supp. Monitor with serial abd exams. (2) Cholelithiasis with acute cholecystitis without biliary obstruction: Code(s): K80.00 - Calculus of gallbladder with acute cholecystitis without obstruction Status: Acute Assessment and Plan: Continues to improve. Continue post-op care. Plan to remove REZA prior to DC. Work with PT. Increase activity. Additional Plan I have discussed plan of care with Dr. Chavez. Subjective Subjective Date/Time Seen: 01/09/21 12:23 Post Op day: 3 Patient reports: feels better, flatus and no bowel movement Interval history: Patient seen today and reports feeling better this morning. He did have one small episode of emesis he said after taking down a pill, but hasn't been feeling nauseated. No abdominal pain other than some discomfort when he coughs. PT working with increasing his activity. Reports flatus, but no BM since surgery. Review of Systems Review of Systems: All systems reviewed & are unremarkable except as noted in HPI and below Exam Const: General: comfortable, no acute distress, alert and awake Orientation/consciousness: patient oriented x3 GI: Inspection: incision (Abdominal incisions clean and dry, glue intact.) and other (mildly distended) GI Palp: Yes Soft to palpation, No Tenderness to palpation present (GI) and No Guarding due to palpation present (GI) Auscultation: normal bowel sounds Other: REZA with sanguineous drainage Skin: General skin exam: normal color Neuro: General: moves all extremities and no focal motor deficits Extrem: General: no clubbing, cyanosis or edema and no calf tenderness Psych: Mental Status: mental status grossly normal Judgement: Fair judgement present (Psych) Objective Data Vital Signs Vital Signs: Vital Signs - 24 hr 01/08/21 14:00 01/08/21 20:24 01/08/21 22:49 Temperature 96.8 F L 97.1 F L Pulse Rate 86 88 Respiratory Rate 18 20 Blood Pressure 153/81 H 147/76 H Pulse Oximetry 96 97 96 01/09/21 00:22 01/09/21 05:39 01/09/21 10:00 Temperature 99.1 F Pulse Rate 77 77 Respiratory Rate 16 16 Blood Pressure 142/68 H Pulse Oximetry 98 97 97 Intake/Output Intake/Output: Intake & Output 01/06/21 01/07/21 01/08/21 01/09/21 23:59 23:59 23:59 23:59 Intake Total 1600 3584 1855 115 Output Total 1045 2188 940 370 Balance 555 1396 915 -255 Meds/Results Medications: Active Medications Generic Name Dose Route Start Last Admin Trade Name Freq PRN Reason Stop Dose Admin Acetaminophen 650 mg 01/04/21 15:40 Acetaminophen 325 Mg Tablet PO Q6HR PRN Mild Pain (1-3) or Fever Hydrocodone Bitart/Acetaminophen 1 tab 01/04/21 15:40 01/08/21 06:11 Hydrocodone/Acetaminophen (*Crx) 5-325 Mg Tablet PO 1 tab Q4H PRN Administration Moderate Pain (4-6) Bisacodyl 10 mg 01/09/21 12:22 Bisacodyl 10 Mg Suppository RECTAL 01/09/21 12:23 ONCE ONE Buspirone HCl 15 mg 01/06/21 18:06 01/09/21 10:36 Buspirone Hcl 5 Mg Tablet PO 15 mg TID RICARDO Administration Docusate Sodium 100 mg 01/04/21 17:00 01/09/21 09:50 Docusate Sodium 100 Mg Capsule PO 100 mg BID RICARDO Administration Enoxaparin Sodium 40 mg 01/05/21 09:00 01/09/21 09:49 Enoxaparin 40 Mg/0.4 Ml Syringe SUB-Q 40 mg DAILY RICARDO Administration Ergocalciferol 50,000 unit 01/17/21 09:00 Ergocalciferol 50,000 Unit Capsule PO Fr@0900 RICARDO Ferrous Sulfate 324 mg 01/07/21 17:00 01/08/21 09:07 Ferrous Sulfate 324 Mg Tablet PO Not Given BIDWM RICARDO Finasteride 5 mg 01/06/21 18:06 01/08/21 17:19 Finasteride 5 Mg Tablet PO 5 mg QPM RICARDO Administration Furosemide 20 mg 01/07/21 09:00 01/09/21 10:37 Furosemide 20
[2021-01-09] MEDS: BISACODYL 10 MG SUPPOSITORY RECTAL (13:53)
[2021-01-09 14:00] VITALS: BP 156/72; PULSE 89; RESP 18; TEMP 36.6; O2SAT 96
--- NOTE | 2021-01-09 14:19 | PM.IMPN ---
Progress Note: A&P Assessment and Plan (1) Ileus: Code(s): K56.7 - Ileus, unspecified Status: Acute Assessment and Plan: Pt had vomiting 01/07 found to have an ileus but x-ray has improved today - he will be started on clear liquids - surgery following (2) Acute cholecystitis: Code(s): K81.0 - Acute cholecystitis Status: Deleted Assessment and Plan: Pt underwent cholecystectomy 01/06/21 - pathology showing ACUTE AND CHRONIC CHOLECYSTITIS, WITH EXTENSIVE NECROSIS, ULCERATION AND CHOLELITHIASIS -Pt was on zosyn 01/04-01/06 and WBC now normal with no fevers -Blood cultures NGTD -Drain intact -Continue zofran and pain medications as needed -Pt now with ileus and starting cleears -Continue with sx recommendations (3) Diastolic dysfunction: Code(s): I51.89 - Other ill-defined heart diseases Status: Acute Assessment and Plan: Pt appears overloaded but is NPO -No fluids needed at this time -BNP 157; Echo from 08/09/2020 showed EF of 60-65% with grade 1 diastolic dysfunction no other notable abnormalities -significant edema -home lasix given today, will give another later today (4) Bradyarrhythmia: Code(s): I49.8 - Other specified cardiac arrhythmias Status: Acute Assessment and Plan: bradyarrhythmia during his recent admission and was evaluated by cardiology -secondary to his undiagnosed/ untreated obstructive sleep apnea -Sleep study as an outpatient (5) Benign prostatic hyperplasia: Qualifiers: Lower urinary tract symptom detail: incomplete bladder emptying Lower urinary tract symptom presence: symptoms present Qualified Code(s): N40.1 - Benign prostatic hyperplasia with lower urinary tract symptoms; R39.14 - Feeling of incomplete bladder emptying Code(s): N40.0 - Benign prostatic hyperplasia without lower urinary tract symptoms Status: Chronic Assessment and Plan: Intermittent hx of retention -pt failed voiding trial 01/08 and shi replaced -Continue home Flomax 0.4mg PO am, Finasteride 5mg PO HS -Developed urinary retention during his recent hospitalization but did well with voiding trial before discharge then. (6) Chronic anemia: Code(s): D64.9 - Anemia, unspecified Status: Acute Assessment and Plan: previous admission did find grade 3 internal hemorrhoids was thought to be may be the source of bleeding. -Patient will ultimately need a surgical intervention on the hemorrhoids and should f/u with sx -EGD from 12/30/2020 showed reflux esophagitis grade 2 with no bleeding, no ulcers or masses noted. Will add protonix -colonoscopy from 12/30/2020 showed no colitis, AVMs or lesions. Internal hemorrhoids large in the rectum grade 3, anal fissure and rectocele -surgical intervention of cholecystectomy could be contributing to loss blood. -HH has been stable but low. He was 12.9 back october 2020 but has been low this month -vit b12+ folate okay -continue ferrous sulfate 325mg PO BID once able to take PO (7) GERD (gastroesophageal reflux disease): Code(s): K21.9 - Gastro-esophageal reflux disease without esophagitis Status: Chronic Assessment and Plan: -continue protonix (8) Seizure: Code(s): R56.9 - Unspecified convulsions Status: Acute Assessment and Plan: Continue Dilantin 200mg PO daily and Keppra PO Q12hr (9) Grade III internal hemorrhoids: Code(s): K64.2 - Third degree hemorrhoids Status: Acute Assessment and Plan: As above -f/u with sx for banding outpt (10) Abdominal adhesions: Code(s): K66.0 - Peritoneal adhesions (postprocedural) (postinfection) Status: Acute Assessment and Plan: two liver lesions noted on the CT and adhesion noted through surgical services of cholecystectomy -consider MRI or repeat CT (11) Urinary retention: Code(s): R33.9 - Retention of
[2021-01-09] MEDS: PHENYTOIN SODIUM 100 MG CAP PO (15:46)
[2021-01-09] MEDS: FINASTERIDE 5 MG TABLET PO (17:29)
[2021-01-09 20:28] VITALS: BP 159/77; PULSE 78; RESP 18; TEMP 36; O2SAT 97
[2021-01-09] MEDS: levETIRAcetam 500 MG TABLET 2000 MG PO (21:07)
[2021-01-09] MEDS: PHENYTOIN SODIUM 100 MG CAP 200 MG PO (21:08)
[2021-01-09 23:35] VITALS: PULSE 78; RESP 18; O2SAT 97
[2021-01-10] VITALS (7 sets, daily range): BP systolic 137–155; BP diastolic 67–81; PULSE 70–96; RESP 16–18; TEMP 35.6–36.7; O2SAT 97–98; BMI 29.5
[2021-01-10 05:55] LABS: Mean Corpuscular Volume 90.6 fl (80-100); Mean Platelet Volume 8.6 fl (7.4-10.4); Platelet Count Result 363 k/mm3 (150-375); Red Blood Count 2.76 M/mm3 (4.6-6.20); Red Cell Distribution Width 13.7 % (11.5-14.5); White Blood Count 6.6 K/mm3 (4.5-10.0)
[2021-01-10 06:04] LABS: Anion Gap 6 mmol/L (8-16); Blood Urea Nitrogen 14 mg/dL (9-20); Calcium 7.9 mg/dL (8.4-10.2); Carbon Dioxide 24 mmol/L (22-30); Chloride 100 mmol/L (98-107); Estimated CRCL calculation 97 ml/min; Estimated Glomerular Filt Rate > 60; Glucose 92 mg/dL (65-110); Potassium 3.8 mmol/L (3.4-5.0); Sodium 130 mmol/L (137-145)
[2021-01-10] MEDS: busPIRone HCL 5 MG TABLET 15 MG PO ×3 (08:36→17:09)
[2021-01-10] MEDS: PHENYTOIN SODIUM 100 MG CAP 200 MG PO ×2 (08:36→20:27)
[2021-01-10] MEDS: levETIRAcetam 500 MG TABLET 2000 MG PO (08:37)
[2021-01-10] MEDS: DOCUSATE SODIUM 100 MG CAPSULE PO ×2 (08:37→17:09)
[2021-01-10] MEDS: PANTOPRAZOLE SODIUM IV 40 MG VIAL IV PUSH (08:37)
[2021-01-10] MEDS: LORATADINE 10 MG TABLET PO (08:37)
[2021-01-10] MEDS: FUROSEMIDE 20 MG TABLET PO ×2 (08:37→17:09)
[2021-01-10] MEDS: POTASSIUM CHLORIDE 10 MEQ TABLET.ER BY MOUTH (08:37)
[2021-01-10] MEDS: TAMSULOSIN HCL 0.4 MG CAPSULE PO (08:37)
[2021-01-10] MEDS: ENOXAPARIN 40 MG/0.4 ML SYRINGE SUB-Q (08:37)
--- NOTE | 2021-01-10 11:15 | PM.PNGS ---
Progress Note: A&P Assessment and Plan (1) Cholelithiasis with acute cholecystitis without biliary obstruction: Code(s): K80.00 - Calculus of gallbladder with acute cholecystitis without obstruction Status: Acute Assessment and Plan: doing well, cont routine postop care, REZA removed, ok to dc home if belkis soft diet, f/u 2 wks (2) Ileus: Code(s): K56.7 - Ileus, unspecified Status: Acute Assessment and Plan: resolving, soft diet today Subjective Subjective Date/Time Seen: 01/10/21 11:15 feels ok, pain better, +bowel fxn, belkis clears Review of Systems Review of Systems: All systems reviewed & are unremarkable except as noted in HPI and below Exam Const: General: cooperative, comfortable and no acute distress Nutritional Appearance: obese Orientation/consciousness: patient oriented x3 Resp: Effort & Inspection: normal respiratory effort Auscultation: clear to auscultation bilaterally Cardio: Rate: regular rate Rhythm: regular rhythm GI: Inspection: normal to inspection, distended and incision GI Palp: Yes Soft to palpation, Yes Tenderness to palpation present (GI) and No Guarding due to palpation present (GI) Other: soft, mod dist, marlena TTP, incisions C/D/I, REZA c scant s/s drainage and removed at bedside Objective Data Vital Signs Vital Signs: Vital Signs - 24 hr 01/09/21 14:00 01/09/21 20:28 01/09/21 23:35 Temperature 36.6 C 36.0 C L Pulse Rate 89 78 78 Respiratory Rate 18 18 18 Blood Pressure 156/72 H 159/77 H Pulse Oximetry 96 97 97 01/10/21 05:56 Temperature 36.4 C L Pulse Rate 76 Respiratory Rate 18 Blood Pressure 152/67 H Pulse Oximetry 97 Intake/Output Intake/Output: Intake & Output 01/07/21 01/08/21 01/09/21 01/10/21 23:59 23:59 23:59 23:59 Intake Total 3584 1855 825 755 Output Total 2184 940 3065 965 Balance 1396 915 -2240 -210 Meds/Results Medications: Active Medications Generic Name Dose Route Start Last Admin Trade Name Freq PRN Reason Stop Dose Admin Acetaminophen 650 mg 01/04/21 15:40 Acetaminophen 325 Mg Tablet PO Q6HR PRN Mild Pain (1-3) or Fever Hydrocodone Bitart/Acetaminophen 1 tab 01/04/21 15:40 01/08/21 06:11 Hydrocodone/Acetaminophen (*Crx) 5-325 Mg Tablet PO 1 tab Q4H PRN Administration Moderate Pain (4-6) Buspirone HCl 15 mg 01/06/21 18:06 01/10/21 08:36 Buspirone Hcl 5 Mg Tablet PO 15 mg TID RICARDO Administration Docusate Sodium 100 mg 01/04/21 17:00 01/10/21 08:37 Docusate Sodium 100 Mg Capsule PO 100 mg BID RICARDO Administration Enoxaparin Sodium 40 mg 01/05/21 09:00 01/10/21 08:37 Enoxaparin 40 Mg/0.4 Ml Syringe SUB-Q 40 mg DAILY RICARDO Administration Ergocalciferol 50,000 unit 01/17/21 09:00 Ergocalciferol 50,000 Unit Capsule PO Fr@0900 RICARDO Ferrous Sulfate 324 mg 01/07/21 17:00 01/08/21 09:07 Ferrous Sulfate 324 Mg Tablet PO Not Given BIDWM RICARDO Finasteride 5 mg 01/06/21 18:06 01/09/21 17:29 Finasteride 5 Mg Tablet PO 5 mg QPM RICARDO Administration Furosemide 20 mg 01/07/21 09:00 01/10/21 08:37 Furosemide 20 Mg Tablet PO 20 mg DAILY RICARDO Administration Levetiracetam 1,500 mg/ 115 mls @ 460 mls/hr 01/09/21 07:00 01/10/21 06:16 Dextrose IVPB Infused Q8HR RICARDO Infusion Levetiracetam 500 mg 01/05/21 14:45 01/08/21 09:41 Levetiracetam 500 Mg Tablet PO Not Given DAILY RICARDO Levetiracetam 2,000 mg 01/05/21 14:45 01/10/21 08:37 Levetiracetam 500 Mg Tablet PO 2,000 mg Q12HR RICARDO Administration Loratadine 10 mg 01/07/21 09:00 01/10/21 08:37 Loratadine 10 Mg Tablet PO 10 mg DAILY RICARDO Administration Morphine Sulfate 2 mg 01/04/21 15:40 01/08/21 04:13 Morphine Sulfate (*Crx) 2 Mg/Ml Inj IV PUSH 2 mg Q4H PRN Administration Pain Rated 7-10 Naloxone HCl 0.1 mg 01/04/21 15:40 Naloxone Hcl 0.4 Mg/Ml Vial IV PUSH Q2M PRN Opiate Reversal Ondansetron HCl
--- NOTE | 2021-01-10 11:39 | PM.IMPN ---
Progress Note: A&P Assessment and Plan (1) Ileus: Code(s): K56.7 - Ileus, unspecified Status: Acute Assessment and Plan: Pt had vomiting 01/07 found to have an ileus but x-ray has improved today -Advance diet as tolerated - if he does well, planned discharge tomorrow. Awaiting discharge dispo. spoke with care coordination (2) Acute cholecystitis: Code(s): K81.0 - Acute cholecystitis Status: Deleted Assessment and Plan: Pt underwent cholecystectomy 01/06/21 - pathology showing ACUTE AND CHRONIC CHOLECYSTITIS, WITH EXTENSIVE NECROSIS, ULCERATION AND CHOLELITHIASIS -Pt was on zosyn 01/04-01/06 and WBC now normal with no fevers -Blood cultures NGTD -Drain intact, plan to be removed today -Continue zofran and pain medications as needed -Continue with sx recommendations (3) Diastolic dysfunction: Code(s): I51.89 - Other ill-defined heart diseases Status: Acute Assessment and Plan: patient's swelling is improving -BNP 157; Echo from 08/09/2020 showed EF of 60-65% with grade 1 diastolic dysfunction no other notable abnormalities -significant edema - continue home Lasix, give an additional dose tonight (4) Bradyarrhythmia: Code(s): I49.8 - Other specified cardiac arrhythmias Status: Acute Assessment and Plan: bradyarrhythmia during his recent admission and was evaluated by cardiology -secondary to his undiagnosed/ untreated obstructive sleep apnea -Sleep study as an outpatient (5) Benign prostatic hyperplasia: Qualifiers: Lower urinary tract symptom detail: incomplete bladder emptying Lower urinary tract symptom presence: symptoms present Qualified Code(s): N40.1 - Benign prostatic hyperplasia with lower urinary tract symptoms; R39.14 - Feeling of incomplete bladder emptying Code(s): N40.0 - Benign prostatic hyperplasia without lower urinary tract symptoms Status: Chronic Assessment and Plan: Intermittent hx of retention -pt failed voiding trial 01/08 and shi replaced -Continue home Flomax 0.4mg PO am, Finasteride 5mg PO HS -follow up with urology (6) Chronic anemia: Code(s): D64.9 - Anemia, unspecified Status: Acute Assessment and Plan: previous admission did find grade 3 internal hemorrhoids was thought to be may be the source of bleeding. -Patient will ultimately need a surgical intervention on the hemorrhoids and should f/u with sx -EGD from 12/30/2020 showed reflux esophagitis grade 2 with no bleeding, no ulcers or masses noted. Will add protonix -colonoscopy from 12/30/2020 showed no colitis, AVMs or lesions. Internal hemorrhoids large in the rectum grade 3, anal fissure and rectocele -surgical intervention of cholecystectomy could be contributing to loss blood. -HH has been stable but low. He was 12.9 back october 2020 but has been low this month -vit b12+ folate okay -continue ferrous sulfate 325mg PO BID (7) GERD (gastroesophageal reflux disease): Code(s): K21.9 - Gastro-esophageal reflux disease without esophagitis Status: Chronic Assessment and Plan: -continue protonix (8) Seizure: Code(s): R56.9 - Unspecified convulsions Status: Acute Assessment and Plan: see below -continue dilantin (9) Grade III internal hemorrhoids: Code(s): K64.2 - Third degree hemorrhoids Status: Acute Assessment and Plan: As above -f/u with sx for banding outpt (10) Abdominal adhesions: Code(s): K66.0 - Peritoneal adhesions (postprocedural) (postinfection) Status: Acute Assessment and Plan: two liver lesions noted on the CT and adhesion noted through surgical services of cholecystectomy -consider MRI or repeat CT (11) Urinary retention: Code(s): R33.9 - Retention of urine, unspecified Status: Acute Assessment and Plan: As above -failed voiding trial, now wit
[2021-01-10] MEDS: FINASTERIDE 5 MG TABLET PO (17:09)
[2021-01-10] MEDS: PHENYTOIN SODIUM 100 MG CAP PO (17:09)
[2021-01-11] VITALS (10 sets, daily range): BP systolic 131–153; BP diastolic 65–75; PULSE 69–91; RESP 18–20; TEMP 36.1–36.7; O2SAT 94–100
[2021-01-11 06:15] LABS: Mean Corpuscular Hemoglobin 28.8 pg (26-34); Mean Corpuscular Volume 89.9 fl (80-100); Mean Platelet Volume 8.6 fl (7.4-10.4); Platelet Count Result 352 k/mm3 (150-375); Red Blood Count 2.78 M/mm3 (4.6-6.20); Red Cell Distribution Width 13.7 % (11.5-14.5); White Blood Count 7.5 K/mm3 (4.5-10.0)
[2021-01-11 06:31] LABS: Alanine Aminotransferase 50 U/L (4-50); Albumin Level 2.7 g/dL (3.5-5.1); Alkaline Phosphatase 74 U/L (38-126); Anion Gap 8 mmol/L (8-16); Aspartate Amino Transferase 55 U/L (17-59); Bilirubin,Total 0.1 mg/dL (0.2-1.3); Blood Urea Nitrogen 13 mg/dL (9-20); Calcium 7.9 mg/dL (8.4-10.2); Carbon Dioxide 23 mmol/L (22-30); Chloride 99 mmol/L (98-107); Estimated CRCL calculation 97 ml/min; Estimated Glomerular Filt Rate > 60; Glucose 92 mg/dL (65-110); Potassium 3.9 mmol/L (3.4-5.0); Sodium 130 mmol/L (137-145)
[2021-01-11] MEDS: ENOXAPARIN 40 MG/0.4 ML SYRINGE SUB-Q (08:12)
[2021-01-11] MEDS: PANTOPRAZOLE SODIUM IV 40 MG VIAL IV PUSH (08:12)
[2021-01-11] MEDS: TAMSULOSIN HCL 0.4 MG CAPSULE PO (08:13)
[2021-01-11] MEDS: PHENYTOIN SODIUM 100 MG CAP 200 MG PO ×2 (08:13→21:09)
[2021-01-11] MEDS: LORATADINE 10 MG TABLET PO (08:13)
[2021-01-11] MEDS: DOCUSATE SODIUM 100 MG CAPSULE PO (08:13)
[2021-01-11] MEDS: busPIRone HCL 5 MG TABLET 15 MG PO ×3 (08:13→17:18)
--- NOTE | 2021-01-11 10:34 | PM.IMPN ---
Progress Note: A&P Assessment and Plan (1) Ileus: Code(s): K56.7 - Ileus, unspecified Status: Acute Assessment and Plan: Pt failed to tolerate a diet yesterday 01/10 and another xray was performed which showed worsened ileus. -He was placed NPO with meds and has not vomited since 01/10 and did well with his pills today -He does have some bowel sounds but pt is intellectually delayed and thinks he has passed gas but isn't really sure. He has not had a bowel movement -will try clear liquids and sips of water - I have asked nursing staff to get him to the chair as he has been lying in bed quite often -appreciate sx recommendations (2) Acute cholecystitis: Code(s): K81.0 - Acute cholecystitis Status: Deleted Assessment and Plan: Pt underwent cholecystectomy 01/06/21 - pathology showing ACUTE AND CHRONIC CHOLECYSTITIS, WITH EXTENSIVE NECROSIS, ULCERATION AND CHOLELITHIASIS -Pt was on zosyn 01/04-01/06 and WBC now normal with no fevers -Blood cultures negative -REZA drain removed 01/10/21 -Continue zofran and pain medications as needed -Continue with sx recommendations (3) Diastolic dysfunction: Code(s): I51.89 - Other ill-defined heart diseases Status: Acute Assessment and Plan: patient's swelling is improving -BNP 157; Echo from 08/09/2020 showed EF of 60-65% with grade 1 diastolic dysfunction no other notable abnormalities -significant edema -hold lasix since pt has been throwing up and isn't drinking very much. Plan to restart once tolerating a diet. (4) Bradyarrhythmia: Code(s): I49.8 - Other specified cardiac arrhythmias Status: Acute Assessment and Plan: bradyarrhythmia during his recent admission and was evaluated by cardiology -He was placed on tele yesterday for monitoring due to keppra and it showed that he has 4 second pauses. He is wearing his cpap during these pauses and is asymptomatic -Will consult cardiology due to worsened pauses (they did not occur while he was vomiting) -Sleep study as an outpatient (5) Benign prostatic hyperplasia: Qualifiers: Lower urinary tract symptom detail: incomplete bladder emptying Lower urinary tract symptom presence: symptoms present Qualified Code(s): N40.1 - Benign prostatic hyperplasia with lower urinary tract symptoms; R39.14 - Feeling of incomplete bladder emptying Code(s): N40.0 - Benign prostatic hyperplasia without lower urinary tract symptoms Status: Chronic Assessment and Plan: Intermittent hx of retention -pt failed voiding trial 01/08 and shi replaced -Continue home Flomax 0.4mg PO am, Finasteride 5mg PO HS -follow up with urology (6) Chronic anemia: Code(s): D64.9 - Anemia, unspecified Status: Acute Assessment and Plan: previous admission did find grade 3 internal hemorrhoids was thought to be may be the source of bleeding. -Patient will ultimately need a surgical intervention on the hemorrhoids and should f/u with sx -EGD from 12/30/2020 showed reflux esophagitis grade 2 with no bleeding, no ulcers or masses noted. Will add protonix -colonoscopy from 12/30/2020 showed no colitis, AVMs or lesions. Internal hemorrhoids large in the rectum grade 3, anal fissure and rectocele -surgical intervention of cholecystectomy could be contributing to loss blood. -HH has been stable but low. He was 12.9 back october 2020 but has been low this month -vit b12+ folate okay -hold iron for now due to ileus (7) GERD (gastroesophageal reflux disease): Code(s): K21.9 - Gastro-esophageal reflux disease without esophagitis Status: Chronic Assessment and Plan: -continue protonix (8) Seizure: Code(s): R56.9 - Unspecified convulsions Status: Acute Assessment and Plan: see below -continue dilantin -per advice from poision control, can restart keppra today. Will restart tonight. (9) Grade III int
--- NOTE | 2021-01-11 14:48 | PM.CNCAR ---
Assessment and Plan Assessment and plan (1) Sinus pause: Code(s): I45.5 - Other specified heart block Status: Acute Assessment and Plan: appears largely asymptomatic bottle caser hours while asleep likely secondary to under treated sleep apnea despite use of CPAP thus far. Will need to continue to monitor in this regard for positive response and decreased frequency and/or resolution of these events. During waking hours no high-grade block or significant bradycardia is noted thus far. Recommend outpatient swage tender for clarification. However, 12 lead EKG prior hospitalization revealed evidence of some underlying conduction system disease with first-degree AV block and nonspecific IVCD. Therefore, while I cannot exclude possibility he may ultimately require pacemaker there is no indication at this time. his electrolytes are stable, TSH with normal limits end of December. Renal function stable, H&H stable although he remains anemic. Discussed excessive vagal tone is possible contribution yet patient is not experiencing significant pain or nausea vomiting at this time. Dilantin may result in conduction abnormality if at toxic levels. Keppra unlikely to contribute in this regard. Avoid AV ga blocking agents As this will most certainly exacerbate this problem. Lengthy discussion held with patient and his sister bedside in that we will need to determine if a pacemaker is indicated or if he will stabilize with affective treatment of sleep apnea With CPAP. They verbalized understanding and agreed with plan of care. They have not yet determine if they are going to follow-up with Dr. Hernandez or myself as an outpatient. He was previously seen by Dr. Hernandez and apparently had an appointment to see Dr. Mcgregor which was canceled as he was admitted to the hospital. They will make a decision prior to discharge to help facilitate follow-up. Telemetry overnight. Repeat 12 lead EKG in a.m.. Recommendations to follow as appropriate. If patient develops high-grade AV block or symptomatic bradycardia he remains quite possible pacemaker implantation may very well be indicated. (2) YURIDIA (obstructive sleep apnea): Code(s): G47.33 - Obstructive sleep apnea (adult) (pediatric) Status: Acute Assessment and Plan: Must continue treatment with CPAP. See above. (3) Cerebral palsy: Qualifiers: Cerebral palsy type: unspecified type Qualified Code(s): G80.9 - Cerebral palsy, unspecified Code(s): G80.9 - Cerebral palsy, unspecified Status: Chronic Assessment and Plan: Per primary service. (4) Edema: Qualifiers: Edema type: localized Qualified Code(s): R60.0 - Localized edema Code(s): R60.9 - Edema, unspecified Status: Acute Assessment and Plan: May continue low-dose diuresis as necessary and resume when appropriate. Patient is not in decompensated heart failure at this time. Echocardiogram earlier this year EF 60% with diastolic dysfunction grade 1. (5) Epilepsy: Qualifiers: Epilepsy type: unspecified Intractability: not intractable Status epilepticus: without status epilepticus Qualified Code(s): G40.909 - Epilepsy, unspecified, not intractable, without status epilepticus Code(s): G40.909 - Epilepsy, unspecified, not intractable, without status epilepticus Status: Chronic Assessment and Plan: Per primary service. Continue conduction abnormalities persist and/or phenytoin levels are elevated alternative would be advised. However, affective management of his epilepsy is critically important. Defer to Neurology in this regard. (6) Anemia: Qualifiers: Anemia type: unspecified type Qualified Code(s): D64.9 - Anemia, unspecified Code(s): D64.9 - Anemia, unspecified Status: Acute Assessment and Plan: Follow H&H. Defer to primary service. History of Present Illness History of
[2021-01-11] MEDS: PHENYTOIN SODIUM 100 MG CAP PO (17:18)
[2021-01-11] MEDS: FINASTERIDE 5 MG TABLET PO (17:18)
[2021-01-12] VITALS (12 sets, daily range): BP systolic 107–150; BP diastolic 61–74; PULSE 60–84; RESP 16–20; TEMP 35.7–37.3; O2SAT 94–99
--- NOTE | 2021-01-12 07:00 | ECG_ITS ---
Measurements Intervals [place] Rate: 68 P: 48 RI: 205 QRS: 30 QRSD: 137 T: 48 QT: 413 QTc: 440 Interpretive Statements SINUS RHYTHM RIGHT BUNDLE BRANCH BLOCK ABNORMAL ECG Electronically Signed On 01-12-2021 8:22:47 CDT by Mo Mcgregor D.O.
[2021-01-12 07:21] LABS: Anion Gap 5 mmol/L (8-16); Blood Urea Nitrogen 11 mg/dL (9-20); Calcium 7.9 mg/dL (8.4-10.2); Carbon Dioxide 24 mmol/L (22-30); Chloride 101 mmol/L (98-107); Estimated CRCL calculation 97 ml/min; Estimated Glomerular Filt Rate > 60; Glucose 95 mg/dL (65-110); Potassium 3.9 mmol/L (3.4-5.0); Sodium 130 mmol/L (137-145)
[2021-01-12] MEDS: TAMSULOSIN HCL 0.4 MG CAPSULE PO (09:08)
[2021-01-12] MEDS: PHENYTOIN SODIUM 100 MG CAP 200 MG PO ×2 (09:08→21:11)
[2021-01-12] MEDS: LORATADINE 10 MG TABLET PO (09:08)
[2021-01-12] MEDS: busPIRone HCL 5 MG TABLET 15 MG PO ×3 (09:09→17:18)
[2021-01-12] MEDS: PANTOPRAZOLE SODIUM IV 40 MG VIAL IV PUSH (09:09)
[2021-01-12] MEDS: ENOXAPARIN 40 MG/0.4 ML SYRINGE SUB-Q (09:09)
--- NOTE | 2021-01-12 13:22 | PM.PNCARD ---
Progress Note: A&P Assessment and Plan (1) Sinus pause: Code(s): I45.5 - Other specified heart block Status: Acute Assessment and Plan: Stable. No pathologic pauses overnight. All episodes in question occurred in the remittance clerk hours/overnight. None were documented during wakeful hours. Frequent episodes of transient junctional escape without high-grade AV block. Continue CPAP therapy. This appears to be benefiting him. They wish to follow up with me in our practice as an outpatient. Will set up a 30 day quality assurance monitor body if possible. continue Telemetry overnight once again. Repeat 12 lead EKG Today revealed sinus rhythm mild first-degree AV block IL interval 205 milliseconds, RBBB QRS 137 milliseconds QT corrected 440 milliseconds. Patient does have evidence of underlying conduction system disease. He does not meet indication for pacemaker at this time. Whether not he will require in the future depends upon recurrent pauses, syncope or near syncope and her affective therapy with CPAP. Again, avoid AV ga blocking agents or other agents known to slow or negatively affect the conduction system. Will see patient as needed. Please contact us to set a follow-up and quality assurance monitor body prior to discharge or if new concerns arise. (2) YURIDIA (obstructive sleep apnea): Code(s): G47.33 - Obstructive sleep apnea (adult) (pediatric) Status: Acute Assessment and Plan: Must continue treatment with CPAP. See above. (3) Cerebral palsy: Qualifiers: Cerebral palsy type: unspecified type Qualified Code(s): G80.9 - Cerebral palsy, unspecified Code(s): G80.9 - Cerebral palsy, unspecified Status: Chronic Assessment and Plan: Per primary service. (4) Edema: Qualifiers: Edema type: localized Qualified Code(s): R60.0 - Localized edema Code(s): R60.9 - Edema, unspecified Status: Acute Assessment and Plan: May continue low-dose diuresis as necessary and resume when appropriate. Patient is not in decompensated heart failure at this time. Echocardiogram earlier this year EF 60% with diastolic dysfunction grade 1. (5) Epilepsy: Qualifiers: Epilepsy type: unspecified Intractability: not intractable Status epilepticus: without status epilepticus Qualified Code(s): G40.909 - Epilepsy, unspecified, not intractable, without status epilepticus Code(s): G40.909 - Epilepsy, unspecified, not intractable, without status epilepticus Status: Chronic Assessment and Plan: Per primary service. Continue conduction abnormalities persist and/or phenytoin levels are elevated alternative would be advised. However, affective management of his epilepsy is critically important. Defer to Neurology in this regard. (6) Anemia: Qualifiers: Anemia type: unspecified type Qualified Code(s): D64.9 - Anemia, unspecified Code(s): D64.9 - Anemia, unspecified Status: Acute Assessment and Plan: Follow H&H. Defer to primary service. Subjective Date/time seen: Date of service:01/12/21 13:22 Follow-up for sinus pauses no new issues overnight. Patient denies dizziness, near syncope, chest pain or shortness of breath. Wore CPAP last night noted some leaking but improved overall. Tolerating well. Telemetry revealed sinus rhythm without pathologic pauses. Longest approximately 2 seconds. Had several episodes of transient junctional escape with sinus rhythm with slowing to 1-2 beats at most 4 beats of junctional rhythm with prompt return of sinus rhythm. No high-grade AV blocks. No atrial fibrillation or atrial flutter. Patient states he believes they wish to follow up with me as an outpatient. Review of Systems Review of Systems: All systems reviewed & are unremarkable except as noted in HPI and below Constitutional: Constitutional: Reports as per HPI, Reports no additional consti
--- NOTE | 2021-01-12 14:16 | PM.PNGS ---
Progress Note: A&P Assessment and Plan (1) Cholelithiasis with acute cholecystitis without biliary obstruction: Code(s): K80.00 - Calculus of gallbladder with acute cholecystitis without obstruction Status: Resolved Assessment and Plan: Do not see any evidence of postoperative complication. Patient did have severe cholecystitis. (2) Ileus: Code(s): K56.7 - Ileus, unspecified Status: Acute Assessment and Plan: Seems to be resolving. Discussed with hospitalist. Slowly advance diet and hopefully home in another day or 2. Subjective Subjective Date/Time Seen: 01/12/21 14:16 Post Op day: 5 Patient reports: feels better, pain is less and afebrile Interval history: Less nauseated today. No BM today or yesterday. Did tolerate full liquid diet for breakfast. No nausea or gagging with pills. Feels better today. Review of Systems Review of Systems: All systems reviewed & are unremarkable except as noted in HPI and below Constitutional: Constitutional: Denies headache(s) and Reports weakness Gastrointestinal: Gastrointestinal: Reports as per HPI, Denies abdominal pain, Reports constipation, Denies nausea and Denies vomiting Exam Const: General: cooperative, comfortable, no acute distress, alert and awake Nutritional Appearance: obese GI: Inspection: incision (All incisions healing well) GI Palp: Yes Soft to palpation, Yes Tenderness to palpation present (GI) (Minimal tenderness), No Guarding due to palpation present (GI) and No Rebound tenderness present Auscultation: normal bowel sounds Neuro: General: no focal motor deficits and confusion Cranial nerves: Yes CN's II-XII intact bilaterally Extrem: General: no calf tenderness and no edema Objective Data Vital Signs Vital Signs: Vital Signs - 24 hr 01/11/21 16:00 01/11/21 20:00 01/12/21 00:00 Temperature 36.7 C Pulse Rate 83 71 60 Respiratory Rate 18 Blood Pressure 139/65 Pulse Oximetry 100 01/12/21 00:28 01/12/21 02:45 01/12/21 04:00 Temperature Pulse Rate 71 73 62 Respiratory Rate 17 16 Blood Pressure Pulse Oximetry 96 94 01/12/21 06:00 01/12/21 08:00 01/12/21 12:00 Temperature 35.9 C L Pulse Rate 73 73 76 Respiratory Rate 18 Blood Pressure 150/74 H Pulse Oximetry 97 01/12/21 14:00 Temperature 37.3 C Pulse Rate 84 Respiratory Rate 20 Blood Pressure 107/61 Pulse Oximetry 99 Intake/Output Intake/Output: Intake & Output 01/09/21 01/10/21 01/11/21 01/12/21 23:59 23:59 23:59 23:59 Intake Total 825 875 712 832 Output Total 3065 4595 2100 1000 [facility] -[phone] -1388 -168 Meds/Results Medications: Active Medications Generic Name Dose Route Start Last Admin Trade Name Freq PRN Reason Stop Dose Admin Acetaminophen 650 mg 01/04/21 15:40 Acetaminophen 325 Mg Tablet PO Q6HR PRN Mild Pain (1-3) or Fever Hydrocodone Bitart/Acetaminophen 1 tab 01/04/21 15:40 01/08/21 06:11 Hydrocodone/Acetaminophen (*Crx) 5-325 Mg Tablet PO 1 tab Q4H PRN Administration Moderate Pain (4-6) Buspirone HCl 15 mg 01/06/21 18:06 01/12/21 13:54 Buspirone Hcl 5 Mg Tablet PO 15 mg TID RICARDO Administration Enoxaparin Sodium 40 mg 01/05/21 09:00 01/12/21 09:09 Enoxaparin 40 Mg/0.4 Ml Syringe SUB-Q 40 mg DAILY RICARDO Administration Ergocalciferol 50,000 unit 01/17/21 09:00 Ergocalciferol 50,000 Unit Capsule PO Fr@0900 RICARDO Ferrous Sulfate 324 mg 01/07/21 17:00 01/08/21 09:07 Ferrous Sulfate 324 Mg Tablet PO Not Given BIDWM RICARDO Finasteride 5 mg 01/06/21 18:06 01/11/21 17:18 Finasteride 5 Mg Tablet PO 5 mg QPM RICARDO Administration Furosemide 20 mg 01/07/21 09:00 01/11/21 10:33 Furosemide 20 Mg Tablet PO Not Given DAILY RICARDO Levetiracetam 1,500 mg/ 115 mls @ 460 mls/hr 01/11/21 21:00 01/12/21 09:20 Dextrose IVPB Infused Q12HR RICARDO Infusion Levetiracetam 500 mg 01/05/21 14:45 01/08/21 09:4
[2021-01-12] MEDS: PHENYTOIN SODIUM 100 MG CAP PO (17:18)
[2021-01-12] MEDS: FINASTERIDE 5 MG TABLET PO (17:18)
--- NOTE | 2021-01-12 18:00 | PM.IMPN ---
Progress Note: A&P Assessment and Plan (1) Ileus: Code(s): K56.7 - Ileus, unspecified Status: Acute Assessment and Plan: Ileus improving -advance diet as tolerated -He does have some bowel sounds but pt is intellectually delayed and thinks he has passed gas but isn't really sure. He has not had a bowel movement -appreciate sx recommendations (2) Acute cholecystitis: Code(s): K81.0 - Acute cholecystitis Status: Deleted Assessment and Plan: Pt underwent cholecystectomy 01/06/21 - pathology showing ACUTE AND CHRONIC CHOLECYSTITIS, WITH EXTENSIVE NECROSIS, ULCERATION AND CHOLELITHIASIS -Pt was on zosyn 01/04-01/06 and WBC now normal with no fevers -Blood cultures negative -REZA drain removed 01/10/21 -Continue zofran and pain medications as needed -Continue with sx recommendations (3) Diastolic dysfunction: Code(s): I51.89 - Other ill-defined heart diseases Status: Acute Assessment and Plan: patient's swelling is improving -BNP 157; Echo from 08/09/2020 showed EF of 60-65% with grade 1 diastolic dysfunction no other notable abnormalities -significant edema -continue home lasix (4) Bradyarrhythmia: Code(s): I49.8 - Other specified cardiac arrhythmias Status: Acute Assessment and Plan: bradyarrhythmia during his recent admission and was evaluated by cardiology -continue cpap -Sleep study as an outpatient , he plans to follow up with Dr. Waller (5) Benign prostatic hyperplasia: Qualifiers: Lower urinary tract symptom presence: symptoms present Lower urinary tract symptom detail: incomplete bladder emptying Qualified Code(s): N40.1 - Benign prostatic hyperplasia with lower urinary tract symptoms; R39.14 - Feeling of incomplete bladder emptying Code(s): N40.0 - Benign prostatic hyperplasia without lower urinary tract symptoms Status: Chronic Assessment and Plan: Intermittent hx of retention -pt failed voiding trial 01/08 and shi replaced -Continue home Flomax 0.4mg PO am, Finasteride 5mg PO HS -follow up with urology (6) Chronic anemia: Code(s): D64.9 - Anemia, unspecified Status: Acute Assessment and Plan: previous admission did find grade 3 internal hemorrhoids was thought to be may be the source of bleeding. -Patient will ultimately need a surgical intervention on the hemorrhoids and should f/u with sx -EGD from 12/30/2020 showed reflux esophagitis grade 2 with no bleeding, no ulcers or masses noted. Will add protonix -colonoscopy from 12/30/2020 showed no colitis, AVMs or lesions. Internal hemorrhoids large in the rectum grade 3, anal fissure and rectocele -surgical intervention of cholecystectomy could be contributing to loss blood. -HH has been stable but low. He was 12.9 back october 2020 but has been low this month -vit b12+ folate okay -hold iron for now due to ileus (7) GERD (gastroesophageal reflux disease): Code(s): K21.9 - Gastro-esophageal reflux disease without esophagitis Status: Chronic Assessment and Plan: -continue protonix (8) Seizure: Code(s): R56.9 - Unspecified convulsions Status: Acute Assessment and Plan: see below -continue dilantin -keppra restarted but at BID dosing. Will check keppra level tomorrow (9) Grade III internal hemorrhoids: Code(s): K64.2 - Third degree hemorrhoids Status: Acute Assessment and Plan: As above -f/u with sx for banding outpt (10) Abdominal adhesions: Code(s): K66.0 - Peritoneal adhesions (postprocedural) (postinfection) Status: Acute Assessment and Plan: two liver lesions noted on the CT and adhesion noted through surgical services of cholecystectomy -consider MRI or repeat CT (11) Urinary retention: Code(s): R33.9 - Retention of urine, unspecified Status: Acute Assessment and Plan: As above
[2021-01-13] VITALS (10 sets, daily range): BP systolic 129–172; BP diastolic 60–79; PULSE 70–90; RESP 17–18; TEMP 36.1–36.7; O2SAT 98–99
[2021-01-13] MEDS: ENOXAPARIN 40 MG/0.4 ML SYRINGE SUB-Q (09:59)
[2021-01-13] MEDS: PHENYTOIN SODIUM 100 MG CAP 200 MG PO ×2 (09:59→20:23)
[2021-01-13] MEDS: busPIRone HCL 5 MG TABLET 15 MG PO ×3 (09:59→17:01)
[2021-01-13] MEDS: BISACODYL 5 MG TABLET EC PO (09:59)
[2021-01-13] MEDS: LORATADINE 10 MG TABLET PO (09:59)
[2021-01-13] MEDS: PANTOPRAZOLE SODIUM IV 40 MG VIAL IV PUSH (10:00)
[2021-01-13] MEDS: TAMSULOSIN HCL 0.4 MG CAPSULE PO (10:00)
[2021-01-13] MEDS: FUROSEMIDE 20 MG TABLET PO (11:01)
--- NOTE | 2021-01-13 11:09 | PCNFU ---
Nutrition Follow-Up Complete: Suboptimal oral intake related to surgery/ileus as evidenced by NPO/liquid diet x 5 days. Goal: Patient to meet estimated nutritional needs. Patient is progressing towards goal. We will continue with current goal. Pt current nutrition is Low fiber. Last recorded weight is 90.9 kg, no new weight to report. Bowel Motility:+BM reported 02/11 Labs Reviewed:No new labs to report for today. Meds Noted:Dulcolax,Keppra,Lasix,Protonix Additional Notes: Patient seen today for nutrition follow up. Oral intake 75-100% of meals. Discussed low fiber diet today,patient instruction attached. Agree with current diet orders. Monitoring: Follow up every 7 days.
--- NOTE | 2021-01-13 12:17 | PM.PNGS ---
Progress Note: A&P Assessment and Plan (1) Cholelithiasis with acute cholecystitis without biliary obstruction: Code(s): K80.00 - Calculus of gallbladder with acute cholecystitis without obstruction Status: Resolved Assessment and Plan: Continues to improve post-operatively. No signs of postop complications. Okay from a surgical standpoint to discharge patient when okay with other services. (2) Ileus: Code(s): K56.7 - Ileus, unspecified Status: Acute Assessment and Plan: Resolving. Would recommend continuing a bowel regimen on discharge, possibly with Miralax. Additional Plan I have discussed plan of care with Dr. Chavez. Subjective Subjective Date/Time Seen: 01/13/21 10:17 Post Op day: 7 Patient reports: feels better, tolerating a regular diet, flatus and afebrile Interval history: Patient feeling well today without any specific complaints. He is tolerating a diet. +flatus, no BM overnight. Dulcolax given this morning per the nurse. Asked the nurse to give the dose of Miralax if no BM in 2 hours. Review of Systems Review of Systems: All systems reviewed & are unremarkable except as noted in HPI and below Exam Const: General: no acute distress, alert and awake Orientation/consciousness: patient oriented x3 GI: Inspection: non-distended GI Palp: Yes Soft to palpation, No Tenderness to palpation present (GI) and No Guarding due to palpation present (GI) Auscultation: normal bowel sounds Other: Abdominal incisions clean and dry, slight separation of skin of right-sided incision - no drainage Skin: General skin exam: normal color Neuro: General: moves all extremities and no focal motor deficits Psych: Mental Status: mental status grossly normal Judgement: Fair judgement present (Psych) Objective Data Vital Signs Vital Signs: Vital Signs - 24 hr 01/12/21 14:00 01/12/21 16:00 01/12/21 20:00 Temperature 99.2 F Pulse Rate 84 79 81 Respiratory Rate 20 Blood Pressure 107/61 Pulse Oximetry 99 01/12/21 20:41 01/12/21 23:50 01/13/21 00:00 Temperature 96.2 F L Pulse Rate 80 84 70 Respiratory Rate 18 18 Blood Pressure 119/68 Pulse Oximetry 99 96 01/13/21 04:00 01/13/21 06:00 Temperature 98.0 F Pulse Rate 72 73 Respiratory Rate 18 Blood Pressure 172/79 H Pulse Oximetry 98 Intake/Output Intake/Output: Intake & Output 01/10/21 01/11/21 01/12/21 01/13/21 23:59 23:59 23:59 23:59 Intake Total 478 710 7193 795 Output Total 2365 2100 5651 600 Balance -1490 -1388 -516 195 Meds/Results Medications: Active Medications Generic Name Dose Route Start Last Admin Trade Name Freq PRN Reason Stop Dose Admin Acetaminophen 650 mg 01/04/21 15:40 Acetaminophen 325 Mg Tablet PO Q6HR PRN Mild Pain (1-3) or Fever Hydrocodone Bitart/Acetaminophen 1 tab 01/04/21 15:40 01/08/21 06:11 Hydrocodone/Acetaminophen (*Crx) 5-325 Mg Tablet PO 1 tab Q4H PRN Administration Moderate Pain (4-6) Bisacodyl 5 mg 01/13/21 09:00 01/13/21 09:59 Bisacodyl 5 Mg Tablet Ec PO 5 mg QAM RICARDO Administration Bisacodyl 10 mg 01/13/21 13:00 Bisacodyl 10 Mg Suppository RECTAL 01/13/21 16:00 1300 PRN IF NO BM BY 1300 01/13 Buspirone HCl 15 mg 01/06/21 18:06 01/13/21 09:59 Buspirone Hcl 5 Mg Tablet PO 15 mg TID RICARDO Administration Enoxaparin Sodium 40 mg 01/05/21 09:00 01/13/21 09:59 Enoxaparin 40 Mg/0.4 Ml Syringe SUB-Q 40 mg DAILY RICARDO Administration Ergocalciferol 50,000 unit 01/17/21 09:00 Ergocalciferol 50,000 Unit Capsule PO Fr@0900 RICARDO Ferrous Sulfate 324 mg 01/07/21 17:00 01/08/21 09:07 Ferrous Sulfate 324 Mg Tablet PO Not Given BIDWM RICARDO Finasteride 5 mg 01/06/21 18:06 01/12/21 17:18 Finasteride 5 Mg Tablet PO 5 mg QPM RICARDO Administration Furosemide 20 mg 01/07/21 09:00 01/13/21 11:01 Furosemide 20 Mg Tablet PO 20 mg DAILY RICARDO Administration Leveti
[2021-01-13] MEDS: BISACODYL 10 MG SUPPOSITORY RECTAL (14:31)
--- NOTE | 2021-01-13 15:59 | PM.IMPN ---
Progress Note: A&P Assessment and Plan (1) Discharge planning issues: Code(s): Z02.9 - Encounter for administrative examinations, unspecified Status: Acute Assessment and Plan: Medically ready for d/c. Awaiting approval from [facility]. (2) Ileus: Code(s): K56.7 - Ileus, unspecified Status: Acute Assessment and Plan: Ileus improving -pt has not had a BM, was given miralax, Dulcolax, suppository and will do enema if he hasn't had one by tonight. -He does have some bowel sounds but pt is intellectually delayed and thinks he has passed gas but isn't really sure. -appreciate sx recommendations (3) Acute cholecystitis: Code(s): K81.0 - Acute cholecystitis Status: Deleted Assessment and Plan: Pt underwent cholecystectomy 01/06/21 - pathology showing ACUTE AND CHRONIC CHOLECYSTITIS, WITH EXTENSIVE NECROSIS, ULCERATION AND CHOLELITHIASIS -Pt was on zosyn 01/04-01/06 and WBC now normal with no fevers -Blood cultures negative -REZA drain removed 01/10/21 -Continue zofran and pain medications as needed -Continue with sx recommendations (4) Diastolic dysfunction: Code(s): I51.89 - Other ill-defined heart diseases Status: Acute Assessment and Plan: patient's swelling is improving -BNP 157; Echo from 08/09/2020 showed EF of 60-65% with grade 1 diastolic dysfunction no other notable abnormalities -significant edema -continue home lasix (5) Bradyarrhythmia: Code(s): I49.8 - Other specified cardiac arrhythmias Status: Acute Assessment and Plan: bradyarrhythmia during his recent admission and was evaluated by cardiology -continue cpap here and at [facility] -Sleep study as an outpatient , he plans to follow up with Dr. Waller (6) Benign prostatic hyperplasia: Qualifiers: Lower urinary tract symptom presence: symptoms present Lower urinary tract symptom detail: incomplete bladder emptying Qualified Code(s): N40.1 - Benign prostatic hyperplasia with lower urinary tract symptoms; R39.14 - Feeling of incomplete bladder emptying Code(s): N40.0 - Benign prostatic hyperplasia without lower urinary tract symptoms Status: Chronic Assessment and Plan: Intermittent hx of retention -pt failed voiding trial 01/08 and shi replaced -Continue home Flomax 0.4mg PO am, Finasteride 5mg PO HS -follow up with urology (7) Chronic anemia: Code(s): D64.9 - Anemia, unspecified Status: Acute Assessment and Plan: previous admission did find grade 3 internal hemorrhoids was thought to be may be the source of bleeding. -Patient will ultimately need a surgical intervention on the hemorrhoids and should f/u with sx -EGD from 12/30/2020 showed reflux esophagitis grade 2 with no bleeding, no ulcers or masses noted. Will add protonix -colonoscopy from 12/30/2020 showed no colitis, AVMs or lesions. Internal hemorrhoids large in the rectum grade 3, anal fissure and rectocele -surgical intervention of cholecystectomy could be contributing to loss blood. -HH has been stable but low. He was 12.9 back october 2020 but has been low this month -vit b12+ folate okay -hold iron for now due to ileus (8) GERD (gastroesophageal reflux disease): Code(s): K21.9 - Gastro-esophageal reflux disease without esophagitis Status: Chronic Assessment and Plan: -continue protonix (9) Seizure: Code(s): R56.9 - Unspecified convulsions Status: Acute Assessment and Plan: see below -continue dilantin -will restart home dose keppra -keppra level pending; pt had no adverse results earlier this stay to duplicate keppra dose. (10) Grade III internal hemorrhoids: Code(s): K64.2 - Third degree hemorrhoids Status: Acute Assessment and Plan: As above -f/u with sx for banding outpt (11) Abdominal adhesions: Code(s): K66.0 - Peritoneal adhesions (pos
[2021-01-13] MEDS: PHENYTOIN SODIUM 100 MG CAP PO (17:02)
[2021-01-13] MEDS: FINASTERIDE 5 MG TABLET PO (17:02)
[2021-01-13] MEDS: levETIRAcetam 500 MG TABLET 2000 MG PO (20:24)
[2021-01-14] VITALS (8 sets, daily range): BP systolic 113–149; BP diastolic 58–75; PULSE 67–86; RESP 16–20; TEMP 36.1–37.8; O2SAT 96–100
--- NOTE | 2021-01-14 08:04 | PM.IMPN ---
Progress Note: A&P Assessment and Plan (1) Discharge planning issues: Code(s): Z02.9 - Encounter for administrative examinations, unspecified Status: Acute Assessment and Plan: Medically ready for d/c. Awaiting approval from [facility]. SNF was approved for this patient ambulance did not show up for this patient patient was unable to go when scheduled (2) Ileus: Code(s): K56.7 - Ileus, unspecified Status: Acute Assessment and Plan: Ileus improving -pt has not had a BM, was given miralax, Dulcolax, suppository and will do enema if he hasn't had one by [facility]. -He does have some bowel sounds but pt is intellectually delayed and thinks he has passed gas but isn't really sure. -appreciate sx recommendations patient had a bowel movement (3) Acute cholecystitis: Code(s): K81.0 - Acute cholecystitis Status: Deleted Assessment and Plan: Pt underwent cholecystectomy 01/06/21 - pathology showing ACUTE AND CHRONIC CHOLECYSTITIS, WITH EXTENSIVE NECROSIS, ULCERATION AND CHOLELITHIASIS -Pt was on zosyn 01/04-01/06 and WBC now normal with no fevers -Blood cultures negative -REZA drain removed 01/10/21 -Continue zofran and pain medications as needed -Continue with sx recommendations (4) Diastolic dysfunction: Code(s): I51.89 - Other ill-defined heart diseases Status: Acute Assessment and Plan: patient's swelling is improving -BNP 157; Echo from 08/09/2020 showed EF of 60-65% with grade 1 diastolic dysfunction no other notable abnormalities -significant edema -continue home lasix (5) Bradyarrhythmia: Code(s): I49.8 - Other specified cardiac arrhythmias Status: Acute Assessment and Plan: bradyarrhythmia during his recent admission and was evaluated by cardiology -continue cpap here and at SNF -Sleep study as an outpatient , he plans to follow up with Dr. Waller (6) Benign prostatic hyperplasia: Qualifiers: Lower urinary tract symptom presence: symptoms present Lower urinary tract symptom detail: incomplete bladder emptying Qualified Code(s): N40.1 - Benign prostatic hyperplasia with lower urinary tract symptoms; R39.14 - Feeling of incomplete bladder emptying Code(s): N40.0 - Benign prostatic hyperplasia without lower urinary tract symptoms Status: Chronic Assessment and Plan: Intermittent hx of retention -pt failed voiding trial 01/08 and shi replaced -Continue home Flomax 0.4mg PO am, Finasteride 5mg PO HS -follow up with urology (7) Chronic anemia: Code(s): D64.9 - Anemia, unspecified Status: Acute Assessment and Plan: previous admission did find grade 3 internal hemorrhoids was thought to be may be the source of bleeding. -Patient will ultimately need a surgical intervention on the hemorrhoids and should f/u with sx -EGD from 12/30/2020 showed reflux esophagitis grade 2 with no bleeding, no ulcers or masses noted. Will add protonix -colonoscopy from 12/30/2020 showed no colitis, AVMs or lesions. Internal hemorrhoids large in the rectum grade 3, anal fissure and rectocele -surgical intervention of cholecystectomy could be contributing to loss blood. -HH has been stable but low. He was 12.9 back october 2020 but has been low this month -vit b12+ folate okay -hold iron for now due to ileus (8) GERD (gastroesophageal reflux disease): Code(s): K21.9 - Gastro-esophageal reflux disease without esophagitis Status: Chronic Assessment and Plan: -continue protonix (9) Seizure: Code(s): R56.9 - Unspecified convulsions Status: Acute Assessment and Plan: see below -continue dilantin -will restart home dose keppra -keppra level pending; pt had no adverse results earlier this stay to duplicate keppra dose. (10) Grade III internal hemorrhoids: Code(s): K64.2 - Third degree hemorrhoids Status: Acute
[2021-01-14] MEDS: busPIRone HCL 5 MG TABLET 15 MG PO ×3 (10:22→17:11)
[2021-01-14] MEDS: TAMSULOSIN HCL 0.4 MG CAPSULE PO (10:22)
[2021-01-14] MEDS: FUROSEMIDE 20 MG TABLET PO (10:22)
[2021-01-14] MEDS: BISACODYL 5 MG TABLET EC PO (10:22)
[2021-01-14] MEDS: LORATADINE 10 MG TABLET PO (10:23)
[2021-01-14] MEDS: PHENYTOIN SODIUM 100 MG CAP 200 MG PO ×2 (10:23→20:48)
[2021-01-14] MEDS: ENOXAPARIN 40 MG/0.4 ML SYRINGE SUB-Q (10:23)
[2021-01-14] MEDS: levETIRAcetam 500 MG TABLET 2000 MG PO ×2 (10:23→20:47)
[2021-01-14] MEDS: PANTOPRAZOLE SODIUM IV 40 MG VIAL IV PUSH (10:24)
--- NOTE | 2021-01-14 14:11 | PM.DS ---
DS: Admitting Diagnosis Admitting Diagnosis Cholecystitis DS: Discharge Diagnosis Discharge Diagnosis (1) Discharge planning issues: Code(s): Z02.9 - Encounter for administrative examinations, unspecified Status: Acute Assessment and Plan: Medically ready for d/c. Awaiting approval from [facility]. (2) Ileus: Code(s): K56.7 - Ileus, unspecified Status: Acute Assessment and Plan: Ileus improving -pt has not had a BM, was given miralax, Dulcolax, suppository and will do enema if he hasn't had one by tonight. -He does have some bowel sounds but pt is intellectually delayed and thinks he has passed gas but isn't really sure. -appreciate sx recommendations (3) Acute cholecystitis: Code(s): K81.0 - Acute cholecystitis Status: Deleted Assessment and Plan: Pt underwent cholecystectomy 01/06/21 - pathology showing ACUTE AND CHRONIC CHOLECYSTITIS, WITH EXTENSIVE NECROSIS, ULCERATION AND CHOLELITHIASIS -Pt was on zosyn 01/04-01/06 and WBC now normal with no fevers -Blood cultures negative -REZA drain removed 01/10/21 -Continue zofran and pain medications as needed -Continue with sx recommendations (4) Diastolic dysfunction: Code(s): I51.89 - Other ill-defined heart diseases Status: Acute Assessment and Plan: patient's swelling is improving -BNP 157; Echo from 08/09/2020 showed EF of 60-65% with grade 1 diastolic dysfunction no other notable abnormalities -significant edema -continue home lasix (5) Bradyarrhythmia: Code(s): I49.8 - Other specified cardiac arrhythmias Status: Acute Assessment and Plan: bradyarrhythmia during his recent admission and was evaluated by cardiology -continue cpap here and at [facility] -Sleep study as an outpatient , he plans to follow up with Dr. Waller (6) Benign prostatic hyperplasia: Qualifiers: Lower urinary tract symptom detail: incomplete bladder emptying Lower urinary tract symptom presence: symptoms present Qualified Code(s): N40.1 - Benign prostatic hyperplasia with lower urinary tract symptoms; R39.14 - Feeling of incomplete bladder emptying Code(s): N40.0 - Benign prostatic hyperplasia without lower urinary tract symptoms Status: Chronic Assessment and Plan: Intermittent hx of retention -pt failed voiding trial 01/08 and shi replaced -Continue home Flomax 0.4mg PO am, Finasteride 5mg PO HS -follow up with urology (7) Chronic anemia: Code(s): D64.9 - Anemia, unspecified Status: Acute Assessment and Plan: previous admission did find grade 3 internal hemorrhoids was thought to be may be the source of bleeding. -Patient will ultimately need a surgical intervention on the hemorrhoids and should f/u with sx -EGD from 12/30/2020 showed reflux esophagitis grade 2 with no bleeding, no ulcers or masses noted. Will add protonix -colonoscopy from 12/30/2020 showed no colitis, AVMs or lesions. Internal hemorrhoids large in the rectum grade 3, anal fissure and rectocele -surgical intervention of cholecystectomy could be contributing to loss blood. -HH has been stable but low. He was 12.9 back october 2020 but has been low this month -vit b12+ folate okay -hold iron for now due to ileus (8) GERD (gastroesophageal reflux disease): Code(s): K21.9 - Gastro-esophageal reflux disease without esophagitis Status: Chronic Assessment and Plan: -continue protonix (9) Seizure: Code(s): R56.9 - Unspecified convulsions Status: Acute Assessment and Plan: see below -continue dilantin -will restart home dose keppra -keppra level pending; pt had no adverse results earlier this stay to duplicate keppra dose. (10) Grade III internal hemorrhoids: Code(s): K64.2 - Third degree hemorrhoids Status: Acute Assessment and Plan: As above -f/u with sx for banding outpt (11) Connie
--- NOTE | 2021-01-14 14:40 | PC.NURSE ---
pt to cardiology dept to have 30 day monitor placed per dc order
--- NOTE | 2021-01-14 15:50 | PC.NURSE ---
pt back to room from cardiology dept
--- NOTE | 2021-01-14 16:35 | PC.NURSE ---
report called to Diana REDD at [facility], reviewed plan of care and MD orders, orders previously faxed
[2021-01-14] MEDS: PHENYTOIN SODIUM 100 MG CAP PO (17:11)
[2021-01-14] MEDS: FINASTERIDE 5 MG TABLET PO (17:12)
[2021-01-15 01:05] VITALS: PULSE 78; RESP 18; O2SAT 97
[2021-01-15 03:15] VITALS: PULSE 77; RESP 12; O2SAT 97
[2021-01-15 06:14] VITALS: BP 145/72; PULSE 75; RESP 20; TEMP 36.5; O2SAT 99
[2021-01-15] MEDS: PHENYTOIN SODIUM 100 MG CAP 200 MG PO (07:44)
[2021-01-15] MEDS: busPIRone HCL 5 MG TABLET 15 MG PO (07:44)
[2021-01-15] MEDS: LORATADINE 10 MG TABLET PO (07:45)
[2021-01-15] MEDS: levETIRAcetam 500 MG TABLET 2000 MG PO (07:45)
[2021-01-15] MEDS: TAMSULOSIN HCL 0.4 MG CAPSULE PO (07:45)
[2021-01-15] MEDS: BISACODYL 5 MG TABLET EC PO (07:45)
[2021-01-15] MEDS: FUROSEMIDE 20 MG TABLET PO (07:46)
[2021-01-16 14:27] LABS: Levetiracetam Keppra 15.4 mcg/mL (12.0-46.0)
== END 2021-01-15 12:50 | DRG 418 ==
LOC: ANHED 12:33 → ANH3MED 16:39
PROVIDERS: Emergency Medicine; Nurse Practitioner; Physician Assistant; Surgery; Admitting Provider Internal Medicine Critical Care Medicine; Emergency Provider Emergency Medicine; PCP Family Medicine; Visit Provider Student in an Organized Health Care Education/Training Program
PROC: 0FT44ZZ Resection of Gallbladder, Percutaneous Endoscopic Approach (ICD-10-PCS; CPT 47562; principal; 2021-01-06 15:00)
DX: K80.12 Calculus of gallbladder with acute and chronic cholecystitis without obstruction (principal); K56.7 Ileus, unspecified; K82.A1 Gangrene of gallbladder in cholecystitis; K82.8 Other specified diseases of gallbladder; K66.0 Peritoneal adhesions (postprocedural) (postinfection); D64.9 Anemia, unspecified; I51.89 Other ill-defined heart diseases; I45.5 Other specified heart block; I49.8 Other specified cardiac arrhythmias; G47.33 Obstructive sleep apnea (adult) (pediatric); N40.1 Benign prostatic hyperplasia with lower urinary tract symptoms; R39.14 Feeling of incomplete bladder emptying; R33.8 Other retention of urine; K64.2 Third degree hemorrhoids; K60.2 Anal fissure, unspecified; K21.00 Gastro-esophageal reflux disease with esophagitis, without bleeding; G40.909 Epilepsy, unspecified, not intractable, without status epilepticus; E78.5 Hyperlipidemia, unspecified; G80.9 Cerebral palsy, unspecified; F79 Unspecified intellectual disabilities; M15.0 Primary generalized (osteo)arthritis; K76.9 Liver disease, unspecified; J30.89 Other allergic rhinitis; F41.9 Anxiety disorder, unspecified; Z79.899 Other long term (current) drug therapy; Z88.2 Allergy status to sulfonamides; Z99.3 Dependence on wheelchair; Z85.828 Personal history of other malignant neoplasm of skin
CPT/HCPCS: 36415; 51701; 74019; 74177; 76705; 80048; 80053; 80076; 80177; 81001; 82607; 82746; 83690; 83735; 83880; 85025; 85027; 87040; 88304; 93005; 94660; 96374; 97110; 97161; 97165; 97535; 99285; A9270; C9113; J0131; J1100; J1650; J1953; J2270; J2405; J2543; J2704; J2710; J3010; J7030; J7060; J7120; Q9967

== ENCOUNTER 2021-07-21 12:02 | Inpatient (IN) | payer MEDICARE, SELFPAY ==
[2021-07-21] VITALS (28 sets, daily range): BP systolic 113–162; BP diastolic 68–88; PULSE 54–78; RESP 0–21; TEMP 35.5–36.6; O2SAT 89–100; BMI 34.7
--- NOTE | ~2021-07-21 | XR_ITS ---
EXAMINATION: XR chest 1V portable DATE: 08/01/2021 10:36 INDICATION: Pneumonia. TECHNIQUE: A single frontal view of the chest was obtained. COMPARISON: Chest single view 07/21/2021, CT abdomen and pelvis 01/04/2021 FINDINGS: The chest demonstrates clear lungs without pneumonia, pleural effusion, or pneumothorax. Th e heart size is normal. There is an electronic device overlying the left chest. IMPRESSION: 1. No acute cardiopulmonary disease. Reviewed, dictated and finalized at location A. SCREW ASSEMBLER
--- NOTE | ~2021-07-21 | US_ITS ---
EXAMINATION: US venous doppler [facility] DATE: 07/22/2021 10:48 INDICATION: Lower limb edema. TECHNIQUE: Grayscale ultrasound images without and with compression and Doppler ultrasound images of the bilateral lower extremity veins were obtained. COMPARISON: Ultrasound 12/28/2020 FINDINGS: The visualized portions of right common femoral vein, profunda (deep) femoral vein, femoral vein, pop liteal vein, peroneal veins, posterior tibial veins, and greater saphenous vein outflow are patent. The visualized portions of left common femoral vein, profunda femoral vein, femoral vein, popliteal v ein, peroneal veins, posterior tibial veins, and greater saphenous vein outflow are patent. IMPRESSION: 1. No deep venous thrombosis. Reviewed, dictated and finalized at location A. F DEVELOPMENT OFFICER
--- NOTE | ~2021-07-21 | XR_ITS ---
EXAMINATION: XR chest 1V portable DATE: 07/21/2021 12:38 INDICATION: Altered mental status. TECHNIQUE: A single frontal view of the chest was obtained. COMPARISON: Chest single view 12/27/2020, CT abdomen and pelvis 01/04/2021 FINDINGS: The lung volumes are small. There is no pneumonia, pleural effusion, or pneumothorax. Cardi omegaly is noted. IMPRESSION: 1. Cardiomegaly. Reviewed, dictated and finalized at location A. PHERE COMMERCE ARCHITECT IMPRESSION: 1. Cardiomegaly.
--- NOTE | ~2021-07-21 | CT_ITS ---
EXAMINATION: CT brain wo con DATE: 07/21/2021 13:01 INDICATION: Altered mental status TECHNIQUE: Computed tomography (CT) of the head was performed without intravenous contrast. The mA wa s adjusted according to patient size. Iterative reconstruction technique was employed. Exam dose: 68 1.00 mGy-cm total exam DLP. COMPARISON: 10/03/2020 CT brain FINDINGS: There is nonspecific diminished attenuation cerebral white matter, likely due to chronic sm all vessel ischemic changes. No intracranial mass lesion or hemorrhage or cerebrovascular accident is evident. There is no midline shift or mass effect. Normal ventricular size. No subdural or epidural hematoma is detected. The orbits are unremarkable. Small mucus retention cyst or polyp in the floor of each maxillary sinus. The paranasal sinuses are o therwise unremarkable. Mastoid air cells are unremarkable. No fracture or malignant bone destruction of the cranial vault. IMPRESSION: No acute intracranial finding Reviewed, dictated and finalized at Location A. Reviewed, dictated and finalized at location B. ER DESIGNER
--- NOTE | 2021-07-21 12:17 | ECG_ITS ---
Measurements Intervals [place] Rate: 61 P: 20 [place]: 246 QRS: 9 QRSD: 142 T: 24 QT: 415 QTc: 419 Interpretive Statements SINUS RHYTHM WITH SINUS ARRHYTHMIA WITH FIRST DEGREE AV BLOCK POSSIBLE LEFT ATRIAL ENLARGEMENT RIGHT BUNDLE BRANCH BLOCK ABNORMAL ECG Electronically Signed On 07-21-2021 13:57:54 LEARNING CONSULTANT by Mo Mcgregor D.O.
--- NOTE | 2021-07-21 12:22 | ED.GENADULT ---
HPI - General Adult General Chief complaint: Unspecified Stated complaint: falls asleep during day Time Seen by Provider: 07/21/21 12:20 Source: EMS Mode of arrival: EMS Limitations: altered mental status and clinical condition History of Present Illness HPI narrative: Patient is a 61-year-old male with a history of seizure disorder, obstructive sleep apnea, presenting to the emergency department for evaluation of altered mental status. Apparently, patient has been refusing to wear his BiPAP at the care facility, presents this afternoon somnolent. Patient awakens to verbal stimuli, cannot provide any history himself. Vital signs were normal in route, patient mildly bradycardic, no significant respiratory distress. No recent known illnesses. No additional history can be obtained from patient due to altered mental status. Related Data Home Medications Medication Instructions Recorded Confirmed levetiracetam [Keppra] 2,000 mg PO Q12H 12/27/20 01/06/21 finasteride 5 mg PO QPM 01/04/21 01/06/21 furosemide 20 mg PO DAILY 01/04/21 01/06/21 polyethylene glycol 3350 [Miralax] 17 g PO DAILY PRN 01/04/21 01/06/21 Allergies Allergy/AdvReac Type Severity Reaction Status Date / Time Sulfa (Sulfonamide Allergy Unknown Hives Verified 01/06/21 14:07 Antibiotics) Review of Systems Review of Systems: ROS unobtainable: Yes unobtainable due to medical condition PMFSH Past Medical History Medical History Anxiety Basal cell carcinoma (BCC) of right side of nose (~2017) Benign prostatic hyperplasia Cerebral palsy With history of bilateral Achilles tendon (1972) and bilateral hamstring lengthening (1967). Chronic anemia Diastolic dysfunction Echocardiogram on 08/09/2020 showed normal left ventricular size and function with an EF of 60 to 65% and grade 1 diastolic dysfunction. Epilepsy Gastroesophageal reflux disease Hypertriglyceridemia Intellectual disability Non-seasonal allergic rhinitis Osteopenia Primary generalized (osteo)arthritis Vitamin D deficiency Surgical History Surgical History History of basal cell carcinoma excision (~2017) History of orthopedic surgery Status post bilateral hamstring and Achilles tendon lengthening. History of tonsillectomy Family History Family History Sibling Breast cancer Mother Pacemaker Hypertension Heart disease Social History Social History (Updated 07/21/21 @ 14:10 by Iliana Evans PA-C) Social History: He resides at [facility]. He is essentially wheelchair bound but can transfer. Lifelong nonsmoker. No alcohol or illicit substance use. His sister, Isaac Riggs, was is healthcare power of mail order biller. Code status: Full code. Exam Narrative: GENERAL: Somnolent, arousable to verbal stimuli HEAD: Normocephalic, atraumatic. EYES: 2+ PERRLA and EOMI. ENT: Nares clear, no rhinorrhea or epistaxis. Mucous membranes moist. NECK: Supple. CHEST: No respiratory distress, breathing even and non labored HEART: Regular rate, sinus rhythm ABDOMEN:Non distended, non tender EXTREMITIES: Normal range of motion. Bilateral lower extremity pitting edema mid shins SKIN: Warm, dry, no rash. NEURO: Oriented to person, not to place or time. Somnolent. Atrophy of the bilateral lower extremities, chronic. Course Vital Signs Vital signs: Vital Signs Temperature 36.4 C 07/21/21 12:07 Pulse Rate 61 07/21/21 12:07 Respiratory Rate 11 L 07/21/21 12:07 Blood Pressure 157/88 H 07/21/21 12:07 Pulse Oximetry 97 07/21/21 12:07 Temperature 36.4 C 07/21/21 12:07 Pulse Rate 61 07/21/21 14:16 Respiratory Rate 13 07/21/21 14:16 Blood Pressure 121/78 07/21/21 14:16 Pulse Oximetry 100 07/21/21 14:16 Medical Decision Making MDM Narrative Medical decision m
[2021-07-21 12:42] LABS: Alveolar/Arterial O2 Gradient 47.5 mmHg; Base Excess ABG 3.1 mEq/l (+/-2.0); Carboxyhemoglobin 0.5 % THb (0-2.0); Fractional Inspired Oxygen 21 %; HCO3 ABG 28.4 mEq/l (22.0-26.0); Methemoglobin ABG 0.2 %THb (0-1.5); Oxygen Content ABG 13.8 %vol (16.0-22.0); PCO2 ABG 46.3 mmHg (35.0-45.0); PO2 ABG 46.8 mmHg (80.0-100.0); PO2 FiO2 Ratio Arterial Blood 2.23 %; Reduced Hemoglobin 18.7 %THb (0-5.0); Total Hemoglobin 12.2 g/dL (12.0-18.0); pH ABG 7.406 (7.350-7.450)
[2021-07-21 12:43] LABS: Device ROOM AIR; Modified Allen's Test Pass; Oxygen Saturation ABG 82.7 % (95.0-100.0); Oxyhemoglobin 80.6 % THb (90.0-100.0); Site Drawn RIGHT RADIAL
[2021-07-21 12:45] LABS: Basophils Percent Auto 0.2 % (0.2-1.2); Eosinophils Absolute Auto 0.1 K/mm3 (0-0.3); Eosinophils Percent Auto 0.6 % (0-4.4); Hematocrit 34.2 % (42.0-52.0); Hemoglobin 11.6 g/dL (14.0-18.0); Immature Granulocyte Absolute 0.02 K/mm3 (0.00-0.031); Immature Granulocyte Percent A 0.2 % (0-0.5); Lymphocytes Absolute Auto 0.64 K/mm3 (0.9-3.2); Mean Corpuscular HGB Conc 33.9 g/dl (32-36); Mean Corpuscular Hemoglobin 30.8 pg (26-34); Mean Corpuscular Volume 90.7 fl (80-100); Mean Platelet Volume 9.4 fl (7.4-10.4); Monocytes Absolute Auto 0.7 K/mm3 (0.1-0.6); Neutrophils Absolute Auto 6.6 K/mm3 (1.3-6.7); Platelet Count Result 240 k/mm3 (150-375); Red Blood Count 3.77 M/mm3 (4.6-6.20); Red Cell Distribution Width 14.3 % (11.5-14.5)
[2021-07-21 12:54] LABS: Partial Thromboplastin Time 28.4 SECONDS (22.3-36.8)
[2021-07-21 12:57] LABS: Lactic Acid Reflex 1.9 mmol/L (0.7-2.1)
[2021-07-21 13:09] LABS: Troponin I < 0.012 ng/mL (0.000-0.034)
[2021-07-21 13:11] LABS: Alanine Aminotransferase 23 U/L (4-50); Alkaline Phosphatase 87 U/L (38-126); Anion Gap 5 mmol/L (8-16); Aspartate Amino Transferase 31 U/L (17-59); Bilirubin,Total 0.3 mg/dL (0.2-1.3); Blood Urea Nitrogen 25 mg/dL (9-20); CRP 7.1 mg/dL (<1.0); Calcium 8.7 mg/dL (8.4-10.2); Carbon Dioxide 31 mmol/L (22-30); Chloride 102 mmol/L (98-107); Estimated CRCL calculation 108 ml/min; Estimated Glomerular Filt Rate > 60; Glucose 113 mg/dL (65-110); Potassium 4.2 mmol/L (3.4-5.0); Sodium 138 mmol/L (137-145)
[2021-07-21 13:21] LABS: NT Pro B Type Natriuretic Pept 171 pg/mL (5-100)
[2021-07-21 13:51] LABS: Phenytoin Dilantin < 3 ug/mL (10-20)
--- NOTE | 2021-07-21 14:00 | PM.IMHP ---
H&P: HPI History of Present Illness Date/Time: 07/21/21 14:00 Chief Complaint: Falling asleep. Narrative: This is a 61-year-old male with cerebral palsy, intellectual disability, seizure disorder, anxiety, obstructive sleep apnea on CPAP, and benign prostatic hyperplasia who presented to the emergency department earlier today via EMS from [facility] for evaluation as he keeps falling asleep. The patient is known to myself and the hospitalist service with several admissions over the year and today he is not nearly as interactive and he does not provide a great history. As such some of the following is obtained via a review of his electronic medical records. According to staff at [facility], he has been refusing his CPAP/BiPAP for an unknown length of time and he has been much more somnolent than typical today. His sister wished him to be brought to the hospital for evaluation. Thus far his workup has been quite unremarkable with a normal brain CT, chest x-ray, and urinalysis. ABG done on arrival is consistent with at least mixed if not a majority of venous blood with a pH of 7.406, pCO2 46.3, PO2 46.8, bicarb of 28.4, and reduce hemoglobin of 18.7. Due to his somnolence he was started on BiPAP in the emergency department. At the time my evaluation he will arouse to stimuli but again he is not nearly as interactive as he usually is, and he falls back asleep quite easily. He is aware that he is in the hospital and why he was brought here. He has no complaints however and specifically denies headache, neck ache, fever, chills, sweats, cold and flu symptoms, chest pain, shortness of breath, abdominal pain, nausea, vomiting, diarrhea, and dysuria. He has not had any falls. He states compliance with his medications however his phenytoin level is nearly undetectable. Several hours after I saw the patient I received a call from his nurse in the IMU with reports of the patient being unable to urinate. Bladder scan showed over 500 mL of urine in order was given for a 1 time straight catheterization. About an hour thereafter I received a phone call with reports of 2 sinus pauses (reportedly 4 and 11 seconds) of which the patient was asymptomatic. He has a history of bradyarrhythmias with previous hospitalizations including first-degree AV block and occasional conduction disturbances including intermittent Mobitz type 1 and junctional escape rhythms, mainly while sleeping. Previously evaluated by Dr. Hernandez and Dr. Waller. Review of Systems Review of Systems: Twelve systems were reviewed and are negative except for as per HPI. FOR[facility]LY [facility] Past Medical History Medical History (Updated 07/21/21 @ 21:15 by Iliana Evans PA-C) Anxiety Basal cell carcinoma (BCC) of right side of nose (~2017) Benign prostatic hyperplasia Cerebral palsy With history of bilateral Achilles tendon (1972) and bilateral hamstring lengthening (1967). Chronic anemia Diastolic dysfunction Echocardiogram on 08/09/2020 showed normal left ventricular size and function with an EF of 60 to 65% and grade 1 diastolic dysfunction. Epilepsy Gastroesophageal reflux disease GI bleed (12/2020) Reflux esophagitis noted on EGD. Grade 3 hemorrhoids noted on colonoscopy. Grade III hemorrhoids (12/2020) Hypertriglyceridemia Intellectual disability Non-seasonal allergic rhinitis Obstructive sleep apnea on CPAP Osteopenia Primary generalized (osteo)arthritis Vitamin D deficiency Surgical History Surgical History (Updated 07/21/21 @ 21:15 by Iliana Evans PA-C) History of basal cell carcinoma excision (~2017) History of colonoscopy with polypectomy History of laparoscopic cholecystectomy (01/2021) History of orthopedic surgery Status post bilateral hamstring and Achilles tendon lengthening. History of tonsillectomy Family History Family History Sibling Breast cancer Mother Pacemaker Hypertension Heart disease Social History Social
[2021-07-21] MEDS: SODIUM CHLORIDE 0.9% IV 500 ML 999 ML IV CONT (14:09)
[2021-07-21 14:26] LABS: Alveolar/Arterial O2 Gradient 92.4 mmHg; Base Excess ABG 2.3 mEq/l (+/-2.0); Carboxyhemoglobin 0.3 % THb (0-2.0); Fractional Inspired Oxygen 45 %; HCO3 ABG 28.3 mEq/l (22.0-26.0); Methemoglobin ABG 0.2 %THb (0-1.5); Modified Allen's Test Pass; Oxygen Content ABG 16.3 %vol (16.0-22.0); Oxygen Saturation ABG 99.1 % (95.0-100.0); Oxyhemoglobin 97.7 % THb (90.0-100.0); PCO2 ABG 50.1 mmHg (35.0-45.0); PO2 ABG 171.5 mmHg (80.0-100.0); PO2 FiO2 Ratio Arterial Blood 3.81 %; Reduced Hemoglobin 1.8 %THb (0-5.0); Site Drawn LEFT RADIAL; Total Hemoglobin 11.6 g/dL (12.0-18.0)
[2021-07-21 14:27] LABS: Device BIPAP; Expiratory Pressure 5 cmH2O; Inspiratory Pressure 12 cmH2O
[2021-07-21 19:29] LABS: Add Urine Microscopic? YES; Appearance Urine Clear (Clear); Bilirubin Urine Negative (Negative); Blood Urine Negative (Negative); Color Urine Yellow (Yellow); Glucose Urine UA Negative (Negative); Ketones Urine Negative (Negative); Leukocyte Esterase Ur Negative LEU/UL (Negative); Mucus Urine Few /lpf; Nitrate Urine Positive (Negative); Protein Urine Negative (Negative); Specific Grav Ur 1.015 (1.001-1.035); Urobilinogen Urine Negative mg/dL (<2.0); WBC Urine 0-3 /hpf
[2021-07-21 19:30] LABS: RBC Urine 0-2 /hpf (0-2)
[2021-07-21 19:38] LABS: Amphetamine Screen Urine Negative (Negative); Barbiturate Screen Urine Negative (Negative); Benzodiazepines Screen Urine Negative (Negative); Cannabinoid Screen Urine Negative (Negative); Cocaine Screen Urine Negative (Negative); Methadone Screen Urine Negative (Negative); Opiate Screen Urine Negative (Negative); Phencyclidine Screen Urine Negative (Negative)
--- NOTE | 2021-07-21 21:07 | PC.NURSE ---
Spoke with Dr García at 2023 and reviewed patients chart, medications, labs, and made aware of 4 second and 11.[address] garcía agrees with defibrillator pads on patient, atropine at bedside, and move to ICU.
--- NOTE | 2021-07-21 21:57 | PC.NURSE ---
called report to nurse Feldman in ICU at [id number].
--- NOTE | 2021-07-21 21:57 | PC.NURSE ---
patients PANCHO Riggs called to notify of transfer to ICU.
--- NOTE | 2021-07-21 22:49 | PC.NURSE ---
Patient received from IMU. Report given by Lilli. Patient connected to monitors. HR in the 60's on arrival, BP 150/79, 97% on room air. Appears in no distress. Denies pain. Temp is low, warm blankets applied and will monitor closely.
[2021-07-22] VITALS (18 sets, daily range): BP systolic 125–168; BP diastolic 59–87; PULSE 41–99; RESP 11–28; TEMP 35.6–36.7; O2SAT 88–100
--- NOTE | 2021-07-22 00:04 | PC.NURSE ---
Addendum entered by Arleth Clayton RN 07/22/21 00:47: Received report stating patient was demonstrating bradycardia in the mid 30's. Doctors are aware of episodes. On 07/21/21 at 1919 patient had a 4.6 pause in heart rate. I went in to check patient. He was easily waken by shaking him and calling his name. I check neuro status. Patient seem to be alert and oriented times 3. Patient stated he is fine and wants to sleep. At 1951 a second 11.6 pause episode occurred. Once again, I went in to this time find the patient pale and sleeping. I aroused the patient with a brief sternal rub. He woke up. He stated he was fine. I told him what happened on the monitor as he stated again, he was fine. I assessed him to find he was alert and oriented times 3. He did not exhibit any signs of distress. The doctor juvenile corrections officer was contacted with both pause in heart rate episodes. Instructions were given to continue monitoring until ICU bed was available for closer monitoring. Original Note: Received report stating patient was demonstrating bradycardia in the mid 30's. Doctors are aware of episodes. On 07/21/21 at 1919 patient had a 4.6 pause in breathing. I went in to check patient. He was easily waken by shaking him and calling his name. I check neuro status. Patient seem to be alert and oriented times 3. Patient stated he is fine and wants to sleep. At 1951 a second 11.6 pause episode occurred. Once again, I went in to this time find the patient pale and sleeping. I aroused the patient with a brief sternal rub. He woke up. He stated he was fine. I told him what happened on the monitor as he stated again, he was fine. I assessed him to find he was alert and oriented times 3. He did not exhibit any signs of distress. The doctor juvenile corrections officer was contacted with both pause in breathing episodes. Instructions were given to continue monitoring until ICU bed was available for closer monitoring.
--- NOTE | 2021-07-22 00:41 | PC.NURSE ---
Patient transferred to ICU at 2245 per bed. Transferred with belongings and chart. No meds on floor at this time to transfer.
[2021-07-22 05:16] LABS: Hematocrit 31.9 % (42.0-52.0); Hemoglobin 10.6 g/dL (14.0-18.0); Mean Corpuscular HGB Conc 33.2 g/dl (32-36); Mean Corpuscular Hemoglobin 31.2 pg (26-34); Mean Corpuscular Volume 93.8 fl (80-100); Platelet Count Result 210 k/mm3 (150-375); Red Cell Distribution Width 14.6 % (11.5-14.5); White Blood Count 6.5 K/mm3 (4.5-10.0)
[2021-07-22 05:36] LABS: Alanine Aminotransferase 19 U/L (4-50); Albumin Level 3.3 g/dL (3.5-5.1); Alkaline Phosphatase 87 U/L (38-126); Anion Gap 2 mmol/L (8-16); Aspartate Amino Transferase 23 U/L (17-59); Bilirubin,Total 0.3 mg/dL (0.2-1.3); Blood Urea Nitrogen 22 mg/dL (9-20); Calcium 8.5 mg/dL (8.4-10.2); Carbon Dioxide 30 mmol/L (22-30); Chloride 105 mmol/L (98-107); Estimated CRCL calculation 126 ml/min; Estimated Glomerular Filt Rate > 60; Glucose 83 mg/dL (65-110); Magnesium 1.9 mg/dL (1.6-2.3); Potassium 3.9 mmol/L (3.4-5.0); Sodium 137 mmol/L (137-145)
[2021-07-22] MEDS: ENOXAPARIN 40 MG/0.4 ML SYRINGE SUB-Q (08:58)
[2021-07-22 10:10] LABS: Ammonia < 9 umol/L (9-30)
--- NOTE | 2021-07-22 10:27 | WPDCNINT ---
Assessment and Plan Assessment and plan (1) Acute hypercapnic respiratory failure: Code(s): J96.02 - Acute respiratory failure with hypercapnia Status: Acute Assessment and Plan: Mild hypercarbia on his ABG which is likely secondary to obesity hypoventilation syndrome PCO2 was not high enough to explain altered mental status Patient is alert awake at this time and have taken him off BiPAP and placed him on nasal cannula He needs to be on BiPAP when he sleeps for his sleep apnea which has been ordered (2) Obstructive sleep apnea on CPAP: Code(s): G47.33 - Obstructive sleep apnea (adult) (pediatric); Z99.89 - Dependence on other enabling machines and devices Status: Acute Assessment and Plan: Home CPAP ordered at night and p.r.n. during the day for naps. Patient has been noncompliant at the care home and has not been wearing it (3) Sinus pause: Code(s): I45.5 - Other specified heart block Status: Acute Assessment and Plan: Patient had multiple sinus pauses in range of 4 seconds with the longest up to 11 seconds Cardiology has been consulted Continue telemetry monitoring Electrolytes unremarkable EKG shows sinus rhythm with first-degree AV block (4) Encephalopathy: Code(s): G93.40 - Encephalopathy, unspecified Status: Acute Assessment and Plan: Unknown etiology at this time Patient now is alert oriented x3 and following commands and moving all 4 extremities Possibility the patient had a seizure and was postictal or could be medication related His TSH was normal an ABG reviewed I checked ammonia level and it was normal Continue to monitor at this time (5) Urinary retention: Code(s): R33.9 - Retention of urine, unspecified Status: Acute Assessment and Plan: Patient had a straight cath done earlier in the ER and he was encephalopathy He does have history of BPH and I have resumed both finasteride and tamsulosin Now he is alert and awake and will see if patient is able to urinate. Not may need [place] (6) Seizure disorder: Code(s): G40.909 - Epilepsy, unspecified, not intractable, without status epilepticus Status: Acute Assessment and Plan: Patient has history of seizure disorder and is supposed to be on phenytoin and Keppra. His phenytoin level was low and Keppra level is pending so not sure regarding compliance I have resumed both AEDs at this time Seizure precaution P.r.n. Ativan Additional Plan DVT prophylaxis -Lovenox Code Status - Full Code Total Critical Care Time - 30 minutes Due to a high probability of clinically significant, life threatening deterioration, the patient required my highest level of preparedness to intervene emergently and I personally spent this critical care time directly and personally managing the patient. This critical care time included obtaining a history; examining the patient; pulse oximetry; ordering and review of studies; arranging urgent treatment with development of a management plan; evaluation of patient's response to treatment; frequent reassessment; and discussions with other providers. It was exclusive of separately billable procedures and treating other patients and teaching time. Please see Assessment and Plan section and the rest of the note for further information on patient assessment and treatment Warehouse Lead Consult Note Consult date: 07/22/21 HPI: Aries Patterson is a 61 year old male with a history of seizure disorder, cerebral palsy, obstructive sleep apnea, presenting to the emergency department for evaluation of altered mental status. Apparently, patient had been refusing to wear his BiPAP at the care facility, presents yesterday afternoon somnolent. Patient was picking up to verbal stimuli but was unable to provide any history himself. Vital signs were normal in route, patient mildly bradycardic, no significant respiratory distress. Workup was unremarkable but ABG s
--- NOTE | 2021-07-22 11:57 | PM.CNCAR ---
Assessment and Plan Assessment and plan (1) Sinus pause: Code(s): I45.5 - Other specified heart block Status: Acute Assessment and Plan: Chronic history of asymptomatic pauses previously associated overnight and or with noncompliance with CPAP/BiPAP. No documented history of high-grade AV block or complete heart block. However, sinus pause up to 11.7 seconds last night concerning. Discussed at length with sister and patient importance of identifying and treating secondary reversible causes as well as the prospect of pacemaker implantation. There is no history of near-syncope or syncope. Patient was apparently not being treated with BiPAP/CPAP at [facility], however, documentation in the H&P that the patient was refusing therapy. Concerning pathologic sinus pause as above questionable compliance to CPAP/BiPAP. No history of near-syncope or syncope. Indication for permanent pacemaker implantation questionable yet clearly a nearly 12 second pause is pathologic. Continue telemetry, avoid all AV ga blocking agents. Certainly if patient were to develop tachyarrhythmia additional justification for pacemaker evident. At this time, no other clear reversible causes such as thyroid disorder, electrolyte abnormalities for medications known to significantly resulting bradycardia. Furthermore, anticipated compliance questionable as patient did not follow-up as an outpatient having no showed and canceled separate appointments. Continue telemetry observation. Further recommendation to follow. If recurrent and or excessive sinus pause we may have no choice but to proceed with pacemaker implantation. All patient was not verbally in opposition he also did not voice agreement with pacemaker implantation considerations. We discussed risks, benefits, alternatives to pacemaker implantation at length. All questions answered to the patient and his sister's satisfaction. (2) YURIDIA (obstructive sleep apnea): Code(s): G47.33 - Obstructive sleep apnea (adult) (pediatric) Status: Acute Assessment and Plan: Critically important he is compliant with CPAP/BiPAP. This is questionable per patient's sister and patient reported fear of vomiting or feeling ill while wearing the mask. (3) Edema: Qualifiers: Edema type: localized Qualified Code(s): R60.0 - Localized edema Code(s): R60.9 - Edema, unspecified Status: Acute Assessment and Plan: Chronic longstanding edema likely venous insufficiency as opposed to decompensated heart failure. Continue diuresis monitor electrolytes and renal function. Elevate legs at rest, lower extremity compression stockings. Dietary sodium restriction. (4) Altered mental status: Code(s): R41.82 - Altered mental status, unspecified Status: Acute Assessment and Plan: Improved with BiPAP. Rule out infectious contributions. CT without evidence of stroke. (5) Cerebral palsy: Qualifiers: Cerebral palsy type: unspecified type Qualified Code(s): G80.9 - Cerebral palsy, unspecified Code(s): G80.9 - Cerebral palsy, unspecified Status: Chronic Assessment and Plan: Chronic. Per primary service. (6) Seizure disorder: Code(s): G40.909 - Epilepsy, unspecified, not intractable, without status epilepticus Status: Acute Assessment and Plan: Defer to primary service and Neurology. Patient states he thinks he had a seizure last night recalls his whole body shaking. No other reports available to corroborate at this time. History of Present Illness History of Present Illness Consult date/time: Date of service: 07/22/21 11:57 Cardiology consultation at the request of Iliana Evans recurrent pauses and sinus arrest. Requesting physician: Iliana Evans PA-C Consult reason: Other (pauses, sinus arrest) Reason For Visit: Hypercarbic respiratory failure/somnolence Narrative: Patient is a 61-year-old male with a
[2021-07-22] MEDS: FUROSEMIDE 40 MG TABLET PO (13:50)
[2021-07-22] MEDS: LORATADINE 10 MG TABLET PO (13:51)
[2021-07-22] MEDS: FINASTERIDE 5 MG TABLET PO (13:51)
[2021-07-22] MEDS: polyethylene glycoL 3350 17 GM POWD.PACK PO (13:52)
[2021-07-22] MEDS: TAMSULOSIN HCL 0.4 MG CAPSULE PO (13:52)
[2021-07-22] MEDS: HYDROCORTISONE ACETATE 25 MG SUPPOSITORY RECTAL (13:52)
[2021-07-22] MEDS: levETIRAcetam 500 MG TABLET 1000 MG PO ×2 (13:53→21:27)
[2021-07-22] MEDS: busPIRone HCL 5 MG TABLET 15 MG PO ×2 (13:53→16:31)
[2021-07-22] MEDS: PHENYTOIN SODIUM 100 MG EXTENDED RELEASE CAP PO (16:30)
[2021-07-22] MEDS: PHENYTOIN SODIUM 100 MG EXTENDED RELEASE CAP 200 MG PO (21:27)
[2021-07-23] VITALS (12 sets, daily range): BP systolic 137–161; BP diastolic 64–74; PULSE 62–77; RESP 17–25; TEMP 36.4–36.7; O2SAT 93–100
[2021-07-23 04:31] LABS: Hematocrit 31.8 % (42.0-52.0); Hemoglobin 10.9 g/dL (14.0-18.0); Mean Corpuscular HGB Conc 34.3 g/dl (32-36); Mean Corpuscular Hemoglobin 31.3 pg (26-34); Mean Corpuscular Volume 91.4 fl (80-100); Mean Platelet Volume 9.5 fl (7.4-10.4); Platelet Count Result 209 k/mm3 (150-375); Red Blood Count 3.48 M/mm3 (4.6-6.20); Red Cell Distribution Width 14.3 % (11.5-14.5); White Blood Count 6.4 K/mm3 (4.5-10.0)
[2021-07-23 04:43] LABS: Alanine Aminotransferase 19 U/L (4-50); Albumin Level 3.5 g/dL (3.5-5.1); Alkaline Phosphatase 87 U/L (38-126); Anion Gap 4 mmol/L (8-16); Aspartate Amino Transferase 24 U/L (17-59); Bilirubin,Total 0.3 mg/dL (0.2-1.3); Blood Urea Nitrogen 24 mg/dL (9-20); Calcium 8.7 mg/dL (8.4-10.2); Carbon Dioxide 31 mmol/L (22-30); Chloride 102 mmol/L (98-107); Estimated CRCL calculation 109 ml/min; Estimated Glomerular Filt Rate > 60; Glucose 91 mg/dL (65-110); Magnesium 1.8 mg/dL (1.6-2.3); Potassium 3.7 mmol/L (3.4-5.0); Sodium 137 mmol/L (137-145)
[2021-07-23] MEDS: levETIRAcetam 500 MG TABLET 1000 MG PO ×3 (06:09→20:57)
[2021-07-23] MEDS: busPIRone HCL 5 MG TABLET 15 MG PO ×3 (08:42→16:37)
[2021-07-23] MEDS: FINASTERIDE 5 MG TABLET PO (08:43)
[2021-07-23] MEDS: FUROSEMIDE 40 MG TABLET PO (08:43)
[2021-07-23] MEDS: PHENYTOIN SODIUM 100 MG EXTENDED RELEASE CAP 200 MG PO ×2 (08:43→20:57)
[2021-07-23] MEDS: TAMSULOSIN HCL 0.4 MG CAPSULE PO (08:43)
[2021-07-23] MEDS: ENOXAPARIN 40 MG/0.4 ML SYRINGE SUB-Q (08:43)
[2021-07-23] MEDS: LORATADINE 10 MG TABLET PO (08:43)
[2021-07-23] MEDS: polyethylene glycoL 3350 17 GM POWD.PACK PO (08:45)
[2021-07-23] MEDS: HYDROCORTISONE ACETATE 25 MG SUPPOSITORY RECTAL ×2 (08:45→20:57)
[2021-07-23] MEDS: POTASSIUM CHLORIDE 10 MEQ TABLET.ER PO (08:48)
--- NOTE | 2021-07-23 09:25 | WPDINTPN ---
Progress Note: A&P Assessment and Plan (1) Acute hypercapnic respiratory failure: Code(s): J96.02 - Acute respiratory failure with hypercapnia Status: Acute Assessment and Plan: Mild hypercarbia on his ABG which is likely secondary to obesity hypoventilation syndrome PCO2 was not high enough to explain altered mental status Patient is alert awake at this time and have taken him off BiPAP and placed him on nasal cannula Continue BiPAP when he sleeps for his sleep apnea which has been ordered (2) Obstructive sleep apnea on CPAP: Code(s): G47.33 - Obstructive sleep apnea (adult) (pediatric); Z99.89 - Dependence on other enabling machines and devices Status: Acute Assessment and Plan: Home CPAP ordered at night and p.r.n. during the day for naps. Patient is wearing it in the hospital Patient has been noncompliant at the half-way and has not been wearing it (3) Sinus pause: Code(s): I45.5 - Other specified heart block Status: Acute Assessment and Plan: Patient had multiple sinus pauses in range of 4 seconds with the longest up to 11 seconds Cardiology is following Continue telemetry monitoring Electrolytes unremarkable but replace potassium which is low normal EKG shows sinus rhythm with first-degree AV block Management deferred to Cardiology as patient may need pacemaker (4) Encephalopathy: Code(s): G93.40 - Encephalopathy, unspecified Status: Acute Assessment and Plan: Unknown etiology at this time and has now completely resolved Patient now is alert oriented x3 and following commands and moving all 4 extremities Possibility the patient had a seizure and was postictal or could be medication related His TSH was normal an ABG reviewed I checked ammonia level and it was normal Continue to monitor at this time (5) Urinary retention: Code(s): R33.9 - Retention of urine, unspecified Status: Acute Assessment and Plan: Patient had a straight cath done earlier in the ER and he was encephalopathy He does have history of BPH and I have resumed both finasteride and tamsulosin Now he is alert and awake and is able to urinate. (6) Seizure disorder: Code(s): G40.909 - Epilepsy, unspecified, not intractable, without status epilepticus Status: Acute Assessment and Plan: Patient has history of seizure disorder and is supposed to be on phenytoin and Keppra. His phenytoin level was low and Keppra level is pending so not sure regarding compliance Continue Dilantin and Keppra at home doses at this time Seizure precaution P.r.n. Ativan (7) Lower extremity edema: Code(s): R60.0 - Localized edema Status: Acute Assessment and Plan: Chronic Compression stockings ordered Resume Lasix and potassium chloride Additional Plan DVT prophylaxis -Lovenox Code Status - Full Code Up in chair, incentive spirometry Subjective Date/time seen: 07/23/21 Patient states he is feeling fine and slept well overnight. He did wear his BiPAP overnight. He denies any complaint of chest pain shortness of breath abdominal pain nausea vomiting. He is requesting his breakfast. Patient denies fever, chest pain, shortness of breath, cough, nausea vomiting, abdominal pain,, diarrhea, headache or constipation. All the systems were reviewed and were negative except chronic lower extremity swelling You have telemetry he did had some episodes of sinus pauses overnight but it appears that they were completely asymptomatic as patient denies any complaints overnight or this morning Review of Systems Review of Systems: All systems reviewed & are unremarkable except as noted in HPI and below (HPI) Exam Narrative: General: Pt is alert awake and in NAD Lungs/Chest: Trachea central Clear BS B/L, No crackles or wheezing. Cardiac: RRR. Normal S1 S2. No murmurs Circulation: Feet are warm Abdomen: Normal bowel sounds.. Soft. NT. ND. Extremities: B
[2021-07-23] MEDS: POTASSIUM CHLORIDE 20 MEQ TABLET 40 MEQ PO (10:28)
--- NOTE | 2021-07-23 15:15 | PC.NURSE ---
This patient, Aries Patterson, was received from ICU-10 on 07/23/21 at 1515. Patient/family oriented to unit policies and routines
--- NOTE | 2021-07-23 15:23 | PC.NURSE ---
This patient, Aries Patterson, was transferred to [facility] on 07/23/21 at 1524. Personal belongings sent with patient. Report given to Nereyda REDD. Appropriate documentation sent with patient.
--- NOTE | 2021-07-23 15:40 | PM.PNCARD ---
Progress Note: A&P Assessment and Plan (1) Sinus pause: Code(s): I45.5 - Other specified heart block Status: Acute Assessment and Plan: Chronic history of asymptomatic pauses previously associated overnight and or with noncompliance with CPAP/BiPAP. No documented history of high-grade AV block or complete heart block. However, sinus pause up to 11.7 seconds last night concerning. Discussed at length with sister and patient importance of identifying and treating secondary reversible causes as well as the prospect of pacemaker implantation. There is no history of near-syncope or syncope. Patient was apparently not being treated with BiPAP/CPAP at Center, however, documentation in the H&P that the patient was refusing therapy. Concerning pathologic sinus pause as above questionable compliance to CPAP/BiPAP. No history of near-syncope or syncope. Indication for permanent pacemaker implantation questionable yet clearly a nearly 12 second pause is pathologic. Continue telemetry, avoid all AV ga blocking agents. Certainly if patient were to develop tachyarrhythmia additional justification for pacemaker evident. At this time, no other clear reversible causes such as thyroid disorder, electrolyte abnormalities for medications known to significantly resulting bradycardia. Discussed my ongoing concern given nearly 12 second pause but this has not recurred on BiPAP. Strenuously emphasize importance of remaining compliant in this regard. However, it is uncertain if he would have longer pause, higher grade block which may result in potential life-threatening ventricular arrhythmia due to his sustained hypoperfusion. However, as patient is not endorsing any associated symptoms we do not have a strong indication to proceed with pacemaker implantation. Furthermore, patient is not particularly interested unless absolutely necessary. We discussed the concept of loop recorder implantation for more definitive monitoring in the future. He was open to this but did not commit or agree to proceed tomorrow. We will observe overnight and discuss further with the patient tomorrow morning and with his sister. This may be preferably performed prior to discharge or on an outpatient basis if necessary. Patient will consider. I explained the nature of the procedure risks and benefits including but not limited to infection or bleeding and the need for compliance with follow-up and home monitoring. He verbalized understanding his sister was not available at this time. (2) YURIDIA (obstructive sleep apnea): Code(s): G47.33 - Obstructive sleep apnea (adult) (pediatric) Status: Acute Assessment and Plan: Critically important he is compliant with CPAP/BiPAP. This is questionable per patient's sister and patient reported fear of vomiting or feeling ill while wearing the mask. (3) Edema: Qualifiers: Edema type: localized Qualified Code(s): R60.0 - Localized edema Code(s): R60.9 - Edema, unspecified Status: Acute Assessment and Plan: Chronic longstanding edema likely venous insufficiency as opposed to decompensated heart failure. Continue diuresis monitor electrolytes and renal function. Elevate legs at rest, lower extremity compression stockings. Dietary sodium restriction. (4) Altered mental status: Code(s): R41.82 - Altered mental status, unspecified Status: Acute Assessment and Plan: Improved with BiPAP. Rule out infectious contributions. CT without evidence of stroke. (5) Cerebral palsy: Qualifiers: Cerebral palsy type: unspecified type Qualified Code(s): G80.9 - Cerebral palsy, unspecified Code(s): G80.9 - Cerebral palsy, unspecified Status: Chronic Assessment and Plan: Chronic. Per primary service. (6) Seizure disorder: Code(s): G40.909 - Epilepsy, unspecified, not intractable, without status epilepticus Status: Acute As
[2021-07-23] MEDS: PHENYTOIN SODIUM 100 MG EXTENDED RELEASE CAP PO (16:37)
[2021-07-24] VITALS (12 sets, daily range): BP systolic 100–134; BP diastolic 62–68; PULSE 69–82; RESP 16–17; TEMP 36.4; O2SAT 96–100
[2021-07-24 05:51] LABS: Hematocrit 31.9 % (42.0-52.0); Hemoglobin 10.9 g/dL (14.0-18.0); Mean Corpuscular HGB Conc 34.2 g/dl (32-36); Mean Corpuscular Hemoglobin 31.3 pg (26-34); Mean Corpuscular Volume 91.7 fl (80-100); Mean Platelet Volume 9.7 fl (7.4-10.4); Platelet Count Result 226 k/mm3 (150-375); Red Blood Count 3.48 M/mm3 (4.6-6.20); Red Cell Distribution Width 13.8 % (11.5-14.5); White Blood Count 5.7 K/mm3 (4.5-10.0)
[2021-07-24 06:21] LABS: Alanine Aminotransferase 15 U/L (4-50); Albumin Level 3.5 g/dL (3.5-5.1); Alkaline Phosphatase 88 U/L (38-126); Anion Gap 5 mmol/L (8-16); Aspartate Amino Transferase 20 U/L (17-59); Bilirubin,Total 0.3 mg/dL (0.2-1.3); Blood Urea Nitrogen 23 mg/dL (9-20); Calcium 8.9 mg/dL (8.4-10.2); Carbon Dioxide 28 mmol/L (22-30); Chloride 101 mmol/L (98-107); Estimated CRCL calculation 109 ml/min; Estimated Glomerular Filt Rate > 60; Glucose 93 mg/dL (65-110); Magnesium 1.8 mg/dL (1.6-2.3); Potassium 4.3 mmol/L (3.4-5.0); Sodium 134 mmol/L (137-145)
[2021-07-24] MEDS: levETIRAcetam 500 MG TABLET 1000 MG PO ×3 (06:32→21:02)
[2021-07-24] MEDS: ENOXAPARIN 40 MG/0.4 ML SYRINGE SUB-Q (08:38)
[2021-07-24] MEDS: TOLNAFTATE 1% POWDER 45 GM BTL 1 APPLIC TOPICAL (08:38)
[2021-07-24] MEDS: busPIRone HCL 5 MG TABLET 15 MG PO ×3 (08:39→17:15)
[2021-07-24] MEDS: HYDROCORTISONE ACETATE 25 MG SUPPOSITORY RECTAL ×2 (08:39→21:02)
[2021-07-24] MEDS: POTASSIUM CHLORIDE 10 MEQ TABLET.ER PO (08:39)
[2021-07-24] MEDS: FUROSEMIDE 40 MG TABLET PO ×2 (08:39→17:14)
[2021-07-24] MEDS: FINASTERIDE 5 MG TABLET PO (08:39)
[2021-07-24] MEDS: LORATADINE 10 MG TABLET PO (08:40)
[2021-07-24] MEDS: PHENYTOIN SODIUM 100 MG EXTENDED RELEASE CAP 200 MG PO ×2 (08:40→21:02)
[2021-07-24] MEDS: TAMSULOSIN HCL 0.4 MG CAPSULE PO (08:40)
--- NOTE | 2021-07-24 10:55 | PM.IMPN ---
Progress Note: A&P Assessment and Plan (1) Acute hypercapnic respiratory failure: Code(s): J96.02 - Acute respiratory failure with hypercapnia Status: Acute Assessment and Plan: Mild hypercarbia on his ABG which is likely secondary to obesity hypoventilation syndrome PCO2 was not high enough to explain altered mental status Patient is alert awake at this time and have taken him off BiPAP and placed him on nasal cannula Continue BiPAP when he sleeps for his sleep apnea which has been ordered (2) Obstructive sleep apnea on CPAP: Code(s): G47.33 - Obstructive sleep apnea (adult) (pediatric); Z99.89 - Dependence on other enabling machines and devices Status: Acute Assessment and Plan: Home CPAP ordered at night and p.r.n. during the day for naps. Patient is wearing it in the hospital as advised (3) Sinus pause: Code(s): I45.5 - Other specified heart block Status: Acute Assessment and Plan: Patient had multiple sinus pauses in range of 4 seconds with the longest up to 11 seconds Cardiology is following Continue telemetry monitoring Electrolytes unremarkable but replace potassium which is low normal EKG shows sinus rhythm with first-degree AV block Management deferred to Cardiology as patient may need pacemaker (4) Encephalopathy: Code(s): G93.40 - Encephalopathy, unspecified Status: Acute Assessment and Plan: Unknown etiology at this time and has now completely resolved Patient now is alert oriented x3 and following commands and moving all 4 extremities Possibility the patient had a seizure and was postictal or could be medication related His TSH was normal an ABG reviewed I checked ammonia level and it was normal Continue to monitor at this time (5) Urinary retention: Code(s): R33.9 - Retention of urine, unspecified Status: Acute Assessment and Plan: Patient had a straight cath done earlier in the ER and he was encephalopathy He does have history of BPH and I have resumed both finasteride and tamsulosin Now he is alert and awake and is able to urinate. (6) Seizure disorder: Code(s): G40.909 - Epilepsy, unspecified, not intractable, without status epilepticus Status: Acute Assessment and Plan: Patient has history of seizure disorder and is supposed to be on phenytoin and Keppra. His phenytoin level was low and Keppra level is pending so not sure regarding compliance Continue Dilantin and Keppra at home doses at this time Seizure precaution P.r.n. Ativan (7) Lower extremity edema: Code(s): R60.0 - Localized edema Status: Acute Assessment and Plan: Chronic Compression stockings ordered Resume Lasix and potassium chloride Additional Plan 07/24/2021 Patient is still requiring the use of BiPAP. Has mild shortness of breath no chest pain. Plan is to continue current plan of care and treatment. Consult noted. Increase activity as tolerated. Put Apnea Link tonight and CPAP for use as outpatient. Subjective Date/time seen: 07/24/21 10:55 Patient was seen during the morning rounds today. Still requiring the use of BiPAP. Mild shortness of breath chest pain. Abdominal pain, nausea, no vomiting. Mood stable. Review of Systems Review of Systems: All systems reviewed & are unremarkable except as noted in HPI and below (HPI) Exam Narrative: General: Pt is alert awake and in NAD Lungs/Chest: Trachea central Clear BS B/L, No crackles or wheezing. Cardiac: RRR. Normal S1 S2. No murmurs Circulation: Feet are warm Abdomen: Normal bowel sounds.. Soft. NT. ND. Extremities: Bilateral pitting edema which is chronic as per patient : [place] in place Neurologic: Follows commands. Moves all 4 extremities PERRL, his speech is difficult to understand but he answers appropriately AO x3 Skin: No Rash Objective Data Vital Signs Vital Signs: Vital Signs - 24 hr 07/23/21 12:00 07/23/21 16:00 07/23/21
--- NOTE | 2021-07-24 11:07 | PM.PNCARD ---
Progress Note: A&P Assessment and Plan (1) Sinus pause: Code(s): I45.5 - Other specified heart block <CEDRICK Murray - Last Filed: 07/24/21 15:08> Status: Acute <CEDRICK Murray - Last Filed: 07/24/21 15:08> Assessment and Plan: Chronic history of asymptomatic pauses previously associated overnight and or with noncompliance with CPAP/BiPAP. No documented history of high-grade AV block or complete heart block. However, sinus pause up to 11.7 seconds during this hospital concerning. Continue telemetry, avoid all AV ga blocking agents. At this time, no other clear reversible causes such as thyroid disorder, electrolyte abnormalities for medications known to significantly resulting bradycardia. Patient's sister present at the bedside today. Discussed again the concept of implanting a loop recorder during this hospitalization. Both the patient and his sister are in agreement to proceed with loop recorder implantation tomorrow. I discussed with him the importance of maintaining regular follow-up with our office following implant. They both understand and are in agreement. Patient will be held NPO after midnight tonight. <CEDRICK Murray - Last Filed: 07/24/21 15:08> (2) YURIDIA (obstructive sleep apnea): Code(s): G47.33 - Obstructive sleep apnea (adult) (pediatric) <CEDRICK Murray - Last Filed: 07/24/21 15:08> Status: Acute <CEDRICK Murray - Last Filed: 07/24/21 15:08> Assessment and Plan: Critically important he is compliant with CPAP/BiPAP. <CEDRICK Murray - Last Filed: 07/24/21 15:08> (3) Edema: Qualifiers: Edema type: localized Qualified Code(s): R60.0 - Localized edema <CEDRICK Murray - Last Filed: 07/24/21 15:08> Code(s): R60.9 - Edema, unspecified <CEDRICK Murray - Last Filed: 07/24/21 15:08> Status: Acute <CEDRICK Murray - Last Filed: 07/24/21 15:08> Assessment and Plan: Chronic longstanding edema likely venous insufficiency as opposed to decompensated heart failure. Continue diuresis monitor electrolytes and renal function. Give additional 40 mg p.o. Lasix now. Elevate legs at rest, lower extremity compression stockings. Dietary sodium restriction. <CEDRICK Murray - Last Filed: 07/24/21 15:08> (4) Altered mental status: Code(s): R41.82 - Altered mental status, unspecified <CEDIRCK Murray - Last Filed: 07/24/21 15:08> Status: Acute <CEDRICK Murray - Last Filed: 07/24/21 15:08> Assessment and Plan: Improved with BiPAP. Rule out infectious contributions. CT without evidence of stroke. <CEDRICK Murray - Last Filed: 07/24/21 15:08> (5) Cerebral palsy: Qualifiers: Cerebral palsy type: unspecified type Qualified Code(s): G80.9 - Cerebral palsy, unspecified <CEDRICK Murray - Last Filed: 07/24/21 15:08> Code(s): G80.9 - Cerebral palsy, unspecified <CEDRICK Murray - Last Filed: 07/24/21 15:08> Status: Chronic <CEDRICK Murray - Last Filed: 07/24/21 15:08> Assessment and Plan: Chronic. Per primary service. <CEDRICK Murray - Last Filed: 07/24/21 15:08> (6) Seizure disorder: Code(s): G40.909 - Epilepsy, unspecified, not intractable, without status epilepticus <CEDRICK Murray - Last Filed: 07/24/21 15:08> Status: Acute <CEDRICK Murray - Last Filed: 07/24/21 15:08> Assessment and Plan: Defer to primary service and Neurology. Patient states he thinks he had a seizure last night recalls his whole body shaking. No other reports available to corroborate at this time. <Winifred Ryan APN-C - Last Filed: 07/24/21 15:08> Additional Plan Attending addendum: Plan for loop recorder implantation tomorrow indication bradycardia, sinus node dysfunc
--- NOTE | 2021-07-24 11:27 | PC.NURSE ---
On 07/24/21, the student, [Renato Corral], provided care and completed [facility] documentation on this patient. I have reviewed the student's documentation and agree with the findings.
[2021-07-24] MEDS: PHENYTOIN SODIUM 100 MG EXTENDED RELEASE CAP PO (17:15)
[2021-07-24 17:18] LABS: Levetiracetam Keppra 30.5 mcg/mL (12.0-46.0)
[2021-07-25] VITALS (13 sets, daily range): BP systolic 125–154; BP diastolic 65–84; PULSE 60–80; RESP 12–18; TEMP 36.3–36.4; O2SAT 95–100
[2021-07-25 05:54] LABS: Hematocrit 32.9 % (42.0-52.0); Hemoglobin 11.2 g/dL (14.0-18.0); Mean Corpuscular Hemoglobin 31.6 pg (26-34); Mean Corpuscular Volume 92.9 fl (80-100); Mean Platelet Volume 9.7 fl (7.4-10.4); Platelet Count Result 225 k/mm3 (150-375); Red Blood Count 3.54 M/mm3 (4.6-6.20); Red Cell Distribution Width 13.8 % (11.5-14.5); White Blood Count 5.9 K/mm3 (4.5-10.0)
[2021-07-25 05:58] LABS: Alanine Aminotransferase 15 U/L (4-50); Albumin Level 3.7 g/dL (3.5-5.1); Alkaline Phosphatase 86 U/L (38-126); Anion Gap 6 mmol/L (8-16); Aspartate Amino Transferase 22 U/L (17-59); Bilirubin,Total 0.2 mg/dL (0.2-1.3); Blood Urea Nitrogen 22 mg/dL (9-20); Calcium 8.8 mg/dL (8.4-10.2); Carbon Dioxide 30 mmol/L (22-30); Chloride 99 mmol/L (98-107); Estimated CRCL calculation 110 ml/min; Estimated Glomerular Filt Rate > 60; Glucose 110 mg/dL (65-110); Magnesium 1.9 mg/dL (1.6-2.3); Potassium 3.9 mmol/L (3.4-5.0); Sodium 135 mmol/L (137-145)
[2021-07-25] MEDS: levETIRAcetam 500 MG TABLET 1000 MG PO ×3 (06:00→22:05)
[2021-07-25] MEDS: busPIRone HCL 5 MG TABLET 15 MG PO ×3 (08:39→17:21)
[2021-07-25] MEDS: LORATADINE 10 MG TABLET PO (08:39)
[2021-07-25] MEDS: TAMSULOSIN HCL 0.4 MG CAPSULE PO (08:39)
[2021-07-25] MEDS: FINASTERIDE 5 MG TABLET PO (08:39)
[2021-07-25] MEDS: PHENYTOIN SODIUM 100 MG EXTENDED RELEASE CAP 200 MG PO ×2 (08:39→22:04)
[2021-07-25] MEDS: POTASSIUM CHLORIDE 10 MEQ TABLET.ER PO (08:39)
[2021-07-25] MEDS: FUROSEMIDE 40 MG TABLET PO (08:39)
[2021-07-25] MEDS: HYDROCORTISONE ACETATE 25 MG SUPPOSITORY RECTAL ×2 (08:40→22:04)
--- NOTE | 2021-07-25 08:57 | PM.IMPN ---
Progress Note: A&P Assessment and Plan (1) Acute hypercapnic respiratory failure: Code(s): J96.02 - Acute respiratory failure with hypercapnia Status: Acute Assessment and Plan: Mild hypercarbia on his ABG which is likely secondary to obesity hypoventilation syndrome PCO2 was not high enough to explain altered mental status Patient is alert awake at this time and have taken him off BiPAP and placed him on nasal cannula Continue BiPAP when he sleeps for his sleep apnea which has been ordered (2) Obstructive sleep apnea on CPAP: Code(s): G47.33 - Obstructive sleep apnea (adult) (pediatric); Z99.89 - Dependence on other enabling machines and devices Status: Acute Assessment and Plan: Home CPAP ordered at night and p.r.n. during the day for naps. Patient is wearing it in the hospital as advised (3) Sinus pause: Code(s): I45.5 - Other specified heart block Status: Acute Assessment and Plan: Patient had multiple sinus pauses in range of 4 seconds with the longest up to 11 seconds Cardiology is following Continue telemetry monitoring Electrolytes unremarkable but replace potassium which is low normal EKG shows sinus rhythm with first-degree AV block Management deferred to Cardiology as patient may need pacemaker (4) Encephalopathy: Code(s): G93.40 - Encephalopathy, unspecified Status: Acute Assessment and Plan: Unknown etiology at this time and has now completely resolved Patient now is alert oriented x3 and following commands and moving all 4 extremities Possibility the patient had a seizure and was postictal or could be medication related His TSH was normal an ABG reviewed I checked ammonia level and it was normal Continue to monitor at this time (5) Urinary retention: Code(s): R33.9 - Retention of urine, unspecified Status: Acute Assessment and Plan: Patient had a straight cath done earlier in the ER and he was encephalopathy He does have history of BPH and I have resumed both finasteride and tamsulosin Now he is alert and awake and is able to urinate. (6) Seizure disorder: Code(s): G40.909 - Epilepsy, unspecified, not intractable, without status epilepticus Status: Acute Assessment and Plan: Patient has history of seizure disorder and is supposed to be on phenytoin and Keppra. His phenytoin level was low and Keppra level is pending so not sure regarding compliance Continue Dilantin and Keppra at home doses at this time Seizure precaution P.r.n. Ativan (7) Lower extremity edema: Code(s): R60.0 - Localized edema Status: Acute Assessment and Plan: Chronic Compression stockings ordered Resume Lasix and potassium chloride Additional Plan 07/24/2021 Patient is still requiring the use of BiPAP. Has mild shortness of breath no chest pain. Plan is to continue current plan of care and treatment. Consult noted. Increase activity as tolerated. Put Apnea Link tonight and CPAP for use as outpatient. 07/25/2021 Patient is clinically slightly better today plan is to continue current treatment. Continue with CPAP and oxygen. Increase activity as tolerated. electronic funds transfer coordinator consulted to arrange CPAP. Subjective Date/time seen: 07/25/21 08:57 Patient was seen during the morning rounds today. Patient is still requiring BiPAP treatment. Breathing is slightly improved. No chest pain. No abdominal pain, nausea, no vomiting. Mood stable. Review of Systems Review of Systems: All systems reviewed & are unremarkable except as noted in HPI and below (HPI) Exam Narrative: General: Pt is alert awake and in NAD Lungs/Chest: Trachea central Clear BS B/L, No crackles or wheezing. Cardiac: RRR. Normal S1 S2. No murmurs Circulation: Feet are warm Abdomen: Normal bowel sounds.. Soft. NT. ND. Extremities: Bilateral pitting edema which is chronic as per patient : [place] in place Neurologic: Follows commands. Mo
--- NOTE | 2021-07-25 10:08 | PM.PNCARD ---
Progress Note: A&P Assessment and Plan (1) Sick sinus syndrome: Code(s): I49.5 - Sick sinus syndrome Status: Acute Assessment and Plan: Evidence for sick sinus syndrome given severely prolonged pauses nearly 12 seconds. Loop recorder planned for today. No clear indication for permanent Pacemaker at this time, however, We have ongoing concerns and he may require if he experiences further prolonged pauses and or higher grade AV block. Hence, loop recorder implantation as matter of safety and further evaluation. Patient in agreement with plan of care. (2) Sinus pause: Code(s): I45.5 - Other specified heart block Status: Acute Assessment and Plan: Chronic history of asymptomatic pauses previously associated overnight and or with noncompliance with CPAP/BiPAP. No documented history of high-grade AV block or complete heart block. However, sinus pause up to 11.7 seconds during this hospital concerning. Continue telemetry, avoid all AV ga blocking agents. At this time, no other clear reversible causes such as thyroid disorder, electrolyte abnormalities for medications known to significantly resulting bradycardia. Recurrent pauses around 3 seconds or less past 24 hours (3) YURIDIA (obstructive sleep apnea): Code(s): G47.33 - Obstructive sleep apnea (adult) (pediatric) Status: Acute Assessment and Plan: Critically important he is compliant with CPAP/BiPAP. apnea link severely abnormal HIDA 36. (4) Edema: Qualifiers: Edema type: localized Qualified Code(s): R60.0 - Localized edema Code(s): R60.9 - Edema, unspecified Status: Acute Assessment and Plan: Chronic longstanding edema likely venous insufficiency as opposed to decompensated heart failure. Continue diuresis monitor electrolytes and renal function. Elevate legs at rest, lower extremity compression stockings. Dietary sodium restriction. Continue Lasix 40 mg daily. (5) Altered mental status: Code(s): R41.82 - Altered mental status, unspecified Status: Acute Assessment and Plan: Improved with BiPAP. Rule out infectious contributions. Antibiotics per primary service. CT without evidence of stroke. (6) Cerebral palsy: Qualifiers: Cerebral palsy type: unspecified type Qualified Code(s): G80.9 - Cerebral palsy, unspecified Code(s): G80.9 - Cerebral palsy, unspecified Status: Chronic Assessment and Plan: Chronic. Per primary service. (7) Seizure disorder: Code(s): G40.909 - Epilepsy, unspecified, not intractable, without status epilepticus Status: Acute Assessment and Plan: Defer to primary service and Neurology. Subjective Date/time seen: date of service:07/25/21 10:08 Follow-up for sick sinus syndrome / prolonged pauses, YURIDIA apnea link overnight AHI severely abnormal 36. Patient states he had a couple of episode waking very short of breath And symptoms he describes almost like he was going to pass out or fall asleep. Pauses overnight on telemetry generally less than 3 seconds. No chest pain, new shortness of breath or palpitations. Review of Systems Review of Systems: All systems reviewed & are unremarkable except as noted in HPI and below Constitutional: Constitutional: Reports as per HPI, Reports no additional constitutional complaints and Reports fatigue Eyes: Eyes: Reports as per HPI and Reports no additional eye complaints ENT: Reports system reviewed and no additional complaints, except as documented and Reports as per HPI Cardiovascular: Cardiovascular: Reports as per HPI, Reports no additional cardiovascular complaints, Denies chest pain, Reports pedal edema, Reports leg edema, Reports palpitations and Denies dyspnea Respiratory: Respiratory: Reports as per HPI, Reports no additional respiratory complaints, Denies hemoptysis and Denies dyspnea Gastrointestinal: Gastrointestinal: Re
--- NOTE | 2021-07-25 11:13 | PCOTNOTE ---
Attempted to see pt. for occupational therapy. Nurse requested to see pt. in afternoon d/t procedure at noon
--- NOTE | 2021-07-25 11:41 | P.CDI_ITS ---
CDI Query Clarification Request - encephalopathy has been documented. - Unknown etiology at this time and has now completely resolved and Possibility the patient had a seizure and was postictal or could be medication related checked and ammonia level and it was normal has been documented Please clarify type of encephalopathy: * Metabolic * Toxic * Hypertensive * Hepatic * Anoxic * Other * Unable to determine
--- NOTE | 2021-07-25 14:26 | PM.OP ---
Procedure Note - Brief Procedure Note - Brief Date of procedure: 07/25/21 Pre-op diagnosis: Hypercarbic respiratory failure/somnolence Severe bradycardia, near syncopal symptoms, sick sinus syndrome Post-op diagnosis: same Procedure performed: Brief history present illness: Patient is a 61-year-old male with past medical history significant for cerebral palsy, obstructive sleep apnea, obesity and history of intermittent severe bradycardia with prolonged sinus pause and complained of symptoms of intermittently experiencing sensations he described as almost like he will pass out or transiently falls asleep in promptly wakes up concerning for possible near-syncope. Patient has documented recurrent pauses longest of which was 11.7 seconds unclear if related to YURIDIA and/or sick sinus syndrome. Loop recorder implanted for further evaluation clarify true need for permanent pacemaker implantation. Description of procedure: After verbal and written informed consent was obtained from the patient risks, benefits, and alternatives explained in detail the patient agreed to proceed with the plan of care as outlined above. Patient was evaluated at bedside in the cardiac catheterization lab PACU. Patient was placed the appropriate supine position. Left anterior chest wall was prepped and draped in the usual sterile fashion. Operators in appropriate sterile garb. The left 4th intercostal space was identified and marked. Utilizing approximately 30 cc of 1% subcutaneous lidocaine the left anterior chest wall was then locally anesthetized. After local anesthesia was achieved, 2 fingerbreadths left of the sternum at the 4th intercostal space was again identified and a 1 cm incision was made with the included skin punch tool. Following this with the included introducer, a tract was made subcutaneously at a 45 degree angle from the sternum. Holding this introducer in place the device was unlocked according to cotton farmworker instructions and deployed easily without complication. The introducer was then removed followed by the introducer. The Biotronik IIIm loop recorder serial number [id number] was implanted without complication. Manual pressure was held for least 10-15 min with excellent hemostasis. The device was then interrogated and revealed excellent fidelity and measured at 1.0 mV. The incision was then approximated and closed using ExoFin skin adhesive with very good results. The incision was then covered with a sterile dressing. Complications: None Implants: Biotronik IIIm loop recorder Anesthesia: local Surgeon: Olman Raya MD Drains: No Packing: No Pathology: none sent Complications: No immediate complications Condition: stable Disposition: floor Findings: Successful implantation of Biotronik IIIm loop recorder for further evaluation for symptoms concerning for near-syncope related to severe bradycardia and or sick sinus syndrome with prolonged pauses.
[2021-07-25] MEDS: PHENYTOIN SODIUM 100 MG EXTENDED RELEASE CAP PO (17:21)
[2021-07-26] VITALS (13 sets, daily range): BP systolic 134–137; BP diastolic 67–86; PULSE 63–82; RESP 16–20; TEMP 36–36.4; O2SAT 95–100; BMI 10.0
[2021-07-26] MEDS: levETIRAcetam 500 MG TABLET 1000 MG PO ×3 (05:48→21:33)
[2021-07-26 05:56] LABS: Hematocrit 34.9 % (42.0-52.0); Hemoglobin 11.5 g/dL (14.0-18.0); Mean Corpuscular Hemoglobin 31.4 pg (26-34); Mean Corpuscular Volume 95.4 fl (80-100); Mean Platelet Volume 9.5 fl (7.4-10.4); Platelet Count Result 220 k/mm3 (150-375); Red Blood Count 3.66 M/mm3 (4.6-6.20); Red Cell Distribution Width 13.6 % (11.5-14.5); White Blood Count 5.7 K/mm3 (4.5-10.0)
[2021-07-26 06:15] LABS: Alanine Aminotransferase 15 U/L (4-50); Albumin Level 3.7 g/dL (3.5-5.1); Alkaline Phosphatase 87 U/L (38-126); Anion Gap 7 mmol/L (8-16); Aspartate Amino Transferase 22 U/L (17-59); Bilirubin,Total 0.2 mg/dL (0.2-1.3); Blood Urea Nitrogen 19 mg/dL (9-20); Calcium 8.8 mg/dL (8.4-10.2); Carbon Dioxide 28 mmol/L (22-30); Chloride 99 mmol/L (98-107); Estimated CRCL calculation 109 ml/min; Estimated Glomerular Filt Rate > 60; Glucose 100 mg/dL (65-110); Potassium 4.2 mmol/L (3.4-5.0); Sodium 134 mmol/L (137-145)
--- NOTE | 2021-07-26 08:46 | PM.IMPN ---
Progress Note: A&P Assessment and Plan (1) Acute hypercapnic respiratory failure: Code(s): J96.02 - Acute respiratory failure with hypercapnia Status: Acute Assessment and Plan: Mild hypercarbia on his ABG which is likely secondary to obesity hypoventilation syndrome PCO2 was not high enough to explain altered mental status Patient is alert awake at this time and have taken him off BiPAP and placed him on nasal cannula Continue BiPAP when he sleeps for his sleep apnea which has been ordered (2) Obstructive sleep apnea on CPAP: Code(s): G47.33 - Obstructive sleep apnea (adult) (pediatric); Z99.89 - Dependence on other enabling machines and devices Status: Acute Assessment and Plan: Home CPAP ordered at night and p.r.n. during the day for naps. Patient is wearing it in the hospital as advised (3) Sinus pause: Code(s): I45.5 - Other specified heart block Status: Acute Assessment and Plan: Patient had multiple sinus pauses in range of 4 seconds with the longest up to 11 seconds Cardiology is following Continue telemetry monitoring Electrolytes unremarkable but replace potassium which is low normal EKG shows sinus rhythm with first-degree AV block Management deferred to Cardiology as patient may need pacemaker (4) Encephalopathy: Code(s): G93.40 - Encephalopathy, unspecified Status: Acute Assessment and Plan: Unknown etiology at this time and has now completely resolved Patient now is alert oriented x3 and following commands and moving all 4 extremities Possibility the patient had a seizure and was postictal or could be medication related His TSH was normal an ABG reviewed I checked ammonia level and it was normal Continue to monitor at this time (5) Urinary retention: Code(s): R33.9 - Retention of urine, unspecified Status: Acute Assessment and Plan: Patient had a straight cath done earlier in the ER and he was encephalopathy He does have history of BPH and I have resumed both finasteride and tamsulosin Now he is alert and awake and is able to urinate. (6) Seizure disorder: Code(s): G40.909 - Epilepsy, unspecified, not intractable, without status epilepticus Status: Acute Assessment and Plan: Patient has history of seizure disorder and is supposed to be on phenytoin and Keppra. His phenytoin level was low and Keppra level is pending so not sure regarding compliance Continue Dilantin and Keppra at home doses at this time Seizure precaution P.r.n. Ativan (7) Lower extremity edema: Code(s): R60.0 - Localized edema Status: Acute Assessment and Plan: Chronic Compression stockings ordered Resume Lasix and potassium chloride Additional Plan 07/24/2021 Patient is still requiring the use of BiPAP. Has mild shortness of breath no chest pain. Plan is to continue current plan of care and treatment. Consult noted. Increase activity as tolerated. Put Apnea Link tonight and CPAP for use as outpatient. 07/25/2021 Patient is clinically slightly better today plan is to continue current treatment. Continue with CPAP and oxygen. Increase activity as tolerated. clinical trial coordinator consulted to arrange BIPAP 07/26/2021 Patient is still requiring BiPAP at night. Gradually getting better. Left finger infection is also better. Left finger culture shows Gram-positive in clusters. Sensitivity to follow. Plan is to continue current plan of care and treatment. clinical trial coordinator consult for possible arrangement of BiPAP and intermediate. Subjective Date/time seen: 07/26/21 08:46 Patient was seen during the morning rounds today. Patient is still requiring BiPAP. Mild shortness of breath no chest pain. Abdominal pain, nausea, no vomiting. Mood stable. Left finger infection is getting better. Review of Systems Review of Systems: All systems reviewed & are unremarkable except as noted in HPI and below (HPI) Exam
--- NOTE | 2021-07-26 08:48 | PM.PNCARD ---
Progress Note: A&P Assessment and Plan (1) Sick sinus syndrome: Code(s): I49.5 - Sick sinus syndrome Status: Acute Assessment and Plan: Evidence for sick sinus syndrome given severely prolonged pauses nearly 12 seconds. Loop recorder placed yesterday. No significant pauses overnight. We have ongoing concerns and he may require if he experiences further prolonged pauses and or higher grade AV block. Hence, loop recorder implantation as matter of safety and further evaluation. Patient should follow-up with Dr. Raya as an outpatient (2) Sinus pause: Code(s): I45.5 - Other specified heart block Status: Acute Assessment and Plan: Chronic history of asymptomatic pauses previously associated overnight and or with noncompliance with CPAP/BiPAP. No documented history of high-grade AV block or complete heart block. However, sinus pause up to 11.7 seconds during this hospital concerning. Continue telemetry, avoid all AV ga blocking agents. At this time, no other clear reversible causes such as thyroid disorder, electrolyte abnormalities for medications known to significantly resulting bradycardia. (3) YURIDIA (obstructive sleep apnea): Code(s): G47.33 - Obstructive sleep apnea (adult) (pediatric) Status: Acute Assessment and Plan: Critically important he is compliant with CPAP/BiPAP. apnea link severely abnormal HIDA 36. (4) Edema: Qualifiers: Edema type: localized Qualified Code(s): R60.0 - Localized edema Code(s): R60.9 - Edema, unspecified Status: Acute Assessment and Plan: Chronic longstanding edema likely venous insufficiency as opposed to decompensated heart failure. Continue diuresis monitor electrolytes and renal function. Elevate legs at rest, lower extremity compression stockings. Dietary sodium restriction. Continue Lasix 40 mg daily. (5) Altered mental status: Code(s): R41.82 - Altered mental status, unspecified Status: Acute Assessment and Plan: Improved with BiPAP. Rule out infectious contributions. Antibiotics per primary service. CT without evidence of stroke. (6) Cerebral palsy: Qualifiers: Cerebral palsy type: unspecified type Qualified Code(s): G80.9 - Cerebral palsy, unspecified Code(s): G80.9 - Cerebral palsy, unspecified Status: Chronic Assessment and Plan: Chronic. Per primary service. (7) Seizure disorder: Code(s): G40.909 - Epilepsy, unspecified, not intractable, without status epilepticus Status: Acute Assessment and Plan: Defer to primary service and Neurology. Subjective Date/time seen: 07/26/21 08:48 Interval history: Patient is a 61-year-old male with a history of cerebral palsy, intellectual disability, seizure disorder obstructive sleep apnea CPAP, history of sinus pauses who resides at [place] and was transported to emergency department by EMS due to altered mental status and inability to stay awake Date of service 07/26/2021: Sleeping with CPAP on. Awakens. No complaints chest pain or shortness of Review of Systems Review of Systems: All systems reviewed & are unremarkable except as noted in HPI and below Constitutional: Constitutional: Reports as per HPI, Reports no additional constitutional complaints and Reports fatigue Eyes: Eyes: Reports as per HPI and Reports no additional eye complaints ENT: Reports system reviewed and no additional complaints, except as documented and Reports as per HPI Cardiovascular: Cardiovascular: Reports as per HPI, Reports no additional cardiovascular complaints, Denies chest pain, Reports pedal edema, Reports leg edema, Reports palpitations and Denies dyspnea Respiratory: Respiratory: Reports as per HPI, Reports no additional respiratory complaints, Denies hemoptysis and Denies dyspnea Gastrointestinal: Gastrointestinal: Reports as per HPI, Reports no additional gastrointest
[2021-07-26] MEDS: POTASSIUM CHLORIDE 10 MEQ TABLET.ER PO (10:22)
[2021-07-26] MEDS: busPIRone HCL 5 MG TABLET 15 MG PO ×3 (10:22→16:46)
[2021-07-26] MEDS: ENOXAPARIN 40 MG/0.4 ML SYRINGE SUB-Q (10:22)
[2021-07-26] MEDS: TAMSULOSIN HCL 0.4 MG CAPSULE PO (10:23)
[2021-07-26] MEDS: FUROSEMIDE 40 MG TABLET PO (10:23)
[2021-07-26] MEDS: HYDROCORTISONE ACETATE 25 MG SUPPOSITORY RECTAL ×2 (10:23→20:32)
[2021-07-26] MEDS: FINASTERIDE 5 MG TABLET PO (10:23)
[2021-07-26] MEDS: LORATADINE 10 MG TABLET PO (10:23)
[2021-07-26] MEDS: PHENYTOIN SODIUM 100 MG EXTENDED RELEASE CAP 200 MG PO ×2 (10:23→20:33)
[2021-07-26] MEDS: polyethylene glycoL 3350 17 GM POWD.PACK PO (10:24)
[2021-07-26] MEDS: PHENYTOIN SODIUM 100 MG EXTENDED RELEASE CAP PO (16:46)
[2021-07-27] VITALS (9 sets, daily range): BP systolic 124–139; BP diastolic 60–66; PULSE 65–77; RESP 16–17; TEMP 36.4–37.1; O2SAT 94–97
[2021-07-27] MEDS: levETIRAcetam 500 MG TABLET 1000 MG PO ×3 (05:58→21:31)
[2021-07-27 07:28] LABS: Alanine Aminotransferase 15 U/L (4-50); Albumin Level 3.6 g/dL (3.5-5.1); Alkaline Phosphatase 83 U/L (38-126); Anion Gap 6 mmol/L (8-16); Aspartate Amino Transferase 25 U/L (17-59); Bilirubin,Total 0.2 mg/dL (0.2-1.3); Blood Urea Nitrogen 22 mg/dL (9-20); Calcium 8.9 mg/dL (8.4-10.2); Carbon Dioxide 27 mmol/L (22-30); Chloride 101 mmol/L (98-107); Estimated CRCL calculation 109 ml/min; Estimated Glomerular Filt Rate > 60; Glucose 102 mg/dL (65-110); Potassium 4.4 mmol/L (3.4-5.0); Sodium 134 mmol/L (137-145)
[2021-07-27 07:52] LABS: Hemoglobin 11.4 g/dL (14.0-18.0); Mean Corpuscular HGB Conc 34.5 g/dl (32-36); Mean Corpuscular Hemoglobin 31.4 pg (26-34); Mean Corpuscular Volume 90.9 fl (80-100); Mean Platelet Volume 9.7 fl (7.4-10.4); Platelet Count Result 234 k/mm3 (150-375); Red Blood Count 3.63 M/mm3 (4.6-6.20); Red Cell Distribution Width 13.5 % (11.5-14.5); White Blood Count 5.3 K/mm3 (4.5-10.0)
--- NOTE | 2021-07-27 08:25 | PM.IMPN ---
Progress Note: A&P Assessment and Plan (1) Acute hypercapnic respiratory failure: Code(s): J96.02 - Acute respiratory failure with hypercapnia Status: Acute Assessment and Plan: Mild hypercarbia on his ABG which is likely secondary to obesity hypoventilation syndrome PCO2 was not high enough to explain altered mental status Patient is alert awake at this time and have taken him off BiPAP and placed him on nasal cannula Continue BiPAP when he sleeps for his sleep apnea which has been ordered (2) Obstructive sleep apnea on CPAP: Code(s): G47.33 - Obstructive sleep apnea (adult) (pediatric); Z99.89 - Dependence on other enabling machines and devices Status: Acute Assessment and Plan: Home CPAP ordered at night and p.r.n. during the day for naps. Patient is wearing it in the hospital as advised (3) Sinus pause: Code(s): I45.5 - Other specified heart block Status: Acute Assessment and Plan: Patient had multiple sinus pauses in range of 4 seconds with the longest up to 11 seconds Cardiology is following Continue telemetry monitoring Electrolytes unremarkable but replace potassium which is low normal EKG shows sinus rhythm with first-degree AV block Management deferred to Cardiology as patient may need pacemaker (4) Encephalopathy: Code(s): G93.40 - Encephalopathy, unspecified Status: Acute Assessment and Plan: Unknown etiology at this time and has now completely resolved Patient now is alert oriented x3 and following commands and moving all 4 extremities Possibility the patient had a seizure and was postictal or could be medication related His TSH was normal an ABG reviewed I checked ammonia level and it was normal Continue to monitor at this time (5) Urinary retention: Code(s): R33.9 - Retention of urine, unspecified Status: Acute Assessment and Plan: Patient had a straight cath done earlier in the ER and he was encephalopathy He does have history of BPH and I have resumed both finasteride and tamsulosin Now he is alert and awake and is able to urinate. (6) Seizure disorder: Code(s): G40.909 - Epilepsy, unspecified, not intractable, without status epilepticus Status: Acute Assessment and Plan: Patient has history of seizure disorder and is supposed to be on phenytoin and Keppra. His phenytoin level was low and Keppra level is pending so not sure regarding compliance Continue Dilantin and Keppra at home doses at this time Seizure precaution P.r.n. Ativan (7) Lower extremity edema: Code(s): R60.0 - Localized edema Status: Acute Assessment and Plan: Chronic Compression stockings ordered Resume Lasix and potassium chloride (8) Infected abrasion of skin of left index finger: Code(s): S60.411A - Abrasion of left index finger, initial encounter; L08.9 - Local infection of the skin and subcutaneous tissue, unspecified Status: Acute Assessment and Plan: On IV antibiotics getting better. Additional Plan 07/24/2021 Patient is still requiring the use of BiPAP. Has mild shortness of breath no chest pain. Plan is to continue current plan of care and treatment. Consult noted. Increase activity as tolerated. Put Apnea Link tonight and CPAP for use as outpatient. 07/25/2021 Patient is clinically slightly better today plan is to continue current treatment. Continue with CPAP and oxygen. Increase activity as tolerated. visual coordinator consulted to arrange BIPAP 07/26/2021 Patient is still requiring BiPAP at night. Gradually getting better. Left finger infection is also better. Left finger culture shows Gram-positive in clusters. Sensitivity to follow. Plan is to continue current plan of care and treatment. visual coordinator consult for possible arrangement of BiPAP and halfway. 07/27/2021 Patient is clinically slightly better today plan is to continue current treatment. Continue wit
[2021-07-27] MEDS: POTASSIUM CHLORIDE 10 MEQ TABLET.ER PO (08:31)
[2021-07-27] MEDS: FINASTERIDE 5 MG TABLET PO (08:32)
[2021-07-27] MEDS: busPIRone HCL 5 MG TABLET 15 MG PO ×3 (08:32→16:40)
[2021-07-27] MEDS: FUROSEMIDE 40 MG TABLET PO (08:33)
[2021-07-27] MEDS: TAMSULOSIN HCL 0.4 MG CAPSULE PO (08:33)
[2021-07-27] MEDS: ENOXAPARIN 40 MG/0.4 ML SYRINGE SUB-Q (08:33)
[2021-07-27] MEDS: PHENYTOIN SODIUM 100 MG EXTENDED RELEASE CAP 200 MG PO ×2 (08:34→21:32)
[2021-07-27] MEDS: HYDROCORTISONE ACETATE 25 MG SUPPOSITORY RECTAL ×2 (08:34→21:32)
[2021-07-27] MEDS: LORATADINE 10 MG TABLET PO (08:34)
[2021-07-27] MEDS: polyethylene glycoL 3350 17 GM POWD.PACK PO (08:34)
--- NOTE | 2021-07-27 09:40 | PM.PNCARD ---
Progress Note: A&P Assessment and Plan (1) Sick sinus syndrome: Code(s): I49.5 - Sick sinus syndrome Status: Acute Assessment and Plan: Evidence for sick sinus syndrome given severely prolonged pauses nearly 12 seconds. Loop recorder placed Wednesday. No significant pauses overnight. We have ongoing concerns and he may require if he experiences further prolonged pauses and or higher grade AV block. Hence, loop recorder implantation as matter of safety and further evaluation. Patient should follow-up with Dr. Raya as an outpatient (2) Sinus pause: Code(s): I45.5 - Other specified heart block Status: Acute Assessment and Plan: Chronic history of asymptomatic pauses previously associated overnight and or with noncompliance with CPAP/BiPAP. No documented history of high-grade AV block or complete heart block. However, sinus pause up to 11.7 seconds during this hospital concerning. Continue telemetry, avoid all AV ga blocking agents. At this time, no other clear reversible causes such as thyroid disorder, electrolyte abnormalities for medications known to significantly resulting bradycardia. (3) YURIDIA (obstructive sleep apnea): Code(s): G47.33 - Obstructive sleep apnea (adult) (pediatric) Status: Acute Assessment and Plan: Critically important he is compliant with CPAP/BiPAP. apnea link severely abnormal HIDA 36. (4) Edema: Qualifiers: Edema type: localized Qualified Code(s): R60.0 - Localized edema Code(s): R60.9 - Edema, unspecified Status: Acute Assessment and Plan: Chronic longstanding edema likely venous insufficiency as opposed to decompensated heart failure. Continue diuresis monitor electrolytes and renal function. Elevate legs at rest, lower extremity compression stockings. Dietary sodium restriction. Continue Lasix 40 mg daily. (5) Altered mental status: Code(s): R41.82 - Altered mental status, unspecified Status: Acute Assessment and Plan: Improved with BiPAP. Rule out infectious contributions. Antibiotics per primary service. CT without evidence of stroke. (6) Cerebral palsy: Qualifiers: Cerebral palsy type: unspecified type Qualified Code(s): G80.9 - Cerebral palsy, unspecified Code(s): G80.9 - Cerebral palsy, unspecified Status: Chronic Assessment and Plan: Chronic. Per primary service. (7) Seizure disorder: Code(s): G40.909 - Epilepsy, unspecified, not intractable, without status epilepticus Status: Acute Assessment and Plan: Defer to primary service and Neurology. Subjective Date/time seen: 07/27/21 09:40 Interval history: Patient is a 61-year-old male with a history of cerebral palsy, intellectual disability, seizure disorder obstructive sleep apnea CPAP, history of sinus pauses who resides at [facility] and was transported to emergency department by EMS due to altered mental status and inability to stay awake Date of service 07/27/2021: Feels good. No chest pain, shortness of breath. Review of Systems Review of Systems: All systems reviewed & are unremarkable except as noted in HPI and below Constitutional: Constitutional: Reports as per HPI, Reports no additional constitutional complaints and Reports fatigue Eyes: Eyes: Reports as per HPI and Reports no additional eye complaints ENT: Reports system reviewed and no additional complaints, except as documented and Reports as per HPI Cardiovascular: Cardiovascular: Reports as per HPI, Reports no additional cardiovascular complaints, Denies chest pain, Reports pedal edema, Reports leg edema, Reports palpitations and Denies dyspnea Respiratory: Respiratory: Reports as per HPI, Reports no additional respiratory complaints, Denies hemoptysis and Denies dyspnea Gastrointestinal: Gastrointestinal: Reports as per HPI, Reports no additional gastrointestinal complaints, Denies abdom
[2021-07-27] MEDS: PHENYTOIN SODIUM 100 MG EXTENDED RELEASE CAP PO (16:40)
[2021-07-28] VITALS (11 sets, daily range): BP systolic 118–156; BP diastolic 70–77; PULSE 66–80; RESP 18–20; TEMP 36.1–36.7; O2SAT 97–99
[2021-07-28] MEDS: levETIRAcetam 500 MG TABLET 1000 MG PO ×3 (06:22→21:04)
[2021-07-28] MEDS: POTASSIUM CHLORIDE 10 MEQ TABLET.ER PO (08:22)
[2021-07-28] MEDS: ENOXAPARIN 40 MG/0.4 ML SYRINGE SUB-Q (08:22)
[2021-07-28] MEDS: busPIRone HCL 5 MG TABLET 15 MG PO ×3 (08:22→16:49)
[2021-07-28] MEDS: FINASTERIDE 5 MG TABLET PO (08:22)
[2021-07-28] MEDS: FUROSEMIDE 40 MG TABLET PO (08:23)
[2021-07-28] MEDS: TAMSULOSIN HCL 0.4 MG CAPSULE PO (08:23)
[2021-07-28] MEDS: PHENYTOIN SODIUM 100 MG EXTENDED RELEASE CAP 200 MG PO ×2 (08:23→20:23)
[2021-07-28] MEDS: polyethylene glycoL 3350 17 GM POWD.PACK PO (08:23)
[2021-07-28] MEDS: LORATADINE 10 MG TABLET PO (08:23)
[2021-07-28] MEDS: HYDROCORTISONE ACETATE 25 MG SUPPOSITORY RECTAL ×2 (08:24→20:23)
--- NOTE | 2021-07-28 08:27 | PM.PNCARD ---
Progress Note: A&P Assessment and Plan (1) Sick sinus syndrome: Code(s): I49.5 - Sick sinus syndrome Status: Acute Assessment and Plan: Evidence for sick sinus syndrome given severely prolonged pauses nearly 12 seconds. Loop recorder placed Wednesday. No significant pauses noted on telemetry overnight - longest pause 2.53 seconds. We have ongoing concerns and he may require PPM if he experiences further prolonged pauses and or higher grade AV block. Hence, loop recorder implantation as matter of safety and further evaluation. Patient should follow-up with Dr. Raya as an outpatient (2) Sinus pause: Code(s): I45.5 - Other specified heart block Status: Acute Assessment and Plan: Chronic history of asymptomatic pauses previously associated overnight and or with noncompliance with CPAP/BiPAP. No documented history of high-grade AV block or complete heart block. However, sinus pause up to 11.7 seconds during this hospital concerning. Continue telemetry, avoid all AV ga blocking agents. At this time, no other clear reversible causes such as thyroid disorder, electrolyte abnormalities for medications known to significantly resulting bradycardia. (3) YURIDIA (obstructive sleep apnea): Code(s): G47.33 - Obstructive sleep apnea (adult) (pediatric) Status: Acute Assessment and Plan: Critically important he is compliant with CPAP/BiPAP. apnea link severely abnormal HIDA 36. (4) Edema: Qualifiers: Edema type: localized Qualified Code(s): R60.0 - Localized edema Code(s): R60.9 - Edema, unspecified Status: Acute Assessment and Plan: Chronic longstanding edema likely venous insufficiency as opposed to decompensated heart failure. Continue diuresis monitor electrolytes and renal function. Improving. Elevate legs at rest, lower extremity compression stockings. Dietary sodium restriction. Continue Lasix 40 mg daily. (5) Altered mental status: Code(s): R41.82 - Altered mental status, unspecified Status: Acute Assessment and Plan: Improved with BiPAP. Rule out infectious contributions. Antibiotics per primary service. CT without evidence of stroke. (6) Cerebral palsy: Qualifiers: Cerebral palsy type: unspecified type Qualified Code(s): G80.9 - Cerebral palsy, unspecified Code(s): G80.9 - Cerebral palsy, unspecified Status: Chronic Assessment and Plan: Chronic. Per primary service. (7) Seizure disorder: Code(s): G40.909 - Epilepsy, unspecified, not intractable, without status epilepticus Status: Acute Assessment and Plan: Defer to primary service and Neurology. Subjective Date/time seen: 07/28/21 08:27 Interval history: Patient is a 61-year-old male with a history of cerebral palsy, intellectual disability, seizure disorder obstructive sleep apnea CPAP, history of sinus pauses who resides at [place] and was transported to emergency department by EMS due to altered mental status and inability to stay awake Date of service 07/27/2021: Feels good. No chest pain, shortness of breath. Date of service 07/28/2021: Continues to feel well. No complaints. Denies chest pain, shortness of breath. No pain at loop insertion site Review of Systems Review of Systems: All systems reviewed & are unremarkable except as noted in HPI and below Constitutional: Constitutional: Reports as per HPI, Reports no additional constitutional complaints and Reports fatigue Eyes: Eyes: Reports as per HPI and Reports no additional eye complaints ENT: Reports system reviewed and no additional complaints, except as documented and Reports as per HPI Cardiovascular: Cardiovascular: Reports as per HPI, Reports no additional cardiovascular complaints, Denies chest pain, Reports pedal edema, Reports leg edema, Reports palpitations and Denies dyspnea Respiratory: Respiratory: Reports as per H
--- NOTE | 2021-07-28 10:20 | WPDNEURCNPN ---
Assessment and Plan Additional Plan 1. Epilepsy 2. Excessive somnolence the time of admission which has resolved 3. Restart his Dilantin what he has been taking at the residential services but recheck the level of Keppra and Dilantin again in 3 days Consult date: 07/28/21 HPI: Aries Patterson is a 61 year old male has been admitted to the hospital for the complaints of falling asleep received a call from the resident Services to evaluate him. Patient carries the diagnosis of cerebral palsy with intellectual disability, seizure disorder, anxiety, and obstructive sleep apnea on CPAP, benign prostatic hypertrophy, patient has had several admission at this institution he is a resident at [facility] and has been refusing CPAP and BiPAP for an unclear period of time and also has been somewhat excessively somnolent we were contacted mainly for his seizure medication. Old records were reviewed he carries the diagnosis of epilepsy and has been carrying Keppra 1000 mg t.i.d. in addition to phenytoin 200 mg in the morning 100 at 4:00 p.m. and 200 in the evening during the hospitalization here he has not had any seizures, his evaluation up until now includes a negative starts COVID on 08/10, most recent Keppra level 30.5, BMP with low sodium 134 and BUN of 22, BC without leukocytosis, head CT scan on - for any space-occupying lesion PMFSH Past Medical History Medical History Anxiety Basal cell carcinoma (BCC) of right side of nose (~2017) Benign prostatic hyperplasia Cerebral palsy With history of bilateral Achilles tendon (1972) and bilateral hamstring lengthening (1967). Chronic anemia Diastolic dysfunction Echocardiogram on 08/09/2020 showed normal left ventricular size and function with an EF of 60 to 65% and grade 1 diastolic dysfunction. Epilepsy Gastroesophageal reflux disease GI bleed (12/2020) Reflux esophagitis noted on EGD. Grade 3 hemorrhoids noted on colonoscopy. Grade III hemorrhoids (12/2020) Hypertriglyceridemia Intellectual disability Non-seasonal allergic rhinitis Obstructive sleep apnea on CPAP Osteopenia Primary generalized (osteo)arthritis Vitamin D deficiency Surgical History Surgical History History of basal cell carcinoma excision (~2017) History of colonoscopy with polypectomy History of laparoscopic cholecystectomy (01/2021) History of orthopedic surgery Status post bilateral hamstring and Achilles tendon lengthening. History of tonsillectomy Family History Family History Sibling Breast cancer Mother Pacemaker Hypertension Heart disease Social History Social History Social History: Resident of [facility]. He is essentially wheelchair bound but can transfer. Lifelong nonsmoker. No alcohol or illicit substance use. His sister, Isaac Riggs, is healthcare power of [employer]. Code status: Full code. Meds Home Medications and Allergies Home Medications Medication Instructions Recorded Confirmed Type phenytoin sodium extended 100 mg 200 mg PO .COMPLEX #150 cap 12/03/20 07/21/21 Rx capsule levetiracetam [Keppra] 1,000 mg PO TID 12/27/20 07/21/21 History potassium chloride 10 mEq See Rx Instructions .ROUTE 01/03/21 07/21/21 Rx capsule,extended release .COMPLEX #15 capsule finasteride [Proscar] 5 mg PO DAILY 01/04/21 07/21/21 History polyethylene glycol 3350 [Miralax] 17 g PO DAILY PRN 01/04/21 07/21/21 History loratadine 10 mg tablet 10 mg PO DAILY #30 tablet 03/03/21 07/21/21 Rx buspirone 15 mg tablet 15 mg PO TID #90 tablet 06/03/21 07/21/21 Rx tamsulosin 0.4 mg capsule 0.4 mg PO QAM #30 cap 07/01/21 07/21/21 Rx ergocalciferol (vitamin D2) See Rx Instructions .ROUTE .COMPLEX 07/21/21 07/21/21 History [Vitamin D2] ferrous sulfate, dried [Slow 160 mg PO DAILY 0
--- NOTE | 2021-07-28 13:04 | PM.IMPN ---
Progress Note: A&P Assessment and Plan (1) Acute hypercapnic respiratory failure: Code(s): J96.02 - Acute respiratory failure with hypercapnia Status: Acute Assessment and Plan: Currently being evaluated apnea/ hypopnea symptoms versus COPD.Mild hypercarbia on his ABG which is likely secondary to obesity hypoventilation syndrome. PCO2 was not high enough to explain altered mental status Patient is alert awake at this time And saturating mid to high 90s on room air .Continue BiPAP P.r.n. during sleeps and naps for a presumed diagnosis of sleep apnea . Up pulmonary has been consulted. We appreciate their recommendations. (2) Obstructive sleep apnea on CPAP: Code(s): G47.33 - Obstructive sleep apnea (adult) (pediatric); Z99.89 - Dependence on other enabling machines and devices Status: Acute Assessment and Plan: Home CPAP ordered at night and p.r.n. during the day for naps. Patient is wearing it in the hospital as advised (3) Sinus pause: Code(s): I45.5 - Other specified heart block Status: Acute Assessment and Plan: Patient had multiple sinus pauses in range of 4 seconds with the longest up to 11 seconds . Cardiology was consulted. He presents evidence for sick sinus syndrome given severely prolonged pauses nearly 12 seconds. Loop recorder placed Wednesday. No significant pauses noted on telemetry overnight - longest pause 2.53 seconds. We have ongoing concerns and he may require PPM if he experiences further prolonged pauses and or higher grade AV block. Hence, loop recorder implantation as matter of safety and further evaluation. Patient should follow-up with Dr. Raya as an outpatient Continue telemetry monitoring. Electrolytes at target goal with potassium and magnesium at 4.4 and 2 respectively. (4) Encephalopathy: Code(s): G93.40 - Encephalopathy, unspecified Status: Acute Assessment and Plan: Patient carries a diagnosis of seizure disorder. He presented with altered mental status.Unknown etiology at this time and has now completely resolved. Neurology was consulted. We appreciate their recommendations. Recheck Dilantin level in 72 hours. Be given presentation with altered mental status, there is a consideration for a supratherapeutic Dilantin level. Patient now is alert oriented x3 and following commands and moving all 4 extremities Possibility the patient had a seizure and was postictal or could be medication related His TSH was normal an ABG reviewed I checked ammonia level and it was normal Continue to monitor at this time (5) Urinary retention: Code(s): R33.9 - Retention of urine, unspecified Status: Acute Assessment and Plan: Patient had a straight cath done earlier in the ER and he was encephalopathy He does have history of BPH and I have resumed both finasteride and tamsulosin Now he is alert and awake and is able to urinate. (6) Seizure disorder: Code(s): G40.909 - Epilepsy, unspecified, not intractable, without status epilepticus Status: Acute Assessment and Plan: Patient has history of seizure disorder and is supposed to be on phenytoin and Keppra. His phenytoin level was low and Keppra level is pending so not sure regarding compliance Continue Dilantin and Keppra at home doses at this time . Recheck Dilantin level in 72 hours per Neurology recommendation. Seizure precaution P.r.n. Ativan (7) Lower extremity edema: Code(s): R60.0 - Localized edema Status: Acute Assessment and Plan: Chronic Compression stockings ordered Continue Lasix and potassium chloride supplementation. (8) Infected abrasion of skin of left index finger: Code(s): S60.411A - Abrasion of left index finger, initial encounter; L08.9 - Local infection of the skin and subcutaneous tissue, unspecified Status: Acute Assessment and Plan: On IV antibiotics getting better. Additional Plan
--- NOTE | 2021-07-28 13:32 | PM.CNPUL ---
Assessment and Plan Assessment and plan (1) Obstructive sleep apnea on CPAP: Code(s): G47.33 - Obstructive sleep apnea (adult) (pediatric); Z99.89 - Dependence on other enabling machines and devices Status: Acute Assessment and Plan: 61-year-old man with history of cerebral palsy, intellectual disability, seizure disorder presented with increasing somnolence. During this hospitalization he was found to have cardiac pauses which were thought to be related to untreated sleep disordered breathing. The patient had Apnea link study in December which showed nocturnal desaturation and mostly obstructive apneas. A repeat apnea link study during this hospitalization showed again nocturnal oxyhemoglobin desaturation with mostly unclassified sleep apneas. Patient was treated with BiPAP support, 24/03 during this hospitalization. Currently he is not on any supplemental oxygen. It appears as though the patient has obstructive sleep apnea and the major problem is that he has not been compliant with his CPAP/BIPAP. CPAP titration in the sleep lab was recommended during a previous hospitalization in December of 2020. I would again recommend CPAP titration in the lab; in the meantime he should be bridged with BiPAP support, using lower pressures for example 12/8. (2) Acute hypercapnic respiratory failure: Code(s): J96.02 - Acute respiratory failure with hypercapnia Status: Acute (3) Sinus pause: Code(s): I45.5 - Other specified heart block Status: Acute (4) Sick sinus syndrome: Code(s): I49.5 - Sick sinus syndrome Status: Acute History of Present Illness History of Present Illness Consult date: 07/28/21 Chief complaint: Hypercarbic respiratory failure/somnolence Narrative: This 61-year-old man has multiple medical problems including cerebral palsy, intellectual disability, seizure disorder anxiety benign prostatic hyperplasia and sleep disorder breathing. The patient was admitted approximately 1 week ago because increasing somnolence. The patient lives at a local custodial. On admission he was found to have mild hypercapnia and was treated with BiPAP support initially in the intensive care unit and subsequently in a [facility]. Arterial blood gases on admission showed pH of 7.40 pCO2 46.3 pCO2 46.8 bicarbonate of 28.4. There was a question of this being mixed venous blood gas. On repeat blood gases the same day, pH was 7.37 and pCO2 was 51 and bicarbonate was essentially unchanged. During this hospitalization the patient was found to have cardiac pauses and was evaluated by Cardiology Services. Patient underwent apnea link with measurement of nocturnal saturation during this hospitalization. On the apnea link study, he was found to have oxyhemoglobin desaturation less than 88% lasting approximately over 100 minutes. He had an AHI of 36.5 with most of the apneas being unclassified ( 92%) and only 4% were obstructive apnea. Apnea link study in December of when he was again hospitalized, showed AHI of 75.7 with most of the apneas being obstructive (82%) with the unclassified apneas being 16%. Reportedly the patient was placed on CPAP/ BiPAP support following apnea link in December. According to reports from the custodial he has been refusing BiPAP. Patient had no other respiratory symptoms such as cough wheezing sputum production. He had lower extremity edema when he came in Review of Systems Review of Systems: Patient reports no significant weight changes. He has no orthopnea. He denied having nausea vomiting diarrhea constipation or abdominal pain. He had no urinary complaints. He has no joint pain. He uses a wheelchair to get around. [facility] Past Medical History Medical History Anxiety Basal cell carcinoma (BCC) of right side of nose (~2018) Benign prostatic hyperplasia Cerebral palsy With history of bilateral Achilles tendon (1972) and
[2021-07-28] MEDS: PHENYTOIN SODIUM 100 MG EXTENDED RELEASE CAP PO (16:49)
[2021-07-29] VITALS (11 sets, daily range): BP systolic 119–169; BP diastolic 68–76; PULSE 64–80; RESP 20–21; TEMP 35.7–36.2; O2SAT 95–100
[2021-07-29] MEDS: levETIRAcetam 500 MG TABLET 1000 MG PO ×3 (06:00→21:10)
--- NOTE | 2021-07-29 08:29 | PM.IMPN ---
Progress Note: A&P Assessment and Plan (1) Acute hypercapnic respiratory failure: Code(s): J96.02 - Acute respiratory failure with hypercapnia Status: Acute Assessment and Plan: Acute hypercapnic respiratory failure secondary to obstructive sleep apnea. Per Pulmonary recommendation, patient can be discharged on BiPAP with a setting 05/14. He will follow-up with pulmonary as an outpatient for additional adjustments. Patient is alert awake at this time And saturating mid to high 90s on room air .Continue BiPAP P.r.n. during sleeps and naps for a presumed diagnosis of sleep apnea . Up pulmonary has been consulted. We appreciate their recommendations. (2) Obstructive sleep apnea on CPAP: Code(s): G47.33 - Obstructive sleep apnea (adult) (pediatric); Z99.89 - Dependence on other enabling machines and devices Status: Acute Assessment and Plan: Home BIPAP ordered at night and p.r.n. during the day for naps. Patient is wearing it in the hospital as advised (3) Sinus pause: Code(s): I45.5 - Other specified heart block Status: Acute Assessment and Plan: Patient had multiple sinus pauses in range of 4 seconds with the longest up to 11 seconds . Cardiology was consulted. He presents evidence for sick sinus syndrome given severely prolonged pauses nearly 12 seconds. Loop recorder placed Wednesday. No significant pauses noted on telemetry overnight - longest pause 2.53 seconds. We have ongoing concerns and he may require PPM if he experiences further prolonged pauses and or higher grade AV block. Hence, loop recorder implantation as matter of safety and further evaluation. Patient should follow-up with Dr. Raya as an outpatient Continue telemetry monitoring. Electrolytes at target goal with potassium and magnesium at 4.4 and 2 respectively. (4) Encephalopathy: Code(s): G93.40 - Encephalopathy, unspecified Status: Acute Assessment and Plan: Patient carries a diagnosis of seizure disorder. He presented with altered mental status.Unknown etiology at this time and has now completely resolved. Neurology was consulted. We appreciate their recommendations. Recheck Dilantin level in 72 hours. Be given presentation with altered mental status, there is a consideration for a supratherapeutic Dilantin level. Patient now is alert oriented x3 and following commands and moving all 4 extremities Possibility the patient had a seizure and was postictal or could be medication related His TSH was normal an ABG reviewed I checked ammonia level and it was normal Continue to monitor at this time (5) Urinary retention: Code(s): R33.9 - Retention of urine, unspecified Status: Acute Assessment and Plan: Patient had a straight cath done earlier in the ER and he was encephalopathy He does have history of BPH and I have resumed both finasteride and tamsulosin Now he is alert and awake and is able to urinate. (6) Seizure disorder: Code(s): G40.909 - Epilepsy, unspecified, not intractable, without status epilepticus Status: Acute Assessment and Plan: Patient has history of seizure disorder and is supposed to be on phenytoin and Keppra. His phenytoin level was low and Keppra level is pending so not sure regarding compliance Continue Dilantin and Keppra at home doses at this time . Recheck Dilantin level in 72 hours per Neurology recommendation. Seizure precaution P.r.n. Ativan (7) Lower extremity edema: Code(s): R60.0 - Localized edema Status: Acute Assessment and Plan: Chronic Compression stockings ordered Continue Lasix and potassium chloride supplementation. (8) Infected abrasion of skin of left index finger: Code(s): S60.411A - Abrasion of left index finger, initial encounter; L08.9 - Local infection of the skin and subcutaneous tissue, unspecified Status: Acute Assessment and Plan: On IV antibiotics get
[2021-07-29] MEDS: HYDROCORTISONE ACETATE 25 MG SUPPOSITORY RECTAL ×2 (08:39→21:11)
[2021-07-29] MEDS: LORATADINE 10 MG TABLET PO (08:40)
[2021-07-29] MEDS: FINASTERIDE 5 MG TABLET PO (08:40)
[2021-07-29] MEDS: POTASSIUM CHLORIDE 10 MEQ TABLET.ER PO (08:40)
[2021-07-29] MEDS: busPIRone HCL 5 MG TABLET 15 MG PO ×3 (08:40→17:04)
[2021-07-29] MEDS: FUROSEMIDE 40 MG TABLET PO (08:40)
[2021-07-29] MEDS: PHENYTOIN SODIUM 100 MG EXTENDED RELEASE CAP 200 MG PO ×2 (08:40→21:11)
[2021-07-29] MEDS: ENOXAPARIN 40 MG/0.4 ML SYRINGE SUB-Q (08:40)
[2021-07-29] MEDS: TAMSULOSIN HCL 0.4 MG CAPSULE PO (08:40)
--- NOTE | 2021-07-29 09:21 | PM.PNPUL ---
Progress Note: A&P Assessment and Plan (1) Acute hypercapnic respiratory failure: Code(s): J96.02 - Acute respiratory failure with hypercapnia Status: Acute Assessment and Plan: 61-year-old man with history of cerebral palsy, intellectual disability, seizure disorder presented with increasing somnolence. During this hospitalization he was found to have cardiac pauses which were thought to be related to untreated sleep disordered breathing. The patient had Apnea link study in December which showed nocturnal desaturation and mostly obstructive apneas. A repeat apnea link study during this hospitalization showed again significant nocturnal oxyhemoglobin desaturation with mostly unclassified sleep apneas. Patient was treated with BiPAP support, 24/03 during this hospitalization. Currently he is not on any supplemental oxygen. It is unclear whether the patient had been on CPAP at the alf. The patient has obesity hypoventilation syndrome with significant comorbidity especially with sinus pauses which according to Cardiology are related to untreated sleep disordered breathing. Because the patient is at high risk for related to sinus pauses I would recommend patient bridged with noninvasive ventilatory support at home while waiting for CPAP titration in the sleep lab. It is expected the noninvasive ventilatory support will be better tolerated than BiPAP with high pressures he was placed on during this hospitalization. (2) YURIDIA (obstructive sleep apnea): Code(s): G47.33 - Obstructive sleep apnea (adult) (pediatric) Status: Acute (3) Sinus pause: Code(s): I45.5 - Other specified heart block Status: Acute Subjective Date/time seen: 07/29/21 09:21 patient has no new respiratory symptoms. Remains fully awake cooperative. Currently on room air. used BiPAP support last night. Review of Systems Review of Systems: All systems reviewed & are unremarkable except as noted in HPI and below (HPI) Exam Narrative: GENERAL APPEARANCE: Well developed, well nourished, alert and cooperative, and appears to be in no acute distress while sitting up in bed SKIN: Inspection of the skin reveals no rashes, ulcerations or petechiae. HEENT: Sclerae anicteric and conjunctivae pink and moist. Extraocular movements were intact and pupils were equal, round. The oral mucosa, hard and soft palate, tongue and posterior pharynx were normal. NECK: Supple. There was no thyroid enlargement, and no tenderness, or masses were felt. CHEST: Normal AP diameter and normal contour without any kyphoscoliosis. LUNGS: Auscultation of the lungs revealed normal breath sounds without any other adventitious sounds or rubs. CARDIAC: There was a regular rate and rhythm without any murmurs, gallops, rubs. ABDOMEN: Soft and nontender with normal bowel sounds. LYMPH NODES: No lymphadenopathy was appreciated in the neck. NEUROLOGIC: Alert and oriented x 3. Normal affect. Objective Data Vital Signs Vital Signs: Vital Signs - 24 hr 07/28/21 12:00 07/28/21 13:47 07/28/21 16:00 Temperature 36.1 C L Pulse Rate 77 72 80 Respiratory Rate 18 Blood Pressure 118/70 Pulse Oximetry 98 07/28/21 19:57 07/28/21 20:00 07/28/21 23:39 Temperature 36.7 C Pulse Rate 77 75 68 Respiratory Rate 20 20 19 Blood Pressure 132/77 Pulse Oximetry 99 99 97 07/28/21 23:40 07/29/21 00:00 07/29/21 01:40 Temperature Pulse Rate 65 67 Respiratory Rate 20 Blood Pressure Pulse Oximetry 99 95 07/29/21 04:00 07/29/21 04:38 Temperature 36.2 C L Pulse Rate 64 67 Respiratory Rate 20 Blood Pressure 169/68 H Pulse Oximetry 99 Intake/Output Intake/Output: Intake & Output 07/26/21 07/27/21 07/28/21 07/29/21 23:59 23:59 23:59 23:59 Intake Total 1500 2640 1540 240 Balance 1500 2640 1540 240 Meds/Results Medications: Active Medications Generic Name Dose Route Start Last Admin Trade Name Freq PRN Reaso
--- NOTE | 2021-07-29 09:39 | PCRCNOTE ---
HOME BIPAP UNIT- CONTACTED AND FAXED OVER NOTES/INSURANCE TO [facility]- CONTACT NANCY [phone] THIS WILL BEGIN APPROVAL PROCESS FOR HOME BIPAP. WILL UPDATE MIGEUL WITH ANY PROGRESS
--- NOTE | 2021-07-29 16:06 | PC.NURSE ---
On 07/09/21, the student, Delilah Morejon, provided care and completed [employer] documentation on this patient. I have reviewed the student's documentation and agree with the findings
[2021-07-29] MEDS: PHENYTOIN SODIUM 100 MG EXTENDED RELEASE CAP PO (17:03)
[2021-07-30] VITALS (11 sets, daily range): BP systolic 127–150; BP diastolic 65–72; PULSE 67–81; RESP 16–22; TEMP 36–36.4; O2SAT 93–100
[2021-07-30] MEDS: levETIRAcetam 500 MG TABLET 1000 MG PO ×3 (05:39→22:03)
--- NOTE | 2021-07-30 08:41 | PCNWS ---
Weekly nutritional screen. Patient is tolerating current diet with adequate intake. No weight loss reported. No nutritional needs at this time.
[2021-07-30] MEDS: ENOXAPARIN 40 MG/0.4 ML SYRINGE SUB-Q (08:54)
[2021-07-30] MEDS: busPIRone HCL 5 MG TABLET 15 MG PO ×3 (08:54→16:53)
[2021-07-30] MEDS: TAMSULOSIN HCL 0.4 MG CAPSULE PO (08:55)
[2021-07-30] MEDS: FINASTERIDE 5 MG TABLET PO (08:55)
[2021-07-30] MEDS: LORATADINE 10 MG TABLET PO (08:55)
[2021-07-30] MEDS: PHENYTOIN SODIUM 100 MG EXTENDED RELEASE CAP 200 MG PO ×2 (08:55→22:03)
[2021-07-30] MEDS: FUROSEMIDE 40 MG TABLET PO (08:55)
--- NOTE | 2021-07-30 09:09 | P.PNIM_ITS ---
Progress Note: A&P Assessment and Plan (1) Acute hypercapnic respiratory failure: Code(s): J96.02 - Acute respiratory failure with hypercapnia Status: Acute Assessment and Plan: Acute hypercapnic respiratory failure secondary to obstructive sleep apnea. Per Pulmonary recommendation, patient can be discharged on BiPAP with a setting 05/14. He will follow-up with pulmonary as an outpatient for additional adj ustments. Patient is alert awake at this time And saturating mid to high 90s on room air .Continue BiPAP P.r.n. during sleeps and naps for a presumed diagnosis of sleep apnea . Up pulmonary has been consulted. We appreciate their recommendations. (2) Obstructive sleep apnea on CPAP: Code(s): G47.33 - Obstructive sleep apnea (adult) (pediatric); Z99.89 - Dependence on other enabling machines and devices Status: Acute Assessment and Plan: Home BIPAP ordered at night and p.r.n. during the day for naps. Patient is wearing it in the hospital as advised (3) Sinus pause: Code(s): I45.5 - Other specified heart block Status: Acute Assessment and Plan: Patient had multiple sinus pauses in range of 4 seconds with the longest up to 11 seconds . Cardiology was consulted. He presents evidence for sick sinus syndrome given severely prolonged pauses nearly 12 seconds. Loop recorder placed Wednesday. No significant pauses noted on telemetry overnight - longest pause 2.53 seconds. We have ongoing concerns and he may require PPM if he experiences further prolonged pauses and or higher grade AV block. Hence, loop recorder implantation as matter of safety and further evaluation. Patient should follow- up with Dr. Raya as an outpatient Continue telemetry monitoring. Electrolytes at target goal with potassium and magnesium at 4.4 and 2 respectively. (4) Encephalopathy: Code(s): G93.40 - Encephalopathy, unspecified Status: Acute Assessment and Plan: Patient carries a diagnosis of seizure disorder. He presented with altered mental status.Unknown etiology at this time and has now completely resolved. Neurology was consulted. We appreciate their recommendations. Recheck Dilantin level in 72 hours. Be given presentation with altered mental status, there is a consideration for a supratherapeutic Dilantin level. Patient now is alert oriented x3 and following commands and moving all 4 extremities Possibility the patient had a seizure and was postictal or could be medication related His TSH was normal an ABG reviewed I checked ammonia level and it was normal Continue to monitor at this time (5) Urinary retention: Code(s): R33.9 - Retention of urine, unspecified Status: Acute Assessment and Plan: Patient had a straight cath done earlier in the ER and he was encephalopathy He does have history of BPH and I have resumed both finasteride and tamsulosin Now he is alert and awake and is able to urinate. (6) Seizure disorder: Code(s): G40.909 - Epilepsy, unspecified, not intractable, without status epilepticus Status: Acute Assessment and Plan: Patient has history of seizure disorder and is supposed to be on phenytoin and Keppra. His phenytoin level was low and Keppra level is pending so not sure regarding compliance Continue Dilantin and Keppra at home doses at this time . Recheck Dilantin level in 72 hours per Neurology recommendation. Seizure precaution P.r.n. Ativan (7) Lower extremity edema: Code(s): R60.0 - Localized edema Status: Acute Assessment and Plan: Chronic Compression stockings ordered
--- NOTE | 2021-07-30 09:29 | PM.PNPUL ---
Progress Note: A&P Assessment and Plan (1) Acute hypercapnic respiratory failure: Code(s): J96.02 - Acute respiratory failure with hypercapnia Status: Acute Assessment and Plan: 61-year-old man with history of cerebral palsy, intellectual disability, seizure disorder presented with increasing somnolence. During this hospitalization he was found to have cardiac pauses which were thought to be related to untreated sleep disordered breathing. The patient had Apnea link study in December which showed nocturnal desaturation and mostly obstructive apneas. A repeat apnea link study during this hospitalization showed again significant nocturnal oxyhemoglobin desaturation with mostly unclassified sleep apneas. Patient was treated with BiPAP support, 24/03 during this hospitalization. Currently he is not on any supplemental oxygen. The patient has chronic respiratory failure related to obesity hypoventilation syndrome with multiple comorbidities including cerebral palsy, and cardiac sinus pauses. The patient required BiPAP with high pressures and high backup rate during this hospitalization. Patient is a candidate for home noninvasive ventilatory support as this modality has the ability to provide guaranteed minute ventilation with auto EPAP, alarms and an internal battery that home BiPAP lacks the ability to provide. (2) YURIDIA (obstructive sleep apnea): Code(s): G47.33 - Obstructive sleep apnea (adult) (pediatric) Status: Acute (3) Sinus pause: Code(s): I45.5 - Other specified heart block Status: Acute Subjective Date/time seen: 07/30/21 09:29 Patient without any new respiratory symptoms. Remaining on room air. He slept well last night. Review of Systems Review of Systems: All systems reviewed & are unremarkable except as noted in HPI and below (HPI) Exam Narrative: GENERAL APPEARANCE: Well developed, well nourished, alert and cooperative, and appears to be in no acute distress while sitting up in bed SKIN: Inspection of the skin reveals no rashes, ulcerations or petechiae. HEENT: Sclerae anicteric and conjunctivae pink and moist. Extraocular movements were intact and pupils were equal, round. The oral mucosa, hard and soft palate, tongue and posterior pharynx were normal. NECK: Supple. There was no thyroid enlargement, and no tenderness, or masses were felt. CHEST: Normal AP diameter and normal contour without any kyphoscoliosis. LUNGS: Auscultation of the lungs revealed normal breath sounds without any other adventitious sounds or rubs. CARDIAC: There was a regular rate and rhythm without any murmurs, gallops, rubs. ABDOMEN: Soft and nontender with normal bowel sounds. LYMPH NODES: No lymphadenopathy was appreciated in the neck. NEUROLOGIC: Alert and oriented x 3. Normal affect. Objective Data Vital Signs Vital Signs: Vital Signs - 24 hr 07/29/21 12:00 07/29/21 13:37 07/29/21 16:00 Temperature 36.2 C L Pulse Rate 80 75 75 Respiratory Rate 20 Blood Pressure 127/68 Pulse Oximetry 100 07/29/21 20:00 07/29/21 20:18 07/29/21 23:11 Temperature 35.7 C L Pulse Rate 70 71 72 Respiratory Rate 20 21 H Blood Pressure 129/70 Pulse Oximetry 100 96 07/30/21 00:00 07/30/21 02:19 07/30/21 04:00 Temperature Pulse Rate 67 81 78 Respiratory Rate 22 H Blood Pressure Pulse Oximetry 95 07/30/21 04:40 07/30/21 08:00 Temperature 36.0 C L Pulse Rate 67 Respiratory Rate 22 H Blood Pressure 150/72 H Pulse Oximetry 96 96 Intake/Output Intake/Output: Intake & Output 07/27/21 07/28/21 07/29/21 07/30/21 23:59 23:59 23:59 23:59 Intake Total 2640 1540 1020 670 Balance 2640 1540 1020 670 Meds/Results Medications: Active Medications Generic Name Dose Route Start Last Admin Trade Name Freq PRN Reason Stop Dose Admin Atropine Sulfate 0.4 mg 07/21/21 21:28 Atropine Sulfate 1 Mg/Ml Vial IV PUSH PRN PRN Bradycardia Buspirone HCl
[2021-07-30 09:48] LABS: Hematocrit 34.1 % (42.0-52.0); Hemoglobin 11.9 g/dL (14.0-18.0); Mean Corpuscular HGB Conc 34.9 g/dl (32-36); Mean Corpuscular Hemoglobin 31.8 pg (26-34); Mean Corpuscular Volume 91.2 fl (80-100); Mean Platelet Volume 9.5 fl (7.4-10.4); Platelet Count Result 271 k/mm3 (150-375); Red Blood Count 3.74 M/mm3 (4.6-6.20); Red Cell Distribution Width 13.6 % (11.5-14.5); White Blood Count 5.2 K/mm3 (4.5-10.0)
[2021-07-30 10:00] LABS: Anion Gap 8 mmol/L (8-16); Blood Urea Nitrogen 21 mg/dL (9-20); Calcium 8.3 mg/dL (8.4-10.2); Carbon Dioxide 24 mmol/L (22-30); Chloride 103 mmol/L (98-107); Estimated CRCL calculation 123 ml/min; Estimated Glomerular Filt Rate > 60; Glucose 193 mg/dL (65-110); Potassium 4.1 mmol/L (3.4-5.0); Sodium 135 mmol/L (137-145)
--- NOTE | 2021-07-30 10:19 | PCRCNOTE ---
ORDERS SENT TO [facility] FOR TRILOGY. NANCY FROM [facility] WORKING ON INSURANCE AUTHORIZATION.
[2021-07-30] MEDS: POTASSIUM CHLORIDE 10 MEQ TABLET.ER PO (11:39)
[2021-07-30] MEDS: PHENYTOIN SODIUM 100 MG EXTENDED RELEASE CAP PO (16:53)
[2021-07-30] MEDS: HYDROCORTISONE ACETATE 25 MG SUPPOSITORY RECTAL (20:39)
[2021-07-31] VITALS (14 sets, daily range): BP systolic 126–139; BP diastolic 68–74; PULSE 50–82; RESP 17–22; TEMP 35.9–37.1; O2SAT 97–100
[2021-07-31] MEDS: levETIRAcetam 500 MG TABLET 1000 MG PO ×3 (05:41→21:09)
[2021-07-31] MEDS: ENOXAPARIN 40 MG/0.4 ML SYRINGE SUB-Q (07:52)
[2021-07-31] MEDS: busPIRone HCL 5 MG TABLET 15 MG PO ×3 (07:52→18:06)
[2021-07-31] MEDS: POTASSIUM CHLORIDE 10 MEQ TABLET.ER PO (07:52)
[2021-07-31] MEDS: PHENYTOIN SODIUM 100 MG EXTENDED RELEASE CAP 200 MG PO ×2 (07:53→21:09)
[2021-07-31] MEDS: FINASTERIDE 5 MG TABLET PO (07:53)
[2021-07-31] MEDS: TAMSULOSIN HCL 0.4 MG CAPSULE PO (07:53)
[2021-07-31] MEDS: FUROSEMIDE 40 MG TABLET PO (07:53)
[2021-07-31] MEDS: LORATADINE 10 MG TABLET PO (07:53)
[2021-07-31 08:31] LABS: Hematocrit 35.4 % (42.0-52.0); Hemoglobin 12.1 g/dL (14.0-18.0); Mean Corpuscular HGB Conc 34.2 g/dl (32-36); Mean Corpuscular Hemoglobin 31.5 pg (26-34); Mean Corpuscular Volume 92.2 fl (80-100); Mean Platelet Volume 9.4 fl (7.4-10.4); Platelet Count Result 274 k/mm3 (150-375); Red Blood Count 3.84 M/mm3 (4.6-6.20); Red Cell Distribution Width 13.4 % (11.5-14.5); White Blood Count 5.2 K/mm3 (4.5-10.0)
[2021-07-31 08:42] LABS: Anion Gap 7 mmol/L (8-16); Blood Urea Nitrogen 23 mg/dL (9-20); Calcium 8.4 mg/dL (8.4-10.2); Carbon Dioxide 27 mmol/L (22-30); Chloride 101 mmol/L (98-107); Estimated CRCL calculation 122 ml/min; Estimated Glomerular Filt Rate > 60; Glucose 95 mg/dL (65-110); Potassium 4.6 mmol/L (3.4-5.0); Sodium 135 mmol/L (137-145)
--- NOTE | 2021-07-31 14:16 | PM.PNCARD ---
Progress Note: A&P Assessment and Plan (1) Sick sinus syndrome: Code(s): I49.5 - Sick sinus syndrome Status: Acute Assessment and Plan: Evidence for sick sinus syndrome given severely prolonged pauses nearly 12 seconds. Loop recorder placed Wednesday. No significant pauses noted on telemetry overnight - longest pause 3.4 seconds. We have ongoing concerns and he may require PPM if he experiences further prolonged pauses and or higher grade AV block. Hence, loop recorder implantation as matter of safety and further evaluation. Patient should follow-up with Dr. Raya as an outpatient. OK for discharge from a cardiac standpoint. (2) Sinus pause: Code(s): I45.5 - Other specified heart block Status: Acute Assessment and Plan: Chronic history of asymptomatic pauses previously associated overnight and or with noncompliance with CPAP/BiPAP. No documented history of high-grade AV block or complete heart block. However, sinus pause up to 11.7 seconds during this hospital concerning. Continue telemetry, avoid all AV ga blocking agents. At this time, no other clear reversible causes such as thyroid disorder, electrolyte abnormalities for medications known to significantly resulting bradycardia. (3) YURIDIA (obstructive sleep apnea): Code(s): G47.33 - Obstructive sleep apnea (adult) (pediatric) Status: Acute Assessment and Plan: Critically important he is compliant with CPAP/BiPAP. apnea link severely abnormal HIDA 36. (4) Edema: Qualifiers: Edema type: localized Qualified Code(s): R60.0 - Localized edema Code(s): R60.9 - Edema, unspecified Status: Acute Assessment and Plan: Chronic longstanding edema likely venous insufficiency as opposed to decompensated heart failure. Continue diuresis monitor electrolytes and renal function. Improving. Elevate legs at rest, lower extremity compression stockings. Dietary sodium restriction. Continue Lasix 40 mg daily. (5) Altered mental status: Code(s): R41.82 - Altered mental status, unspecified Status: Acute Assessment and Plan: Improved with BiPAP. Rule out infectious contributions. Antibiotics per primary service. CT without evidence of stroke. (6) Cerebral palsy: Qualifiers: Cerebral palsy type: unspecified type Qualified Code(s): G80.9 - Cerebral palsy, unspecified Code(s): G80.9 - Cerebral palsy, unspecified Status: Chronic Assessment and Plan: Chronic. Per primary service. (7) Seizure disorder: Code(s): G40.909 - Epilepsy, unspecified, not intractable, without status epilepticus Status: Acute Assessment and Plan: Defer to primary service and Neurology. Subjective Date/time seen: 07/31/21 14:16 Cardiology follow up Patient is feeling well today and does not have any complaints. He is very eager to go home. Review of Systems Review of Systems: All systems reviewed & are unremarkable except as noted in HPI and below Constitutional: Constitutional: Reports as per HPI, Reports no additional constitutional complaints and Reports fatigue Eyes: Eyes: Reports as per HPI and Reports no additional eye complaints ENT: Reports system reviewed and no additional complaints, except as documented and Reports as per HPI Cardiovascular: Cardiovascular: Reports as per HPI, Reports no additional cardiovascular complaints, Denies chest pain, Reports pedal edema, Reports leg edema, Reports palpitations and Denies dyspnea Respiratory: Respiratory: Reports as per HPI, Reports no additional respiratory complaints, Denies hemoptysis and Denies dyspnea Gastrointestinal: Gastrointestinal: Reports as per HPI, Reports no additional gastrointestinal complaints, Denies abdominal pain and Denies hematochezia Genitourinary: Genitourinary: Reports no additional male genitourinary complaints, Reports as per HPI and Reports urinary hesitancy
--- NOTE | 2021-07-31 17:00 | PCRCNOTE ---
NIF measured at >-80.
[2021-07-31] MEDS: PHENYTOIN SODIUM 100 MG EXTENDED RELEASE CAP PO (18:06)
[2021-08-01] VITALS (13 sets, daily range): BP systolic 112–140; BP diastolic 65–72; PULSE 69–84; RESP 16–19; TEMP 36.1–36.3; O2SAT 94–100
[2021-08-01] MEDS: levETIRAcetam 500 MG TABLET 1000 MG PO ×3 (06:18→21:07)
[2021-08-01] MEDS: FUROSEMIDE 40 MG TABLET PO (08:29)
[2021-08-01] MEDS: busPIRone HCL 5 MG TABLET 15 MG PO ×3 (08:29→16:19)
[2021-08-01] MEDS: TAMSULOSIN HCL 0.4 MG CAPSULE PO (08:29)
[2021-08-01] MEDS: FINASTERIDE 5 MG TABLET PO (08:29)
[2021-08-01] MEDS: POTASSIUM CHLORIDE 10 MEQ TABLET.ER PO (08:29)
[2021-08-01] MEDS: PHENYTOIN SODIUM 100 MG EXTENDED RELEASE CAP 200 MG PO ×2 (08:30→21:07)
[2021-08-01] MEDS: HYDROCORTISONE ACETATE 25 MG SUPPOSITORY RECTAL (08:30)
[2021-08-01] MEDS: ENOXAPARIN 40 MG/0.4 ML SYRINGE SUB-Q (08:30)
[2021-08-01] MEDS: LORATADINE 10 MG TABLET PO (08:30)
[2021-08-01] MEDS: PHENYTOIN SODIUM 100 MG EXTENDED RELEASE CAP PO (16:20)
--- NOTE | 2021-08-01 23:38 | PCRCNOTE ---
Pt received a Trilogy today to take home with him when he is discharged. He is using it tonLukkin. His settings are as follows: Mode: AVAPS-AE AVAPS rate: 5.0 Vt: 600 Max P: 25 PS: 14-20 EPAP: 5-10 Breath rate: Auto Trigger: Auto-Trak Rise Time: 3 Pt has a large full face mask.
[2021-08-02] VITALS (12 sets, daily range): BP systolic 121–143; BP diastolic 71–88; PULSE 62–82; RESP 14–18; TEMP 36.2–36.6; O2SAT 97–100
[2021-08-02] MEDS: levETIRAcetam 500 MG TABLET 1000 MG PO ×3 (05:42→21:09)
[2021-08-02] MEDS: POTASSIUM CHLORIDE 10 MEQ TABLET.ER PO (08:03)
[2021-08-02] MEDS: ENOXAPARIN 40 MG/0.4 ML SYRINGE SUB-Q (08:03)
[2021-08-02] MEDS: FINASTERIDE 5 MG TABLET PO (08:04)
[2021-08-02] MEDS: busPIRone HCL 5 MG TABLET 15 MG PO ×3 (08:04→17:15)
[2021-08-02] MEDS: FUROSEMIDE 40 MG TABLET PO (08:05)
[2021-08-02] MEDS: LORATADINE 10 MG TABLET PO (08:05)
[2021-08-02] MEDS: PHENYTOIN SODIUM 100 MG EXTENDED RELEASE CAP 200 MG PO ×2 (08:06→21:09)
[2021-08-02] MEDS: TAMSULOSIN HCL 0.4 MG CAPSULE PO (08:07)
[2021-08-02] MEDS: PHENYTOIN SODIUM 100 MG EXTENDED RELEASE CAP PO (16:05)
--- NOTE | 2021-08-02 16:39 | PM.IMPN ---
Progress Note: A&P Assessment and Plan (1) Acute hypercapnic respiratory failure: Code(s): J96.02 - Acute respiratory failure with hypercapnia Status: Acute Assessment and Plan: Acute hypercapnic respiratory failure secondary to obstructive sleep apnea. Per Pulmonary recommendation, patient can be discharged on Trelegy once placement has been identified. He will follow-up with pulmonary as an outpatient for additional adjustments. Patient is alert awake at this time And saturating mid to high 90s on room air .Continue Trelegy at bedtime and P.r.n. during naps for a presumed diagnosis of sleep apnea . Pulmonary has been consulted. We appreciate their recommendations. (2) Obstructive sleep apnea on CPAP: Code(s): G47.33 - Obstructive sleep apnea (adult) (pediatric); Z99.89 - Dependence on other enabling machines and devices Status: Acute Assessment and Plan: Trelegy ordered at night and p.r.n. during the day for naps. Patient is wearing it in the hospital as advised (3) Sinus pause: Code(s): I45.5 - Other specified heart block Status: Acute Assessment and Plan: Patient had multiple sinus pauses in range of 4 seconds with the longest up to 11 seconds . Cardiology was consulted. He presents evidence for sick sinus syndrome given severely prolonged pauses nearly 12 seconds. Loop recorder placed Wednesday. No significant pauses noted on telemetry overnight - longest pause 2.53 seconds. We have ongoing concerns and he may require PPM if he experiences further prolonged pauses and or higher grade AV block. Hence, loop recorder implantation as matter of safety and further evaluation. Patient should follow-up with Dr. Raya as an outpatient Continue telemetry monitoring. Electrolytes at target goal with potassium and magnesium at 4.4 and 2 respectively. (4) Encephalopathy: Code(s): G93.40 - Encephalopathy, unspecified Status: Acute Assessment and Plan: Patient carries a diagnosis of seizure disorder. He presented with altered mental status.Unknown etiology at this time and has now completely resolved. Neurology was consulted. We appreciate their recommendations. Recheck Dilantin level in 72 hours. Be given presentation with altered mental status, there is a consideration for a supratherapeutic Dilantin level. Patient now is alert oriented x3 and following commands and moving all 4 extremities Possibility the patient had a seizure and was postictal or could be medication related His TSH was normal an ABG reviewed I checked ammonia level and it was normal Continue to monitor at this time (5) Urinary retention: Code(s): R33.9 - Retention of urine, unspecified Status: Acute Assessment and Plan: Patient had a straight cath done earlier in the ER and he was encephalopathy He does have history of BPH and I have resumed both finasteride and tamsulosin Now he is alert and awake and is able to urinate. (6) Seizure disorder: Code(s): G40.909 - Epilepsy, unspecified, not intractable, without status epilepticus Status: Acute Assessment and Plan: Patient has history of seizure disorder and is supposed to be on phenytoin and Keppra. His phenytoin level was low and Keppra level is pending so not sure regarding compliance Continue Dilantin and Keppra at home doses at this time . Recheck Dilantin level in 72 hours per Neurology recommendation. Seizure precaution P.r.n. Ativan (7) Lower extremity edema: Code(s): R60.0 - Localized edema Status: Acute Assessment and Plan: Chronic Compression stockings ordered Continue Lasix and potassium chloride supplementation. (8) Infected abrasion of skin of left index finger: Code(s): S60.411A - Abrasion of left index finger, initial encounter; L08.9 - Local infection of the skin and subcutaneous tissue, unspecified Status: Acute Assessment and Plan: On
[2021-08-03] VITALS (11 sets, daily range): BP systolic 121–150; BP diastolic 68–71; PULSE 64–87; RESP 14–19; TEMP 36.3–36.6; O2SAT 98–99
[2021-08-03] MEDS: levETIRAcetam 500 MG TABLET 1000 MG PO ×3 (05:48→20:54)
[2021-08-03] MEDS: FINASTERIDE 5 MG TABLET PO (08:17)
[2021-08-03] MEDS: ENOXAPARIN 40 MG/0.4 ML SYRINGE SUB-Q (08:17)
[2021-08-03] MEDS: POTASSIUM CHLORIDE 10 MEQ TABLET.ER PO (08:17)
[2021-08-03] MEDS: busPIRone HCL 5 MG TABLET 15 MG PO ×3 (08:17→17:19)
[2021-08-03] MEDS: LORATADINE 10 MG TABLET PO (08:18)
[2021-08-03] MEDS: FUROSEMIDE 40 MG TABLET PO (08:18)
[2021-08-03] MEDS: PHENYTOIN SODIUM 100 MG EXTENDED RELEASE CAP 200 MG PO ×2 (08:19→20:51)
[2021-08-03] MEDS: TAMSULOSIN HCL 0.4 MG CAPSULE PO (08:20)
--- NOTE | 2021-08-03 10:38 | P.PNIM_ITS ---
Progress Note: A&P Assessment and Plan (1) Acute hypercapnic respiratory failure: Code(s): J96.02 - Acute respiratory failure with hypercapnia Status: Acute Assessment and Plan: Acute hypercapnic respiratory failure secondary to obstructive sleep apnea. Per Pulmonary recommendation, patient can be discharged on Trelegy once placement has been identified. He will follow-up with pulmonary as an outpatient for additional adjustments. Patient is alert awake at this time And saturating mid to high 90s on room air .Continue Trelegy at bedtime and P.r.n. during naps for a presumed diagnosis of sleep apnea . Pulmonary has been consulted. We appreciate their recommendations. (2) Obstructive sleep apnea on CPAP: Code(s): G47.33 - Obstructive sleep apnea (adult) (pediatric); Z99.89 - Dependence on other enabling machines and devices Status: Acute Assessment and Plan: Trelegy ordered at night and p.r.n. during the day for naps. Patient is wearing it in the hospital as advised (3) Sinus pause: Code(s): I45.5 - Other specified heart block Status: Acute Assessment and Plan: Patient had multiple sinus pauses in range of 4 seconds with the longest up to 11 seconds . Cardiology was consulted. He presents evidence for sick sinus syndrome given severely prolonged pauses nearly 12 seconds. Loop recorder placed Wednesday. No significant pauses noted on telemetry overnight - longest pause 2.53 seconds. We have ongoing concerns and he may require PPM if he experiences further prolonged pauses and or higher grade AV block. Hence, loop recorder implantation as matter of safety and further evaluation. Patient should follow- up with Dr. Raya as an outpatient Continue telemetry monitoring. Electrolytes at target goal with potassium and magnesium at 4.4 and 2 respectively. (4) Encephalopathy: Code(s): G93.40 - Encephalopathy, unspecified Status: Acute Assessment and Plan: Patient carries a diagnosis of seizure disorder. He presented with altered mental status.Unknown etiology at this time and has now completely resolved. Neurology was consulted. We appreciate their recommendations. Recheck Dilantin level in 72 hours. Be given presentation with altered mental status, there is a consideration for a supratherapeutic Dilantin level. Patient now is alert oriented x3 and following commands and moving all 4 extremities Possibility the patient had a seizure and was postictal or could be medication related His TSH was normal an ABG reviewed I checked ammonia level and it was normal Continue to monitor at this time (5) Urinary retention: Code(s): R33.9 - Retention of urine, unspecified Status: Acute Assessment and Plan: Patient had a straight cath done earlier in the ER and he was encephalopathy He does have history of BPH and I have resumed both finasteride and tamsulosin Now he is alert and awake and is able to urinate. (6) Seizure disorder: Code(s): G40.909 - Epilepsy, unspecified, not intractable, without status epilepticus Status: Acute Assessment and Plan: Patient has history of seizure disorder and is supposed to be on phenytoin and Keppra. His phenytoin level was low and Keppra level is pending so not sure regarding compliance Continue Dilantin and Keppra at home doses at this time . Recheck Dilantin level in 72 hours per Neurology recommendation. Seizure precaution P.r.n. Ativan (7) Lower extremity edema: Code(s): R60.0 - Localized edema Status: Acute Assessment and Plan: Chronic Compression st
[2021-08-03] MEDS: PHENYTOIN SODIUM 100 MG EXTENDED RELEASE CAP PO (17:20)
[2021-08-03] MEDS: HYDROCORTISONE ACETATE 25 MG SUPPOSITORY RECTAL (20:51)
[2021-08-04] VITALS (7 sets, daily range): BP systolic 117–160; BP diastolic 64–85; PULSE 61–74; RESP 16–18; TEMP 36.4–36.6; O2SAT 98–100
[2021-08-04] MEDS: levETIRAcetam 500 MG TABLET 1000 MG PO ×3 (06:07→19:51)
[2021-08-04] MEDS: ENOXAPARIN 40 MG/0.4 ML SYRINGE SUB-Q (08:26)
[2021-08-04] MEDS: busPIRone HCL 5 MG TABLET 15 MG PO ×3 (08:26→17:28)
[2021-08-04] MEDS: TAMSULOSIN HCL 0.4 MG CAPSULE PO (08:27)
[2021-08-04] MEDS: FINASTERIDE 5 MG TABLET PO (08:27)
[2021-08-04] MEDS: LORATADINE 10 MG TABLET PO (08:27)
[2021-08-04] MEDS: PHENYTOIN SODIUM 100 MG EXTENDED RELEASE CAP 200 MG PO ×2 (08:27→19:51)
[2021-08-04] MEDS: FUROSEMIDE 40 MG TABLET PO (08:27)
--- NOTE | 2021-08-04 10:42 | PM.DS ---
DS: Admitting Diagnosis Discharge Date 08/04/21 Admitting Diagnosis A hypercarbic respiratory failure With obesity hypoventilation syndrome and obstructive sleep apnea DS: Discharge Diagnosis Discharge Diagnosis (1) Acute hypercapnic respiratory failure: Code(s): J96.02 - Acute respiratory failure with hypercapnia Status: Acute Assessment and Plan: Acute hypercapnic respiratory failure secondary to obstructive sleep apnea. Per Pulmonary recommendation, patient can be discharged on Trelegy once placement has been identified. He will follow-up with pulmonary as an outpatient for additional adjustments. Patient is alert awake at this time And saturating mid to high 90s on room air . (2) Obstructive sleep apnea on CPAP: Code(s): G47.33 - Obstructive sleep apnea (adult) (pediatric); Z99.89 - Dependence on other enabling machines and devices Status: Acute Assessment and Plan: Per Pulmonary see plan as above (3) Sinus pause: Code(s): I45.5 - Other specified heart block Status: Acute Assessment and Plan: The question related to hypercarbic respiratory failure. No events after putting on trilogy. Recommend following up with Cardiology. (4) Encephalopathy: Code(s): G93.40 - Encephalopathy, unspecified Status: Acute Assessment and Plan: Continue home medications. Dilantin levels will need to be monitored as outpatient. And adjustments will need to be made accordingly. (5) Urinary retention: Code(s): R33.9 - Retention of urine, unspecified Status: Acute Assessment and Plan: Patient has a catheter on discharge. This will be managed by snare. (6) Seizure disorder: Code(s): G40.909 - Epilepsy, unspecified, not intractable, without status epilepticus Status: Acute Assessment and Plan: See plan above (7) Lower extremity edema: Code(s): R60.0 - Localized edema Status: Acute Assessment and Plan: Continue Lasix.. (8) Infected abrasion of skin of left index finger: Code(s): S60.411A - Abrasion of left index finger, initial encounter; L08.9 - Local infection of the skin and subcutaneous tissue, unspecified Status: Acute Assessment and Plan: Improved. DS: Summary Hospital Course Hospital Course: Patient was admitted for hypercarbic respiratory failure. He is also had some pauses probably some sinus dysfunction. After correction of hypercarbic respiratory failure trilogy his sinus pauses improved. Patient does have a loop recorder. He will need to follow up with Cardiology and also follow up pulmonary outpatient. Also to note the patient had urinary retention will be discharged to SNF with [place] in place. Time Spent with Patient Time attestation: Total time spent providing and/or coordinating discharge services: Time spent: Greater than 30 minutes Exam Narrative: General: alert and oriented Psych: appropriate mood nad affect Eyes: PERRLA Neck: Trachea midline, no new lesions Skin: no changes Lungs: CTA Cardiac: Normal S1,S2, no MGR ABD: soft, nd, nt, nbs Ext: no new lesions, no cce Vasc: Pulses intact Discharge Plan Discharge Attending physician on discharge: Cholo Fowler Consulting providers: Shonda Larkin ; Olman Raya ; Jayson Matthews ; Rey Berrios Discharging Clinician: Cholo Fowler Anticipated Discharge Date/Time: 07/29/21 08:41 Patient Disposition: SNF Activity: may shower and no preference Diet: as tolerated Discharge Instructions: [facility] [address]
[2021-08-04 11:20] LABS: EDCOVIDSCREEN Negative (Negative)
[2021-08-04] MEDS: POTASSIUM CHLORIDE 10 MEQ TABLET.ER PO (13:20)
[2021-08-04] MEDS: PHENYTOIN SODIUM 100 MG EXTENDED RELEASE CAP PO (17:28)
--- NOTE | 2021-08-04 20:15 | PC.NURSE ---
ems here and transported patient to [place] via stretcher. trilogy and loop recorder transmitter sent with patient. sister with patient.
== END 2021-08-04 20:20 | DRG 261 ==
LOC: ANHED 12:44 → ANHIMU 14:53 → ANHICU 22:22 → ANH2MED 07-24 14:36 → ANHICU 08-05 10:12
PROVIDERS: Internal Medicine; Internal Medicine Cardiovascular Disease; Physician Assistant; Admitting Provider Hospitalist; Emergency Provider Emergency Medicine; PCP Nurse Practitioner Family; Visit Provider Chiropractor
PROC: 0JH632Z Insertion of Monitoring Device into Chest Subcutaneous Tissue and Fascia, Percutaneous Approach (ICD-10-PCS; CPT 33285; principal; 2021-07-25 10:00)
DX: I49.5 Sick sinus syndrome (principal); E66.2 Morbid (severe) obesity with alveolar hypoventilation; G93.40 Encephalopathy, unspecified; Z68.34 Body mass index [BMI] 34.0-34.9, adult; I45.5 Other specified heart block; R40.0 Somnolence; G80.9 Cerebral palsy, unspecified; F79 Unspecified intellectual disabilities; Z20.822 Contact with and (suspected) exposure to COVID-19; E78.1 Pure hyperglyceridemia; I51.89 Other ill-defined heart diseases; G40.909 Epilepsy, unspecified, not intractable, without status epilepticus; D64.9 Anemia, unspecified; N40.1 Benign prostatic hyperplasia with lower urinary tract symptoms; R39.14 Feeling of incomplete bladder emptying; R33.8 Other retention of urine; K21.9 Gastro-esophageal reflux disease without esophagitis; M19.90 Unspecified osteoarthritis, unspecified site; M85.80 Other specified disorders of bone density and structure, unspecified site; F41.9 Anxiety disorder, unspecified; R60.0 Localized edema; S60.411A Abrasion of left index finger, initial encounter; L08.9 Local infection of the skin and subcutaneous tissue, unspecified; X58.XXXA Exposure to other specified factors, initial encounter; Z28.21 Immunization not carried out because of patient refusal; Z79.899 Other long term (current) drug therapy; Z85.828 Personal history of other malignant neoplasm of skin; Z88.2 Allergy status to sulfonamides; Z91.15 Patient's noncompliance with renal dialysis; Z98.890 Other specified postprocedural states; Z99.3 Dependence on wheelchair; Z99.89 Dependence on other enabling machines and devices
CPT/HCPCS: 33285; 36415; 36600; 70450; 71045; 80048; 80053; 80177; 80185; 80307; 81001; 82140; 82375; 82805; 83050; 83605; 83735; 83880; 84443; 84484; 85025; 85027; 85610; 85730; 86140; 87040; 87070; 87086; 87147; 87186; 87205; 87426; 93005; 93970; 94003; 94660; 94762; 96372; 97110; 97162; 97166; 97530; 97535; 99291; A9270; C1764; C9803; G0378; J0456; J0461; J0696; J1650; J7040

== ENCOUNTER 2023-04-15 13:01 | Observation (INO) | payer MEDICARE, SELFPAY ==
[2023-04-15] VITALS (10 sets, daily range): BP systolic 130–146; BP diastolic 61–93; PULSE 80–92; RESP 15–23; TEMP 36.4–36.8; O2SAT 94–98; BMI 39.4
[2023-04-15 14:43] LABS: Basophils Percent Auto 0.4 % (0.2-1.2); Eosinophils Absolute Auto 0.1 K/mm3 (0-0.3); Hematocrit 36.7 % (42.0-52.0); Hemoglobin 12.9 g/dL (14.0-18.0); Immature Granulocyte Absolute 0.04 K/mm3 (0.00-0.031); Immature Granulocyte Percent A 0.5 % (0-0.5); Lymphocytes Absolute Auto 0.61 K/mm3 (0.9-3.2); Lymphocytes Percent Auto 7.3 % (18.3-44.2); Mean Corpuscular HGB Conc 35.1 g/dl (32-36); Mean Corpuscular Hemoglobin 32.3 pg (26-34); Mean Corpuscular Volume 91.8 fl (80-100); Mean Platelet Volume 9.8 fl (7.4-10.4); Monocytes Absolute Auto 0.8 K/mm3 (0.1-0.6); Neutrophils Absolute Auto 6.7 K/mm3 (1.3-6.7); Neutrophils Percent Auto 80.8 % (45.5-73.1); Platelet Count Result 200 k/mm3 (150-375); White Blood Count 8.3 K/mm3 (4.5-10.0)
[2023-04-15 14:54] LABS: Appearance Urine Clear (Clear); Bilirubin Urine Negative (Negative); Blood Urine Negative (Negative); Color Urine Yellow (Yellow); Glucose Urine UA Negative (Negative); Ketones Urine Negative (Negative); Leukocyte Esterase Ur Negative LEU/UL (Negative); Nitrate Urine Negative (Negative); Protein Urine Negative (Negative); Specific Grav Ur 1.008 (1.001-1.035); Urobilinogen Urine 0.2 mg/dL (<2.0); pH Urine 6.5 (5.0-9.0)
[2023-04-15 14:55] LABS: Alanine Aminotransferase 32 U/L (6-50); Albumin Level 4.7 g/dL (3.5-5.1); Alkaline Phosphatase 85 U/L (38-126); Aspartate Amino Transferase 37 U/L (17-59); Bilirubin,Total 0.6 mg/dL (0.2-1.3); Blood Urea Nitrogen 73 mg/dL (9-20); Calcium 9.5 mg/dL (8.4-10.2); Carbon Dioxide > 40 mmol/L (22-30); Chloride 88 mmol/L (98-107); Estimated CRCL calculation 49 ml/min; Estimated Glomerular Filt Rate 36; Glucose 107 mg/dL (65-110); Potassium 2.3 mmol/L (3.4-5.0); Sodium 140 mmol/L (137-145)
[2023-04-15 15:13] LABS: Add Urine Microscopic? NO
[2023-04-15] MEDS: POTASSIUM CHLORIDE 20 MEQ ER TABLET 40 MEQ PO (15:21)
[2023-04-15] MEDS: POTASSIUM CHLORIDE INJ 40 MEQ in SODIUM CHLORIDE 0.9% IV 500 ML 130 MEQ IVPB (15:34)
--- NOTE | 2023-04-15 15:53 | ED.GENADULT ---
HPI - General Adult General Chief complaint: Seizure Stated complaint: seizure Time Seen by Provider: 04/15/23 13:35 History of Present Illness HPI narrative: Patient is a 63-year-old male who presents ER after having a seizure at his facility. Patient with known seizure disorder. He takes Keppra as well as phenytoin. Patient reports that he has recently had his diuretics increased to remove fluid from his legs. He feels like he has a dry mouth. He has no chest pain or chest pressure. He denies any fevers chills or sweats. No additional complaints at this time. Related Data Home Medications Medication Instructions Recorded Confirmed finasteride 5 mg tablet (Proscar) 5 mg PO DAILY 01/04/21 04/15/23 ferrous sulfate, dried 160 mg (50 160 mg PO DAILY 07/21/21 04/15/23 mg iron) tablet,extended release (Slow Release Iron) ibuprofen 600 mg tablet 600 mg PO TID PRN pain 09/24/22 04/15/23 spironolactone 25 mg tablet 25 mg PO DAILY 09/24/22 04/15/23 torsemide 20 mg tablet 20 mg PO QAM 09/24/22 04/15/23 levetiracetam 1,000 mg tablet 1,000 mg PO TID 04/15/23 04/15/23 loratadine 10 mg tablet 10 mg PO DAILY 04/15/23 04/15/23 potassium chloride 10 mEq 10 meq PO QMWF 04/15/23 04/15/23 capsule,extended release Allergies Allergy/AdvReac Type Severity Reaction Status Date / Time Sulfa (Sulfonamide Allergy Unknown Hives Verified 04/15/23 13:09 Antibiotics) Review of Systems Review of Systems: All systems reviewed & are unremarkable except as noted in HPI and below Constitutional: Constitutional: Denies chills, Denies fatigue and Denies fever(s) Cardiovascular: Cardiovascular: Denies chest pain, Denies rapid heart rate and Denies radiating jaw, neck or arm pain Respiratory: Respiratory: Reports no additional respiratory complaints Gastrointestinal: Gastrointestinal: Reports no additional gastrointestinal complaints Musculoskeletal: Musculoskeletal: Denies arthralgias and Denies joint swelling Comments: Leg swelling Neurologic: Denies headache(s), Denies focal weakness and Denies numbness Comments: +seizure [facility] Past Medical History Medical History Anxiety Basal cell carcinoma (BCC) of right side of nose (~2017) Benign prostatic hyperplasia Cerebral palsy With history of bilateral Achilles tendon (1972) and bilateral hamstring lengthening (1967). Chronic anemia Diastolic dysfunction Echocardiogram on 08/09/2020 showed normal left ventricular size and function with an EF of 60 to 65% and grade 1 diastolic dysfunction. Epilepsy Gastroesophageal reflux disease GI bleed (12/2020) Reflux esophagitis noted on EGD. Grade 3 hemorrhoids noted on colonoscopy. Grade III hemorrhoids (12/2020) Hypertriglyceridemia Intellectual disability Non-seasonal allergic rhinitis Obstructive sleep apnea on CPAP Osteopenia Primary generalized (osteo)arthritis Vitamin D deficiency Surgical History Surgical History History of basal cell carcinoma excision (~2017) History of colonoscopy with polypectomy History of laparoscopic cholecystectomy (01/2021) History of orthopedic surgery Status post bilateral hamstring and Achilles tendon lengthening. History of tonsillectomy Family History Family History Sibling Breast cancer Mother Pacemaker Hypertension Heart disease Social History Social History Social History: Resident of [facility]. He is essentially wheelchair bound but can transfer. Lifelong nonsmoker. No alcohol or illicit substance use. His sister, Isaac Riggs, is healthcare power of tax associate attorney. Code status: Full code. Smoking status: Never smoker Alcohol intake: never Substance use: never Substance use type: does not use Lack of Transport
[2023-04-15 15:57] LABS: Carboxyhemoglobin 0.2 % THb (0-2.0); Fractional Inspired Oxygen 21 %; HCO3 ABG 33.7 mEq/l (22.0-26.0); Methemoglobin ABG 0.3 %THb (0-1.5); Oxygen Content ABG 17.6 %vol (16.0-22.0); Oxygen Saturation ABG 94.9 % (95.0-100.0); Oxyhemoglobin 92.6 % THb (90.0-100.0); PCO2 ABG 41.4 mmHg (35.0-45.0); PO2 ABG 66.2 mmHg (80.0-100.0); PO2 FiO2 Ratio Arterial Blood 3.15 %; Reduced Hemoglobin 6.9 %THb (0-5.0); Total Hemoglobin 13.5 g/dL (12.0-18.0)
[2023-04-15 15:58] LABS: Device ROOM AIR; Modified Allen's Test Pass; Site Drawn LEFT RADIAL; pH ABG 7.528 (7.350-7.450)
[2023-04-15 16:32] LABS: Phenytoin Dilantin 13 ug/mL (10-20)
--- NOTE | 2023-04-15 17:00 | ADMGEN ---
This patient, Aries Patterson, was admitted to 2 Medical Room 255-01. Patient/family oriented to hospital policies and general routines including ID bracelet, bed and alarms, visiting hours, pain management, procedures, bathroom and other care routines, personal items, smoking policy, room service/diet, and visiting hours. Information on how to activate the Rapid Response Team has been discussed. Patient/Family are encouraged to report perceived risks to care and to ask questions if they do not understand what they are told or what they should do.
[2023-04-15] MEDS: SODIUM CHLORIDE 0.9% IV 1,000 ML 125 ML IV CONT (20:59)
--- NOTE | 2023-04-15 22:56 | PM.IMHP ---
H&P: HPI History of Present Illness Date/Time: 04/15/23 22:56 Chief Complaint: recurrent seizure Narrative: Patient is a 63-year-old male who presents ER after having a seizure at his facility.? Patient with known seizure disorder.? He takes Keppra as well as phenytoin.? Patient reports that he has recently had his diuretics increased to remove fluid from his legs.? He feels like he has a dry mouth.? He has no chest pain or chest pressure.? He denies any fevers chills or sweats.? No additional complaints at this time.? he was evaluated and found to have hypokalemia and GLENNA, he was admitted for observation. He tole me that he is complying with home medications, denied any complaint currently. Review of Systems Review of Systems: All systems reviewed & are unremarkable except as noted in HPI and below PMFSH Past Medical History Medical History Anxiety Basal cell carcinoma (BCC) of right side of nose (~2017) Benign prostatic hyperplasia Cerebral palsy With history of bilateral Achilles tendon (1972) and bilateral hamstring lengthening (1967). Chronic anemia Diastolic dysfunction Echocardiogram on 08/09/2020 showed normal left ventricular size and function with an EF of 60 to 65% and grade 1 diastolic dysfunction. Epilepsy Gastroesophageal reflux disease GI bleed (12/2020) Reflux esophagitis noted on EGD. Grade 3 hemorrhoids noted on colonoscopy. Grade III hemorrhoids (12/2020) Hypertriglyceridemia Intellectual disability Non-seasonal allergic rhinitis Obstructive sleep apnea on CPAP Osteopenia Primary generalized (osteo)arthritis Vitamin D deficiency Surgical History Surgical History History of basal cell carcinoma excision (~2017) History of colonoscopy with polypectomy History of laparoscopic cholecystectomy (01/2021) History of orthopedic surgery Status post bilateral hamstring and Achilles tendon lengthening. History of tonsillectomy Family History Family History Sibling Breast cancer Mother Pacemaker Hypertension Heart disease Social History Social History Social History: Resident of [facility]. He is essentially wheelchair bound but can transfer. Lifelong nonsmoker. No alcohol or illicit substance use. His sister, Isaac Riggs, is healthcare power of contracts attorney. Code status: Full code. Smoking status: Never smoker Alcohol intake: never Substance use: never Substance use type: does not use Lack of Transportation: No Lack of Food: Never True Current Housing: I Have Housing Concerned About Future Housing: No Difficulty Paying Gas/Electric Bills: No Difficulty Paying for Meds: No Currently Unemployed: No Education: High School Diploma/GED Difficulty w/ Childcare or Family Care: No Spiritual care concerns: No Meds Home Medications and Allergies Home Medications Medication Instructions Recorded Confirmed Type finasteride 5 mg tablet (Proscar) 5 mg PO DAILY 01/04/21 04/15/23 History tamsulosin 0.4 mg capsule 0.4 mg PO QAM #30 caps 07/01/21 04/15/23 Rx ferrous sulfate, dried 160 mg (50 160 mg PO DAILY 07/21/21 04/15/23 History mg iron) tablet,extended release (Slow Release Iron) buspirone 15 mg tablet 15 mg PO TID #90 tabs 10/01/21 04/15/23 Rx ergocalciferol (vitamin D2) 1,250 See Rx Instructions .Route 11/24/21 04/15/23 Rx mcg (50,000 unit) capsule (Vitamin .COMPLEX #9 caps D2) phenytoin sodium extended 100 mg See Rx Instructions .Route 06/22/22 04/15/23 Rx capsule .COMPLEX #150 caps ibuprofen 600 mg tablet 600 mg PO TID PRN pain 09/24/22 04/15/23 History spironolactone 25 mg tablet 25 mg PO DAILY 09/24/22 04/15/23 History torsemide 20 mg tablet 20 mg PO QAM 09/24/22 04/15/23 History levetiracetam 1,000
[2023-04-15] MEDS: levETIRAcetam 1000MG/NACL100ML 1,000 MG/100 ML BAG 400 MG IVPB (23:14)
[2023-04-15] MEDS: KCL 20 MEQ/SW 100 ML 100 ML 50 MEQ IVPB (23:31)
[2023-04-15] MEDS: WATER FOR IRRIGATION, STERILE 1,000 ML BOTTLE 1000 ML (23:40)
[2023-04-15 23:44] LABS: Potassium 2.4 mmol/L (3.4-5.0)
[2023-04-16] VITALS (10 sets, daily range): BP systolic 140–152; BP diastolic 62–78; PULSE 71–97; RESP 16–22; TEMP 36.1–36.6; O2SAT 95–99
[2023-04-16] MEDS: POTASSIUM CHLORIDE 20 MEQ PACKET (FOR LIQUID) 40 MEQ PO (00:08)
[2023-04-16] MEDS: SODIUM CHLORIDE 0.9% IV 1,000 ML 125 ML IV CONT (04:57)
[2023-04-16] MEDS: levETIRAcetam 500 MG TABLET 1000 MG PO ×3 (05:40→21:48)
[2023-04-16 08:37] LABS: Basophils Percent Auto 0.5 % (0.2-1.2); Eosinophils Absolute Auto 0.1 K/mm3 (0-0.3); Eosinophils Percent Auto 1.2 % (0-4.4); Hematocrit 33.5 % (42.0-52.0); Hemoglobin 11.4 g/dL (14.0-18.0); Immature Granulocyte Absolute 0.03 K/mm3 (0.00-0.031); Immature Granulocyte Percent A 0.5 % (0-0.5); Lymphocytes Absolute Auto 0.92 K/mm3 (0.9-3.2); Mean Corpuscular Hemoglobin 32.8 pg (26-34); Mean Corpuscular Volume 96.3 fl (80-100); Mean Platelet Volume 10.2 fl (7.4-10.4); Monocytes Absolute Auto 0.9 K/mm3 (0.1-0.6); Monocytes Percent Auto 14.8 % (2.6-8.5); Neutrophils Absolute Auto 3.9 K/mm3 (1.3-6.7); Platelet Count Result 153 k/mm3 (150-375); Red Blood Count 3.48 M/mm3 (4.6-6.20); Red Cell Distribution Width 12.4 % (11.5-14.5); White Blood Count 5.8 K/mm3 (4.5-10.0)
[2023-04-16 08:51] LABS: Alanine Aminotransferase 25 U/L (6-50); Albumin Level 3.8 g/dL (3.5-5.1); Alkaline Phosphatase 63 U/L (38-126); Anion Gap 10 mmol/L (8-16); Aspartate Amino Transferase 34 U/L (17-59); Bilirubin,Total 0.6 mg/dL (0.2-1.3); Blood Urea Nitrogen 51 mg/dL (9-20); Calcium 8.4 mg/dL (8.4-10.2); Carbon Dioxide 31 mmol/L (22-30); Chloride 95 mmol/L (98-107); Estimated CRCL calculation 71 ml/min; Estimated Glomerular Filt Rate 56; Glucose 108 mg/dL (65-110); Potassium 3.1 mmol/L (3.4-5.0); Sodium 136 mmol/L (137-145)
[2023-04-16] MEDS: FERROUS SULFATE DRIED 142 MG TABCR PO (09:49)
[2023-04-16] MEDS: busPIRone HCL 5 MG TABLET 15 MG PO ×3 (09:50→17:43)
[2023-04-16] MEDS: SPIRONOLACTONE 25 MG TABLET PO (09:52)
[2023-04-16] MEDS: TAMSULOSIN HCL 0.4 MG CAPSULE PO (09:52)
[2023-04-16] MEDS: LORATADINE 10 MG TABLET PO (09:52)
[2023-04-16] MEDS: FINASTERIDE 5 MG TABLET PO (09:52)
[2023-04-16] MEDS: POTASSIUM CHLORIDE INJ 40 MEQ in SODIUM CHLORIDE 0.9% IV 500 ML 130 MEQ IVPB (09:55)
[2023-04-16] MEDS: POTASSIUM CHLORIDE 10 MEQ ER TABLET PO (09:59)
[2023-04-16] MEDS: ENOXAPARIN 40 MG/0.4 ML SYRINGE SUB-Q (09:59)
[2023-04-16] MEDS: ERGOCALCIFEROL 50,000 UNITS CAPSULE BY MOUTH (11:26)
--- NOTE | 2023-04-16 14:20 | PM.IMPN ---
Progress Note: A&P Assessment and Plan (1) Acute hypokalemia: Code(s): E87.6 - Hypokalemia Status: Acute Assessment and Plan: Patient presented with potassium of 2.3. Not sure why patient is losing potassium at this time due to only diuretic that is listed on his medication list is spironolactone which should not cause hypokalemia. Will investigate. Replenish potassium as necessary. Continue to monitor serial labs. (2) GLENNA (acute kidney injury): Code(s): N17.9 - Acute kidney failure, unspecified Status: Acute Assessment and Plan: On presentation patient's BUN and creatinine of 73/1.9. Continue IV fluids Monitor BMP (3) Recurrent seizures: Code(s): G40.909 - Epilepsy, unspecified, not intractable, without status epilepticus Status: Acute Assessment and Plan: Hx of seizure who stated that he complaint with home medication, evaluated and found to have GLENNA and hypokalemia, recently had increased dose of torsemide. Seizure could be secondary to undermedication, or may have been precipitated by GLENNA and electrolyte imbalance. Keppra and pheytoin level ordered Continue home medications for now. Subjective Date/time seen: 04/16/23 14:20 Interval history: Patient doing well today with no complaints at this time. Plan to continue to replace potassium. He does have pretty significant edema in his lower extremities which he states has been there most of his life. Will order compression stockings and elevate lower extremities. Exam Narrative: GENERAL: Comfortable, no acute distress HENMT: moist mucous membranes EYES: EOM intact b/l NECK: no lymphadenopathy RESPIRATORY: clear to auscultation CARDIO: RRR GI: soft, nontender, bowel sounds present SKIN: no rashes EXTREMITIES: Bilateral pedal edema Objective Data Vital Signs Vital Signs: Vital Signs - 24 hr 04/15/23 14:24 04/15/23 15:21 04/15/23 16:01 Temperature Pulse Rate 86 88 88 Respiratory Rate 21 H 17 21 H Blood Pressure 139/73 130/73 139/84 Pulse Oximetry 94 94 98 Oxygen Delivery 04/15/23 16:38 04/15/23 16:55 04/15/23 21:04 Temperature 98.3 F 97.6 F Pulse Rate 92 83 81 Respiratory Rate 18 18 16 Blood Pressure 140/93 H 145/76 H 130/61 Pulse Oximetry 98 95 95 Oxygen Delivery 04/15/23 20:01 04/16/23 00:00 04/15/23 23:40 Temperature Pulse Rate 80 93 81 Respiratory Rate 23 H Blood Pressure Pulse Oximetry 95 Oxygen Delivery Autopap 04/15/23 23:40 04/16/23 03:51 04/16/23 04:01 Temperature 97.8 F Pulse Rate 77 71 Respiratory Rate 22 H Blood Pressure 140/66 Pulse Oximetry 95 96 Oxygen Delivery Room Air 04/16/23 09:50 04/16/23 09:50 04/16/23 12:00 Temperature Pulse Rate 73 71 Respiratory Rate Blood Pressure Pulse Oximetry Oxygen Delivery Room Air Intake/Output Intake/Output: Intake & Output 04/13/23 04/14/23 04/15/23 04/16/23 23:59 23:59 23:59 23:59 Intake Total 540 2392 Balance 540 2392 Meds/Results Medications: Active Medications Generic Name Dose Route Start Last Admin Trade Name Freq PRN Reason Stop Dose Admin Acetaminophen 650 mg 04/15/23 15:55 Acetaminophen 325 Mg Tablet PO Q4H PRN Mild Pain (1-3) or Fever Hydrocodone Bitart/Acetaminophen 1 tab 04/15/23 15:55 Hydrocodone/Acetaminophen (*Crx) 5-325 Mg Tablet PO Q4H PRN Pain Rated 4-6 Buspirone HCl 15 mg 04/16/23 09:00 04/16/23 13:14 Buspirone Hcl 5 Mg Tablet PO 15 mg TID RICARDO Administration Enoxaparin Sodium 40 mg 04/16/23 09:00 04/16/23 09:59 Enoxaparin 40 Mg/0.4 Ml Syringe SUB-Q 40 mg DAILY RICARDO Administration Ergocalciferol 0 units 04/16/23 09:00 04/16/23 11:26 Ergocalciferol 50,000 Units Capsule BY MOUTH 50,000 units TuFr RICARDO Administration Ferrous Sulfate 142 mg 04/16/23 09:00 04/16/23 09:49 Ferrous Sulfate Dried 142 Mg Tabcr PO 142 mg
[2023-04-16] MEDS: PHENYTOIN SODIUM 100 MG EXTENDED RELEASE CAP PO (16:11)
[2023-04-16] MEDS: SODIUM CHLORIDE 0.9% IV 1,000 ML 75 ML IV CONT (18:15)
[2023-04-17] VITALS (11 sets, daily range): BP systolic 124–144; BP diastolic 68–74; PULSE 66–88; RESP 16–21; TEMP 36.4–36.6; O2SAT 95–98
[2023-04-17] MEDS: LORazepam INJ (*CRX) 2 MG/ML VIAL IV PUSH (03:24)
[2023-04-17 05:15] LABS: Hematocrit 31.7 % (42.0-52.0); Hemoglobin 10.9 g/dL (14.0-18.0); Mean Corpuscular HGB Conc 34.4 g/dl (32-36); Mean Corpuscular Hemoglobin 32.4 pg (26-34); Mean Corpuscular Volume 94.3 fl (80-100); Mean Platelet Volume 9.7 fl (7.4-10.4); Platelet Count Result 147 k/mm3 (150-375); Red Blood Count 3.36 M/mm3 (4.6-6.20); Red Cell Distribution Width 12.1 % (11.5-14.5); White Blood Count 6.9 K/mm3 (4.5-10.0)
[2023-04-17 05:30] LABS: Anion Gap 6 mmol/L (8-16); Blood Urea Nitrogen 29 mg/dL (9-20); Calcium 8.4 mg/dL (8.4-10.2); Carbon Dioxide 32 mmol/L (22-30); Chloride 99 mmol/L (98-107); Estimated CRCL calculation 83 ml/min; Estimated Glomerular Filt Rate > 60; Glucose 118 mg/dL (65-110); Potassium 3.2 mmol/L (3.4-5.0); Sodium 137 mmol/L (137-145)
[2023-04-17] MEDS: levETIRAcetam 500 MG TABLET 1000 MG PO ×3 (06:52→20:04)
[2023-04-17] MEDS: TAMSULOSIN HCL 0.4 MG CAPSULE PO (08:59)
[2023-04-17] MEDS: FINASTERIDE 5 MG TABLET PO (08:59)
[2023-04-17] MEDS: LORATADINE 10 MG TABLET PO (08:59)
[2023-04-17] MEDS: SPIRONOLACTONE 25 MG TABLET PO (08:59)
[2023-04-17] MEDS: FERROUS SULFATE DRIED 142 MG TABCR PO (08:59)
[2023-04-17] MEDS: ENOXAPARIN 40 MG/0.4 ML SYRINGE SUB-Q (09:00)
[2023-04-17] MEDS: busPIRone HCL 5 MG TABLET 15 MG PO ×3 (09:01→18:52)
[2023-04-17] MEDS: POTASSIUM CHLORIDE INJ 40 MEQ in SODIUM CHLORIDE 0.9% IV 500 ML 130 MEQ IVPB (10:09)
--- NOTE | 2023-04-17 14:20 | PM.IMPN ---
Progress Note: A&P Assessment and Plan (1) Acute hypokalemia: Code(s): E87.6 - Hypokalemia Status: Acute Assessment and Plan: Patient presented with potassium of 2.3. Not sure why patient is losing potassium at this time due to only diuretic that is listed on his medication list is spironolactone which should not cause hypokalemia. Will investigate. Replenish potassium as necessary. Continue to monitor serial labs. (2) GLENNA (acute kidney injury): Code(s): N17.9 - Acute kidney failure, unspecified Status: Acute Assessment and Plan: On presentation patient's BUN and creatinine of 73/1.9. IV fluids Discontinued Monitor BMP (3) Recurrent seizures: Code(s): G40.909 - Epilepsy, unspecified, not intractable, without status epilepticus Status: Acute Assessment and Plan: Hx of seizure who stated that he complaint with home medication, evaluated and found to have GLENNA and hypokalemia, recently had increased dose of torsemide. Seizure could be secondary to undermedication, or may have been precipitated by GLENNA and electrolyte imbalance. Keppra and pheytoin level ordered Continue home medications for now. Subjective Date/time seen: 04/17/23 14:20 Interval history: Patient doing well continue with no new complaints at this time. Encouraged compression stockings. Patient's edema appears to be lymphedema rather than cardiac related edema. Patient's potassium is improving. Will likely discharge tomorrow. Exam Narrative: GENERAL: Comfortable, no acute distress HENMT: moist mucous membranes, poor dentition EYES: EOM intact b/l NECK: no lymphadenopathy RESPIRATORY: clear to auscultation CARDIO: RRR GI: soft, nontender, bowel sounds present SKIN: no rashes EXTREMITIES: Bilateral pedal edema Objective Data Vital Signs Vital Signs: Vital Signs - 24 hr 04/16/23 16:04 04/16/23 20:00 04/16/23 22:00 Temperature 97.7 F Pulse Rate 78 97 Respiratory Rate 16 Blood Pressure 152/78 H Pulse Oximetry 98 Oxygen Delivery Room Air 04/16/23 23:20 04/16/23 23:20 04/17/23 03:35 Temperature Pulse Rate 83 80 Respiratory Rate 20 20 Blood Pressure Pulse Oximetry 95 98 95 Oxygen Delivery Autopap Room Air Autopap 04/16/23 20:00 04/17/23 00:00 04/17/23 04:00 Temperature Pulse Rate 82 83 81 Respiratory Rate Blood Pressure Pulse Oximetry Oxygen Delivery 04/17/23 06:52 04/17/23 12:24 Temperature 97.7 F Pulse Rate 72 Respiratory Rate 18 Blood Pressure 124/68 Pulse Oximetry 95 Oxygen Delivery Room Air Intake/Output Intake/Output: Intake & Output 04/14/23 04/15/23 04/16/23 04/17/23 23:59 23:59 23:59 23:59 Intake Total 540 4282 1080 Balance 540 4282 1080 Meds/Results Medications: Active Medications Generic Name Dose Route Start Last Admin Trade Name Freq PRN Reason Stop Dose Admin Acetaminophen 650 mg 04/15/23 15:55 Acetaminophen 325 Mg Tablet PO Q4H PRN Mild Pain (1-3) or Fever Hydrocodone Bitart/Acetaminophen 1 tab 04/15/23 15:55 Hydrocodone/Acetaminophen (*Crx) 5-325 Mg Tablet PO Q4H PRN Pain Rated 4-6 Buspirone HCl 15 mg 04/16/23 09:00 04/17/23 09:01 Buspirone Hcl 5 Mg Tablet PO 15 mg TID RICARDO Administration Enoxaparin Sodium 40 mg 04/16/23 09:00 04/17/23 09:00 Enoxaparin 40 Mg/0.4 Ml Syringe SUB-Q 40 mg DAILY RICARDO Administration Ergocalciferol 0 units 04/16/23 09:00 04/16/23 11:26 Ergocalciferol 50,000 Units Capsule BY MOUTH 50,000 units TuFr RICARDO Administration Ferrous Sulfate 142 mg 04/16/23 09:00 04/17/23 08:59 Ferrous Sulfate Dried 142 Mg Tabcr PO 142 mg DAILY RICARDO Administration Finasteride 5 mg 04/16/23 09:00 04/17/23 08:59 Finasteride 5 Mg Tablet PO 5 mg DAILY RICARDO Administration Ibuprofen 600 mg 04/15/23 22:50 Ibuprofen 600 Mg Tablet PO TID PRN mild pain
[2023-04-17 14:53] LABS: Potassium 3.6 mmol/L (3.4-5.0)
[2023-04-17] MEDS: PHENYTOIN SODIUM 100 MG EXTENDED RELEASE CAP PO (15:44)
[2023-04-17] MEDS: NYSTATIN 100,000 UNITS/ML SUSP 5 ML ORAL.SUSP PO ×2 (20:04→21:44)
[2023-04-18 00:04] VITALS: PULSE 96
[2023-04-18] MEDS: LORazepam INJ (*CRX) 2 MG/ML VIAL IV PUSH (00:31)
[2023-04-18 04:00] VITALS: PULSE 82
[2023-04-18 05:00] VITALS: BP 114/76; PULSE 86; RESP 18; TEMP 36.6; O2SAT 95
[2023-04-18] MEDS: levETIRAcetam 500 MG TABLET 1000 MG PO ×2 (05:38→14:04)
[2023-04-18 06:00] LABS: Hematocrit 32.6 % (42.0-52.0); Hemoglobin 10.8 g/dL (14.0-18.0); Mean Corpuscular HGB Conc 33.1 g/dl (32-36); Mean Corpuscular Hemoglobin 32.5 pg (26-34); Mean Corpuscular Volume 98.2 fl (80-100); Mean Platelet Volume 9.9 fl (7.4-10.4); Platelet Count Result 155 k/mm3 (150-375); Red Blood Count 3.32 M/mm3 (4.6-6.20); Red Cell Distribution Width 12.4 % (11.5-14.5); White Blood Count 6.3 K/mm3 (4.5-10.0)
[2023-04-18 06:12] LABS: Anion Gap 8 mmol/L (8-16); Blood Urea Nitrogen 24 mg/dL (9-20); Calcium 8.4 mg/dL (8.4-10.2); Carbon Dioxide 28 mmol/L (22-30); Chloride 101 mmol/L (98-107); Estimated CRCL calculation 101 ml/min; Estimated Glomerular Filt Rate > 60; Glucose 97 mg/dL (65-110); Potassium 3.5 mmol/L (3.4-5.0); Sodium 137 mmol/L (137-145)
[2023-04-18 08:03] VITALS: PULSE 73
[2023-04-18] MEDS: FINASTERIDE 5 MG TABLET PO (10:24)
[2023-04-18] MEDS: LORATADINE 10 MG TABLET PO (10:24)
[2023-04-18] MEDS: TAMSULOSIN HCL 0.4 MG CAPSULE PO (10:24)
[2023-04-18] MEDS: SPIRONOLACTONE 25 MG TABLET PO (10:24)
[2023-04-18] MEDS: FERROUS SULFATE DRIED 142 MG TABCR PO (10:24)
[2023-04-18] MEDS: ENOXAPARIN 40 MG/0.4 ML SYRINGE SUB-Q (10:24)
[2023-04-18] MEDS: busPIRone HCL 5 MG TABLET 15 MG PO ×2 (10:26→14:04)
--- NOTE | 2023-04-18 11:25 | PM.DS ---
DS: Admitting Diagnosis Discharge Date 04/18/23 Admitting Diagnosis GLENNA, hypokalemia DS: Discharge Diagnosis Discharge Diagnosis (1) Acute hypokalemia: Code(s): E87.6 - Hypokalemia Status: Acute (2) GLENNA (acute kidney injury): Code(s): N17.9 - Acute kidney failure, unspecified Status: Acute (3) Recurrent seizures: Code(s): G40.909 - Epilepsy, unspecified, not intractable, without status epilepticus Status: Acute DS: Summary Hospital Course Hospital Course: This is a 63-year-old male with a past medical history of seizure disorder, intellectual disability, lower extremity lymphedema the presented to the ED on 04/15/2023 Due to suspected seizure activity. Upon workup he was found to have hypokalemia with a potassium of 2.3 and an GLENNA. seizure activity could have been due to electrolyte imbalance or muscle rigidity due to hypokalemia. It was advised that he follow-up with his neurologist. Home medications remain the same. Potassium replenished. Patient was found to be on furosemide and torsemide which typically he should not be given together due to both being loop diuretics. Apparently patient got a new PCP and furosemide was added on to his daily regimen. I have discontinued both his furosemide and torsemide. Plan to have labs recheck in 3 days. Follow-up with PCP recommended. Due to patient's lower extremity edema appearing to be more lymphedema rather than pitting edema. It is recommended that he wears compression stockings and elevates his feet. Labs and vital signs are stable and he is medically clear for discharge at this time. Time Spent with Patient Time attestation: Total time spent providing and/or coordinating discharge services: Exam Narrative: GENERAL: Comfortable, no acute distress HENMT: moist mucous membranes, poor dentition EYES: EOM intact b/l NECK: no lymphadenopathy RESPIRATORY: clear to auscultation CARDIO: RRR GI: soft, nontender, bowel sounds present SKIN: no rashes EXTREMITIES: Bilateral pedal edema DS: Data Data Completed and Pending Labs on day of discharge: Labs from last 24 hours 04/18/23 04/17/23 05:37 14:34 WBC 6.3 RBC 3.32 L Hgb 10.8 L Hct 32.6 L MCV 98.2 MCH 32.5 MCHC 33.1 RDW 12.4 Plt Count 155 MPV 9.9 Sodium 137 Potassium 3.5 3.6 Chloride 101 Carbon Dioxide 28 Anion Gap 8 BUN 24 H Creatinine 0.90 Estim Creat Clear Calc 101 Estimated GFR > 60 Glucose 97 Calcium 8.4 Discharge Plan Discharge Attending physician on discharge: Clovis Lawrence Discharging Clinician: Nena Avila Patient Disposition: SD Correction/Asst Living Activity: as tolerated Diet: regular Discharge Instructions: Discontinue torsemide and potassium supplementation. Recheck labs in 3-5 days. Recommend compression stockings and elevation for lower extremity swelling. Follow up with your neurologist regarding seizure medication adjustment. Do not swim alone or participate in other similar activities without others nearby. No driving Home care: Please take medication exactly as directed. Do not drink alcohol or use any medication without talking to primary care provider Where Medical Alert pendant are bracelet alert others to your condition. When to seek medical attention: Seizure lasting more than 5 minutes Multiple seizures in a row no recovery of consciousness after seizure starts Call doctor immediately if: Seizure getting longer and worse Seizures are different from those you had the past Seizures strong enough to cause injury fever of 101.4 or higher Discharge disposition: Take medications as prescribed Monitor blood pressures Avoid social areas, you wear a mask when in social settings Encouraged to continue with yearly vaccinations Return to the emergency department if he developed sudden shortness of breath, chest pain, nausea, vomiting, upset stomach
[2023-04-18 12:01] VITALS: PULSE 83
[2023-04-18 13:24] LABS: SARS-CoV-2 RNA PCR Negative (Negative)
[2023-04-18 16:17] LABS: Levetiracetam Keppra 49.5 mcg/mL (6.0-46.0)
== END 2023-04-18 14:55 ==
LOC: ANHED 14:15 → ANH2MED 18:40
PROVIDERS: Internal Medicine Critical Care Medicine; Admitting Provider Student in an Organized Health Care Education/Training Program; Emergency Provider Emergency Medicine; PCP Nurse Practitioner Family; Visit Provider Internal Medicine
DX: E87.6 Hypokalemia (principal); N17.9 Acute kidney failure, unspecified; G40.909 Epilepsy, unspecified, not intractable, without status epilepticus; R60.0 Localized edema; Z99.3 Dependence on wheelchair; F41.9 Anxiety disorder, unspecified; G80.9 Cerebral palsy, unspecified; N40.0 Benign prostatic hyperplasia without lower urinary tract symptoms; D64.9 Anemia, unspecified; I51.89 Other ill-defined heart diseases; K21.9 Gastro-esophageal reflux disease without esophagitis; E78.1 Pure hyperglyceridemia; F79 Unspecified intellectual disabilities; J30.9 Allergic rhinitis, unspecified; G47.33 Obstructive sleep apnea (adult) (pediatric); M19.91 Primary osteoarthritis, unspecified site; M85.80 Other specified disorders of bone density and structure, unspecified site; E55.9 Vitamin D deficiency, unspecified; Z99.89 Dependence on other enabling machines and devices; Z79.1 Long term (current) use of non-steroidal anti-inflammatories (NSAID); Z79.899 Other long term (current) drug therapy; Z82.49 Family history of ischemic heart disease and other diseases of the circulatory system
CPT/HCPCS: 36415; 36600; 80048; 80053; 80177; 80185; 81003; 82375; 82805; 83050; 84132; 85025; 85027; 87635; 96365; 96366; 96372; 96374; 96375; 96376; 99285; A9270; G0378; J1650; J1953; J2060; J3480; J7030; J7040

== ENCOUNTER 2023-06-05 09:24 | Emergency (ER) | payer MEDICARE, SELFPAY ==
[2023-06-05] VITALS (7 sets, daily range): BP systolic 137–178; BP diastolic 70–92; PULSE 75–92; RESP 14–20; TEMP 36.1; O2SAT 96–100
--- NOTE | ~2023-06-05 | XR_ITS ---
EXAMINATION: XR chest 1V portable DATE: 06/05/2023 10:33 INDICATION: Shortness of breath. Cough. TECHNIQUE: A single frontal view of the chest was obtained. COMPARISON: Chest single view 05/31/2022, CT abdomen and pelvis 01/04/2021 FINDINGS: There is no pneumonia, pleural effusion, or pneumothorax. Cardiomegaly is noted. An electro jeannine implant overlies left chest. IMPRESSION: 1. Cardiomegaly. Reviewed, dictated and finalized at location A. RBERATORY SKIMMER IMPRESSION: 1. Cardiomegaly.
--- NOTE | ~2023-06-05 | US_ITS ---
EXAMINATION: US venous doppler [facility] DATE: 06/05/2023 14:50 INDICATION: elevated d dimer, BLE . TECHNIQUE: Grayscale images without and with compression and Doppler images of the bilateral lower ex tremity veins were obtained. COMPARISON: 07/22/2021 FINDINGS: Calf veins obscured by edema. The right common femoral vein, profunda (deep) femoral vein, femoral ve in, popliteal vein, and greater saphenous vein are patent. Calf veins obscured by edema The left common femoral vein, profunda (deep) femoral vein, femoral vei n, popliteal vein, and greater saphenous vein are patent. IMPRESSION: Calf veins obscured by edema. No DVT detected in the remaining bilateral lower extremity veins. Reviewed, dictated and finalized at location K. ICAL SERVICES DIRECTOR
--- NOTE | ~2023-06-05 | CT_ITS ---
EXAMINATION: CTA chest PE protocol DATE: 06/05/2023 11:56 INDICATION: Dyspnea. TECHNIQUE: Computed tomography angiography (CTA) of the chest was performed with 100 mL Omnipaque-350 intravenous contrast timed to evaluate the pulmonary arteries. Coronal maximum intensity projection 3D-reconstructions were created by the technologist. Automated exposure control and iterative reconst ruction technique were employed. The dose-length product was 1124.19 mGy-cm. COMPARISON: Chest CT 08/12/2020 FINDINGS: The lungs demonstrate mild atelectasis. No pleural effusion. The heart size is normal. No p ericardial effusion. There is no pulmonary embolus. There is a 2.9 x 2.3 cm pericardial cyst on the r ight. There are changes of cholecystectomy. There is cortical thinning of the kidneys. There is a 10 mm cyst in right kidney. There is an electronic implant in left anterior chest wall. There is a 7.4 x 3.9 cm subcutaneous lipoma in right posterior thorax. There is mild thoracic spondylosis. IMPRESSION: 1. No pulmonary embolus. Sensitivity is moderately decreased by motion artifact. Reviewed, dictated and finalized at location A. TICAL WORKER IMPRESSION: 1. No pulmonary embolus. Sensitivity is moderately decreased by motion artifact .
--- NOTE | 2023-06-05 09:59 | ECG_ITS ---
Measurements Intervals [place] Rate: 81 P: 37 WA: 257 QRS: 24 QRSD: 128 T: 23 QT: 386 QTc: 450 Interpretive Statements SINUS RHYTHM WITH FIRST DEGREE AV BLOCK RIGHT BUNDLE BRANCH BLOCK [120+ ms QRS DURATION, UPRIGHT V1, 40+ ms S IN I/aVL/V4/V5/V6] COMPARED TO ECG 07/21/2021 12:11:58 NO SIGNIFICANT CHANGES Electronically Signed On 06-06-2023 14:32:22 STAFF EDUCATOR by Shanika Beatty M.D.
--- NOTE | 2023-06-05 10:01 | ED.URI ---
HPI - URI/Sore Throat General Chief Complaint: Upper Respiratory Infection <Zoraida Nance PA-C - Last Filed: 06/05/23 15:39> Stated Complaint: cough <Zoraida Nance PA-C - Last Filed: 06/05/23 15:39> Time Seen by Provider: 06/05/23 09:43 <Zoraida Nance PA-C - Last Filed: 06/05/23 15:39> History of Present Illness HPI Narrative: 63-year-old male history of sick sinus syndrome, seizure disorder, YURIDIA requiring CPAP at night, cerebral palsy, lymphedema reports for evaluation from [facility] for a cough and wheezing since June 01. Patient states his cough is intermittently productive with green and clear phlegm. He reports with extensive lower extremity edema which he states has worsened when compared to his baseline. He was recently discharged from our hospital On 04/18 for an GLENNA and hypokalemia. Upon discharge, the patient's furosemide and torsemide were discontinued as it was felt his lower extremity edema was likely secondary to lymphedema. Patient is denying fever, chest pain, abdominal pain, nausea vomiting, diarrhea, dysuria. <Zoraida Nance PA-C - Last Filed: 06/05/23 15:39> Related Data Home Medications: Home Medications Medication Instructions Recorded Confirmed finasteride 5 mg tablet (Proscar) 5 mg PO DAILY 01/04/21 04/15/23 ferrous sulfate, dried 160 mg (50 160 mg PO DAILY 07/21/21 04/15/23 mg iron) tablet,extended release (Slow Release Iron) ibuprofen 600 mg tablet 600 mg PO TID PRN pain 09/24/22 04/15/23 spironolactone 25 mg tablet 25 mg PO DAILY 09/24/22 04/15/23 levetiracetam 1,000 mg tablet 1,000 mg PO TID 04/15/23 04/15/23 loratadine 10 mg tablet 10 mg PO DAILY 04/15/23 04/15/23 <PETE Eng Last Filed: 06/05/23 15:39> Allergies/Adverse Reactions: Allergies Allergy/AdvReac Type Severity Reaction Status Date / Time Sulfa (Sulfonamide Allergy Unknown Hives Verified 04/15/23 13:09 Antibiotics) <Zoraida Nance PA-C - Last Filed: 06/05/23 15:39> Review of Systems Review of Systems: CONSTITUTIONAL: Denies fever, chills, or sweats. EYES: Denies visual changes, redness, or discharge. ENT: Denies rhinorrhea, congestion, sore throat, or otalgia. CARDIOVASCULAR: see HPI RESPIRATORY: See HPI GASTROINTESTINAL: Denies abdominal pain, nausea, vomiting, or diarrhea. GENITOURINARY: Denies dysuria or hematuria. SKIN: Denies rash or itching. MUSCULOSKELETAL: Denies back pain, joint pain, or myalgia. NEUROLOGIC: Denies headache, numbness, or weakness. PSYCHIATRIC: Denies anxiety or depression. <Zoraida Nance PA-C - Last Filed: 06/05/23 15:39> [facility] Past Medical History Medical History: Medical History Anxiety Basal cell carcinoma (BCC) of right side of nose (~2017) Benign prostatic hyperplasia Cerebral palsy With history of bilateral Achilles tendon (1972) and bilateral hamstring lengthening (1967). Chronic anemia Diastolic dysfunction Echocardiogram on 08/09/2020 showed normal left ventricular size and function with an EF of 60 to 65% and grade 1 diastolic dysfunction. Epilepsy Gastroesophageal reflux disease GI bleed (12/2020) Reflux esophagitis noted on EGD. Grade 3 hemorrhoids noted on colonoscopy. Grade III hemorrhoids (12/2020) Hypertriglyceridemia Intellectual disability Non-seasonal allergic rhinitis Obstructive sleep apnea on CPAP Osteopenia Primary generalized (osteo)arthritis Vitamin D deficiency <Zoraida Nance PA-C - Last Filed: 06/05/23 15:39> Surgical History Surgical History: Surgical History History of basal cell carcinoma excision (~2017) History of colonoscopy with polypectomy History of laparoscopic cholecystectomy (01/2021) History of orthopedic surgery Status post bilateral hamstring and Achilles tendon lengthening. History of tonsillect
[2023-06-05 10:13] LABS: Basophils Percent Auto 0.2 % (0.2-1.2); Eosinophils Absolute Auto 0.2 K/mm3 (0-0.3); Eosinophils Percent Auto 3.6 % (0-4.4); Hematocrit 30.8 % (42.0-52.0); Immature Granulocyte Absolute 0.01 K/mm3 (0.00-0.031); Immature Granulocyte Percent A 0.2 % (0-0.5); Lymphocytes Absolute Auto 1.27 K/mm3 (0.9-3.2); Lymphocytes Percent Auto 24.3 % (18.3-44.2); Mean Corpuscular HGB Conc 32.5 g/dl (32-36); Mean Corpuscular Hemoglobin 31.7 pg (26-34); Mean Corpuscular Volume 97.8 fl (80-100); Mean Platelet Volume 9.3 fl (7.4-10.4); Monocytes Absolute Auto 0.6 K/mm3 (0.1-0.6); Monocytes Percent Auto 11.7 % (2.6-8.5); Neutrophils Absolute Auto 3.1 K/mm3 (1.3-6.7); Platelet Count Result 206 k/mm3 (150-375); Red Blood Count 3.15 M/mm3 (4.6-6.20); Red Cell Distribution Width 13.6 % (11.5-14.5); White Blood Count 5.2 K/mm3 (4.5-10.0)
[2023-06-05 10:25] LABS: Alanine Aminotransferase 18 U/L (6-50); Albumin Level 3.9 g/dL (3.5-5.1); Alkaline Phosphatase 81 U/L (38-126); Anion Gap 4 mmol/L (8-16); Aspartate Amino Transferase 25 U/L (17-59); Bilirubin,Total 0.3 mg/dL (0.2-1.3); Blood Urea Nitrogen 14 mg/dL (9-20); Calcium 8.5 mg/dL (8.4-10.2); Carbon Dioxide 27 mmol/L (22-30); Chloride 104 mmol/L (98-107); Estimated CRCL calculation 118 ml/min; Estimated Glomerular Filt Rate > 60; Glucose 93 mg/dL (65-110); Potassium 4.4 mmol/L (3.4-5.0); Sodium 135 mmol/L (137-145)
[2023-06-05 10:36] LABS: NT Pro B Type Natriuretic Pept 68 pg/mL (19.9-100); Troponin I < 0.012 ng/mL (0.000-0.034)
[2023-06-05 10:53] LABS: Lactic Acid Reflex 0.9 mmol/L (0.7-2.0)
[2023-06-05 10:57] LABS: Partial Thromboplastin Time 28.7 SECONDS (22.3-36.8); Prothrombin Time 13.8 Seconds (11.1-14.7)
[2023-06-05 11:03] LABS: D Dimer 0.97 ug/mL (<0.48); NT Pro B Type Natriuretic Pept 71 pg/mL (19.9-100)
[2023-06-05 11:07] LABS: Influenza A QL RT-PCR Negative (Negative); Influenza B QL RT-PCR Negative (Negative); RSV RNA, RT-PCR Negative (Negative); SARS-CoV-2 RNA PCR Negative (Negative)
[2023-06-05 11:30] LABS: Appearance Urine Clear (Clear); Bilirubin Urine Negative (Negative); Blood Urine Negative (Negative); Color Urine Yellow (Yellow); Glucose Urine UA Negative (Negative); Ketones Urine Negative (Negative); Leukocyte Esterase Ur Negative LEU/UL (Negative); Nitrate Urine Negative (Negative); Protein Urine Negative (Negative); Specific Grav Ur 1.016 (1.001-1.035); Urobilinogen Urine 0.2 mg/dL (<2.0)
[2023-06-05 11:42] LABS: Add Urine Microscopic? NO
[2023-06-05] MEDS: ALBUTEROL SULFATE NEB 2.5 MG/3 ML INH INHALATION (15:40)
[2023-06-05] MEDS: IPRATROPIUM BR 0.02% INH SOLN 0.5 MG/2.5 ML VIAL INHALATION (15:40)
[2023-06-05] MEDS: PHENYTOIN SODIUM 100 MG EXTENDED RELEASE CAP PO (15:46)
== END 2023-06-05 16:45 ==
PROVIDERS: Emergency Provider Physician Assistant; PCP Nurse Practitioner Family
DX: J20.8 Acute bronchitis due to other specified organisms (principal); R60.0 Localized edema; G40.909 Epilepsy, unspecified, not intractable, without status epilepticus; G47.33 Obstructive sleep apnea (adult) (pediatric); G80.9 Cerebral palsy, unspecified; N40.0 Benign prostatic hyperplasia without lower urinary tract symptoms; K21.9 Gastro-esophageal reflux disease without esophagitis; E78.1 Pure hyperglyceridemia; E55.9 Vitamin D deficiency, unspecified; F41.9 Anxiety disorder, unspecified; D64.9 Anemia, unspecified; I51.9 Heart disease, unspecified
CPT/HCPCS: 36415; 71045; 71275; 80053; 81003; 83605; 83735; 83880; 84484; 85025; 85380; 85610; 85730; 87637; 93005; 93970; 94640; 99284; A9270; Q9967

== ENCOUNTER 2023-11-03 11:18 | Emergency (ER) | payer MEDICARE, SELFPAY ==
[2023-11-03] VITALS (12 sets, daily range): BP systolic 131–151; BP diastolic 81–100; PULSE 68–80; RESP 13–20; TEMP 36.5; O2SAT 97
--- NOTE | ~2023-11-03 | US_ITS ---
EXAMINATION: US venous doppler [facility] DATE: 11/03/2023 13:08 INDICATION: Lower limb edema. TECHNIQUE: Grayscale ultrasound images without and with compression and Doppler ultrasound images of the bilateral lower extremity veins were obtained. COMPARISON: Ultrasound 06/05/2023 FINDINGS: Sensitivity is decreased by the patient's body habitus and soft tissue edema. The visualized portions of right common femoral vein, profunda (deep) femoral vein, femoral vein, popliteal vein, posterior tibial veins, and greater saphenous vein outflow are patent. The visualized portions of left common femoral vein, profunda femoral vein, femoral vein, popliteal v ein, posterior tibial veins, and greater saphenous vein outflow are patent. IMPRESSION: 1. No deep venous thrombosis. Reviewed, dictated and finalized at location A.
--- NOTE | 2023-11-03 12:24 | ED.EXTPRO ---
HPI - Extremity Problem General Chief complaint: Extremity Problem,Nontraumatic Stated complaint: edema Time Seen by Provider: 11/03/23 11:53 History of Present Illness HPI Narrative: 63-year-old male present to the emergency department for evaluation for increased lower extremity edema. Patient does have cerebral palsy and reports he is nonambulatory at baseline. Patient does have chronic lymphedema. Staff states they were concerned that his lower extremity swelling had increased. Upon arrival emergency department patient's legs were both wrapped Harry wrap. Patient denies any chest pain or shortness of breath. Patient is unsure if his legs had acutely worsened. Both legs are swollen but her very well-appearing the since there is no significant skin breakdown. Related Data Home Medications Medication Instructions Recorded Confirmed finasteride 5 mg tablet (Proscar) 5 mg PO DAILY 01/04/21 04/15/23 ferrous sulfate, dried 160 mg (50 160 mg PO DAILY 07/21/21 04/15/23 mg iron) tablet,extended release (Slow Release Iron) ibuprofen 600 mg tablet 600 mg PO TID PRN pain 09/24/22 04/15/23 spironolactone 25 mg tablet 25 mg PO DAILY 09/24/22 04/15/23 levetiracetam 1,000 mg tablet 1,000 mg PO TID 04/15/23 04/15/23 loratadine 10 mg tablet 10 mg PO DAILY 04/15/23 04/15/23 Allergies Allergy/AdvReac Type Severity Reaction Status Date / Time Sulfa (Sulfonamide Allergy Unknown Hives Verified 10/12/23 10:52 Antibiotics) Review of Systems Review of Systems: All systems reviewed & are unremarkable except as noted in HPI and below PMFSH Past Medical History Medical History Anxiety Basal cell carcinoma (BCC) of right side of nose (~2018) Benign prostatic hyperplasia Cerebral palsy With history of bilateral Achilles tendon (1972) and bilateral hamstring lengthening (1967). Chronic anemia Diastolic dysfunction Echocardiogram on 08/09/2020 showed normal left ventricular size and function with an EF of 60 to 65% and grade 1 diastolic dysfunction. Epilepsy Gastroesophageal reflux disease GI bleed (12/2020) Reflux esophagitis noted on EGD. Grade 3 hemorrhoids noted on colonoscopy. Grade III hemorrhoids (12/2020) Hypertriglyceridemia Intellectual disability Non-seasonal allergic rhinitis Obstructive sleep apnea on CPAP Osteopenia Primary generalized (osteo)arthritis Vitamin D deficiency Surgical History Surgical History History of basal cell carcinoma excision (~2018) History of colonoscopy with polypectomy History of laparoscopic cholecystectomy (01/2021) History of orthopedic surgery Status post bilateral hamstring and Achilles tendon lengthening. History of tonsillectomy Family History Family History Sibling Breast cancer Mother Pacemaker Hypertension Heart disease Social History Social History Social History: Resident of [facility]. He is essentially wheelchair bound but can transfer. Lifelong nonsmoker. No alcohol or illicit substance use. His sister, Isaac Riggs, is healthcare power of criminal attorney. Code status: Full code. Smoking status: Never smoker Alcohol intake: never Substance use: never Substance use type: does not use Lack of Transportation: No Lack of Food: Never True Current Housing: I Have Housing Concerned About Future Housing: No Difficulty Paying Gas/Electric Bills: No Difficulty Paying for Meds: No Currently Unemployed: No Education: High School Diploma/GED Difficulty w/ Childcare or Family Care: No Spiritual care concerns: No Exam Narrative: APPEARANCE: Well appearing, no pain, no distress, well-nourished. HEAD: normocephalic, atraumatic. EYES: PERRLA/EOMI, conjunctivae clear. NOSE: Normal no drainage EARS:TMS clear with good li
[2023-11-03 12:35] LABS: Basophils Percent Auto 0.4 % (0.2-1.2); Eosinophils Absolute Auto 0.2 K/mm3 (0-0.3); Eosinophils Percent Auto 3.3 % (0-4.4); Hematocrit 30.6 % (42.0-52.0); Hemoglobin 10.4 g/dL (14.0-18.0); Immature Granulocyte Absolute 0.02 K/mm3 (0.00-0.031); Immature Granulocyte Percent A 0.4 % (0-0.5); Lymphocytes Absolute Auto 1.06 K/mm3 (0.9-3.2); Lymphocytes Percent Auto 19.4 % (18.3-44.2); Mean Corpuscular Hemoglobin 31.6 pg (26-34); Mean Platelet Volume 9.8 fl (7.4-10.4); Monocytes Absolute Auto 0.5 K/mm3 (0.1-0.6); Monocytes Percent Auto 8.8 % (2.6-8.5); Neutrophils Absolute Auto 3.7 K/mm3 (1.3-6.7); Neutrophils Percent Auto 67.7 % (45.5-73.1); Platelet Count Result 196 k/mm3 (150-375); Red Blood Count 3.29 M/mm3 (4.6-6.20); Red Cell Distribution Width 13.3 % (11.5-14.5); White Blood Count 5.5 K/mm3 (4.5-10.0)
[2023-11-03 12:47] LABS: Alanine Aminotransferase 15 U/L (6-50); Albumin Level 3.9 g/dL (3.5-5.1); Alkaline Phosphatase 70 U/L (38-126); Anion Gap 5 mmol/L (4-12); Aspartate Amino Transferase 23 U/L (17-59); Bilirubin,Total 0.3 mg/dL (0.2-1.3); Blood Urea Nitrogen 23 mg/dL (9-20); Calcium 8.8 mg/dL (8.4-10.2); Carbon Dioxide 28 mmol/L (22-30); Chloride 103 mmol/L (98-107); Estimated CRCL calculation 109 ml/min; Estimated Glomerular Filt Rate > 60; Glucose 104 mg/dL (65-110); Potassium 4.2 mmol/L (3.4-5.0); Sodium 136 mmol/L (137-145)
[2023-11-03 12:53] LABS: Prothrombin Time 13.9 Seconds (11.1-14.7)
[2023-11-03 12:54] LABS: Partial Thromboplastin Time 29.4 Seconds (22.3-36.8)
[2023-11-03 12:55] LABS: NT Pro B Type Natriuretic Pept 47 pg/mL (19.9-100)
--- NOTE | 2023-11-03 14:40 | ECG_ITS ---
[facility] [address] Test Date: 2023-11-03 Pat Name: Aries Patterson Department: Room: Gender: M Supervisor Maintenance: : 1960 Requested By: Tyler Fermin Order Number: [id number] Miguel MD: Cholo Gregg M.D. Measurements Intervals [place] Rate: P: [place]: QRS: QRSD: T: QT: QTc: Interpretive Statements POOR QUALITY ECG PHOTOCOPY/DIFFICULT INTERPRETATION SINUS RHYTHM WITH FIRST-DEGREE AV BLOCK RIGHT BUNDLE BRANCH BLOCK ABNORMAL ECG Electronically Signed On 11-12-2023 08:50:20 CDT by Cholo Gregg M.D.
== END 2023-11-03 14:35 ==
PROVIDERS: Emergency Provider Emergency Medicine; PCP Nurse Practitioner Family
DX: I89.0 Lymphedema, not elsewhere classified (principal); G80.9 Cerebral palsy, unspecified; G40.909 Epilepsy, unspecified, not intractable, without status epilepticus; G47.33 Obstructive sleep apnea (adult) (pediatric); E55.9 Vitamin D deficiency, unspecified; N40.0 Benign prostatic hyperplasia without lower urinary tract symptoms; D64.9 Anemia, unspecified; M85.80 Other specified disorders of bone density and structure, unspecified site; K21.9 Gastro-esophageal reflux disease without esophagitis; F79 Unspecified intellectual disabilities; F41.9 Anxiety disorder, unspecified; Z86.010 Personal history of colon polyps; Z85.828 Personal history of other malignant neoplasm of skin; Z90.49 Acquired absence of other specified parts of digestive tract; Z79.899 Other long term (current) drug therapy
CPT/HCPCS: 36415; 80053; 83880; 85025; 85610; 85730; 93005; 93970; 99284

== ENCOUNTER 2024-01-05 16:03 | Outpatient (CLI) | payer MEDICARE, SELFPAY ==
[2024-01-05 16:17] LABS: Hematocrit 32.5 % (42.0-52.0); Mean Corpuscular HGB Conc 33.8 g/dl (32-36); Mean Corpuscular Hemoglobin 32.2 pg (26-34); Platelet Count Result 188 k/mm3 (150-375); Red Blood Count 3.42 M/mm3 (4.6-6.20); Red Cell Distribution Width 13.1 % (11.5-14.5); White Blood Count 5.6 K/mm3 (4.5-10.0)
[2024-01-05 16:50] LABS: Iron 124 ug/dL (49-181)
[2024-01-05 16:52] LABS: Alanine Aminotransferase 20 U/L (6-50); Albumin Level 4.5 g/dL (3.5-5.1); Alkaline Phosphatase 74 U/L (38-126); Anion Gap 8 mmol/L (4-12); Aspartate Amino Transferase 27 U/L (17-59); Bilirubin,Total 0.2 mg/dL (0.2-1.3); Blood Urea Nitrogen 23 mg/dL (9-20); Calcium 8.9 mg/dL (8.4-10.2); Carbon Dioxide 29 mmol/L (22-30); Chloride 98 mmol/L (98-107); Estimated Glomerular Filt Rate > 60; Glucose 100 mg/dL (65-110); Potassium 4.7 mmol/L (3.4-5.0); Sodium 135 mmol/L (137-145)
[2024-01-05 17:17] LABS: Percent Iron Saturation 41 % (20-50)
[2024-01-06 12:39] LABS: Homocysteine 15.7 umol/L (<11.4)
[2024-01-09 09:24] LABS: Methylmalonic Acid 295 nmol/L (69-390)
[2024-01-11 10:39] LABS: Soluble Transferrin Receptor 0.71 mg/L (0.76-1.76)
== END 2024-01-05 16:04 | disposition home or self-care (01) ==
LOC: ANHLAB 16:04
PROVIDERS: PCP Nurse Practitioner Family; Visit Provider Internal Medicine Hematology & Oncology
DX: D64.9 Anemia, unspecified (principal)
CPT/HCPCS: 36415; 80053; 82728; 83090; 83540; 83550; 83921; 84238; 85027

== ENCOUNTER 2024-06-06 09:52 | Emergency (ER) | payer MEDICARE, SELFPAY ==
[2024-06-06 09:50] VITALS: BP 184/87; PULSE 78; RESP 16; TEMP 37; O2SAT 99
[2024-06-06 10:15] VITALS: PULSE 78
[2024-06-06 10:36] LABS: Basophils Percent Auto 0.4 % (0.2-1.2); Eosinophils Absolute Auto 0.3 K/mm3 (0-0.3); Eosinophils Percent Auto 6.2 % (0-4.4); Hematocrit 30.9 % (42.0-52.0); Hemoglobin 10.6 g/dL (14.0-18.0); Immature Granulocyte Absolute 0.02 K/mm3 (0.00-0.031); Immature Granulocyte Percent A 0.4 % (0-0.5); Lymphocytes Absolute Auto 0.48 K/mm3 (0.9-3.2); Lymphocytes Percent Auto 10.2 % (18.3-44.2); Mean Corpuscular HGB Conc 34.3 g/dl (32-36); Mean Corpuscular Hemoglobin 33.1 pg (26-34); Mean Corpuscular Volume 96.6 fl (80-100); Mean Platelet Volume 9.5 fl (7.4-10.4); Monocytes Absolute Auto 0.7 K/mm3 (0.1-0.6); Monocytes Percent Auto 15.1 % (2.6-8.5); Neutrophils Absolute Auto 3.2 K/mm3 (1.3-6.7); Neutrophils Percent Auto 67.7 % (45.5-73.1); Platelet Count Result 179 k/mm3 (150-375); Red Cell Distribution Width 13.1 % (11.5-14.5); White Blood Count 4.7 K/mm3 (4.5-10.0)
[2024-06-06 10:45] VITALS: BP 176/85; PULSE 72; RESP 16; O2SAT 98
[2024-06-06 10:47] LABS: Lactic Acid Reflex 0.8 mmol/L (0.7-2.0)
[2024-06-06 10:49] LABS: Alanine Aminotransferase 28 U/L (6-50); Albumin Level 4.1 g/dL (3.5-5.1); Alkaline Phosphatase 78 U/L (38-126); Anion Gap 3 mmol/L (4-12); Aspartate Amino Transferase 33 U/L (17-59); Bilirubin,Total 0.2 mg/dL (0.2-1.3); Blood Urea Nitrogen 19 mg/dL (9-20); Calcium 8.6 mg/dL (8.4-10.2); Carbon Dioxide 28 mmol/L (22-30); Chloride 102 mmol/L (98-107); Estimated CRCL calculation 109 ml/min; Estimated Glomerular Filt Rate > 60; Glucose 95 mg/dL (65-110); Potassium 4.3 mmol/L (3.4-5.0); Sodium 133 mmol/L (137-145)
[2024-06-06 11:53] LABS: Phenytoin Dilantin 4 ug/mL (10-20)
[2024-06-06 12:52] LABS: Add Urine Microscopic? NO; Appearance Urine Clear (Clear); Bilirubin Urine Negative (Negative); Blood Urine Negative (Negative); Color Urine Yellow (Yellow); Glucose Urine UA Negative (Negative); Ketones Urine Negative (Negative); Leukocyte Esterase Ur Negative LEU/UL (Negative); Nitrate Urine Negative (Negative); Protein Urine Negative (Negative); Specific Grav Ur 1.015 (1.001-1.035); Urobilinogen Urine 0.2 mg/dL (<2.0); pH Urine 6.5 (5.0-9.0)
[2024-06-06 13:16] LABS: Influenza A QL RT-PCR Positive (Negative); Influenza B QL RT-PCR Negative (Negative); RSV RNA, RT-PCR Negative (Negative); SARS-CoV-2 RNA PCR Negative (Negative)
--- NOTE | 2024-06-06 13:29 | ED.SEIZURE ---
HPI - Seizure General Chief Complaint: Seizure Stated Complaint: seizure x 11 min Time Seen by Provider: 06/06/24 12:07 History of Present Illness HPI Narrative: patient is a 64-year-old male with a history of seizure disorder who presents ER from his correction with possible seizure. Patient had shaking that lasted approximately 11 minutes according to staff. It is not felt that he had lost consciousness. Patient is unsure what occurred. He did not receive his antiepileptic medication this morning. He does report he has been urinating frequently. His POA is present reports that he had a fever as well. No fever here. Denies runny nose or sore throat or cough. No chest pain or chest pressure. Seizure History: Yes Related Data Home Medications ?Medication ?Instructions ?Recorded ?Confirmed ?Last Taken ?Type finasteride 5 mg tablet (Proscar) 5 mg PO DAILY 01/04/21 02/10/24 01/04/21 History ferrous sulfate, dried 160 mg (50 160 mg PO DAILY 07/21/21 02/10/24 Unknown History mg iron) tablet,extended release (Slow Release Iron) ibuprofen 600 mg tablet 600 mg PO TID PRN pain 09/24/22 02/10/24 Unknown History spironolactone 25 mg tablet 25 mg PO DAILY 09/24/22 02/10/24 Unknown History levetiracetam 1,000 mg tablet 1,000 mg PO TID 04/15/23 02/10/24 Unknown History loratadine 10 mg tablet 10 mg PO DAILY 04/15/23 02/10/24 Unknown History Allergies Allergy/AdvReac Type Severity Reaction Status Date / Time Sulfa (Sulfonamide Allergy Unknown Hives Verified 10/12/23 10:52 Antibiotics) Review of Systems Review of Systems: All systems reviewed & are unremarkable except as noted in HPI and below Constitutional: Constitutional: Denies chills, Reports fatigue and Reports fever(s) ENT: Reports system reviewed and no additional complaints, except as documented Cardiovascular: Cardiovascular: Reports no additional cardiovascular complaints Respiratory: Respiratory: Reports no additional respiratory complaints Neurologic: Reports system reviewed and no additional complaints, except as documented [facility] Past Medical History Medical History Anxiety Basal cell carcinoma (BCC) of right side of nose (~2017) Benign prostatic hyperplasia Cerebral palsy With history of bilateral Achilles tendon (1972) and bilateral hamstring lengthening (1967). Chronic anemia Diastolic dysfunction Echocardiogram on 08/09/2020 showed normal left ventricular size and function with an EF of 60 to 65% and grade 1 diastolic dysfunction. Epilepsy Gastroesophageal reflux disease GI bleed (12/2020) Reflux esophagitis noted on EGD. Grade 3 hemorrhoids noted on colonoscopy. Grade III hemorrhoids (12/2020) Hypertriglyceridemia Intellectual disability Non-seasonal allergic rhinitis Obstructive sleep apnea on CPAP Osteopenia Primary generalized (osteo)arthritis Vitamin D deficiency Surgical History Surgical History History of basal cell carcinoma excision (~2018) History of colonoscopy with polypectomy History of laparoscopic cholecystectomy (01/2021) History of orthopedic surgery Status post bilateral hamstring and Achilles tendon lengthening. History of tonsillectomy Family History Family History Sibling Breast cancer Mother Pacemaker Hypertension Heart disease Social History Social History Social History: Resident of [facility]. He is essentially wheelchair bound but can transfer. Lifelong nonsmoker. No alcohol or illicit substance use. His sister, Isaac Riggs, is healthcare power of assistant prosecuting attorney. Code status: Full code. Smoking status: Never smoker Alcohol intake: never Substance use: never Substance use type: does not use Lack of Transportation: No Lack of Food: Never True Current Housing: I Have Housing Concerned About Future Housing: No Difficulty Paying Gas/Electric Bills: No Difficulty Paying for Meds: No Currently Unemployed: No Education: High School Diploma/GED Difficulty w/ Childcare or Family Care: No Spiritual care concerns: No Exam Narrative: GENERAL: Well-appearing, well-nourished, and in no acute distress. HEAD: Normocephalic, atraumatic. ENT: Mucous membranes moist. No evidence of tongue biting. NECK: Supple. CHEST: Clear to auscultation. No respiratory distress. HEART: Regular rate and rhythm. Normal peripheral pulses. ABDOMEN: Soft, nontender, nondistended. EXTREMITIES: Normal range of motion. Chronic lymphedema of lower extremities. SKIN: Warm, dry, no rash. NEURO: Alert and oriented x3. Course Course Emergency Course: Patient resting comfortably. Flu positive. Will give 1 dose of Keppra here prior to discharge. Will start on Tamiflu. Vital Signs Vital signs: Vital Signs Temperature 98.6 F 06/06/24 09:50 Pulse Rate 78 06/06/24 09:50 Respiratory Rate 16 06/06/24 09:50 Blood Pressure 184/87 H 06/06/24 09:50 Pulse Oximetry 99 06/06/24 09:50 Oxygen Delivery Room Air 06/06/24 09:50 Temperature 98.6 F 06/06/24 09:50 Pulse Rate 72 06/06/24 10:45 Respiratory Rate 16 06/06/24 10:45 Blood Pressure 176/85 H 06/06/24 10:45 Pulse Oximetry 98 06/06/24 10:45 Oxygen Delivery Room Air 06/06/24 10:30 MDM - Seizure Lab Data 06/06/24 10:27 06/06/24 10:27 Labs: Lab Results 06/06/24 06/06/24 06/06/24 Range/Units 10:27 12:32 12:39 WBC 4.7 (4.5-10.0) K/mm3 RBC 3.20 L (4.6-6.20) M/mm3 Hgb 10.6 L (14.0-18.0) g/dL Hct 30.9 L (42.0-52.0) % MCV 96.6 (80-100) fl MCH 33.1 (26-34) pg MCHC 34.3 (32-36) g/dl RDW 13.1 (11.5-14.5) % Plt Count 179 (150-375) k/mm3 MPV 9.5 (7.4-10.4) fl Immature Gran % (Auto) 0.4 (0-0.5) % Neut % (Auto) 67.7 (45.5-73.1) % Lymph % (Auto) 10.2 L (18.3-44.2) % [place] % (Auto) 15.1 H (2.6-8.5) % Eos % (Auto) 6.2 H (0-4.4) % Baso % (Auto) 0.4 (0.2-1.2) % Lymph # (Auto) 0.48 L (0.9-3.2) K/mm3 [place] # (Auto) 0.7 H (0.1-0.6) K/mm3 Eos # (Auto) 0.3 (0-0.3) K/mm3 Baso # (Auto) 0.0 (0.0-0.1) K/mm3 Abs Immat Gran (auto) 0.02 (0.00-0.031) K/mm3 Absolute Neuts (auto) 3.2 (1.3-6.7) K/mm3 Absolute Nucleated RBC 0.000 (0.0-0.012) K/mm3 Nucleated RBC % 0.0 (0.0-0.2) % Sodium 133 L (137-145) mmol/L Potassium 4.3 (3.4-5.0) mmol/L Chloride 102 (98-107) mmol/L Carbon Dioxide 28 (22-30) mmol/L Anion Gap 3 L (4-12) mmol/L BUN 19 (9-20) mg/dL Creatinine 0.90 (0.7-1.3) mg/dL Estim Creat Clear Calc 109 ml/min Estimated GFR > 60 (59 - ) Glucose 95 (65-110) mg/dL Lactic Acid 0.8 (0.7-2.0) mmol/L Calcium 8.6 (8.4-10.2) mg/dL Total Bilirubin 0.2 (0.2-1.3) mg/dL AST 33 (17-59) U/L ALT 28 (6-50) U/L Alkaline Phosphatase 78 (38-126) U/L Total Protein 7.0 (6.3-8.2) g/dL Albumin 4.1 (3.5-5.1) g/dL Urine Color Yellow (Yellow) Urine Appearance Clear (Clear) Urine pH 6.5 (5.0-9.0) Ur Specific [place] 1.015 (1.001-1.035) Urine Protein Negative (Negative) mg/dL Urine Glucose (UA) Negative (Negative) mg/dL Urine Ketones Negative (Negative) mg/dL Ur Blood (Man) Negative (Negative) Urine Nitrate Negative (Negative) Urine Bilirubin Negative (Negative) Urine Urobilinogen 0.2 (<2.0) mg/dL Leukocyte Esterase Rfl Negative (Negative) RADHA/UL Phenytoin 4 L (10-20) ug/mL Levetiracetam Pending Influenza A (RT-PCR) Positive A (Negative) Influenza B (RT-PCR) Negative (Negative) RSV (RT-PCR) Negative (Negative) SARS-CoV-2 RNA (RT-PCR) Negative (Negative) Discharge Plan Discharge Clinical Impression: Influenza, Breakthrough seizure Patient Disposition: Home, Self-Care Condition: Stable Instructions: Influenza (ED) Additional Instructions: take her seizure medication to prevent seizures. Return the ER if you cannot keep down food /water / medication, you develop chest pain with shortness of breath, or you have additional concerns. Patient Language: Uzbek Prescriptions: No Action ibuprofen 600 mg tablet 600 mg PO TID PRN (Reason: pain) spironolactone 25 mg tablet 25 mg PO DAILY Slow Release Iron 160 mg (50 mg iron) Tablet Extended Release 160 mg PO DAILY loratadine 10 mg tablet 10 mg PO DAILY Rx Instructions: TAKE ONE TABLET BY MOUTH DAILY levetiracetam 1,000 mg tablet 1,000 mg PO TID nystatin [Nyamyc] 100,000 unit/gram powder 1 applic topical BID Qty: 30 0RF finasteride [Proscar] 5 mg tablet 5 mg PO DAILY tamsulosin 0.4 mg capsule 0.4 mg PO QAM Qty: 30 5RF buspirone 15 mg tablet 15 mg PO TID Qty: 90 3RF ergocalciferol (vitamin D2) [Vitamin D2] 1,250 mcg (50,000 unit) capsule See Rx Instructions .ROUTE .COMPLEX Qty: 9 11RF Dose Instruction: TAKE ONE CAPSULE BY MOUTH TWICE A WEEK ON WEDNESDAY AND WEDNESDAY Rx Instructions: TAKE ONE CAPSULE BY MOUTH TWICE A WEEK ON WEDNESDAY AND WEDNESDAY phenytoin sodium extended 100 mg capsule See Rx Instructions .ROUTE .COMPLEX Qty: 150 11RF Dose Instruction: TAKE TWO CAPSULES BY MOUTH MORNING AND BEDTIME THEN 1 CAPSULE AT 4PM Rx Instructions: TAKE TWO CAPSULES BY MOUTH MORNING AND BEDTIME THEN 1 CAPSULE AT 4PM Follow-up/Referrals: UNKNOWN,DOCTOR [Primary Care Provider] - 1 Week
[2024-06-06] MEDS: levETIRAcetam 1000MG/NACL100ML 1,000 MG/100 ML BAG 400 MG IVPB (13:42)
[2024-06-06 14:20] VITALS: BP 180/70; PULSE 85; RESP 16; O2SAT 97
[2024-06-07 09:48] LABS: Levetiracetam Keppra 12.2 mcg/mL (6.0-46.0)
== END 2024-06-06 17:30 | disposition home or self-care (01) ==
PROVIDERS: Student in an Organized Health Care Education/Training Program; Emergency Provider Emergency Medicine
DX: J11.1 Influenza due to unidentified influenza virus with other respiratory manifestations (principal); G40.909 Epilepsy, unspecified, not intractable, without status epilepticus; I50.30 Unspecified diastolic (congestive) heart failure; G47.33 Obstructive sleep apnea (adult) (pediatric); Z99.89 Dependence on other enabling machines and devices; E55.9 Vitamin D deficiency, unspecified; K21.9 Gastro-esophageal reflux disease without esophagitis; Z20.822 Contact with and (suspected) exposure to COVID-19
CPT/HCPCS: 36415; 80053; 80177; 80185; 81003; 83605; 85025; 87637; 96374; 99284; J1953